=== PATIENT | male | born 1945 | race Caucasian/White ===

== ENCOUNTER 2017-02-14 11:34 | Observation (INO) | payer OTHER ==
[~2017-02-14] VITALS: Ht 182.9 cm; Wt 78.5 kg
[~2017-02-14 11:34] MED LIST: ALAV10TA10 PO; ALBU1.25 NEB; ASPI81CH PO; ATOR40TA16 PO; FERR1TAB36 PO; FURO40TA PO; IPRAAER INH; LACT10SO47 PO; LISI-519 PO; METO25TA3 PO; OMEP20TA PO; SERT1POW3 PO; SPIR25TA PO; SYMB160A INH; THIAPOW36 PO; TRAZ50TA12 PO
[2017-02-14 11:35] VITALS: BP 116/68; PULSE 74; RESP 20; TEMP 97.5; O2SAT 93
--- NOTE | 2017-02-14 12:10 | PD ---
HPI Chief Complaint: Respiratory Symptoms Time Seen by Provider: 12:00 Travel History International Travel<30 days: No Contact w/Intl Traveler<30days: No Traveled to known affect area: No History of Present Illness HPI The patient is a 71 year-old male who presents to the emergency department shortness of breath. Patient is a 2 day history of progressing shortness of breath with bilateral lower extremity edema as well as a dry and nonproductive cough. The patient has a history of COPD, quit smoking 4 days ago , and a history congestive heart.. The patient is followed through the [place] [facility] with his rn surgical pcu and primary physician. The patient has been using nebulizers at home without any alleviation of his symptoms. He denies any chest pain, shortness of breath is present at rest, but is worse with exertion. He also notes some intermittent audible wheezing. The patient denies any fever, chills, or sweats. He denies any abdominal pain. PFSH Past Medical History Hx Anticoagulant Therapy: Yes (XARELTO) Arthritis: No Asthma: No Autoimmune Disease: No Blood Disorders: No Anxiety: Yes Depression: Yes Heart Rhythm Problems: No Cancer: No Cardiovascular Problems: Yes (TRIPLE BYPASS) High Cholesterol: No Chemotherapy: No Chest Pain: No Congestive Heart Failure: Yes COPD: Yes Cerebrovascular Accident: No Diabetes: No Diminished Hearing: No Endocrine: No Gastrointestinal Disorders: Yes (EROSIVE ESOPHAGITIS; COLITIS) GERD: Yes Glaucoma: No Genitourinary: No Headaches: No Hepatitis: Yes (C) Hiatal Hernia: Yes Hypertension: Yes Immune Disorder: No Kidney Stones: No Musculoskeletal: No Neurologic: No Psychiatric: Yes Reproductive: No Respiratory: Yes (COPD) Migraines: No Myocardial Infarction: No Radiation Therapy: No Renal Failure: No Seizures: No Sickle Cell Disease: No Sleep Apnea: No Thyroid Disease: No Ulcer: No Past Surgical History Abdominal Surgery: Yes (ESOPHAGEAL VARICIES 2006) AICD: No Appendectomy: No Arteriovenous Shunt: No Cardiac Surgery: Yes Cholecystectomy: No Coronary Artery Bypass Graft: Yes (TRIPLE BYPASS) Ear Surgery: No Endocrine Surgery: No Eye Surgery: No Genitourinary Surgery: No Gynecologic Surgery: No Insulin Pump: No Joint Replacement: No Oral Surgery: No Pacemaker: No Thoracic Surgery: No Other Surgery: Yes (CABAG) Social History Alcohol Use: No Tobacco Use: Yes (E CIGARETTE) Substance Use: Yes (Marijuana) Allergies-Medications (Allergen,Severity, Reaction): Coded Allergies: No Known Allergies (Verified , 02/14/17) Reported Meds & Prescriptions Reported Meds & Active Scripts Active Furosemide 40 Mg Tab 40 Mg PO DAILY Lisinopril 5 Mg Tab 5 Mg PO DAILY 30 Days Reported Thiamine HCl 1 Pow Pow 100 Mg PO DAILY Trazodone (Trazodone HCl) 50 Mg Tab 25 Mg PO HS Symbicort Inh (Budesonide/Formoterol Fumarate) 160-4.5 Mcg/Act Aero 1 Puff INH BID Spironolactone 25 Mg Tab 25 Mg PO BID Sertraline HCl (Sertraline HCl (Bulk)) 1 Pow Pow 50 Mg PO DAILY Atorvastatin (Atorvastatin Calcium) 40 Mg Tab 40 Mg PO HS Alavert (Loratadine) 10 Mg Tab 10 Mg PO DAILY Omeprazole 20 Mg Tab 20 Mg PO DAILY Metoprolol Tartrate 25 Mg Tab 25 Mg PO BID Iron (Ferrous Sulfate) 325 Mg Tab 325 Mg PO DAILY Take after a meal. Enulose Liq (Lactulose (Encephalopathy) Liq) 10 Gm/15 Ml Soln Combivent Respimat Inh (Ipratropium-Albuterol Inh) 20-100 Jail/Act Aero 1 Puff INH QID Aspirin 81 Mg Chew 81 Mg PO DAILY Albuterol Neb (Albuterol Sulfate) 1.25 Mg/3 Ml Neb 1 Ampule NEB QID PRN Review of Systems Except as stated in HPI: all other systems reviewed are Neg General / Constitutional: No: Fever Cardiovascular: No: Chest Pain or Discomfort Respiratory: Positive: Cough, Shortness of Breath, Wheezing Gastrointestinal: No: Nausea, Vomiting, Abdominal Pain Musculoskeletal: Positive: Edema Physical Exam Narrative GENERAL: Awake, alert, pleasant 71-year-old male who appears his stated age and is in mild respiratory distress. SKIN: Warm and dry. HEAD: Atraumatic. Normocephalic. EYES: Pupils equal and round. Mild pallor noted. ENT: No nasal bleeding or discharge. Mucous membranes pink and moist. NECK: Trachea midline. No JVD. CARDIOVASCULAR: Regular, tachycardic with a heart rate of 102. No audible murmur.. RESPIRATORY: No accessory muscle use. Diminished breath sounds in the bases bilateral. GASTROINTESTINAL: Abdomen soft, non-tender, nondistended. Umbilical hernia which is reducible, superior ventral hernia which is reducible. MUSCULOSKELETAL: No obvious deformities. No clubbing. No cyanosis. Bilateral lower extremity pitting edema. NEUROLOGICAL: Awake and alert. No obvious cranial nerve deficits. Motor grossly within normal limits. Normal speech. PSYCHIATRIC: Appropriate mood and affect; insight and judgment normal. Data Data Last Documented VS Vital Signs Date Time Temp Pulse Resp B/P Pulse Ox O2 Delivery O2 Flow Rate FiO2 02/14/17 13:45 66 20 131/78 93 Room Air 02/14/17 11:35 97.5 Orders Complete Blood Count With Diff (02/14/17 12:05) Comprehensive Metabolic Panel (02/14/17 12:05) B-Type Natriuretic Peptide (02/14/17 12:05) Act Partial Throm Time (Ptt) (02/14/17 12:05) Prothrombin Time / Inr (Pt) (02/14/17 12:05) Magnesium (Mg) (02/14/17 12:05) Ckmb (Isoenzyme) Profile (02/14/17 12:05) Troponin I (02/14/17 12:05) Iv Access Insert/Monitor (02/14/17 12:05) Electrocardiogram (02/14/17 12:05) Ecg Monitoring (02/14/17 12:05) Oximetry (02/14/17 12:05) Oxygen Administration (02/14/17 12:05) Chest, Single Ap (02/14/17 12:05) Sodium Chloride 0.9% Flush (Ns Flush) (02/14/17 12:15) Furosemide Inj (Lasix Inj) (02/14/17 12:15) Methylprednisolone So Succ Inj (Solumedr (02/14/17 12:15) Albuterol-Ipratropium Neb (Duoneb Neb) (02/14/17 12:15) Aspirin Chew (Aspirin Chew) (02/14/17 13:45) Labs Laboratory Tests Test 02/14/17 12:05 White Blood Count 4.7 TH/MM3 Red Blood Count 3.55 MIL/MM3 Hemoglobin 10.1 GM/DL Hematocrit 30.7 % Mean Corpuscular Volume 86.5 FL Mean Corpuscular Hemoglobin 28.3 PG Mean Corpuscular Hemoglobin 32.7 % Concent Red Cell Distribution Width 19.9 % Platelet Count 149 TH/MM3 Mean Platelet Volume 8.8 FL Neutrophils (%) (Auto) 65.6 % Lymphocytes (%) (Auto) 13.2 % Monocytes (%) (Auto) 13.5 % Eosinophils (%) (Auto) 6.6 % Basophils (%) (Auto) 1.1 % Neutrophils # (Auto) 3.1 TH/MM3 Lymphocytes # (Auto) 0.6 TH/MM3 Monocytes # (Auto) 0.6 TH/MM3 Eosinophils # (Auto) 0.3 TH/MM3 Basophils # (Auto) 0.1 TH/MM3 CBC Comment DIFF FINAL Differential Comment Prothrombin Time 13.6 SEC Prothromb Time International 1.2 RATIO Ratio Activated Partial 26.1 SEC Thromboplast Time Sodium Level 143 MEQ/L Potassium Level 3.4 MEQ/L Chloride Level 109 MEQ/L Carbon Dioxide Level 28.9 MEQ/L Anion Gap 5 MEQ/L Blood Urea Nitrogen 15 MG/DL Creatinine 0.79 MG/DL Estimat Glomerular Filtration 97 ML/MIN Rate Random Glucose 90 MG/DL Calcium Level 8.1 MG/DL Magnesium Level 1.5 MG/DL Total Bilirubin 0.5 MG/DL Aspartate Amino Transf 17 U/L (AST/SGOT) Alanine Aminotransferase 13 U/L (ALT/SGPT) Alkaline Phosphatase 83 U/L Total Creatine Kinase 49 U/L Troponin I 0.02 NG/ML B-Type Natriuretic Peptide 3148 PG/ML Total Protein 6.6 GM/DL Albumin 2.9 GM/DL [facility] Medical Decision Making Medical Screen Exam Complete: Yes Emergency Medical Condition: Yes Medical Record Reviewed: Yes Interpretation(s) EKG reveals normal sinus rhythm with a rate of 66. Left bundle-branch block. Laboratory Tests Test 02/14/17 12:05 White Blood Count 4.7 TH/MM3 Red Blood Count 3.55 MIL/MM3 Hemoglobin 10.1 GM/DL Hematocrit 30.7 % Mean Corpuscular Volume 86.5 FL Mean Corpuscular Hemoglobin 28.3 PG Mean Corpuscular Hemoglobin 32.7 % Concent Red Cell Distribution Width 19.9 % Platelet Count 149 TH/MM3 Mean Platelet Volume 8.8 FL Neutrophils (%) (Auto) 65.6 % Lymphocytes (%) (Auto) 13.2 % Monocytes (%) (Auto) 13.5 % Eosinophils (%) (Auto) 6.6 % Basophils (%) (Auto) 1.1 % Neutrophils # (Auto) 3.1 TH/MM3 Lymphocytes # (Auto) 0.6 TH/MM3 Monocytes # (Auto) 0.6 TH/MM3 Eosinophils # (Auto) 0.3 TH/MM3 Basophils # (Auto) 0.1 TH/MM3 CBC Comment DIFF FINAL Differential Comment Prothrombin Time 13.6 SEC Prothromb Time International 1.2 RATIO Ratio Activated Partial 26.1 SEC Thromboplast Time Sodium Level 143 MEQ/L Potassium Level 3.4 MEQ/L Chloride Level 109 MEQ/L Carbon Dioxide Level 28.9 MEQ/L Anion Gap 5 MEQ/L Blood Urea Nitrogen 15 MG/DL Creatinine 0.79 MG/DL Estimat Glomerular Filtration 97 ML/MIN Rate Random Glucose 90 MG/DL Calcium Level 8.1 MG/DL Magnesium Level 1.5 MG/DL Total Bilirubin 0.5 MG/DL Aspartate Amino Transf 17 U/L (AST/SGOT) Alanine Aminotransferase 13 U/L (ALT/SGPT) Alkaline Phosphatase 83 U/L Total Creatine Kinase 49 U/L Troponin I 0.02 NG/ML B-Type Natriuretic Peptide 3148 PG/ML Total Protein 6.6 GM/DL Albumin 2.9 GM/DL Differential Diagnosis Differential diagnosis includes COPD exacerbation, congestive heart failure, pulmonary edema, pleural effusion, pneumonia, acute coronary syndrome. Narrative Course IV was established, labs are drawn and sent, and the patient was placed on cardiac telemetry monitoring and continuous pulse oximetry monitoring. EKG was ordered and interpreted. Chest x-ray was obtained. The patient was administered Solu-Medrol 120, grams intravenously, duo nebs, and Lasix. BNP was sent to lab. Chest x-ray reveals a left pleural effusion, appears to be similar to previous chest x-ray. BNP was greater than 3000, the patient did urinate over 800 cc after intravenous Lasix. He had mild improvement of his symptoms, however, his O2 sat remained 90-91% on room air and he still had mild shortness of breath. I had a discussion with the patient regarding outpatient treatment versus 23 hour observation, patient states he is still symptomatic and would prefer 23 hour observation. Therefore, the on-call medical team was paged for observation. Physician Communication Physician Communication The on-call medical service was paged for 23 hour observation. Diagnosis Primary Impression: CHF exacerbation Qualified Code: I50.9 - Acute on chronic congestive heart failure, unspecified congestive heart failure type Additional Impression: Hypoxia Admitting Information Admitting Physician Requests: Observation Condition: Stable Kevon Mccarthy MD Feb 14, 2017 12:10
[2017-02-14] MEDS ORDERED: FUROSEMIDE 40 MG/4 ML VIAL IVP ONE (12:15)
[2017-02-14] MEDS ORDERED: SODIUM CHLORIDE 0.9% FLUSH 10 ML FLUSH IVF PRN (12:15)
[2017-02-14] MEDS ORDERED: methylPREDNISolone SOD SUCC 125 MG/2 ML VIAL IVP ONE (12:15)
[2017-02-14 12:30] LABS: AUTOMATED NEUTROPHIL # 3.1 TH/MM3 (1.8-7.7); BASOPHIL # 0.1 TH/MM3 (0-0.2); BASOPHIL % 1.1 % (0.0-2.0); EOSINOPHIL # 0.3 TH/MM3 (0-0.4); EOSINOPHIL % 6.6 % (0.0-4.0); HEMATOCRIT 30.7 % (39.0-51.0); HEMO FLAGS DIFF FINAL; LYMPH % 13.2 % (9.0-44.0); LYMPHOCYTE # 0.6 TH/MM3 (1.0-4.8); MEAN CELL VOLUME 86.5 FL (80.0-100.0); MEAN CORPUSCULAR HEMOGLOBIN 28.3 PG (27.0-34.0); MEAN CORPUSCULAR HGB CONC 32.7 % (32.0-36.0); MONO % 13.5 % (0.0-8.0); NEUT % 65.6 % (16.0-70.0); PLATELET COUNT 149 TH/MM3 (150-450); RED BLOOD COUNT 3.55 MIL/MM3 (4.50-5.90); RED CELL DISTRIBUTION WIDTH 19.9 % (11.6-17.2); WHITE BLOOD COUNT 4.7 TH/MM3 (4.0-11.0)
[2017-02-14 12:41] LABS: APTT (PATIENT) 26.1 SEC (24.3-30.1); INTERNATIONAL NORMALIZED RATIO 1.2 RATIO; PROTHROMBIN TIME - PATIENT 13.6 SEC (9.8-11.6)
[2017-02-14 12:48] LABS: ALT (GPT) 13 U/L (12-78); ANION GAP 5 MEQ/L (5-15); AST (GOT) 17 U/L (15-37); BICARBONATE 28.9 MEQ/L (21.0-32.0); BLOOD UREA NITROGEN 15 MG/DL (7-18); CHLORIDE 109 MEQ/L (98-107); GLOMERULAR FILTRATION RATE 97 ML/MIN (>89); MAGNESIUM 1.5 MG/DL (1.5-2.5); POTASSIUM 3.4 MEQ/L (3.5-5.1); SODIUM (NA) 143 MEQ/L (136-145)
[2017-02-14 12:51] LABS: ALKALINE PHOSPHATASE 83 U/L (45-117); TOTAL BILIRUBIN ADULT 0.5 MG/DL (0.2-1.0)
[2017-02-14 12:53] LABS: CREATINE KINASE 49 U/L (39-308)
[2017-02-14] MEDS: RESP: ALBUTEROL 2.5 MG/IPRATROPIUM 0.5 MG NEB (SCH) INH (13:14)
[2017-02-14 13:41] VITALS: RESP 20; O2SAT 92
[2017-02-14 13:45] VITALS: BP 131/78; PULSE 66; RESP 20; O2SAT 93
[2017-02-14] MEDS ORDERED: ASPIRIN 81 MG CHEW TAB CHEW ONE (13:45)
--- NOTE | 2017-02-14 14:33 | RADRPT ---
EXAM DATE/TIME: 02/14/2017 12:18 [facility] COMPARISON: CHEST SINGLE AP, September 23, 2016, 14:39. INDICATIONS : Short of breath and swelling in both legs MEDICAL HISTORY : Chronic obstructive pulmonary disease. Congestive heart failure. SURGICAL HISTORY : CABG. ENCOUNTER: Initial ACUITY: 1 day PAIN SCORE: 0/10 LOCATION: Chest FINDINGS: Median sternotomy wires are noted status post cardiac surgery. The heart is enlarged. The lungs are stable compared to the previous examination. CONCLUSION: 1. Cardiomegaly. 2. No acute focal pulmonary infiltrate or pulmonary vascular congestion. Jeff Loza MD on February 14, 2017 at 14:13 Board Certified Radiologist. This report was verified electronically.
[2017-02-14 15:11] VITALS: BP 135/79; PULSE 68; RESP 20; O2SAT 92
--- NOTE | 2017-02-14 15:25 | HHI.HP ---
[facility] Service Family Medicine Primary Care Physician [facility] Admission Diagnosis congestive heart failure, hypoxia Diagnoses: Chief Complaint: "more of the same" International Travel<30 Days: No Contact w/Intl Traveler<30days: No Known Affected Area: No History of Present Illness 71 year old male with a history of CAD, CABG, CHF, COPD, cirrhosis who presents with a five-day history of increasing swelling of the ankles and legs and "labored breathing". These symptoms began abruptly three days ago. He is able to walk long distances but he gets tired, "run out of energy." No chest pain, dizziness, nausea, vomiting. Right now he is sleepy, only got a little bit last night. Denies confusion, falls, seizures. No problem lying flat, sleeps on one pillow. Weighs himself at home, gains a couple pounds in the last three days. No sick contacts or recent illnesses. No recent travel. Denies history of stroke. Baseline of CHF, last echo unknown, probably 9 months ago. Takes aspirin and water pills. On digoxin as well. He is not on home oxygen for his COPD but states he uses his albuterol inhaler 2-3 times per day. (Rosalind Baires MD R1) Review of Systems Constitutional: COMPLAINS OF: Fatigue, Weight gain (2-3lb in one week), Change in appetite (decreased), DENIES: Fever, Chills Eyes: DENIES: Blurred vision, Diplopia Ears, nose, mouth, throat: DENIES: Tinnitus, Hearing loss, Throat pain, Running Nose Respiratory: COMPLAINS OF: Cough (on and off), Wheezing, Shortness of breath, DENIES: Hemoptysis, Sputum production Cardiovascular: COMPLAINS OF: Dyspnea on Exertion, Lower Extremity Edema, Claudication, DENIES: Chest pain, Palpitations, Syncope, PND, Orthopnea Gastrointestinal: COMPLAINS OF: Abdominal pain (umbilical hernia chronic pain) , DENIES: Black stools, Bloody stools, Constipation, Diarrhea, Nausea, Vomiting Genitourinary: COMPLAINS OF: Urinary incontinence (sometimes), DENIES: Urinary frequency, Urgency, Dysuria Musculoskeletal: DENIES: Back pain, Neck pain Integumentary: DENIES: Rash Hematologic/lymphatic: DENIES: Bruising Immunologic/allergic: DENIES: Urticaria Neurologic: COMPLAINS OF: Tremor (when out of breath), Poor Balance, DENIES: Headache, Seizures (Rosalind Baires MD R1) Past Family Social History Past Medical History Cirrhosis - on lactulose Hepatitis C - treated 2015 (12 week therapy) History of alcohol abuse Varices - banded 7-8 years COPD - intubated 2 years ago for exacerbation for ~ 1 week at [place] CHF - has case filler, unknown echo timing, unknown EF HTN Past Surgical History Triple bypass approximately 2 years ago Reported Medications Reported Meds & Active Scripts Active Furosemide 40 Mg Tab 40 Mg PO DAILY Lisinopril 5 Mg Tab 5 Mg PO DAILY 30 Days Reported Thiamine HCl 1 Pow Pow 100 Mg PO DAILY Trazodone (Trazodone HCl) 50 Mg Tab 25 Mg PO HS Symbicort Inh (Budesonide/Formoterol Fumarate) 160-4.5 Mcg/Act Aero 1 Puff INH BID Spironolactone 25 Mg Tab 25 Mg PO BID Sertraline HCl (Sertraline HCl (Bulk)) 1 Pow Pow 50 Mg PO DAILY Atorvastatin (Atorvastatin Calcium) 40 Mg Tab 40 Mg PO HS Alavert (Loratadine) 10 Mg Tab 10 Mg PO DAILY Omeprazole 20 Mg Tab 20 Mg PO DAILY Metoprolol Tartrate 25 Mg Tab 25 Mg PO BID Iron (Ferrous Sulfate) 325 Mg Tab 325 Mg PO DAILY Take after a meal. Enulose Liq (Lactulose (Encephalopathy) Liq) 10 Gm/15 Ml Soln Combivent Respimat Inh (Ipratropium-Albuterol Inh) 20-100 Fdc/Act Aero 1 Puff INH QID Aspirin 81 Mg Chew 81 Mg PO DAILY Albuterol Neb (Albuterol Sulfate) 1.25 Mg/3 Ml Neb 1 Ampule NEB QID PRN ( Rosalind Baires MD R1) Allergies: Coded Allergies: No Known Allergies (Verified , 02/14/17) Family History Mother: , natural causes Father: 53, CHF Son: age 13, CHF Son: age 43, stroke, EtOH abuse Social History Cigarette: former, <1PPD 30 years Alcohol: wine, 1/2 bottle weekly Illicit: Lives alone Not on home O2 (Rosalind Baires MD R1) Physical Exam Vital Signs Vital Signs Date Time Temp Pulse Resp B/P Pulse Ox O2 Delivery O2 Flow Rate FiO2 02/14/17 13:45 66 20 131/78 93 Room Air 02/14/17 13:41 92 Room Air 02/14/17 13:41 20 92 Room Air 02/14/17 11:35 97.5 74 20 116/68 93 Room Air Physical Exam GENERAL: This is a thin elderly male lying in bed sleeping. SKIN: No rashes, ecchymoses or lesions. Cool and dry. HEAD: Atraumatic. Normocephalic. No temporal or scalp tenderness. EYES: Pupils equal round and reactive. Extraocular motions intact. No scleral icterus. No injection or drainage. ENT: Nose without bleeding, purulent drainage or septal hematoma. Throat without erythema, tonsillar hypertrophy or exudate. Uvula midline. Airway patent. NECK: Trachea midline. No JVD or lymphadenopathy. Supple, nontender, no meningeal signs. CARDIOVASCULAR: Regular rate and rhythm without murmurs, gallops, or rubs. RESPIRATORY: End-expiratory wheezing noted throughout. No obvious crackles, rales. Breath sounds equal bilaterally. GASTROINTESTINAL: Abdomen soft, thin, non-tender, nondistended. There is a large umbilical hernia which is reducible and nontender. Bowel sounds are normal in all 4 quadrants and in hernia sac No hepato-splenomegaly, or palpable masses. No guarding. MUSCULOSKELETAL: Extremities without clubbing, cyanosis, or edema. No joint tenderness, effusion, or edema noted. No calf tenderness. Negative Homans sign bilaterally. NEUROLOGICAL: Awake and alert. Cranial nerves II through XII intact. No asterixis. Grossly normal sensory and strength functions. Normal speech. Laboratory Laboratory Tests Test 02/14/17 12:05 White Blood Count 4.7 Red Blood Count 3.55 Hemoglobin 10.1 Hematocrit 30.7 Mean Corpuscular Volume 86.5 Mean Corpuscular Hemoglobin 28.3 Mean Corpuscular Hemoglobin 32.7 Concent Red Cell Distribution Width 19.9 Platelet Count 149 Mean Platelet Volume 8.8 Neutrophils (%) (Auto) 65.6 Lymphocytes (%) (Auto) 13.2 Monocytes (%) (Auto) 13.5 Eosinophils (%) (Auto) 6.6 Basophils (%) (Auto) 1.1 Neutrophils # (Auto) 3.1 Lymphocytes # (Auto) 0.6 Monocytes # (Auto) 0.6 Eosinophils # (Auto) 0.3 Basophils # (Auto) 0.1 CBC Comment DIFF FINAL Differential Comment Prothrombin Time 13.6 Prothromb Time International 1.2 Ratio Activated Partial 26.1 Thromboplast Time Sodium Level 143 Potassium Level 3.4 Chloride Level 109 Carbon Dioxide Level 28.9 Anion Gap 5 Blood Urea Nitrogen 15 Creatinine 0.79 Estimat Glomerular Filtration 97 Rate Random Glucose 90 Calcium Level 8.1 Magnesium Level 1.5 Total Bilirubin 0.5 Aspartate Amino Transf 17 (AST/SGOT) Alanine Aminotransferase 13 (ALT/SGPT) Alkaline Phosphatase 83 Total Creatine Kinase 49 Troponin I 0.02 B-Type Natriuretic Peptide 3148 Total Protein 6.6 Albumin 2.9 (Rosalind Baires MD R1) Result Diagram: 02/14/17 1205 02/14/17 1205 Imaging Last 72 hours Impressions Chest X-Ray 02/14/17 1205 Signed Impressions: Service Date/Time: Tuesday, February 14, 2017 12:18 - CONCLUSION: 1. Cardiomegaly. 2. No acute focal pulmonary infiltrate or pulmonary vascular congestion. Jeff Loza MD (Rosalind Baires MD R1) Assessment and Plan Assessment and Plan 71-year-old male with history of CHF, CAD with history of CABG, COPD, cirrhosis presented to the ED with shortness of breath and chest pain. Code Status Full code Discussed Condition With Dr. Sanchez, Dr. Joyner (Rosalind Baires MD R1) Attending Attestation THIS CASE WAS DISCUSSED WITH THE RESIDENT PHYSICIAN. I HAVE REVIEWED THE RECORD AND AGREE WITH THE ABOVE NOTE AND PLAN OF CARE WAS DISCUSSED. I HAVE AUTHORIZED THE ORDER FOR PLACEMENT IN OUT-PATIENT OBSERVATION STATUS. (Crow Joyner MD) Problem List: (1) CHF exacerbation Status: Acute Plan: Last echo 08/2016 showing EF 35/40%, mild MR, TR, peak pulmonary arterial pressure = 58mmHg. CXR this hospital stay showing cardiomegaly without evidence of infiltrate. Repeat echocardiogram Lasix 40 mg IV in ED yielded 40 mL diuresis Continue Lasix 40 mg IV twice a day, increase for diuresis as needed Continue home medications for medical management of CHF, including lisinopril, aspirin, spironolactone May benefit from beta damon and cardiac rehabilitation evaluation (2) Cirrhosis, alcoholic Status: Chronic Plan: Chronic, stable. No evidence of ascites. Patient states he had symptomatic esophageal varices banded 7-8 years ago. He also notes a history of encephalopathy. Currently on lactulose at home, unknown dose. Continue PPI Will hold lactulose at admission given unknown dose. Monitor bowel movements. Restart at 20 mg 3-4 times per day if no bowel movements, goal is 2-3 bowel movements daily CIWA protocol with rally pack. He is already on many multivitamins as outpatient (3) Fluids/Electrolytes/Nutrition/Prophylaxis Status: Acute Plan: Fluids: PO hydration Electrolytes: monitor and replete as needed Nutrition: heart-healthy diet DVT Prophylaxis: Lovenox 40mg subQ q24hr/bilateral SCDs. Platelets 149 at admission GI Prophylaxis: Protonix 20mg PO daily home dose (Rosalind Baires MD R1) Problem Qualifiers (1) CHF exacerbation: Qualified Code: I50.9 - Acute on chronic congestive heart failure, unspecified congestive heart failure type (2) Cirrhosis, alcoholic: Qualified Code: K70.30 - Alcoholic cirrhosis of liver without ascites Rosalind Baires MD R1 Feb 14, 2017 15:25 Crow Joyner MD Feb 15, 2017 12:33
[2017-02-14] MEDS ORDERED: NALOXONE HCL 0.4 MG/ML AMP IV PRN (15:45)
[2017-02-14] MEDS ORDERED: ACETAMINOPHEN 325 MG TAB PO PRN (15:45)
[2017-02-14] MEDS ORDERED: SODIUM CHLORIDE 0.9% FLUSH 10 ML FLUSH IV FLUSH PRN (15:45)
[2017-02-14] MEDS ORDERED: ONDANSETRON HCL 4 MG/2 ML VIAL IVP PRN (15:45)
[2017-02-14 15:55] VITALS: O2SAT 93
[2017-02-14] MEDS ORDERED: LORazepam 2 MG/ML VIAL IV PUSH PRN ×4 (16:00)
[2017-02-14] MEDS ORDERED: LORazepam 1 MG TAB PO PRN (16:00)
[2017-02-14] MEDS ORDERED: LORazepam 2 MG TAB PO PRN (16:00)
[2017-02-14] MEDS ORDERED: FLUMAZENIL 0.5 MG/5 ML VIAL IV PUSH PRN (16:00)
[2017-02-14] MEDS ORDERED: RESP: ALBUTEROL 1.25 MG/3 ML NEB (PRN) NEB (16:00)
[2017-02-14] MEDS ORDERED: PILL SPLITTER OTHER PRN (16:15)
[2017-02-14] MEDS ORDERED: NON-FORMULARY DRUG (Ipratropium-Albuterol Inh (Combivent Respimat Inh) 1 PUFF) INH SCH (18:00)
[2017-02-14] MEDS: FOLIC ACID 1 MG TAB PO SCH (19:51)
[2017-02-14] MEDS: MULTIVITAMINS/MINERALS THERAPEUTIC TAB PO SCH (19:51)
[2017-02-14] MEDS: ALBUTEROL SULFATE 90 MCG/ACT HFA 18 GM INHALER INH SCH ×2 (19:52→21:45)
[2017-02-14] MEDS: FUROSEMIDE 40 MG/4 ML VIAL IV PUSH SCH (19:52)
[2017-02-14 20:24] LABS: BLOOD, URINE NEG (NEG); COMMENT (UR) CULT NOT INDICATED; CULTURE IF INDICATED CULT NOT INDICATED; GLUCOSE,URINE NEG (NEG); HYALINE CAST, URINE 1 /lpf (RARE); KETONE, URINE NEG (NEG); MUCUS URINE FEW /lpf (OCC); NITRITE,URINE NEG (NEG); URINE COLOR COLORLESS (YELLW/STRAW)
[2017-02-14 20:51] LABS: CREATINE KINASE 33 U/L (39-308)
[2017-02-14] MEDS: SODIUM CHLORIDE 0.9% FLUSH 10 ML FLUSH IV FLUSH SCH (21:00)
[2017-02-14 21:25] VITALS: BP 119/66; PULSE 67; RESP 18; TEMP 98.2; O2SAT 95
[2017-02-14] MEDS: BUDESONIDE-FORMOTEROL 160/4.5 MCG INHALER INH SCH (21:45)
[2017-02-14] MEDS: METOPROLOL TARTRATE 25 MG TAB PO SCH (21:46)
[2017-02-14] MEDS: ATORVASTATIN 40 MG TAB PO SCH (21:46)
[2017-02-14] MEDS: traZODone HCL 50 MG TAB PO SCH (21:46)
[2017-02-14] MEDS: SPIRONOLACTONE 25 MG TAB PO SCH (21:46)
[2017-02-15] VITALS (9 sets, daily range): BP systolic 96–122; BP diastolic 51–72; PULSE 58–102; RESP 16–20; TEMP 97.4–99.7; O2SAT 65–96
[2017-02-15 00:57] LABS: CREATINE KINASE 54 U/L (39-308)
[2017-02-15 05:24] LABS: AUTOMATED NEUTROPHIL # 2.2 TH/MM3 (1.8-7.7); BASOPHIL % 0.1 % (0.0-2.0); EOSINOPHIL % 0.1 % (0.0-4.0); HEMATOCRIT 28.4 % (39.0-51.0); HEMO FLAGS DIFF FINAL; LYMPH % 13.9 % (9.0-44.0); LYMPHOCYTE # 0.4 TH/MM3 (1.0-4.8); MEAN CELL VOLUME 86.1 FL (80.0-100.0); MEAN CORPUSCULAR HEMOGLOBIN 27.8 PG (27.0-34.0); MEAN CORPUSCULAR HGB CONC 32.2 % (32.0-36.0); MONO % 13.9 % (0.0-8.0); PLATELET COUNT 126 TH/MM3 (150-450); RED CELL DISTRIBUTION WIDTH 19.7 % (11.6-17.2); WHITE BLOOD COUNT 3.1 TH/MM3 (4.0-11.0)
[2017-02-15 05:50] LABS: ALT (GPT) 10 U/L (12-78); ANION GAP 8 MEQ/L (5-15); AST (GOT) 13 U/L (15-37); BICARBONATE 28.6 MEQ/L (21.0-32.0); BLOOD UREA NITROGEN 22 MG/DL (7-18); CHLORIDE 107 MEQ/L (98-107); GLOMERULAR FILTRATION RATE 80 ML/MIN (>89); POTASSIUM 3.3 MEQ/L (3.5-5.1); SODIUM (NA) 144 MEQ/L (136-145)
[2017-02-15 05:51] LABS: ALKALINE PHOSPHATASE 63 U/L (45-117); TOTAL BILIRUBIN ADULT 0.4 MG/DL (0.2-1.0)
[2017-02-15] MEDS ORDERED: POTASSIUM CHLORIDE 10 MEQ CONTROLLED RELEASE TAB PO ONE (06:45)
[2017-02-15] MEDS ORDERED: THIAMINE HCL 100 MG PO SCH (09:00)
[2017-02-15] MEDS ORDERED: SERTRALINE HCL 50 MG PO SCH (09:00)
[2017-02-15] MEDS ORDERED: NON-FORMULARY DRUG (Omeprazole 20 MG) PO SCH (09:00)
[2017-02-15] MEDS: SODIUM CHLORIDE 0.9% FLUSH 10 ML FLUSH IV FLUSH SCH ×2 (09:00→21:00)
[2017-02-15] MEDS ORDERED: LISINOPRIL 5 MG TAB PO SCH (09:00)
--- NOTE | 2017-02-15 09:22 | EKG ---
Date Performed: 02/15/2017 Time Performed: 00:51:35 PTAGE: 71 years EKG: ATRIAL FIBRILLATION LEFT BUNDLE BRANCH BLOCK ABNORMAL ECG PREVIOUS TRACING : 02/14/2017 19.44 DOCTOR: Winston Diane Interpretating Date/Time 02/15/2017 09:22:44
--- NOTE | 2017-02-15 09:58 | EKG ---
Date Performed: 02/14/2017 Time Performed: 19:44:58 PTAGE: 71 years EKG: Sinus rhythm MARKED RIGHT AXIS DEVIATION LEFT BUNDLE BRANCH BLOCK ABNORMAL ECG PREVIOUS TRACING : 02/14/2017 12.11 DOCTOR: Winston Diane Interpretating Date/Time 02/15/2017 09:57:33
[2017-02-15] MEDS: TIOTROPIUM BROMIDE 18 MCG INH INH SCH (11:00)
[2017-02-15] MEDS: BUDESONIDE-FORMOTEROL 160/4.5 MCG INHALER INH SCH ×2 (11:00→21:55)
[2017-02-15] MEDS: FUROSEMIDE 40 MG/4 ML VIAL IV PUSH SCH ×2 (11:01→18:32)
[2017-02-15] MEDS: ALBUTEROL SULFATE 90 MCG/ACT HFA 18 GM INHALER INH SCH ×4 (11:01→21:55)
[2017-02-15] MEDS: MULTIVITAMINS/MINERALS THERAPEUTIC TAB PO SCH (11:02)
[2017-02-15] MEDS: LORATADINE 10 MG TAB PO SCH (11:02)
[2017-02-15] MEDS: PANTOPRAZOLE SOD 20 MG DELAYED RELEASE TAB PO SCH (11:02)
[2017-02-15] MEDS: ASPIRIN 81 MG CHEW TAB PO SCH (11:02)
[2017-02-15] MEDS: THIAMINE HCL 100 MG TAB PO SCH (11:03)
[2017-02-15] MEDS: SERTRALINE HCL 50 MG TAB PO SCH (11:03)
[2017-02-15] MEDS: SPIRONOLACTONE 25 MG TAB PO SCH ×2 (11:03→21:56)
[2017-02-15] MEDS: METOPROLOL TARTRATE 25 MG TAB PO SCH ×2 (11:03→21:56)
[2017-02-15] MEDS: FOLIC ACID 1 MG TAB PO SCH (11:03)
--- NOTE | 2017-02-15 11:19 | EKG ---
Date Performed: 02/14/2017 Time Performed: 12:11:45 PTAGE: 71 years EKG: Sinus rhythm LEFT BUNDLE BRANCH BLOCK ABNORMAL ECG PREVIOUS TRACING : 09/25/2016 00.02 DOCTOR: Winston Diane Interpretating Date/Time 02/15/2017 11:16:43
--- NOTE | 2017-02-15 11:40 | RADRPT ---
EXAM DATE/TIME: 02/15/2017 09:38 [facility] COMPARISON: US ABDOMEN - COMPLETE, April 30, 2016, 23:33. INDICATIONS : Ascites. MEDICAL HISTORY : Myocardial infarction. Hypercholesterolemia. Chronic obstructive pulmonary disease. Hiatel hernia. E sophogeal varicies. Liver disease. SURGICAL HISTORY : CABG. ENCOUNTER: Initial ACUITY: 1 day PAIN SCORE: 6/10 LOCATION: Bilateral upper quadrant AREA EVALUATED: Quadrants. FINDINGS: Imaging of the abdomen and pelvis was performed to evaluate for ascites for possible paracentesis. A scitic fluid is most prominent in the right upper quadrant and left lower quadrants. There may be suf ficient volume for diagnostic paracentesis in the left lower quadrant region. CONCLUSION: Ascites, most prominent in the left lower quadrant. Oswaldo Carr MD on February 15, 2017 at 11:34 Board Certified Radiologist. This report was verified electronically.
--- NOTE | 2017-02-15 11:59 | HHI.FPPN ---
Subjective Remarks No acute events overnight and patient states that he is feeling relatively well this morning. He does complain of some abdominal fullness but feels that this has gotten better with his diuresis and denies any overt abdominal pain or abdominal firmness. His lower extremity edema has also improved with his diuresis overnight. He denies any chest pain or palpitations although he states he did have one episode of chest pain when he "jerked awake" from a dream , this discomfort has resolved. He denies any significant shortness of breath at this time and is resting comfortably on room air this morning. In summary this is a 71-year-old male who presents to the emergency department with a 5 day history of progressive swelling of the lower extremities and dyspnea on exertion. They abruptly got worse approximately 3 days prior to presentation at which point he was unable to walk long distances before getting tired and short of breath. He has some anterior chest discomfort with deep breathing that is described as "soreness" and is reproducible with pressure. He denies any pleuritic chest pain or substernal chest pain. He does have a history of coronary artery disease and CHF and has been taking his home medications without issue. He denies nocturnal dyspnea. He denies any palpitations. He does weigh himself at home and states that he has gained "a couple of pounds " over the last 5 days. Past Medical History Cirrhosis - on lactulose Hepatitis C - treated 2015 (12 week therapy) History of alcohol abuse Varices - banded 7-8 years COPD - intubated 2 years ago for exacerbation for ~ 1 week at [place] CHF - has security escort, unknown echo timing, unknown EF HTN Past Surgical History Triple bypass approximately 2 years ago Family History Mother: , natural causes Father: 53, CHF Son: age 13, CHF Son: age 43, stroke, EtOH abuse Social History Cigarette: former, <1PPD 30 years Alcohol: wine, 1/2 bottle weekly Illicit: Lives alone Not on home O2 Objective Vitals Vital Signs Date Time Temp Pulse Resp B/P Pulse Ox O2 Delivery O2 Flow Rate FiO2 02/15/17 11:14 98.4 69 16 122/71 65 02/15/17 07:16 97.5 58 20 96/51 95 02/15/17 05:55 59 02/14/17 21:25 98.2 67 18 119/66 95 02/14/17 15:55 93 21 02/14/17 15:11 68 20 135/79 92 Room Air 02/14/17 13:45 66 20 131/78 93 Room Air 02/14/17 13:41 92 Room Air 02/14/17 13:41 20 92 Room Air I/O 02/14/17 02/14/17 02/14/17 02/15/17 02/15/17 02/15/17 07:00 15:00 23:00 07:00 15:00 23:00 Intake Total 30 ml Output Total 500 ml 475 ml Balance -500 ml 30 ml -475 ml Intake Oral 30 ml Output Urine Total 500 ml 475 ml # Voids 1 Result Diagram: 02/15/17 0433 02/15/17 0433 A/P Assessment and Plan 71-year-old male with history of CHF, CAD with history of CABG, COPD, cirrhosis presented to the ED with shortness of breath and chest pain. Problem List: (1) CHF exacerbation Status: Acute Plan: Last echo 08/2016 showing EF 35/40%, mild MR, TR, peak pulmonary arterial pressure = 58mmHg. CXR this hospital stay showing cardiomegaly without evidence of infiltrate. - Limited echo ordered for today Continue with diuresis with Lasix 40 mg IV twice a day Daily weight checks Fluid restriction to 1.5 L Salt restriction Continue home medications for medical management of CHF, including lisinopril, aspirin, spironolactone (2) COPD (chronic obstructive pulmonary disease) Status: Chronic Plan: Patient is wheezing with moderate air exchange on exam today - We will order DuoNeb breathing treatments every 6 hours scheduled - Continue with home Spiriva - Change home Symbicort to Advair (patient has had good results with this in the past) (3) Cirrhosis, alcoholic Status: Chronic Plan: Chronic, stable. No evidence of significant ascites. Patient states he had symptomatic esophageal varices banded 7-8 years ago. He also notes a history of encephalopathy. - We will obtain an ammonia level - Currently on lactulose at home but he is unsure of the dose we will restart this at 20 mg by mouth twice a day and titrate as needed. - Continue PPI (4) Fluids/Electrolytes/Nutrition/Prophylaxis Status: Acute Plan: Fluids: PO hydration Electrolytes: monitor and replete as needed Nutrition: heart-healthy diet DVT Prophylaxis: Lovenox 40mg subQ q24hr/bilateral SCDs. Platelets 149 at admission GI Prophylaxis: Protonix 20mg PO daily home dose Problem Qualifiers (1) CHF exacerbation: Qualified Code: I50.9 - Acute on chronic congestive heart failure, unspecified congestive heart failure type (2) COPD (chronic obstructive pulmonary disease): Qualified Code: J44.9 - Chronic obstructive pulmonary disease, unspecified COPD type (3) Cirrhosis, alcoholic: Qualified Code: K70.30 - Alcoholic cirrhosis of liver without ascites Crow Joyner MD Feb 15, 2017 11:59
[2017-02-15] MEDS ORDERED: RESP: ALBUTEROL 2.5 MG/IPRATROPIUM 0.5 MG NEB (PRN) NEB (12:30)
[2017-02-15] MEDS: RESP: ALBUTEROL 2.5 MG/IPRATROPIUM 0.5 MG NEB (SCH) NEB ×2 (15:07→20:35)
[2017-02-15] MEDS ORDERED: RESP: ALBUTEROL 2.5 MG/3 ML NEB (PRN) NEB (15:15)
[2017-02-15 19:22] LABS: AMPHETAMINE, URINE NEG (NEG); BARBITURATES, URINE NEG (NEG); COCAINE, URINE NEG (NEG)
--- NOTE | 2017-02-15 21:01 | ECHLIM ---
Study Study Date:02/15/2017 STUDY CONCLUSIONS SUMMARY - Left ventricle: The cavity size was mildly dilated. Wall thickness was normal. Systolic function was severely reduced. The estimated ejection fraction was 25%. Wall motion was normal; there were no regional wall motion abnormalities. - Mitral valve: Mildly calcified annulus. Mildly thickened leaflets, . Moderate regurgitation. - Left atrium: The atrium was dilated. - Right ventricle: The cavity size was dilated. Wall thickness was normal. If LV function is below 40, please consider prescribing an ACEI or ARB or document rationale for non-use. PROCEDURE DATA STUDY STATUS: Elective. Procedure: Transthoracic echocardiography. Image quality was good. Scanning was performed from the parasternal, apical, and subcostal acoustic windows. Study completion: The patient tolerated the procedure well. Transthoracic echocardiography. M-mode, complete 2D, complete spectral Doppler, and color Doppler. Height: Height: 72in. Weight: Weight: 166.7lb. Body mass index: BMI: 22.6kg/m^2. Body surface area: BSA: 1.97m^2. Patient status: Inpatient. CARDIAC ANATOMY LEFT VENTRICLE: The cavity size was mildly dilated. Wall thickness was normal. Systolic function was severely reduced. The estimated ejection fraction was 25%. Wall motion was normal; there were no regional wall motion abnormalities. AORTIC VALVE: Trileaflet; moderately thickened leaflets. Doppler: Transvalvular velocity was within the normal range. There was no stenosis. No regurgitation. AORTA: Aortic root: The aortic root was normal in size. MITRAL VALVE: Mildly calcified annulus. Mildly thickened leaflets, . Doppler: Transvalvular velocity was within the normal range. There was no evidence for stenosis. Moderate regurgitation. LEFT ATRIUM: The atrium was dilated. RIGHT VENTRICLE: The cavity size was dilated. Wall thickness was normal. PULMONIC VALVE: Doppler: Transvalvular velocity was within the normal range. There was no evidence for stenosis. No regurgitation. TRICUSPID VALVE: Structurally normal valve. Doppler: Transvalvular velocity was within the normal range. No regurgitation. PULMONARY ARTERY: The main pulmonary artery was normal-sized. Systolic pressure was within the normal range. RIGHT ATRIUM: The atrium was normal in size. PERICARDIUM: There was no pericardial effusion. SYSTEMIC VEINS: Inferior vena cava: The vessel was normal in size. Patient weight: 166.7lb _Ejection fraction:_ 65-75% _Fractional shortening:_ 32% up to 5Kg 5-11.5Kg 11.6-22.9Kg 23-45Kg 45-57Kg Aortic Root 7-13 <17 13-22 17-27 17-27 LA diam 6-13 <23 24-38 33-47 37-40 RVID 10-17 7-15 7-15 7-18 8-17 LVIDd 12-22 <32 24-38 33-47 37-40 LVPW 2-4 3-6 5-7 6-8 7-8 IVS 2-4 3-6 5-7 6-8 7-8 BASIC MEASUREMENTS ADULT Normal Left ventricle LV internal dimension, ED, chordal level, 52 mm 43-52 PLAX LV internal dimension, ES, chordal level, *46.7 mm 23-38 PLAX Fractional shortening, chordal level, PLAX *10 % >29 LV posterior wall thickness, ED 10.2 mm IVS/LVPW ratio, ED 1.02 <1.3 Volume, ED, MOD, 1-plane 145 ml Volume, ES, MOD, 1-plane 112 ml Ejection fraction, MOD, 1-plane 23 % Stroke volume, MOD, 1-plane 33 ml Volume index, ED, MOD, 1-plane 74 ml/m^2 Volume index, ES, MOD, 1-plane 57 ml/m^2 Stroke index, MOD, 1-plane 16.8 ml/m^2 Volume, ED, MOD, 2-plane 180 ml Volume, ES, MOD, 2-plane 137 ml Ejection fraction, MOD, 2-plane 24 % Stroke volume, MOD, 2-plane 43 ml Volume index, ED, MOD, 2-plane 91 ml/m^2 Volume index, ES, MOD, 2-plane 70 ml/m^2 Stroke index, MOD, 2-plane 21.8 ml/m^2 Ventricular septum Septal thickness, ED 10.4 mm BASIC MEASUREMENTS ADULT Normal Left ventricle LV internal dimension, ED *67.8 mm 37-56 LV internal dimension, ES 60.6 mm Fractional shortening *11 % 29-45 LV posterior wall, ED 9.2 mm 6-11 Septal/posterior wall ratio, ED 0.95 Relative wall thickness, ED 0.27 <0.45 Volume, ED, Teichholz 238 ml Volume, ES, Teichholz 184 ml Ejection fraction, Teichholz *22.7 % 64-83 Stroke volume, Teichholz 54 ml Volume index, ED, Teichholz 121 ml/m^2 Volume index, ES, Teichholz 93 ml/m^2 Stroke index, Teichholz 27.4 ml/m^2 Wall mass 265.3 g Wall mass index 134.7 g/m^2 Mass/height 1.45 g/cm Ventricular septum Septal thickness, ED 8.72 mm LEGEND: Mean values are shown as u=mean value. Asterisk (*) aquino values outside specified normal range. Prepared and signed by Cornelius Ordaz [id number]
[2017-02-15] MEDS: ATORVASTATIN 40 MG TAB PO SCH (21:56)
[2017-02-15] MEDS: traZODone HCL 50 MG TAB PO SCH (21:56)
[2017-02-16] MEDS: RESP: ALBUTEROL 2.5 MG/IPRATROPIUM 0.5 MG NEB (SCH) NEB ×2 (03:10→11:05)
[2017-02-16 03:55] VITALS: BP 97/55; PULSE 68; RESP 20; TEMP 98; O2SAT 93
[2017-02-16] MEDS ORDERED: POTA10TA2 PO ×2 (07:14→08:52)
[2017-02-16] MEDS ORDERED: FURO40TA PO ×2 (07:14→08:52)
--- NOTE | 2017-02-16 07:16 | HHI.FF ---
Face to Face Verification Diagnosis: (1) COPD (chronic obstructive pulmonary disease) (2) CHF exacerbation (3) Cirrhosis (4) Anemia Physical Therapy Order: Evaluate and Treat Home Health Nursing Order: Medical education Signs/symptoms of disease process CHF education Nursing assessment with vital signs I have seen patient Jhony Ayala Jr on 02/16/17. My clinical findings support the need for the requested home health care services because: Ltd mobility - disease progression Patient has SOB Deconditioned w/ increased weakness Med compliance is questionable High risk of falls I certify that my clinical findings support that this patient is homebound because: Hx COPD- exertion dyspnea/weakness Poor cardiac reserve Leonardo Sanchez MD R2 Feb 16, 2017 07:16
--- NOTE | 2017-02-16 07:18 | HHI.FPPN ---
Subjective Remarks Doing well today, walked down [address] without assistance. Reports minimal SOB on exertion but improved since admission. EF on ECHO 25%. (Leonardo Sanchez MD R2) Objective Vitals Vital Signs Date Time Temp Pulse Resp B/P Pulse Ox O2 Delivery O2 Flow Rate FiO2 02/16/17 03:55 98.0 68 20 97/55 93 02/15/17 20:00 66 02/15/17 19:42 99.7 102 20 106/62 95 02/15/17 19:36 98.0 66 20 113/59 95 02/15/17 15:38 95 21 02/15/17 15:30 97.4 66 16 119/72 96 02/15/17 11:14 98.4 69 16 122/71 95 02/15/17 08:00 60 I/O 02/15/17 02/15/17 02/15/17 02/16/17 02/16/17 02/16/17 07:00 15:00 23:00 07:00 15:00 23:00 Intake Total 30 ml 600 ml Output Total 2425 ml 575 ml Balance 30 ml -1825 ml -575 ml Intake Oral 30 ml 600 ml Output Urine Total 2425 ml 575 ml # Voids 4 # Bowel Movements 1 (Leonardo Sanchez MD R2) Result Diagram: 02/15/17 0433 02/15/17 0433 A/P Assessment and Plan 71-year-old male with history of CHF, CAD with history of CABG, COPD, cirrhosis presented to the ED with shortness of breath and chest pain. (Leonardo Sanchez MD R2 ) Attending Attestation Pt. examined and case discussed with resident physician I have read the above note and agree with the assessment/plan as discussed with me I was involved in all medical decision making for this patient Crow Joyner MD (Crow Joyner MD) Problem List: (1) CHF exacerbation Status: Acute Plan: Last echo 08/2016 showing EF 35/40%, mild MR, TR, peak pulmonary arterial pressure = 58mmHg. CXR this hospital stay showing cardiomegaly without evidence of infiltrate. - Limited echo ordered for today Continue with diuresis with Lasix 40 mg IV twice a day Daily weight checks Fluid restriction to 1.5 L Salt restriction Continue home medications for medical management of CHF, including lisinopril, aspirin, spironolactone (2) COPD (chronic obstructive pulmonary disease) Status: Chronic Plan: Patient is wheezing with moderate air exchange on exam today - We will order DuoNeb breathing treatments every 6 hours scheduled - Continue with home Spiriva - Change home Symbicort to Advair (patient has had good results with this in the past) (3) Cirrhosis, alcoholic Status: Chronic Plan: Chronic, stable. No evidence of significant ascites. Patient states he had symptomatic esophageal varices banded 7-8 years ago. He also notes a history of encephalopathy. - We will obtain an ammonia level - Currently on lactulose at home but he is unsure of the dose we will restart this at 20 mg by mouth twice a day and titrate as needed. - Continue PPI (4) CHF exacerbation Status: Acute Plan: Fluids: PO hydration Electrolytes: monitor and replete as needed Nutrition: heart-healthy diet DVT Prophylaxis: Lovenox 40mg subQ q24hr/bilateral SCDs. Platelets 149 at admission GI Prophylaxis: Protonix 20mg PO daily home dose (Leonardo Sanchez MD R2) Problem Qualifiers (1) CHF exacerbation: Qualified Code: I50.9 - Acute on chronic congestive heart failure, unspecified congestive heart failure type (2) COPD (chronic obstructive pulmonary disease): Qualified Code: J44.9 - Chronic obstructive pulmonary disease, unspecified COPD type (3) Cirrhosis, alcoholic: Qualified Code: K70.30 - Alcoholic cirrhosis of liver without ascites Leonardo Sanchez MD R2 Feb 16, 2017 07:18 Crow Joyner MD Feb 16, 2017 20:44
[2017-02-16 07:28] VITALS: BP 109/67; PULSE 66; RESP 20; TEMP 97.9; O2SAT 94
[2017-02-16] MEDS: THIAMINE HCL 100 MG TAB PO SCH (08:33)
[2017-02-16] MEDS: METOPROLOL TARTRATE 25 MG TAB PO SCH (08:33)
[2017-02-16] MEDS: SERTRALINE HCL 50 MG TAB PO SCH (08:33)
[2017-02-16] MEDS: MULTIVITAMINS/MINERALS THERAPEUTIC TAB PO SCH (08:33)
[2017-02-16] MEDS: LORATADINE 10 MG TAB PO SCH (08:33)
[2017-02-16] MEDS: PANTOPRAZOLE SOD 20 MG DELAYED RELEASE TAB PO SCH (08:33)
[2017-02-16] MEDS: SPIRONOLACTONE 25 MG TAB PO SCH (08:33)
[2017-02-16] MEDS: FOLIC ACID 1 MG TAB PO SCH (08:33)
[2017-02-16] MEDS: ASPIRIN 81 MG CHEW TAB PO SCH (08:33)
[2017-02-16] MEDS: BUDESONIDE-FORMOTEROL 160/4.5 MCG INHALER INH SCH (08:34)
[2017-02-16] MEDS: ALBUTEROL SULFATE 90 MCG/ACT HFA 18 GM INHALER INH SCH (08:34)
[2017-02-16] MEDS: TIOTROPIUM BROMIDE 18 MCG INH INH SCH (08:34)
[2017-02-16] MEDS: SODIUM CHLORIDE 0.9% FLUSH 10 ML FLUSH IV FLUSH SCH (08:35)
[2017-02-16] MEDS ORDERED: FUROSEMIDE 40 MG TAB PO SCH (09:00)
[2017-02-16] MEDS ORDERED: PRED20 PO ×2 (09:42→09:45)
[2017-02-16] MEDS ORDERED: predniSONE 50 MG TAB PO ONE (09:45)
[2017-02-16 11:10] LABS: AUTOMATED NEUTROPHIL # 3.3 TH/MM3 (1.8-7.7); BASOPHIL % 0.5 % (0.0-2.0); EOSINOPHIL # 0.2 TH/MM3 (0-0.4); HEMATOCRIT 29.8 % (39.0-51.0); HEMO FLAGS DIFF FINAL; LYMPH % 15.3 % (9.0-44.0); LYMPHOCYTE # 0.7 TH/MM3 (1.0-4.8); MEAN CELL VOLUME 87.8 FL (80.0-100.0); MEAN CORPUSCULAR HEMOGLOBIN 27.4 PG (27.0-34.0); MEAN CORPUSCULAR HGB CONC 31.2 % (32.0-36.0); MONO % 10.9 % (0.0-8.0); NEUT % 69.3 % (16.0-70.0); PLATELET COUNT 105 TH/MM3 (150-450); RED CELL DISTRIBUTION WIDTH 19.7 % (11.6-17.2); WHITE BLOOD COUNT 4.8 TH/MM3 (4.0-11.0)
[2017-02-16 11:12] VITALS: BP 93/51; PULSE 66; RESP 18; TEMP 97.4; O2SAT 92
[2017-02-16 11:42] LABS: BICARBONATE 22.3 MEQ/L (21.0-32.0)
[2017-02-16 11:44] LABS: POTASSIUM 4.4 MEQ/L (3.5-5.1)
--- NOTE | 2017-02-17 16:39 | HHI.DS ---
Discharge Summary Admission Date Feb 14, 2017 at 14:23 Discharge Date: Feb 16, 2017 Admitting Diagnosis congestive heart failure, hypoxia (1) CHF exacerbation Diagnosis: Principal Plan: Last echo 08/2016 showing EF 35/40%, mild MR, TR, peak pulmonary arterial pressure = 58mmHg. CXR this hospital stay showing cardiomegaly without evidence of infiltrate. - Limited echo ordered for today Continue with diuresis with Lasix 40 mg IV twice a day Daily weight checks Fluid restriction to 1.5 L Salt restriction Continue home medications for medical management of CHF, including lisinopril, aspirin, spironolactone (2) COPD (chronic obstructive pulmonary disease) Diagnosis: Principal Plan: Patient is wheezing with moderate air exchange on exam today - We will order DuoNeb breathing treatments every 6 hours scheduled - Continue with home Spiriva - Change home Symbicort to Advair (patient has had good results with this in the past) (3) Cirrhosis, alcoholic Diagnosis: Secondary Plan: Chronic, stable. No evidence of significant ascites. Patient states he had symptomatic esophageal varices banded 7-8 years ago. He also notes a history of encephalopathy. - We will obtain an ammonia level - Currently on lactulose at home but he is unsure of the dose we will restart this at 20 mg by mouth twice a day and titrate as needed. - Continue PPI Brief History 71 year old male with a history of CAD, CABG, CHF, COPD, cirrhosis who presents with a five-day history of increasing swelling of the ankles and legs and "labored breathing". These symptoms began abruptly three days ago. He is able to walk long distances but he gets tired, "run out of energy." No chest pain, dizziness, nausea, vomiting. Right now he is sleepy, only got a little bit last night. Denies confusion, falls, seizures. No problem lying flat, sleeps on one pillow. Weighs himself at home, gains a couple pounds in the last three days. No sick contacts or recent illnesses. No recent travel. Denies history of stroke. Baseline of CHF, last echo unknown, probably 9 months ago. Takes aspirin and water pills. On digoxin as well. He is not on home oxygen for his COPD but states he uses his albuterol inhaler 2-3 times per day. CBC/BMP: 02/16/17 1045 02/16/17 1041 Significant Findings Laboratory Tests Test 02/14/17 02/14/17 02/14/17 02/15/17 19:30 19:45 23:56 04:33 Urine Mucus FEW /lpf (OCC) Total Creatine Kinase 33 U/L (39-308) Troponin I LESS THAN 0.02 LESS THAN 0.02 NG/ML NG/ML (0.02-0.05) (0.02-0.05) White Blood Count 3.1 TH/MM3 (4.0-11.0) Red Blood Count 3.30 MIL/MM3 (4.50-5.90) Hemoglobin 9.2 GM/DL (13.0-17.0) Hematocrit 28.4 % (39.0-51.0) Red Cell Distribution Width 19.7 % (11.6-17.2) Platelet Count 126 TH/MM3 (150-450) Neutrophils (%) (Auto) 72.0 % (16.0-70.0) Monocytes (%) (Auto) 13.9 % (0.0-8.0) Lymphocytes # (Auto) 0.4 TH/MM3 (1.0-4.8) Potassium Level 3.3 MEQ/L (3.5-5.1) Blood Urea Nitrogen 22 MG/DL (7-18) Estimat Glomerular Filtration 80 ML/MIN (>89) Rate Random Glucose 161 MG/DL (74-106) Calcium Level 7.9 MG/DL (8.5-10.1) Aspartate Amino Transf 13 U/L (15-37) (AST/SGOT) Alanine Aminotransferase 10 U/L (12-78) (ALT/SGPT) Total Protein 6.0 GM/DL (6.4-8.2) Albumin 2.4 GM/DL (3.4-5.0) Test 02/15/17 02/16/17 02/16/17 18:50 10:41 10:45 Urine Benzodiazepines Screen POS (NEG) Blood Urea Nitrogen 23 MG/DL (7-18) Random Glucose 112 MG/DL (74-106) Calcium Level 7.8 MG/DL (8.5-10.1) Red Blood Count 3.40 MIL/MM3 (4.50-5.90) Hemoglobin 9.3 GM/DL (13.0-17.0) Hematocrit 29.8 % (39.0-51.0) Mean Corpuscular Hemoglobin 31.2 % Concent (32.0-36.0) Red Cell Distribution Width 19.7 % (11.6-17.2) Platelet Count 105 TH/MM3 (150-450) Monocytes (%) (Auto) 10.9 % (0.0-8.0) Lymphocytes # (Auto) 0.7 TH/MM3 (1.0-4.8) Imaging Last 72 hours Impressions Abdomen Ultrasound 02/15/17 0000 Signed Impressions: Service Date/Time: Wednesday, February 15, 2017 09:38 - CONCLUSION: Ascites, most prominent in the left lower quadrant. Oswaldo Carr MD PE at Discharge Most recently documented physical exam 02/14: GENERAL: This is a thin elderly male lying in bed sleeping. SKIN: No rashes, ecchymoses or lesions. Cool and dry. HEAD: Atraumatic. Normocephalic. No temporal or scalp tenderness. EYES: Pupils equal round and reactive. Extraocular motions intact. No scleral icterus. No injection or drainage. ENT: Nose without bleeding, purulent drainage or septal hematoma. Throat without erythema, tonsillar hypertrophy or exudate. Uvula midline. Airway patent. NECK: Trachea midline. No JVD or lymphadenopathy. Supple, nontender, no meningeal signs. CARDIOVASCULAR: Regular rate and rhythm without murmurs, gallops, or rubs. RESPIRATORY: End-expiratory wheezing noted throughout. No obvious crackles, rales. Breath sounds equal bilaterally. GASTROINTESTINAL: Abdomen soft, thin, non-tender, nondistended. There is a large umbilical hernia which is reducible and nontender. Bowel sounds are normal in all 4 quadrants and in hernia sac No hepato-splenomegaly, or palpable masses. No guarding. MUSCULOSKELETAL: Extremities without clubbing, cyanosis, or edema. No joint tenderness, effusion, or edema noted. No calf tenderness. Negative Homans sign bilaterally. NEUROLOGICAL: Awake and alert. Cranial nerves II through XII intact. No asterixis. Grossly normal sensory and strength functions. Normal speech. Hospital Course Patient was admitted on 02/14 worsening shortness of breath and lower extremity edema. He is admitted for further workup and medical management. Enzymes and EKGs were trended over the first 24 hours and were within normal limits. BNP was elevated in the 3000 range. CXR on admission showed cardiomegaly without infiltrate. He was managed with IV Lasix. He showed significant clinical improvement during hospital stay. Echocardiogram on 02/14 shows significantly reduced EF of 25%. PT evaluated patient and recommended home without PT. He continued medical management of CHF and COPD as inpatient and was discharged with increased doses of Lasix to be titrated as outpatient. He was continued on his antihypertensives including beta damon and was continued on spironolactone. He continues to take a statin and aspirin. COPD management includes inhaled corticosteroids as well as Combivent. Past medical history is complicated by alcoholic cirrhosis which is currently stable. Lactulose which she takes chronically was held during this admission but continued on discharge. He was discharged home in stable condition. Pt Condition on Discharge: Stable Discharge Disposition: Discharge Home Discharge Instructions DIET: Follow Instructions for: High Protein Diet Activities you can perform: Regular-No Restrictions New Orders: BASIC METABOLIC PROF - 3-5 Days New Medications: Furosemide (Furosemide) 40 Mg Tab 40 MG PO BID #60 Ref 0 TAB Potassium Chloride ER (Potassium Chloride ER) 10 Meq Tab 10 MEQ PO DAILY Electrolyte Replacement #30 Ref 0 TAB Prednisone (Prednisone) 20 Mg Tab 40 MG PO DAILY 40 MG twice a day x 3 days, then 20 MG daily x 3 days, then 10 MG daily x 3 days Inflammation #10 Ref 0 TAB Prednisone (Prednisone) 20 Mg Tab 40 MG PO DAILY Take 40 mg (2 tablets) daily for 5 days #10 Ref 0 TAB Continued Medications: Albuterol Neb (Albuterol Neb) 1.25 Mg/3 Ml Neb 1 AMPULE NEB QID PRN SHORTNESS OF BREATH #50 Ref 0 NEBULE Aspirin (Aspirin) 81 Mg Chew 81 MG PO DAILY Ref 0 TAB Atorvastatin (Atorvastatin) 40 Mg Tab 40 MG PO HS Cholesterol Management #30 Ref 0 TAB Budesonide-Formoterol Inh (Symbicort Inh) 160-4.5 Mcg/Act Aero 1 PUFF INH BID #1 Ref 0 INHALER Ferrous Sulfate (Iron) 325 Mg Tab 325 MG PO DAILY Take after a meal. Nutritional Supplement Ref 0 TAB Ipratropium-Albuterol Inh (Combivent Respimat Inh) 20-100 Alf/Act Aero 1 PUFF INH QID Asthma Management #1 Ref 0 INHALER Lactulose (Encephalopathy) Liq (Enulose Liq) 10 Gm/15 Ml Soln Lisinopril (Lisinopril) 5 Mg Tab 5 MG PO DAILY Blood Pressure Management Days 30 TAB Loratadine (Alavert) 10 Mg Tab 10 MG PO DAILY Allergy Management Ref 0 TAB Metoprolol Tartrate (Metoprolol Tartrate) 25 Mg Tab 25 MG PO BID #60 Ref 0 TAB Omeprazole (Omeprazole) 20 Mg Tab 20 MG PO DAILY #30 Ref 0 TAB Sertraline HCl (Bulk) (Sertraline HCl) 1 Pow Pow 50 MG PO DAILY Spironolactone (Spironolactone) 25 Mg Tab 25 MG PO BID #60 Ref 0 TAB Thiamine HCl (Thiamine HCl) 1 Pow Pow 100 MG PO DAILY Trazodone (Trazodone) 50 Mg Tab 25 MG PO HS Control Depression #30 Ref 0 TAB Discontinued Medications: Furosemide (Furosemide) 40 Mg Tab 40 MG PO DAILY fluid #30 Ref 0 TAB Rosalind Baires MD R1 Feb 17, 2017 16:39
== END 2017-02-16 14:49 | disposition home or self-care (01) ==
LOC: NEPA 11:34 → NEDA 14:23 → NEPHCDU 20:33
PROVIDERS: ADMIT Family Medicine; ATTEND Family Medicine
DX: I11.0 Hypertensive heart disease with heart failure (principal); J44.9 Chronic obstructive pulmonary disease, unspecified; I25.10 Atherosclerotic heart disease of native coronary artery without angina pectoris; K70.30 Alcoholic cirrhosis of liver without ascites; F41.9 Anxiety disorder, unspecified; F32.9 Major depressive disorder, single episode, unspecified; F17.210 Nicotine dependence, cigarettes, uncomplicated; K21.9 Gastro-esophageal reflux disease without esophagitis; Z95.1 Presence of aortocoronary bypass graft; Z79.51 Long term (current) use of inhaled steroids; Z79.82 Long term (current) use of aspirin
CPT/HCPCS: 71010; 76705; 80048; 80053; 80307; 81001; 82140; 82272; 82550; 83735; 83880; 84484; 85025; 85610; 85730; 93005; 93308; 94640; 94664; 96374; 96375; G0378; J1940; J2930; J7613

== ENCOUNTER 2017-04-20 12:48 | Emergency (ER) | payer OTHER ==
[~2017-04-20] VITALS: Ht 182.9 cm; Wt 72.0 kg
[~2017-04-20 12:48] MED LIST changes: +POTA10TA2 PO; +PRED20 PO
[2017-04-20 12:54] VITALS: BP 127/81; PULSE 90; RESP 19; TEMP 97.7; O2SAT 97
[2017-04-20] MEDS ORDERED: SODIUM CHLORIDE 0.9% FLUSH 10 ML FLUSH IVF PRN (13:00)
[2017-04-20] MEDS ORDERED: methylPREDNISolone SOD SUCC 125 MG/2 ML VIAL IVP ONE (13:00)
[2017-04-20 13:04] VITALS: RESP 19; O2SAT 97
--- NOTE | 2017-04-20 13:04 | PD ---
HPI Chief Complaint: Respiratory Symptoms Time Seen by Provider: 12:50 Travel History International Travel<30 days: No Contact w/Intl Traveler<30days: No Traveled to known affect area: No History of Present Illness HPI This is a 71-year-old male with history of COPD, CHF who presents via EMS for evaluation of cough. He reports over the past 1.5 weeks he has had a cough with clear productive sputum production. He has had associated wheezing, dyspnea. [facility] for further evaluation of this issue. [facility] the patient was sent here to rule out right leg DVT and possibly diurese the patient. The patient does endorse slight pain in the right leg over the past few weeks. Denies any injury. Denies any chest pain, fevers or chills, nausea or vomiting. He has an umbilical hernia which is stable and reducible. No other complaints. PFSH Past Medical History Hx Anticoagulant Therapy: Yes (XARELTO) Arthritis: No Asthma: No Autoimmune Disease: No Blood Disorders: No Anxiety: No Depression: No Heart Rhythm Problems: No Cancer: No Cardiovascular Problems: Yes High Cholesterol: Yes Chemotherapy: No Chest Pain: No Congestive Heart Failure: Yes COPD: Yes Cerebrovascular Accident: No Diabetes: No Diminished Hearing: No Endocrine: No Gastrointestinal Disorders: Yes (EROSIVE ESOPHAGITIS; COLITIS) GERD: Yes Glaucoma: No Genitourinary: No Headaches: No Hepatitis: Yes (C) Hiatal Hernia: Yes Hypertension: Yes Immune Disorder: No Kidney Stones: No Musculoskeletal: No Neurologic: No Psychiatric: No Reproductive: No Respiratory: Yes (copd) Migraines: No Myocardial Infarction: No Radiation Therapy: No Renal Failure: No Seizures: No Sickle Cell Disease: No Sleep Apnea: No Thyroid Disease: No Ulcer: No Past Surgical History Abdominal Surgery: Yes (ESOPHAGEAL VARICIES 2006) AICD: No Appendectomy: No Arteriovenous Shunt: No Cardiac Surgery: Yes Cholecystectomy: No Coronary Artery Bypass Graft: Yes (TRIPLE BYPASS) Ear Surgery: No Endocrine Surgery: No Eye Surgery: No Genitourinary Surgery: No Gynecologic Surgery: No Insulin Pump: No Joint Replacement: No Oral Surgery: No Pacemaker: No Thoracic Surgery: No Other Surgery: Yes (CABAG) Social History Alcohol Use: No Tobacco Use: Yes (E CIGARETTE) Substance Use: Yes (cocaine, marijuana ) Allergies-Medications (Allergen,Severity, Reaction): Coded Allergies: No Known Allergies (Verified , 04/20/17) Reported Meds & Prescriptions Reported Meds & Active Scripts Active Prednisone 20 Mg Tab 20 Mg PO BID 5 Days Azithromycin 250 Mg Tab 250 Mg PO DAILY Reported Vitamin B-1 (Thiamine HCl) 100 Mg Tab 100 Mg PO DAILY Sertraline (Sertraline HCl) 50 Mg Tab 50 Mg PO DAILY Amlodipine (Amlodipine Besylate) 5 Mg Tab 5 Mg PO DAILY Allerclear (Loratadine) 10 Mg Tablet 10 Mg PO DAILY Furosemide 20 Mg Tab 20 Mg PO DAILY Albuterol Neb (Albuterol Sulfate) 2.5 Mg/3 Ml Neb 2.5 Mg NEB Q6HR NEB PRN [Trazadone] 25 Mg PO HS Aldactone (Spironolactone) 50 Mg Tab 50 Mg PO DAILY Symbicort Inh (Budesonide/Formoterol Fumarate) 160-4.5 Mcg/Act Aero 1 Puff INH BID Atorvastatin (Atorvastatin Calcium) 40 Mg Tab 40 Mg PO HS Omeprazole 20 Mg Tab 20 Mg PO DAILY Enulose Liq (Lactulose (Encephalopathy) Liq) 10 Gm/15 Ml Soln 10 Gm PO DAILY Combivent Respimat Inh (Ipratropium-Albuterol Inh) 20-100 Residential/Act Aero 1 Puff INH QID Aspirin 81 Mg Chew 81 Mg PO DAILY Review of Systems Except as stated in HPI: all other systems reviewed are Neg Physical Exam Narrative GENERAL: Pleasant well-developed well-nourished male in no acute distress. His oxygen saturation is 97% on room air while conversing. SKIN: Warm and dry. HEAD: Atraumatic. Normocephalic. EYES: Pupils equal and round. No scleral icterus. No injection or drainage. ENT: No nasal bleeding or discharge. Mucous membranes pink and moist. NECK: Trachea midline. No JVD. CARDIOVASCULAR: Regular rate and rhythm. No murmur appreciated. RESPIRATORY: No accessory muscle use. Wheezing bilaterally. No crackles. GASTROINTESTINAL: Abdomen soft, non-tender, nondistended. Hepatic and splenic margins not palpable. MUSCULOSKELETAL: No obvious deformities. There is no lower extremity edema. The compartments of the lower extremities are soft. Mild tenderness to palpation to the right calf musculature. NEUROLOGICAL: Awake and alert. No obvious cranial nerve deficits. Motor grossly within normal limits. Normal speech. PSYCHIATRIC: Appropriate mood and affect; insight and judgment normal. Data Data Last Documented VS Vital Signs Date Time Temp Pulse Resp B/P Pulse Ox O2 Delivery O2 Flow Rate FiO2 04/20/17 13:04 19 97 Room Air 04/20/17 12:54 97.7 90 127/81 Orders Complete Blood Count With Diff (04/20/17 12:59) Basic Metabolic Panel (Bmp) (04/20/17 12:59) B-Type Natriuretic Peptide (04/20/17 12:59) Magnesium (Mg) (04/20/17 12:59) Iv Access Insert/Monitor (04/20/17 12:59) Electrocardiogram (04/20/17 12:59) Ecg Monitoring (04/20/17 12:59) Oximetry (04/20/17 12:59) Oxygen Administration (04/20/17 12:59) Chest, Single Ap (04/20/17 12:59) Us Leg Venous Doppler (04/20/17 12:59) Sodium Chloride 0.9% Flush (Ns Flush) (04/20/17 13:00) Methylprednisolone So Succ Inj (Solumedr (04/20/17 13:00) Albuterol-Ipratropium Neb (Duoneb Neb) (04/20/17 13:00) Azithromycin Inj (Zithromax Inj) (04/20/17 15:00) Labs Laboratory Tests Test 04/20/17 13:15 White Blood Count 4.6 TH/MM3 Red Blood Count 3.62 MIL/MM3 Hemoglobin 10.1 GM/DL Hematocrit 31.7 % Mean Corpuscular Volume 87.4 FL Mean Corpuscular Hemoglobin 27.9 PG Mean Corpuscular Hemoglobin 31.9 % Concent Red Cell Distribution Width 19.9 % Platelet Count 140 TH/MM3 Mean Platelet Volume 9.4 FL Neutrophils (%) (Auto) 66.4 % Lymphocytes (%) (Auto) 15.5 % Monocytes (%) (Auto) 11.6 % Eosinophils (%) (Auto) 5.6 % Basophils (%) (Auto) 0.9 % Neutrophils # (Auto) 3.0 TH/MM3 Lymphocytes # (Auto) 0.7 TH/MM3 Monocytes # (Auto) 0.5 TH/MM3 Eosinophils # (Auto) 0.3 TH/MM3 Basophils # (Auto) 0.0 TH/MM3 CBC Comment DIFF FINAL Differential Comment Sodium Level 141 MEQ/L Potassium Level 4.0 MEQ/L Chloride Level 107 MEQ/L Carbon Dioxide Level 27.6 MEQ/L Anion Gap 6 MEQ/L Blood Urea Nitrogen 28 MG/DL Creatinine 1.06 MG/DL Estimat Glomerular Filtration 69 ML/MIN Rate Random Glucose 83 MG/DL Calcium Level 8.3 MG/DL Magnesium Level 1.8 MG/DL B-Type Natriuretic Peptide 2550 PG/ML MDM Medical Decision Making Medical Screen Exam Complete: Yes Emergency Medical Condition: Yes Medical Record Reviewed: Yes Differential Diagnosis COPD exacerbation, bronchitis, pneumonia, CHF exacerbation, pleural effusion, pulmonary embolism, acute coronary syndrome Narrative Course 71-year-old male with history of COPD and CHF presents with cough and wheezing for 1.5 weeks. Physical examination is reassuring. Oxygen saturation 97% on room air while conversing. He has wheezing bilaterally, no crackles. There is no lower extremity edema. He does not appear volume overloaded. Primarily this appears to be a COPD exacerbation. I don't suspect a pulmonary embolism. Slight pain in the right calf for 1.5-2 weeks, right leg ultrasound has been ordered. Plans for basic lab work, chest x-ray. He'll be given Solu-Medrol, DuoNeb nebs. Lab work imaging studies have been reviewed. Normal white count. Ultrasound is negative. Chest x-ray reveals persistent hazy opacity in the right lung base , chronic low thickening on the left. This is all unchanged from previous x- rays. His BNP is elevated at 2550 suggesting some degree of CHF however this primarily appears to be a COPD exacerbation, he does not appear fluid overloaded. He feels significant improved after DuoNeb treatment. The patient be given a dose of azithromycin here and discharged with prednisone, azithromycin. Discussed signs and symptoms that would warrant returning to the emergency room. He is stable for discharge. Diagnosis Primary Impression: COPD exacerbation Additional Impression: CHF (congestive heart failure) Qualified Code: I50.9 - Congestive heart failure, unspecified congestive heart failure chronicity, unspecified congestive heart failure type Additional Instructions: Medication as prescribed, continue using albuterol inhaler as needed for wheezing. Follow up with primary care physician at the [facility] and return for any acutely new or worsening symptoms. Med/Other Pt SpecificInfo: Prescription(s) given Scripts Prednisone 20 Mg Tab20 Mg PO BID 5 Days Ref 0 Prov:Kocisko,Tera J. MD 04/20/17 Azithromycin 250 Mg [id number] Mg PO DAILY #4 TAB Ref 0 Prov:Tera Enriquez MD 04/20/17 Disposition: 01 DISCHARGE HOME Condition: Stable Pratik Corea April 20, 2017 13:04
--- NOTE | 2017-04-20 13:25 | RADRPT ---
EXAM DATE/TIME: 04/20/2017 13:01 [facility] COMPARISON: CHEST PA & LAT, April 30, 2016, 17:50. CT ABDOMEN & PELVIS W/O CONTRAST, April 30, 2016, 14:17. CHEST SINGLE AP, February 14, 2017, 12:18. INDICATIONS : Short of breath, cough, and lower extremity swelling for a few days. MEDICAL HISTORY : Myocardial infarction. Hypercholesterolemia. Chronic obstructive pulmonary disease. Hiatal hernia. Es ophageal varices. Liver disease. SURGICAL HISTORY : CABG. ENCOUNTER: Initial ACUITY: 3 days PAIN SCORE: 2/10 LOCATION: Bilateral chest FINDINGS: Portable AP view of the chest demonstrates stable mild enlargement of the cardiac silhouette in this patient post median sternotomy. There is stable left basilar opacity. Hazy opacity also remains prese nt at the right base. No pneumothorax is visualized. Bones and soft tissues demonstrate no acute find ing. CONCLUSION: 1. Persistent hazy opacity at the right lung base may represent atelectasis, mild consolidation, and likely small pleural effusion. 2. Chronic pleural thickening on the left may be postsurgical or could represent a small pleural effu pamella. 3. Stable enlargement of the cardiac silhouette. Nick Lennon MD on April 20, 2017 at 13:20 Board Certified Radiologist. This report was verified electronically.
[2017-04-20 13:37] LABS: BASOPHIL % 0.9 % (0.0-2.0); EOSINOPHIL # 0.3 TH/MM3 (0-0.4); EOSINOPHIL % 5.6 % (0.0-4.0); HEMATOCRIT 31.7 % (39.0-51.0); HEMO FLAGS DIFF FINAL; LYMPH % 15.5 % (9.0-44.0); LYMPHOCYTE # 0.7 TH/MM3 (1.0-4.8); MEAN CELL VOLUME 87.4 FL (80.0-100.0); MEAN CORPUSCULAR HEMOGLOBIN 27.9 PG (27.0-34.0); MEAN CORPUSCULAR HGB CONC 31.9 % (32.0-36.0); MONO % 11.6 % (0.0-8.0); NEUT % 66.4 % (16.0-70.0); PLATELET COUNT 140 TH/MM3 (150-450); RED BLOOD COUNT 3.62 MIL/MM3 (4.50-5.90); RED CELL DISTRIBUTION WIDTH 19.9 % (11.6-17.2); WHITE BLOOD COUNT 4.6 TH/MM3 (4.0-11.0)
[2017-04-20 13:55] LABS: BICARBONATE 27.6 MEQ/L (21.0-32.0); MAGNESIUM 1.8 MG/DL (1.5-2.5)
[2017-04-20] MEDS: RESP: ALBUTEROL 2.5 MG/IPRATROPIUM 0.5 MG NEB (SCH) INH ×2 (14:17→14:18)
[2017-04-20] MEDS ORDERED: TRAZADONE PO (14:30)
[2017-04-20] MEDS ORDERED: ALDA50TA2 PO (14:30)
[2017-04-20] MEDS ORDERED: ALBU0.08 NEB (14:32)
[2017-04-20] MEDS ORDERED: FURO20TA PO (14:33)
--- NOTE | 2017-04-20 14:36 | RADRPT ---
EXAM DATE/TIME: 04/20/2017 13:20 [facility] COMPARISON: US LEG BILATERAL VENOUS DOPPLER, October 12, 2015, 16:41. INDICATIONS : Right leg pain. MEDICAL HISTORY : Congestive heart failure. Hypercholesterolemia. Hypertension. COPD. Colitis. Hiatal hernia. GERD. Liver disease. Hepatitis. SURGICAL HISTORY : Cardiac triple bypass. Esophageal varicies ENCOUNTER: Initial ACUITY: 3 days PAIN SCORE: 4/10 LOCATION: Right leg. TECHNIQUE: Venous ultrasound of the leg was performed from the inguinal ligament to the proximal calf. Real-mir e, color Doppler and spectral tracing, compression and augmentation techniques were used. FINDINGS: There is normal compressibility of the deep venous system from the inguinal region to the proximal ca lf. No echogenic clot is seen in the lumen of the common femoral, femoral, popliteal, and posterior tibial veins. There is a normal response of the venous system to proximal and distal augmentation an d respiration. CONCLUSION: No evidence of right lower extremity DVT Nick Barbosa MD on April 20, 2017 at 14:31 Board Certified Radiologist. This report was verified electronically.
[2017-04-20] MEDS ORDERED: AMLO5TAB2 PO (14:38)
[2017-04-20] MEDS ORDERED: VITA100T54 PO (14:38)
[2017-04-20] MEDS ORDERED: SERT-132 PO (14:38)
[2017-04-20] MEDS ORDERED: KLS10TAB6 PO (14:38)
[2017-04-20] MEDS ORDERED: AZITHROMYCIN INJ 500 MG in SODIUM CHLOR 0.9% 250 ML INJ 250 ML IV ONE (15:00)
[2017-04-20] MEDS ORDERED: AZIT250T3 PO (15:15)
[2017-04-20] MEDS ORDERED: PRED20 PO (15:15)
[2017-04-20 17:40] VITALS: BP 120/78; PULSE 99; RESP 20; O2SAT 96
--- NOTE | 2017-04-21 14:21 | EKG ---
Date Performed: 04/20/2017 Time Performed: 13:53:27 PTAGE: 71 years EKG: Sinus rhythm MARKED RIGHT AXIS DEVIATION INTRAVENTRICULAR CONDUCTION DELAY ABNORMAL ECG Compared to prior tracing no significant change PREVIOUS TRACING : 02/15/2017 00.51 DOCTOR: Ian Baires Interpretating Date/Time 04/21/2017 14:19:38
== END 2017-04-20 19:09 | disposition home or self-care (01) ==
LOC: NEPC 12:48
DX: J44.1 Chronic obstructive pulmonary disease with (acute) exacerbation (principal); I50.9 Heart failure, unspecified; M79.604 Pain in right leg; K42.9 Umbilical hernia without obstruction or gangrene; R94.31 Abnormal electrocardiogram [ECG] [EKG]; I10 Essential (primary) hypertension; E78.00 Pure hypercholesterolemia, unspecified; Z72.0 Tobacco use; Z79.01 Long term (current) use of anticoagulants; Z86.79 Personal history of other diseases of the circulatory system; Z87.09 Personal history of other diseases of the respiratory system; Z87.19 Personal history of other diseases of the digestive system; Z86.19 Personal history of other infectious and parasitic diseases
CPT/HCPCS: 71010; 80048; 83735; 83880; 85025; 93005; 93971; 94640; 94664; 96365; 96366; 96375; 99285; J0456; J2930; J7050

== ENCOUNTER 2017-05-12 11:05 | Emergency (ER) | payer OTHER ==
[~2017-05-12] VITALS: Ht 182.9 cm; Wt 78.0 kg
[~2017-05-12 11:05] MED LIST changes: -ALAV10TA10 PO; +ALBU0.08 NEB; -ALBU1.25 NEB; +ALDA50TA2 PO; +AMLO5TAB2 PO; +AZIT250T3 PO; -FERR1TAB36 PO; +FURO20TA PO; -FURO40TA PO; +KLS10TAB6 PO; -LISI-519 PO; -METO25TA3 PO; -POTA10TA2 PO; +SERT-132 PO; -SERT1POW3 PO; -SPIR25TA PO; -THIAPOW36 PO; -TRAZ50TA12 PO; +TRAZADONE PO; +VITA100T54 PO
[2017-05-12 11:13] VITALS: BP 106/70; PULSE 94; RESP 16; TEMP 97.8; O2SAT 96
[2017-05-12 11:28] VITALS: RESP 18; O2SAT 97
[2017-05-12] MEDS ORDERED: SODIUM CHLORIDE 0.9% FLUSH 10 ML FLUSH IVF PRN (11:30)
--- NOTE | 2017-05-12 11:33 | PD ---
HPI Chief Complaint: Edema Time Seen by Provider: 11:27 Travel History International Travel<30 days: No Contact w/Intl Traveler<30days: No Traveled to known affect area: No History of Present Illness HPI Patient comes from the [place] for evaluation of this chronic bilateral lower extremity edema. Patient states he was seen for this on the of last month and has been unchanged. Patient states that he's been taking his water pills as prescribed however continues to have lower extremity edema. Patient states he occasionally wears compression stockings and seemed to help however is not wearing them today. Patient complaining of pain in his left knee describes as soreness that mainly hurts when he walks. Patient denies any trauma or recent falls. Denies any chest pain, shortness of breath, nausea, vomiting, fevers, or new abdominal pain. Patient reports is chronic pain around his umbilical hernia that is unchanged. Patient is a history of cirrhosis, CABG, CAD, hep C, COPD, CHF, umbilical hernia, hypertension, depression, alcohol dependence, asthma, esophageal varices, and tobacco use. PFSH Past Medical History Hx Anticoagulant Therapy: Yes (XARELTO) Arthritis: No Asthma: No Autoimmune Disease: No Blood Disorders: No Anxiety: No Depression: No Heart Rhythm Problems: No Cancer: No Cardiovascular Problems: Yes (CHF;BYPASS) High Cholesterol: Yes Chemotherapy: No Chest Pain: No Congestive Heart Failure: Yes COPD: Yes Cerebrovascular Accident: No Diabetes: No Diminished Hearing: No Endocrine: No Gastrointestinal Disorders: Yes (EROSIVE ESOPHAGITIS; COLITIS) GERD: Yes Glaucoma: No Genitourinary: No Headaches: No Hepatitis: Yes (C) Hiatal Hernia: Yes Hypertension: Yes Immune Disorder: No Kidney Stones: No Musculoskeletal: No Neurologic: No Psychiatric: No Reproductive: No Respiratory: Yes (COPD) Migraines: No Myocardial Infarction: No Radiation Therapy: No Renal Failure: No Seizures: No Sickle Cell Disease: No Sleep Apnea: No Thyroid Disease: No Ulcer: No Tetanus Vaccination: < 5 Years Influenza Vaccination: Yes Past Surgical History Abdominal Surgery: Yes (ESOPHAGEAL VARICIES 2006) AICD: No Appendectomy: No Arteriovenous Shunt: No Cardiac Surgery: Yes Cholecystectomy: No Coronary Artery Bypass Graft: Yes (TRIPLE BYPASS) Ear Surgery: No Endocrine Surgery: No Eye Surgery: No Genitourinary Surgery: No Gynecologic Surgery: No Insulin Pump: No Joint Replacement: No Oral Surgery: No Pacemaker: No Thoracic Surgery: No Other Surgery: Yes (CABG) Social History Alcohol Use: No (QUIT) Tobacco Use: No Substance Use: Yes (marijuana ) Allergies-Medications (Allergen,Severity, Reaction): Coded Allergies: No Known Allergies (Verified , 05/12/17) Reported Meds & Prescriptions Reported Meds & Active Scripts Active Reported Trazodone (Trazodone HCl) 50 Mg Tab 25 Mg PO HS Lisinopril 20 Mg Tab 10 Mg PO DAILY Ferrous Sulfate DR (Ferrous Sulfate) 324 Mg Tabdr 324 Mg PO DAILY Sertraline (Sertraline HCl) 50 Mg Tab 50 Mg PO DAILY Allerclear (Loratadine) 10 Mg Tablet 10 Mg PO DAILY Furosemide 20 Mg Tab 20 Mg PO DAILY Albuterol Neb (Albuterol Sulfate) 2.5 Mg/3 Ml Neb 2.5 Mg NEB Q6HR NEB PRN Aldactone (Spironolactone) 50 Mg Tab 50 Mg PO DAILY Symbicort Inh (Budesonide/Formoterol Fumarate) 160-4.5 Mcg/Act Aero 1 Puff INH BID Atorvastatin (Atorvastatin Calcium) 40 Mg Tab 40 Mg PO HS Omeprazole 20 Mg Tab 20 Mg PO DAILY Enulose Liq (Lactulose (Encephalopathy) Liq) 10 Gm/15 Ml Soln 10 Gm PO DAILY Aspirin 81 Mg Chew 81 Mg PO DAILY Review of Systems Except as stated in HPI: all other systems reviewed are Neg Physical Exam Narrative GENERAL: Well-developed, well nourished, in no acute distress, and non-ill appearing. SKIN: Focused skin assessment warm and dry. Large umbilical hernia noted. HEAD: Atraumatic. Normocephalic. EYES: Pupils equal and round. EOMI. No scleral icterus. No injection or drainage. ENT: No nasal bleeding or discharge. Mucous membranes pink and moist. NECK: Trachea midline. Supple. No nuclear rigidity. CARDIOVASCULAR: Regular rate and rhythm. No murmur appreciated. RESPIRATORY: No accessory muscle use. No respiratory distress. Clear to auscultation. Breath sounds equal bilaterally. MUSCULOSKELETAL: No obvious deformities. No clubbing. No cyanosis. 2+ pitting edema bilateral lower extremities edema that goes up to his knees. Full range of motion. Knee: Negative patellar apprehension, varus and valgus maneuvers, anterior draw test, and Benji test. Pulses equal BL distal to injury. Capillary refill less than 2 seconds distal to injury and equal BL. FROM distal to injury and equal BL. Strength distal to injury equal BL. NV intact distal to injury. Dorsal pulses equal BL. Sensation equal BL 1st web space. NEUROLOGICAL: Awake and alert. No obvious cranial nerve deficits. Motor grossly within normal limits. Normal speech. PSYCHIATRIC: Appropriate mood and affect; insight and judgment normal. Data Data Last Documented VS Vital Signs Date Time Temp Pulse Resp B/P Pulse Ox O2 Delivery O2 Flow Rate FiO2 05/12/17 12:00 88 16 103/61 98 Room Air 05/12/17 11:13 97.8 Orders Complete Blood Count With Diff (05/12/17 11:20) Basic Metabolic Panel (Bmp) (05/12/17 11:20) B-Type Natriuretic Peptide (05/12/17 11:20) Act Partial Throm Time (Ptt) (05/12/17 11:20) Prothrombin Time / Inr (Pt) (05/12/17 11:20) Iv Access Insert/Monitor (05/12/17 11:20) Electrocardiogram (05/12/17 11:20) Ecg Monitoring (05/12/17 11:20) Oximetry (05/12/17 11:20) Oxygen Administration (05/12/17 11:20) Chest, Single Ap (05/12/17 11:20) Sodium Chloride 0.9% Flush (Ns Flush) (05/12/17 11:30) Us Leg Venous Doppler Bilat (05/12/17 ) Knee, Complete (4vws) (05/12/17 ) Furosemide Inj (Lasix Inj) (05/12/17 13:30) Labs Laboratory Tests Test 05/12/17 11:25 White Blood Count 5.1 TH/MM3 Red Blood Count 3.41 MIL/MM3 Hemoglobin 9.5 GM/DL Hematocrit 30.6 % Mean Corpuscular Volume 90.0 FL Mean Corpuscular Hemoglobin 27.9 PG Mean Corpuscular Hemoglobin 31.0 % Concent Red Cell Distribution Width 23.3 % Platelet Count 115 TH/MM3 Mean Platelet Volume 9.6 FL Neutrophils (%) (Auto) 56.6 % Lymphocytes (%) (Auto) 15.8 % Monocytes (%) (Auto) 11.1 % Eosinophils (%) (Auto) 15.6 % Basophils (%) (Auto) 0.9 % Neutrophils # (Auto) 2.9 TH/MM3 Lymphocytes # (Auto) 0.8 TH/MM3 Monocytes # (Auto) 0.6 TH/MM3 Eosinophils # (Auto) 0.8 TH/MM3 Basophils # (Auto) 0.0 TH/MM3 CBC Comment DIFF FINAL Differential Comment Prothrombin Time 13.1 SEC Prothromb Time International 1.2 RATIO Ratio Activated Partial 23.3 SEC Thromboplast Time Sodium Level 141 MEQ/L Potassium Level 3.7 MEQ/L Chloride Level 105 MEQ/L Carbon Dioxide Level 29.5 MEQ/L Anion Gap 7 MEQ/L Blood Urea Nitrogen 21 MG/DL Creatinine 0.97 MG/DL Estimat Glomerular Filtration 77 ML/MIN Rate Random Glucose 105 MG/DL Calcium Level 8.2 MG/DL B-Type Natriuretic Peptide 1914 PG/ML MDM Medical Decision Making Medical Screen Exam Complete: Yes Emergency Medical Condition: Yes Interpretation(s) EKG reviewed by Dr. Hallman shows sinus rhythm with ventricular rate of 87. No STEMI. Chest x-ray reviewed by the radiologist shows: Parenchymal changes left base stable in the interval. Left knee x-ray read by the radiologist shows: 1. Diffuse subcutaneous edema predominantly along the medial aspect of the left knee. 2. Mild degenerative changes involving the patellofemoral and femoral tibial joints. 3. No acute fracture or dislocation. 4. Tiny spur at the insertion of the quadriceps tendon. Ultrasound verbal radiologist shows: No evidence of deep venous thrombosis within the lower extremities. Differential Diagnosis CHF exacerbation, DVT, dependent edema, ocular abnormality, other Narrative Course 1335 discussed all findings and plan care of patient, who is agreeable with plan of care and is wanting to go home. Patient was instructed to be more compliant with his compression stockings. [facility] And to return to the emergency department if symptoms get worse in any way. Patient in no obvious distress upon re-evaluation. All pertinent laboratory/ Radiology result(s) discussed with patient. Discussed patient with Dr. Hallman prior to discharge, who is in agreement with plan of care and disposition. Any questions/concerns in reference to patient diagnosis/ condition discussed and clarified prior to patient's discharge. Reinforced sheer importance of close follow up with patient's primary physician or primary care clinic. Instructed patient to return to ED immediately, if symptoms return/ worsen. Pt showed understanding of above instructions. Further instructions and recommendations were detailed in discharge paperwork. Pt ambulated without difficulty out of ED at discharge. Diagnosis Primary Impression: Bilateral lower extremity edema Patient Instructions: General Instructions, Leg Edema (ED) Additional Instructions: Follow-up with your primary care physician in 2-3 days for reevaluation. Wear compression stockings daily. Return to the emergency department if symptoms get worse. Disposition: 01 DISCHARGE HOME Condition: Stable Jv Mark May 12, 2017 11:33
[2017-05-12] MEDS ORDERED: FERR324T4 PO (11:35)
[2017-05-12] MEDS ORDERED: LISI-515 PO (11:35)
[2017-05-12] MEDS ORDERED: TRAZ50TA12 PO (11:35)
[2017-05-12 12:00] VITALS: BP 103/61; PULSE 88; RESP 16; O2SAT 98
[2017-05-12 12:01] LABS: AUTOMATED NEUTROPHIL # 2.9 TH/MM3 (1.8-7.7); BASOPHIL % 0.9 % (0.0-2.0); EOSINOPHIL # 0.8 TH/MM3 (0-0.4); EOSINOPHIL % 15.6 % (0.0-4.0); HEMATOCRIT 30.6 % (39.0-51.0); HEMO FLAGS DIFF FINAL; LYMPH % 15.8 % (9.0-44.0); LYMPHOCYTE # 0.8 TH/MM3 (1.0-4.8); MEAN CORPUSCULAR HEMOGLOBIN 27.9 PG (27.0-34.0); MONO % 11.1 % (0.0-8.0); NEUT % 56.6 % (16.0-70.0); PLATELET COUNT 115 TH/MM3 (150-450); RED BLOOD COUNT 3.41 MIL/MM3 (4.50-5.90); RED CELL DISTRIBUTION WIDTH 23.3 % (11.6-17.2); WHITE BLOOD COUNT 5.1 TH/MM3 (4.0-11.0)
[2017-05-12 12:11] LABS: APTT (PATIENT) 23.3 SEC (24.3-30.1); INTERNATIONAL NORMALIZED RATIO 1.2 RATIO; PROTHROMBIN TIME - PATIENT 13.1 SEC (9.8-11.6)
--- NOTE | 2017-05-12 12:13 | RADRPT ---
EXAM DATE/TIME: 05/12/2017 11:36 [facility] COMPARISON: CHEST SINGLE AP, April 20, 2017, 13:01. INDICATIONS : Shortness of breath. MEDICAL HISTORY : Hypertension. Congestive heart failure. Chronic obstructive pulmonary disease. Smoker. GERD. SURGICAL HISTORY : CABG. ENCOUNTER: Initial ACUITY: 1 day PAIN SCORE: 0/10 LOCATION: Bilateral chest FINDINGS: Sternal wires from previous median sternotomy are noted. The heart is enlarged. Right lung is clear . Minimal parenchymal changes are seen in the left base. Portion of bony skeleton visualized unrema rkable. CONCLUSION: Parenchymal changes left base stable in the interval. Sony Calle MD FACR on May 12, 2017 at 12:04 Board Certified Radiologist. This report was verified electronically.
[2017-05-12 12:16] LABS: BICARBONATE 29.5 MEQ/L (21.0-32.0); POTASSIUM 3.7 MEQ/L (3.5-5.1)
--- NOTE | 2017-05-12 12:16 | RADRPT ---
EXAM DATE/TIME: 05/12/2017 11:39 [facility] COMPARISON: No previous studies available for comparison. INDICATIONS : Left knee pain and swelling. MEDICAL HISTORY : Hypertension. Chronic obstructive pulmonary disease. Congestive heart failure. [facility]oker. [facility], [facility]. SURGICAL HISTORY : CABG. ENCOUNTER: Initial ACUITY: 3 weeks PAIN SCORE: 8/10 LOCATION: Left entire knee. FINDINGS: Mild degenerative changes are noted involving the patellofemoral and femoral tibial joints. There is no acute fracture or dislocation. Small spur is noted at the insertion of the quadriceps tendon. D iffuse subcutaneous edema is also noted along the medial aspect of the left knee. CONCLUSION: 1. Diffuse subcutaneous edema predominantly along the medial aspect of the left knee. 2. Mild degenerative changes involving the patellofemoral and femoral tibial joints. 3. No acute fracture or dislocation. 4. Tiny spur at the insertion of the quadriceps tendon. Jeff Loza MD on May 12, 2017 at 12:01 Board Certified Radiologist. This report was verified electronically.
--- NOTE | 2017-05-12 13:05 | RADRPT ---
EXAM DATE/TIME: 05/12/2017 12:32 [facility] COMPARISON: US LEG BILATERAL VENOUS DOPPLER, October 12, 2015, 16:41. INDICATIONS : Bilateral leg edema. MEDICAL HISTORY : Congestive heart failure. Chronic obstructive pulmonary disease. Hypercholesterolemia. Myocardial inf arction. Anticoagulant therapy. Hypertension. Erosive esophagitis. Colitis. GERD. Esophageal varices. Liver disease. PTSD. Hep C. SURGICAL HISTORY : CABG. ENCOUNTER: Subsequent ACUITY: 1 day PAIN SCORE: 0/10 LOCATION: Bilateral legs. TECHNIQUE: Venous ultrasound of the left and right leg was performed from the inguinal ligament to the proximal calf. Real-time, color Doppler and spectral tracing, compression and augmentation techniques were us ed. FINDINGS: RIGHT LEG: There is normal compressibility of the deep venous system from the inguinal region to the proximal ca lf. No echogenic clot is seen in the lumen of the common femoral, femoral, popliteal, and posterior tibial veins. There is a normal response of the venous system to proximal and distal augmentation an d respiration. LEFT LEG: There is normal compressibility of the deep venous system from the inguinal region to the proximal ca lf. No echogenic clot is seen in the lumen of the common femoral, femoral, popliteal, and posterior tibial veins. There is a normal response of the venous system to proximal and distal augmentation an d respiration. CONCLUSION: No evidence of deep venous thrombosis within the lower extremities. Jeff Loza MD on May 12, 2017 at 13:02 Board Certified Radiologist. This report was verified electronically.
[2017-05-12] MEDS ORDERED: FUROSEMIDE 40 MG/4 ML VIAL IV PUSH ONE (13:30)
--- NOTE | 2017-05-13 13:38 | EKG ---
Date Performed: 05/12/2017 Time Performed: 11:17:44 PTAGE: 71 years EKG: Sinus rhythm BORDERLINE RIGHT AXIS DEVIATION INTRAVENTRICULAR CONDUCTION DELAY ABNORMAL ECG INTERPRETATION BASED ON A DEFAULT AGE OF 40 YEARS PREVIOUS TRACING : 04/20/2017 13.53 Compared to prior tracing no significant change DOCTOR: Mohinder Ruiz Interpretating Date/Time 05/13/2017 13:35:53
== END 2017-05-12 15:10 | disposition home or self-care (01) ==
LOC: NEPE 11:05
DX: R60.0 Localized edema (principal); M25.562 Pain in left knee; R06.02 Shortness of breath; Z95.1 Presence of aortocoronary bypass graft; I50.9 Heart failure, unspecified; J44.9 Chronic obstructive pulmonary disease, unspecified; I10 Essential (primary) hypertension; E78.00 Pure hypercholesterolemia, unspecified; K21.9 Gastro-esophageal reflux disease without esophagitis; R94.31 Abnormal electrocardiogram [ECG] [EKG]; I25.2 Old myocardial infarction; B19.20 Unspecified viral hepatitis C without hepatic coma; Z79.01 Long term (current) use of anticoagulants
CPT/HCPCS: 71010; 73564; 80048; 83880; 85025; 85610; 85730; 93005; 93970; 96374; 99285; J1940

== ENCOUNTER 2017-07-20 09:59 | Inpatient (IN) | payer OTHER, MEDICARE ==
[~2017-07-20] VITALS: Ht 182.9 cm; Wt 73.3 kg
[2017-07-20] VITALS (8 sets, daily range): BP systolic 102–122; BP diastolic 57–71; PULSE 77–95; RESP 18–22; TEMP 97.7–98.6; O2SAT 95–99
[~2017-07-20 09:59] MED LIST changes: -AMLO5TAB2 PO; -AZIT250T3 PO; +FERR324T4 PO; -IPRAAER INH; +LISI-515 PO; -PRED20 PO; +TRAZ50TA12 PO; -TRAZADONE PO; -VITA100T54 PO
--- NOTE | 2017-07-20 10:48 | PD ---
HPI Chief Complaint: Respiratory Symptoms Time Seen by Provider: 10:48 Travel History International Travel<30 days: No Contact w/Intl Traveler<30days: No Traveled to known affect area: No History of Present Illness HPI 71-year-old male came to the emergency room brought by EMS with history of shortness of breath is progressively worsening for past couple days. COPD, coronary artery disease and ascites from hep C. Patient was afebrile. Normally does not require oxygen at home but he was on nasal cannula since he was desatting to the 80s. He was given IV Solu-Medrol bolus and 2 albuterol on route by EMS. Patient denied of any chest pain. Upon arrival he said he felt little better especially with the oxygen. He has noticed some leg swelling bilaterally. No history of fever or chills. No history of cough or sputum production. PFSH Past Medical History Narrative Medical list of her past medical, surgical, social and family history is reviewed from the nursing note. Hx Anticoagulant Therapy: Yes (XARELTO) Arthritis: No Asthma: No Autoimmune Disease: No Blood Disorders: No Anxiety: No Depression: No Heart Rhythm Problems: No Cancer: No Cardiovascular Problems: Yes High Cholesterol: Yes Chemotherapy: No Chest Pain: No Congestive Heart Failure: Yes COPD: Yes Cerebrovascular Accident: No Diabetes: No Diminished Hearing: No Endocrine: No Gastrointestinal Disorders: Yes (EROSIVE ESOPHAGITIS; COLITIS) GERD: Yes Glaucoma: No Genitourinary: No Headaches: No Hepatitis: Yes (C) Hiatal Hernia: Yes Hypertension: Yes Immune Disorder: No Kidney Stones: No Musculoskeletal: No Neurologic: No Psychiatric: No Reproductive: No Respiratory: Yes (COPD) Migraines: No Myocardial Infarction: No Radiation Therapy: No Renal Failure: No Seizures: No Sickle Cell Disease: No Sleep Apnea: No Thyroid Disease: No Ulcer: No Tetanus Vaccination: < 5 Years Influenza Vaccination: Yes Past Surgical History Abdominal Surgery: Yes (ESOPHAGEAL VARICIES 2006) AICD: No Appendectomy: No Arteriovenous Shunt: No Cardiac Surgery: Yes Cholecystectomy: No Coronary Artery Bypass Graft: Yes (TRIPLE BYPASS) Ear Surgery: No Endocrine Surgery: No Eye Surgery: No Genitourinary Surgery: No Gynecologic Surgery: No Insulin Pump: No Joint Replacement: No Oral Surgery: No Pacemaker: No Thoracic Surgery: No Other Surgery: Yes (CABG) Social History Alcohol Use: No (QUIT) Tobacco Use: No (QUIT) Substance Use: Yes (marijuana ) Allergies-Medications (Allergen,Severity, Reaction): Coded Allergies: No Known Allergies (Verified , 07/20/17) Comments No known drug allergies. Reported Meds & Prescriptions Reported Meds & Active Scripts Active Reported Trazodone (Trazodone HCl) 50 Mg Tab 25 Mg PO HS Lisinopril 20 Mg Tab 10 Mg PO DAILY Ferrous Sulfate DR (Ferrous Sulfate) 324 Mg Tabdr 324 Mg PO DAILY Sertraline (Sertraline HCl) 50 Mg Tab 50 Mg PO DAILY Allerclear (Loratadine) 10 Mg Tablet 10 Mg PO DAILY Furosemide 20 Mg Tab 20 Mg PO DAILY Albuterol Neb (Albuterol Sulfate) 2.5 Mg/3 Ml Neb 2.5 Mg NEB Q6HR NEB PRN Aldactone (Spironolactone) 50 Mg Tab 50 Mg PO DAILY Symbicort Inh (Budesonide/Formoterol Fumarate) 160-4.5 Mcg/Act Aero 1 Puff INH BID Atorvastatin (Atorvastatin Calcium) 40 Mg Tab 40 Mg PO HS Omeprazole 20 Mg Tab 20 Mg PO DAILY Enulose Liq (Lactulose (Encephalopathy) Liq) 10 Gm/15 Ml Soln 10 Gm PO DAILY Aspirin 81 Mg Chew 81 Mg PO DAILY Narrative Medication List of his home medications reviewed from the nursing note. Review of Systems Except as stated in HPI: all other systems reviewed are Neg Physical Exam Narrative GENERAL: Somnolent but wakes up upon calling his name, moderate distress SKIN: Focused skin assessment warm/dry. HEAD: Atraumatic. Normocephalic. EYES: Pupils equal and round. No scleral icterus. No injection or drainage. ENT: No nasal bleeding or discharge. Mucous membranes pink and moist. NECK: Trachea midline. No JVD. CARDIOVASCULAR: Regular rate and rhythm. No murmur appreciated. RESPIRATORY: Decreased air entry bilaterally with end expiratory wheeze GASTROINTESTINAL: Abdomen soft, non-tender, stented with ascites, large umbilical hernia that can be easily reduced. Hepatic and splenic margins not palpable. MUSCULOSKELETAL: No obvious deformities. No clubbing. No cyanosis. Plus bilateral pedal edema NEUROLOGICAL: Somnolent but wakes up upon calling his name. No obvious cranial nerve deficits. Motor grossly within normal limits. Normal speech. PSYCHIATRIC: Appropriate mood and affect; insight and judgment normal. Data Data Last Documented VS Vital Signs Date Time Temp Pulse Resp B/P (MAP) Pulse Ox O2 Delivery O2 Flow Rate FiO2 07/20/17 14:06 98.1 86 20 122/57 (78) 97 Nasal Cannula 2.00 Orders Orders Complete Blood Count With Diff (07/20/17 10:51) Comprehensive Metabolic Panel (07/20/17 10:51) B-Type Natriuretic Peptide (07/20/17 10:51) Prothrombin Time / Inr (Pt) (07/20/17 10:51) Magnesium (Mg) (07/20/17 10:51) Ckmb (Isoenzyme) Profile (07/20/17 10:51) Troponin I (07/20/17 10:51) Arterial Blood Gas (Abg) (07/20/17 10:51) Urinalysis - C+S If Indicated (07/20/17 10:51) Blood Culture (07/20/17 10:51) Iv Access Insert/Monitor (07/20/17 10:51) Electrocardiogram (07/20/17 10:51) Ecg Monitoring (07/20/17 10:51) Oximetry (07/20/17 10:51) Oxygen Administration (07/20/17 10:51) Chest, Single Ap (07/20/17 10:51) Sodium Chloride 0.9% Flush (Ns Flush) (07/20/17 11:00) Albuterol-Ipratropium Neb (Duoneb Neb) (07/20/17 11:00) CKMB (07/20/17 11:14) CKMB% (07/20/17 11:14) Furosemide Inj (Lasix Inj) (07/20/17 13:00) Lactic Acid Sepsis Protocol (07/20/17 14:32) Admit To Inpatient (07/20/17 ) Vital Signs (Adult) HOLLIE.Q4H (07/20/17 14:42) Activity Oob Ad Zainab (07/20/17 14:42) Metal Framer / Telemetry HOLLIE.Q8H (07/20/17 14:42) Intake + Output HOLLIE.QSHIFT (07/20/17 14:42) Sodium Chloride 0.9% Flush (Ns Flush) (07/20/17 21:00) Sodium Chloride 0.9% Flush (Ns Flush) (07/20/17 14:45) Furosemide Inj (Lasix Inj) (07/20/17 18:00) Potassium Chloride (Kcl) (07/20/17 21:00) Basic Metabolic Panel (Bmp) (07/21/17 06:00) Pharmacologic Contraindication (07/20/17 14:42) Inpatient Certification (07/20/17 ) Ceftriaxone Inj (Rocephin Inj) (07/20/17 16:00) Azithromycin Inj (Zithromax Inj) (07/20/17 15:00) Ceftriaxone Inj (Rocephin Inj) (07/21/17 16:00) Azithromycin Inj (Zithromax Inj) (07/21/17 15:00) Bedside Glucose HOLLIE.AC&HS (07/20/17 14:47) Blood Glucose Goal (Criteria) (07/20/17 14:47) Hypoglycemia 70 Mg/Dl Or < (07/20/17 14:47) Notify Dr: Other (07/20/17 14:47) Dextrose 50% In Billy (Vial) Inj (D50w (Vi (07/20/17 15:00) Glucagon Inj (Glucagon Inj) (07/20/17 15:00) Admit Order (Ed Use Only) (07/20/17 14:48) Labs Laboratory Tests Test 07/20/17 11:14 07/20/17 11:17 White Blood Count 3.9 TH/MM3 Red Blood Count 3.32 MIL/MM3 Hemoglobin 10.2 GM/DL Hematocrit 32.7 % Mean Corpuscular Volume 98.7 FL Mean Corpuscular Hemoglobin 30.7 PG Mean Corpuscular Hemoglobin Concent 31.1 % Red Cell Distribution Width 19.8 % Platelet Count 80 TH/MM3 Mean Platelet Volume 9.6 FL Neutrophils (%) (Auto) 58.2 % Lymphocytes (%) (Auto) 22.4 % Monocytes (%) (Auto) 18.0 % Eosinophils (%) (Auto) 0.5 % Basophils (%) (Auto) 0.9 % Neutrophils # (Auto) 2.3 TH/MM3 Lymphocytes # (Auto) 0.9 TH/MM3 Monocytes # (Auto) 0.7 TH/MM3 Eosinophils # (Auto) 0.0 TH/MM3 Basophils # (Auto) 0.0 TH/MM3 CBC Comment AUTO DIFF Differential Total Cells Counted 100 Neutrophils % (Manual) 68 % Band Neutrophils % 7 % Lymphocytes % 13 % Monocytes % 11 % Neutrophils # (Manual) 3.0 TH/MM3 Metamyelocytes 1 % Differential Comment FINAL DIFF MANUAL Platelet Estimate LOW Platelet Morphology Comment NORMAL Prothrombin Time 14.0 SEC Prothromb Time International Ratio 1.3 RATIO Blood Urea Nitrogen 23 MG/DL Creatinine 1.06 MG/DL Random Glucose 61 MG/DL Total Protein 7.2 GM/DL Albumin 3.1 GM/DL Calcium Level 7.9 MG/DL Magnesium Level 1.6 MG/DL Alkaline Phosphatase 57 U/L Aspartate Amino Transf (AST/SGOT) 27 U/L Alanine Aminotransferase (ALT/SGPT) 13 U/L Total Bilirubin 0.7 MG/DL Sodium Level 140 MEQ/L Potassium Level 3.7 MEQ/L Chloride Level 106 MEQ/L Carbon Dioxide Level 24.4 MEQ/L Anion Gap 10 MEQ/L Estimat Glomerular Filtration Rate 69 ML/MIN Total Creatine Kinase 105 U/L Creatine Kinase MB 1.0 NG/ML Troponin I 0.04 NG/ML B-Type Natriuretic Peptide 2777 PG/ML Blood Gas Puncture Site RT RADIAL Blood Gas Patient Temperature 98.6 Blood Gas HCO3 23 mmol/L Blood Gas Base Excess -2.2 mmol/L Blood Gas Oxygen Saturation 88 % Arterial Blood pH 7.32 Arterial Blood Partial Pressure CO2 47 mmHg Arterial Blood Partial Pressure O2 64 mmHG Arterial Blood Oxygen Content 12.7 Vol % Arterial Blood Carboxyhemoglobin 1.4 % Arterial Blood Methemoglobin 0.6 % Blood Gas Hemoglobin 10.2 G/DL Blood Gas Inspired Oxygen 21 % MDM Medical Decision Making Medical Screen Exam Complete: Yes Emergency Medical Condition: Yes Medical Record Reviewed: Yes Interpretation(s) Twelve-lead EKG was reviewed by me. Normal sinus rhythm, right axis deviation, interventricular conduction delay. Heart rate of 92 bpm. Differential Diagnosis acute COPD exacerbation, CHF, pneumonia, pleural effusion Narrative Course 2:52 PM the test results are back. Patient has leukopenia which is chronic. Chemistry is within acceptable limit. Troponin is negative. Chest x-ray shows fluid overload and patient has been given 40 mg of IV Lasix by me. I had also given him 3 duo nebs initially when he came in. I decided the patient to be admitted and discussed with the hospitalist. Initially upon patient's arrival there was a blood gas done on room air which showed hypoxia. There was a concern about low blood sugar on the initial blood test. The nurse just did a bedside blood glucose which shows 110. Procedures EKG Prior to Arrival: Yes Diagnosis Primary Impression: Respiratory distress Additional Impressions: CHF (congestive heart failure) Qualified Codes: I50.9 - Heart failure, unspecified COPD exacerbation Hypoxia Chronic leukopenia Ascites Qualified Codes: R18.8 - Other ascites Umbilical hernia Qualified Codes: K42.9 - Umbilical hernia without obstruction or gangrene Admitting Information Admitting Physician Requests: it Artie Rodriguez MD Jul 20, 2017 10:48
[2017-07-20] MEDS: RESP: ALBUTEROL 2.5 MG/IPRATROPIUM 0.5 MG NEB (SCH) INH ×2 (10:58→10:59)
[2017-07-20] MEDS: SODIUM CHLORIDE 0.9% FLUSH 10 ML FLUSH IVF PRN ×2 (11:26→13:04)
--- NOTE | 2017-07-20 11:29 | RADRPT ---
EXAM DATE/TIME: 07/20/2017 10:59 [facility] COMPARISON: CHEST SINGLE AP, April 20, 2017, 13:01. CHEST SINGLE AP, September 23, 2016, 14:39. CHEST SINGLE AP, 2016, 11:36. INDICATIONS : Short of breath and difficulty breathing for a few days. MEDICAL HISTORY : Congestive heart failure. Chronic obstructive pulmonary disease. Hypercholesterolemia. Myocardial inf arction. Anticoagulant therapy. Hypertension. Erosive esophagitis. Colitis. GERD. Esophageal varices. Liver disease. PTSD. Hep C. SURGICAL HISTORY : CABG. ENCOUNTER: Initial ACUITY: 2 days PAIN SCORE: 0/10 LOCATION: Bilateral chest FINDINGS: Median sternotomy wires with post surgical changes of prior cardiac surgery. Stable pleural-parenchym al opacities in the left lower lung zone. Lungs are otherwise clear. Cardiomediastinal contours are s table. Central pulmonary vasculature is slightly indistinct. Bony thorax is intact. CONCLUSION: 1. Cardiomegaly with slight positive fluid balance. 2. 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 Danny Younger MD on July 20, 2017 at 11:25 Board Certified Radiologist. This report was verified electronically.
[2017-07-20 11:42] LABS: AUTOMATED NEUTROPHIL # 2.3 TH/MM3 (1.8-7.7); BASOPHIL % 0.9 % (0.0-2.0); EOSINOPHIL % 0.5 % (0.0-4.0); HEMATOCRIT 32.7 % (39.0-51.0); LYMPH % 22.4 % (9.0-44.0); LYMPHOCYTE # 0.9 TH/MM3 (1.0-4.8); MEAN CELL VOLUME 98.7 FL (80.0-100.0); MEAN CORPUSCULAR HEMOGLOBIN 30.7 PG (27.0-34.0); MEAN CORPUSCULAR HGB CONC 31.1 % (32.0-36.0); NEUT % 58.2 % (16.0-70.0); PLATELET COUNT 80 TH/MM3 (150-450); RED BLOOD COUNT 3.32 MIL/MM3 (4.50-5.90); RED CELL DISTRIBUTION WIDTH 19.8 % (11.6-17.2); WHITE BLOOD COUNT 3.9 TH/MM3 (4.0-11.0)
[2017-07-20 11:47] LABS: HEMO FLAGS AUTO DIFF
[2017-07-20 11:49] LABS: INTERNATIONAL NORMALIZED RATIO 1.3 RATIO
[2017-07-20 12:04] LABS: ALT (GPT) 13 U/L (12-78); ANION GAP 10 MEQ/L (5-15); AST (GOT) 27 U/L (15-37); BICARBONATE 24.4 MEQ/L (21.0-32.0); BLOOD UREA NITROGEN 23 MG/DL (7-18); CHLORIDE 106 MEQ/L (98-107); GLOMERULAR FILTRATION RATE 69 ML/MIN (>89); MAGNESIUM 1.6 MG/DL (1.5-2.5); POTASSIUM 3.7 MEQ/L (3.5-5.1); SODIUM (NA) 140 MEQ/L (136-145)
[2017-07-20 12:08] LABS: ALKALINE PHOSPHATASE 57 U/L (45-117); CREATINE KINASE 105 U/L (39-308); TOTAL BILIRUBIN ADULT 0.7 MG/DL (0.2-1.0)
[2017-07-20] MEDS ORDERED: FUROSEMIDE 40 MG/4 ML VIAL IV PUSH ONE (13:00)
[2017-07-20 13:01] LABS: BLOOD GAS BASE EXCESS -2.2 mmol/L (-2-2); BLOOD GAS CARBOXYHEMOGLOBIN 1.4 % (0-4); BLOOD GAS HCO3 23 mmol/L (22-26); BLOOD GAS METHEMOGLOBIN 0.6 % (0-2); BLOOD GAS O2 HGB SATURATION 88 % (90-100); BLOOD GAS OXYGEN CONTENT 12.7 Vol % (12.0-20.0); BLOOD GAS PCO2 47 mmHg (38-42); BLOOD GAS PO2 64 mmHG (61-120); BLOOD GAS TOTAL HGB 10.2 G/DL (12.0-16.0); TEMP CORR TO 98.6
[2017-07-20 13:02] LABS: CRITICAL VALUE YES; DRAW SITE RT RADIAL; FIO2 21 %; NUMBER OF ARTERIAL PUNCTURES 1; ULNAR PULSE PRESENT
[2017-07-20 13:03] LABS: STAT YES
[2017-07-20 14:19] LABS: BANDS 7 % (0-6); METAMYELOCYTES 1 % (0-1); POLYS (SEG NEUTROPHILS) 68 % (16-70); WBC DIFF SAMPLE 100
[2017-07-20 14:20] LABS: PLATELET ESTIMATE SMEAR LOW (NORMAL); PLATELET MORPHOLOGY NORMAL (NORMAL); SCAN/DIFF FINAL DIFF MANUAL
[2017-07-20] MEDS ORDERED: SODIUM CHLORIDE 0.9% FLUSH 10 ML FLUSH IV FLUSH PRN (14:45)
[2017-07-20] MEDS ORDERED: DEXTROSE 50% IN WATER 50 ML VIAL(D50) IV PRN (15:00)
[2017-07-20] MEDS ORDERED: AZITHROMYCIN INJ 500 MG in SODIUM CHLOR 0.9% 250 ML INJ 250 ML IV ONE (15:00)
[2017-07-20] MEDS ORDERED: GLUCAGON 1 MG/ML VIAL OTHER PRN (15:00)
[2017-07-20] MEDS ORDERED: cefTRIAXone INJ 2,000 MG in SODIUM CHLORIDE 0.9% INJ 100 ML IV ONE (16:00)
[2017-07-20 16:23] LABS: BLOOD, URINE TRACE (NEG); COMMENT (UR) CULT NOT INDICATED; CULTURE IF INDICATED CULT NOT INDICATED; GLUCOSE,URINE NEG (NEG); KETONE, URINE NEG (NEG); MUCUS URINE FEW /lpf (OCC); NITRITE,URINE NEG (NEG); SQUAMOUS EPITHELIAL CELL URINE <1 /hpf (0-5); URINE COLOR YELLOW (YELLW/STRAW)
[2017-07-20] MEDS ORDERED: RESP: ALBUTEROL 2.5 MG/3 ML NEB (PRN) NEB (17:15)
--- NOTE | 2017-07-20 17:21 | HHI.HP ---
HPI Service [facility] Primary Care Physician [facility] Admission Diagnosis respiratory distress, CHF, COPD exacerbation Diagnoses: Travel History International Travel<30 Days: No Contact w/Intl Traveler <30 Da: No Traveled to Known Affected Are: No Sepsis Criteria SIRS Criteria (2 or more): Heart rate over 90, RR > 20 or PaCO2 < 32, WBC > 22619, < 4000 or > 10% bands Sepsis Criteria (SIRS+source): Infect source susp/known Severe Sepsis (+one): Lactate >2 History of Present Illness Patient is a 71-year-old male with primary medical history of CAD, Hx S/P CABG, COPD, umbilical hernia, esophageal varices, hepatitis C treated who came in to the hospital for complaints of increasing shortness of breath. Patient states that he has this "faint feeling" ,"lack of oxygen", "unable to breathe the right." Started about 2 days ago, increased today do twice he went to the emergency room for further evaluation. He reports he has chills, palpitations at home, headache. Also states he has orthopnea, and cough. Does not use any O2 at home, but has used his inhalers more frequently. Reports he quit smoking 8 days ago. Denies chest pain, dizziness, lightheadedness. Denies fevers, nausea, vomiting, diarrhea. Denies dysuria. Review of Systems Except as stated in HPI: all other systems reviewed are Neg Past Family Social History Past Medical History COPD Hep C treated with 12 weeks Harvoni last year Liver cirrhosis, ascites CAD HTN Esophageal varices Umbilical hernia Past Surgical History CABG 3 Esophageal variceal banding Reported Medications Reported Meds & Active Scripts Active Reported Trazodone (Trazodone HCl) 50 Mg Tab 25 Mg PO HS Lisinopril 20 Mg Tab 10 Mg PO DAILY Ferrous Sulfate DR (Ferrous Sulfate) 324 Mg Tabdr 324 Mg PO DAILY Sertraline (Sertraline HCl) 50 Mg Tab 50 Mg PO DAILY Allerclear (Loratadine) 10 Mg Tablet 10 Mg PO DAILY Furosemide 20 Mg Tab 20 Mg PO DAILY Albuterol Neb (Albuterol Sulfate) 2.5 Mg/3 Ml Neb 2.5 Mg NEB Q6HR NEB PRN Aldactone (Spironolactone) 50 Mg Tab 50 Mg PO DAILY Symbicort Inh (Budesonide/Formoterol Fumarate) 160-4.5 Mcg/Act Aero 1 Puff INH BID Atorvastatin (Atorvastatin Calcium) 40 Mg Tab 40 Mg PO HS Omeprazole 20 Mg Tab 20 Mg PO DAILY Enulose Liq (Lactulose (Encephalopathy) Liq) 10 Gm/15 Ml Soln 10 Gm PO DAILY Aspirin 81 Mg Chew 81 Mg PO DAILY Allergies: Coded Allergies: No Known Allergies (Verified , 07/20/17) Active Ordered Medications Current Medications Medications (Trade) Dose Ordered Sig/Primo Route Start Time Stop Time Status Last Admin (NS Flush) 2 ml UNSCH PRN IVF 07/20/17 11:00 07/20/17 13:04 (NS Flush) 2 ml BID IV FLUSH 07/20/17 21:00 (NS Flush) 2 ml UNSCH PRN IV FLUSH 07/20/17 14:45 (Lasix Inj) 40 mg BID@09,18 IVP 07/20/17 18:00 (KCl) 20 meq BID PO 07/20/17 21:00 Ceftriaxone Sodium 1000 mg/ Sodium Chloride 100 ml @ 200 mls/hr Q24H IV 07/21/17 16:00 Azithromycin 500 mg/Sodium Chloride 250 ml @ 250 mls/hr Q24H IV 07/21/17 15:00 (D50w (Vial) Inj) 50 ml UNSCH PRN IV 07/20/17 15:00 (Glucagon Inj) 1 mg UNSCH PRN OTHER 07/20/17 15:00 Family History Family history of congestive heart failure Social History Denies any recent alcohol use, last alcohol use of the 3 months ago usually drinks wine or beer 1-1/2-1 pack a day smoker, quit 8 days ago Occasional marijuana use Physical Exam Vital Signs Vital Signs Date Time Temp Pulse Resp B/P (MAP) Pulse Ox O2 Delivery O2 Flow Rate FiO2 07/20/17 15:45 98.4 84 20 118/66 (83) 97 Nasal Cannula 2.00 07/20/17 14:06 98.1 86 20 122/57 (78) 97 Nasal Cannula 2.00 07/20/17 13:05 98.2 94 20 109/65 (80) 95 Nasal Cannula 2.00 8/24/17 11:26 98.4 95 20 117/71 (86) 98 Nasal Cannula 2.00 07/20/17 10:53 98.6 22 98 Nasal Cannula 2.00 07/20/17 10:53 98 Nasal Cannula 2.00 07/20/17 10:08 95 22 98 Nasal Cannula 2.00 07/20/17 10:07 98.6 93 22 116/70 (85) 99 Physical Exam GENERAL: This is a thin-appearing, well-developed patient, lethargic. SKIN: Warm and dry. Midsternal wound scar noted. HEAD: Normocephalic. EYES: Pupils equal round and reactive. Extraocular motions intact. No scleral icterus. No injection or drainage. ENT: Nose without bleeding. Throat without erythema. Uvula midline. Airway patent. NECK: Trachea midline. Supple. CARDIOVASCULAR: Regular rate and rhythm systolic murmurs, gallops, or rubs. RESPIRATORY: Coarse breath sounds, diminished bases. No wheezes, rales, or rhonchi. GASTROINTESTINAL: Abdomen soft, non-tender, distended. Umbilical hernia present. Bowel sounds hypoactive. MUSCULOSKELETAL: Extremities without clubbing, cyanosis, bilateral lower extremity nonpitting edema. NEUROLOGICAL: Lethargic, easily arousable but fall back to sleep on and off. Motor and sensory grossly within normal limits. Normal speech. Laboratory Laboratory Tests Test 07/20/17 11:14 07/20/17 11:17 07/20/17 15:00 White Blood Count 3.9 Red Blood Count 3.32 Hemoglobin 10.2 Hematocrit 32.7 Mean Corpuscular Volume 98.7 Mean Corpuscular Hemoglobin 30.7 Mean Corpuscular Hemoglobin Concent 31.1 Red Cell Distribution Width 19.8 Platelet Count 80 Mean Platelet Volume 9.6 Neutrophils (%) (Auto) 58.2 Lymphocytes (%) (Auto) 22.4 Monocytes (%) (Auto) 18.0 Eosinophils (%) (Auto) 0.5 Basophils (%) (Auto) 0.9 Neutrophils # (Auto) 2.3 Lymphocytes # (Auto) 0.9 Monocytes # (Auto) 0.7 Eosinophils # (Auto) 0.0 Basophils # (Auto) 0.0 CBC Comment AUTO DIFF Differential Total Cells Counted 100 Neutrophils % (Manual) 68 Band Neutrophils % 7 Lymphocytes % 13 Monocytes % 11 Neutrophils # (Manual) 3.0 Metamyelocytes 1 Differential Comment FINAL DIFF MANUAL Platelet Estimate LOW Platelet Morphology Comment NORMAL Prothrombin Time 14.0 Prothromb Time International Ratio 1.3 Blood Urea Nitrogen 23 Creatinine 1.06 Random Glucose 61 Total Protein 7.2 Albumin 3.1 Calcium Level 7.9 Magnesium Level 1.6 Alkaline Phosphatase 57 Aspartate Amino Transf (AST/SGOT) 27 Alanine Aminotransferase (ALT/SGPT) 13 Total Bilirubin 0.7 Sodium Level 140 Potassium Level 3.7 Chloride Level 106 Carbon Dioxide Level 24.4 Anion Gap 10 Estimat Glomerular Filtration Rate 69 Total Creatine Kinase 105 Creatine Kinase MB 1.0 Troponin I 0.04 Blood Gas Puncture Site RT RADIAL Blood Gas Patient Temperature 98.6 Blood Gas HCO3 23 Blood Gas Base Excess -2.2 Blood Gas Oxygen Saturation 88 Arterial Blood pH 7.32 Arterial Blood Partial Pressure CO2 47 Arterial Blood Partial Pressure O2 64 Arterial Blood Oxygen Content 12.7 Arterial Blood Carboxyhemoglobin 1.4 Arterial Blood Methemoglobin 0.6 Blood Gas Hemoglobin 10.2 Blood Gas Inspired Oxygen 21 Urine Color YELLOW Urine Turbidity CLEAR Urine pH 5.0 Urine Specific [place] 1.010 Urine Protein NEG Urine Glucose (UA) NEG Urine Ketones NEG Urine Occult Blood TRACE Urine Nitrite NEG Urine Bilirubin NEG Urine Urobilinogen LESS THAN 2.0 Urine Leukocyte Esterase NEG Urine RBC 1 Urine WBC LESS THAN 1 Urine Squamous Epithelial Cells <1 Urine Mucus FEW Microscopic Urinalysis Comment CULT NOT INDICATED Lactic Acid Level 2.5 Date/Time Source Procedure Growth Status 07/20/17 11:15 Blood Peripheral Aerobic Blood Culture Pending Received 07/20/17 11:15 Blood Peripheral Anaerobic Blood Culture Pending Received Result Diagram: 07/20/17 1114 07/20/17 1114 Imaging Last Impressions Chest X-Ray 07/20/17 1051 Signed Impressions: Service Date/Time: June 10:59 - CONCLUSION: 1. Cardiomegaly with slight positive fluid balance. 2. 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 MD Mag Mixon VTE Risk Assessment Mag VTE Risk Assessment: Mod/High Risk (score >= 2) Caprini Risk Assessment Model Point Value = 1 Point Value = 2 Point Value = 3 Point Value = 5 Age 41-60 Minor surgery BMI > 25 kg/m2 Swollen legs Varicose veins or History of unexplained or recurrent spontaneous Oral contraceptives or hormone replacement Sepsis (< 1 month) Serious lung disease, including pneumonia (< 1 month) Abnormal pulmonary function Acute myocardial infarction Congestive heart failure (< 1 month) History of inflammatory bowel disease Medical patient at bed rest Age 61-74 Arthroscopic surgery Major open surgery (> 45 min) Laparoscopic surgery (> 45 min) Malignancy Confined to bed (> 72 hours) Immobilizing plaster cast Central venous access Age >= 75 History of VTE Family history of VTE Factor V Leiden Prothrombin [id number] Lupus anticoagulant Anticardiolipin antibodies Elevated serum homocysteine Heparin-induced thrombocytopenia Other congenital or acquired thrombophilia Stroke (< 1 month) Elective arthroplasty Hip, pelvis, or leg fracture Acute spinal cord injury (< 1 month) Prophylaxis Regimen Total Risk Factor Score Risk Level Prophylaxis Regimen 0-1 Low Early ambulation 2 Moderate Order ONE of the following: *Sequential Compression Device (SCD) *Heparin 5000 units SQ BID 3-4 Higher Order ONE of the following medications: *Heparin 5000 units SQ TID *Enoxaparin/Lovenox 40 mg SQ daily (WT < 150 kg, CrCl > 30 mL/min) *Enoxaparin/Lovenox 30 mg SQ daily (WT < 150 kg, CrCl > 10-29 mL/min) *Enoxaparin/Lovenox 30 mg SQ BID (WT < 150 kg, CrCl > 30 mL/min) AND/OR *Sequential Compression Device (SCD) 5 or more Highest Order ONE of the following medications: *Heparin 5000 units SQ TID (Preferred with Epidurals) *Enoxaparin/Lovenox 40 mg SQ daily (WT < 150 kg, CrCl > 30 mL/min) *Enoxaparin/Lovenox 30 mg SQ daily (WT < 150 kg, CrCl > 10-29 mL/min) *Enoxaparin/Lovenox 30 mg SQ BID (WT < 150 kg, CrCl > 30 mL/min) AND *Sequential Compression Device (SCD) Assessment and Plan Problem List: (1) COPD exacerbation ICD Code: J44.1 - Chronic obstructive pulmonary disease with (acute) exacerbation Status: Acute (2) Hypoxia ICD Code: R09.02 - Hypoxemia Status: Acute (3) CHF (congestive heart failure) ICD Code: I50.9 - Heart failure, unspecified Status: Acute (4) S/P CABG x 3 ICD Code: Z95.1 - Presence of aortocoronary bypass graft Status: Acute (5) COPD (chronic obstructive pulmonary disease) ICD Code: J44.9 - Chronic obstructive pulmonary disease, unspecified Status: Chronic (6) CAD (coronary artery disease) ICD Code: I25.10 - Atherosclerotic heart disease of [place] coronary artery without angina pectoris Status: Chronic (7) Cirrhosis, alcoholic ICD Code: K70.30 - Alcoholic cirrhosis of liver without ascites Status: Chronic (8) Ascites ICD Code: R18.8 - Other ascites Status: Acute (9) Bilateral lower extremity edema ICD Code: R60.0 - Localized edema Status: Acute Assessment and Plan Patient is a 71-year-old male with primary medical history of CAD, Hx S/P CABG, COPD, umbilical hernia, esophageal varices, hepatitis C treated who came in to the hospital for complaints of increasing shortness of breath. Sepsis ? Pneumonia COPD exacerbation vs CHF exacerbation - Current a smoker, quit 8 days ago increasing shortness of breath, orthopnea , chills, general malaise, Bilateral LE edema, - WBC 3.9, HR >90, RR >20, PCO2 47, O2 88, PO2 64, Lactic Acid 2.5 - Chest x-ray showed 1. Cardiomegaly with slight positive fluid balance. 2. Chronic pleural parenchymal disease and left lower lung zone. - Lasix 40 mg twice a day, duo nebs scheduled and when necessary - Ceftriaxone 1 g every 24 hours, azithromycin 500 mg every 24 hours, Symbicort twice a day - Check BNP - Check blood cultures - O2 nasal cannula, keep O2 sat greater than 90% - Monitor respiratory status Ascites Liver cirrhosis Bilateral LE edema - Continue IV Lasix 40 mg twice a day - Lactulose when necessary CAD History of CABG - was previously on Xarelto post CABG but has stopped taking it after 1 year post op. HTN CHF - Continue atorvastatin 40 mg daily, aspirin 81 mg, lisinopril 20 mg daily - Lasix 40 mg IV - hold by mouth home meds Lasix 20 mg, Aldactone 50 mg - Monitor BP trend History of esophageal variceal banding Umbilical hernia - Pantoprazole daily Anemia, chronic disease - Continue ferrous sulfate - Monitor trend DVT prop SCD Code Status Full code Discussed Condition With Patient, nursing, Dr. Umanzor Physician Certification 2 Midnight Certification Type: Admission for Inpatient Services Order for Inpatient Services The services are ordered in accordance with Medicare regulations or non- Medicare payer requirements, as applicable. In the case of services not specified as inpatient-only, they are appropriately provided as inpatient services in accordance with the 2-midnight benchmark. Estimated LOS (days): 2 days is the estimated time the patient will need to remain in the hospital, assuming treatment plan goals are met and no additional complications. Post-Hospital Plan: Home Medical Decision Making MDM Remarks Attending statement Patient states he's had dry cough along with some fevers and chills past 2 days. He has been feeling weak and sleepy. He also reports increased shortness of breath with no previous associated chest pain. Lactic acid was obtained due to patient's bandemia and decreased white blood cells and platelets which reveal a level greater than 2 Patient presents with tachycardia with WBC less than 4 and has severe sepsis on presentation with suspected infection of community acquired pneumonia pneumonia , may also associated have fluid overload. Antibiotic IV Rocephin and Zithromax been initiated. Continue oxygen support and bronchodilators DuoNeb treatment. The exam, history, and the medical decision making described in the above note were completed with the assistance of the dictating practitioner. I reviewed and agree with the findings presented. I attest that I had a face-to face encounter with the patient on the same day and personally performed and documented my assessment and findings in the medical record. Problem Qualifiers (1) CHF (congestive heart failure): Qualified Codes: I50.9 - Heart failure, unspecified (2) Ascites: Qualified Codes: R18.8 - Other ascites Zhang Wakefield Jul 20, 2017 17:21 Julianna Umanzor MD Jul 20, 2017 18:10
[2017-07-20] MEDS: FUROSEMIDE 40 MG/4 ML VIAL IVP SCH (17:50)
[2017-07-20 20:47] LABS: LACTIC ACID GHOST NOT REPORTABLE
[2017-07-20] MEDS: ATORVASTATIN 40 MG TAB PO SCH (22:41)
[2017-07-20] MEDS: POTASSIUM CHLORIDE 20 MEQ CONTROLLED RELEASE TAB PO SCH (22:41)
[2017-07-20] MEDS: SODIUM CHLORIDE 0.9% FLUSH 10 ML FLUSH IV FLUSH SCH (22:42)
[2017-07-20] MEDS: BUDESONIDE-FORMOTEROL 160/4.5 MCG INHALER INH SCH (22:45)
[2017-07-20] MEDS: RESP: ALBUTEROL 2.5 MG/IPRATROPIUM 0.5 MG NEB (SCH) NEB (22:52)
[2017-07-21] VITALS (10 sets, daily range): BP systolic 98–133; BP diastolic 56–73; PULSE 72–95; RESP 18–20; TEMP 97–99.2; O2SAT 93–98
[2017-07-21] MEDS ORDERED: ASPIRIN 81 MG CHEW TAB PO SCH (09:00)
[2017-07-21] MEDS ORDERED: LISINOPRIL 20 MG TAB PO SCH (09:00)
[2017-07-21] MEDS: BUDESONIDE-FORMOTEROL 160/4.5 MCG INHALER INH SCH ×2 (09:09→21:12)
[2017-07-21] MEDS: SODIUM CHLORIDE 0.9% FLUSH 10 ML FLUSH IV FLUSH SCH ×2 (09:09→21:00)
[2017-07-21] MEDS: FERROUS SULFATE 325 MG (65 MG ELEMENTAL IRON) TAB PO SCH (09:10)
[2017-07-21] MEDS: POTASSIUM CHLORIDE 20 MEQ CONTROLLED RELEASE TAB PO SCH ×2 (09:10→21:11)
[2017-07-21] MEDS: PANTOPRAZOLE SOD 20 MG DELAYED RELEASE TAB PO SCH (09:10)
[2017-07-21] MEDS: LACTULOSE SYRUP 20 GM/30 ML CUP PO SCH (09:10)
[2017-07-21] MEDS: FUROSEMIDE 40 MG/4 ML VIAL IVP SCH ×2 (09:13→17:18)
[2017-07-21 10:12] LABS: AUTOMATED NEUTROPHIL # 2.4 TH/MM3 (1.8-7.7); BASOPHIL % 0.2 % (0.0-2.0); HEMATOCRIT 33.7 % (39.0-51.0); LYMPH % 11.9 % (9.0-44.0); LYMPHOCYTE # 0.4 TH/MM3 (1.0-4.8); MEAN CELL VOLUME 98.8 FL (80.0-100.0); MEAN CORPUSCULAR HEMOGLOBIN 31.2 PG (27.0-34.0); MEAN CORPUSCULAR HGB CONC 31.6 % (32.0-36.0); MONO % 10.3 % (0.0-8.0); NEUT % 77.6 % (16.0-70.0); PLATELET COUNT 68 TH/MM3 (150-450); RED BLOOD COUNT 3.41 MIL/MM3 (4.50-5.90); RED CELL DISTRIBUTION WIDTH 19.5 % (11.6-17.2)
[2017-07-21] MEDS: RESP: ALBUTEROL 2.5 MG/IPRATROPIUM 0.5 MG NEB (SCH) NEB ×3 (10:17→22:11)
--- NOTE | 2017-07-21 10:28 | HHI.PR ---
Subjective Remarks Breathing much better I feel so much better. I was feeling more tired and confused due to past 4 days and therefore came to emergency room. I had a dry cough along with shortness of breath prior to coming to emergency room. Currently eating well. Breathing much improved. States that he does not have oxygen at home. He does have underlying COPD Objective Vitals Vital Signs Date Time Temp Pulse Resp B/P (MAP) Pulse Ox O2 Delivery O2 Flow Rate FiO2 07/21/17 08:21 97.0 79 20 108/71 (83) 98 07/21/17 04:00 97.7 77 20 103/67 (79) 97 07/21/17 03:37 Room Air 07/21/17 01:56 76 07/21/17 00:00 97.3 75 18 98/56 (70) 93 07/20/17 22:53 Nasal Cannula 1.00 07/20/17 20:30 Room Air 07/20/17 20:00 97.7 77 18 102/61 (75) 96 07/20/17 17:22 98.0 80 18 102/61 (75) 98 07/20/17 15:45 98.4 84 20 118/66 (83) 97 Nasal Cannula 2.00 07/20/17 14:06 98.1 86 20 122/57 (78) 97 Nasal Cannula 2.00 07/20/17 13:05 98.2 94 20 109/65 (80) 95 Nasal Cannula 2.00 07/20/17 11:26 98.4 95 20 117/71 (86) 98 Nasal Cannula 2.00 07/20/17 10:53 98.6 22 98 Nasal Cannula 2.00 07/20/17 10:53 98 Nasal Cannula 2.00 I/O 07/20/17 07/20/17 07/20/17 07/21/17 07/21/17 07/21/17 06:59 14:59 22:59 06:59 14:59 22:59 Intake Total 530 ml Output Total 1400 ml 300 ml Balance -870 ml -300 ml Intake Oral 280 ml IV Total 250 ml Output Urine Total 1400 ml 300 ml # Voids 1 # Bowel Movements 0 Result Diagram: 07/20/17 1114 07/20/17 1114 Other Results Microbiology Date/Time Source Procedure Growth Status 07/20/17 11:15 Blood Peripheral Aerobic Blood Culture Pending Received 07/20/17 11:15 Blood Peripheral Anaerobic Blood Culture Pending Received Objective Remarks GENERAL: This is a well-nourished, well-developed patient, in no apparent distress. CARDIOVASCULAR: Regular rate and rhythm RESPIRATORY: Few bibasilar crackles the left lobe along with few expiratory wheeze GASTROINTESTINAL: Abdomen soft, non-tender, nondistended. Umbilical hernia reducible, Normal active bowel sounds MUSCULOSKELETAL: Extremities without clubbing, cyanosis, with trace edema NEURO: Alert & Oriented x4 to person, place, time, situation. Moves all ext x4 A/P Problem List: (1) COPD exacerbation ICD Code: J44.1 - Chronic obstructive pulmonary disease with (acute) exacerbation Status: Acute (2) Hypoxia ICD Code: R09.02 - Hypoxemia Status: Acute (3) CHF (congestive heart failure) ICD Code: I50.9 - Heart failure, unspecified Status: Acute (4) S/P CABG x 3 ICD Code: Z95.1 - Presence of aortocoronary bypass graft Status: Chronic (5) COPD (chronic obstructive pulmonary disease) ICD Code: J44.9 - Chronic obstructive pulmonary disease, unspecified Status: Chronic (6) CAD (coronary artery disease) ICD Code: I25.10 - Atherosclerotic heart disease of [place] coronary artery without angina pectoris Status: Chronic (7) Cirrhosis, alcoholic ICD Code: K70.30 - Alcoholic cirrhosis of liver without ascites Status: Chronic (8) Ascites ICD Code: R18.8 - Other ascites Status: Chronic (9) Bilateral lower extremity edema ICD Code: R60.0 - Localized edema Status: Chronic Assessment and Plan Patient is a 71-year-old male with primary medical history of CAD, Hx S/P CABG, COPD, umbilical hernia, esophageal varices, hepatitis C treated who came in to the hospital for complaints of increasing shortness of breath. Severe sepsis present on admission due to underlying wean quite pneumonia- patient presented with tachycardia, with WBCs less than 4 - lactic acid greater than 2,- Patient has clinically improved significantly with now resolved off her mental status, he does state that he's been having chills and fever along with cough the past 4 days prior to coming to the hospital. Continue IV Rocephin, switched Zithromax to by mouth. Follow with blood cultures. Acute respiratory failure with hypoxia on presentation due to Acute on chronic systolic CHF exacerbation, associated with mild COPD exacerbation due to community-acquired pneumonia - Current a smoker, quit 8 days ago increasing shortness of breath, orthopnea , chills, general malaise, Bilateral LE edema, -Continue Lasix 40 mg twice a day, duo nebs scheduled and continued oxygen support. Patient is not on oxygen at home. Will complete a walk fit test in the morning. Ascites with a history Liver cirrhosis, this is stable, patient also has underlying umbilical hernia and a previous history of hepatitis C Bilateral LE edema - Continue IV Lasix 40 mg twice a day - Lactulose when necessary CAD with History of CABG - was previously on Xarelto post CABG but has stopped taking it after 1 year post op. - Hold aspirin today's due to cytopenia due to recent sepsis HTN - restart lisinopril Acute exacerbation of systolic CHF - Continue atorvastatin 40 mg daily; lisinopril to start lower dose due to borderline blood pressures - Lasix 40 mg IV - hold by mouth home meds Lasix 20 mg, Aldactone 50 mg Umbilical hernia - Pantoprazole daily Anemia, chronic disease, hemoglobin stable - Continue ferrous sulfate - Monitor trend DVT prop SCD, anticoagulation contraindicated due to liver disease an elevated INR Discharge Planning Discharged home in the next 1-2 days; walk fit test to determine patient needs home oxygen. Problem Qualifiers (1) CHF (congestive heart failure): Qualified Codes: I50.23 - Acute on chronic systolic (congestive) heart failure (2) Ascites: Qualified Codes: R18.8 - Other ascites Julianna Umanzor MD Jul 21, 2017 10:28
[2017-07-21 10:32] LABS: HEMO FLAGS AUTO DIFF
[2017-07-21 10:51] LABS: BICARBONATE 27.3 MEQ/L (21.0-32.0); POTASSIUM 3.6 MEQ/L (3.5-5.1)
[2017-07-21 11:16] LABS: CALCIUM-PROTEIN CORRECTED 7.5 MG/DL (8.5-10.1)
[2017-07-21 11:39] LABS: PLATELET ESTIMATE SMEAR LOW (NORMAL); PLATELET MORPHOLOGY NORMAL (NORMAL); SCAN/DIFF AUTO DIFF CONFIRMED
--- NOTE | 2017-07-21 11:44 | EKG ---
Date Performed: 07/20/2017 Time Performed: 10:54:08 PTAGE: 71 years EKG: Sinus rhythm INTRAVENTRICULAR CONDUCTION DELAY ABNORMAL ECG Compared to prior tracing no significant change PREVIOUS TRACING DOCTOR: Johnny Harp Interpretating Date/Time 07/21/2017 11:41:33
[2017-07-21] MEDS ORDERED: MAGNESIUM OXIDE 400 MG TAB PO ONE (14:00)
[2017-07-21] MEDS ORDERED: POTASSIUM CHLORIDE 20 MEQ CONTROLLED RELEASE TAB PO ONE (14:00)
[2017-07-21] MEDS ORDERED: CALCIUM GLUCONATE 500 MG TAB PO ONE (15:00)
[2017-07-21] MEDS ORDERED: AZITHROMYCIN INJ 500 MG in SODIUM CHLOR 0.9% 250 ML INJ 250 ML IV SCH (15:00)
[2017-07-21] MEDS ORDERED: cefTRIAXone INJ 1,000 MG in SODIUM CHLORIDE 0.9% INJ 100 ML IV SCH (16:00)
[2017-07-21] MEDS: ATORVASTATIN 40 MG TAB PO SCH (21:11)
[2017-07-21] MEDS: cefTRIAXone INJ 1,000 MG in SODIUM CHLORIDE 0.9% INJ 100 ML IV SCH (21:13)
[2017-07-22] VITALS (10 sets, daily range): BP systolic 99–119; BP diastolic 57–76; PULSE 86–102; RESP 18–21; TEMP 97.2–97.8; O2SAT 90–96
--- NOTE | 2017-07-22 03:29 | HHI.PR ---
Addendum to Inpatient Note Addendum Reason: Additional Documentation Additional Information Nursing called to notify the patient had a 12 beat run of asymptomatic nonsustained V. tach. Vital signs were stable following event. Patient has a history of reduced systolic function with an EF of 35-40% measured 09/24/2016 on echocardiogram. He is not on IV fluids. - Will check labs for abnormalities and will follow results. Isis Raya Jul 22, 2017 03:29
[2017-07-22 04:21] LABS: BICARBONATE 27.8 MEQ/L (21.0-32.0); MAGNESIUM 1.5 MG/DL (1.5-2.5); POTASSIUM 3.7 MEQ/L (3.5-5.1)
[2017-07-22 04:31] LABS: AUTOMATED NEUTROPHIL # 2.4 TH/MM3 (1.8-7.7); BASOPHIL % 0.3 % (0.0-2.0); EOSINOPHIL % 0.9 % (0.0-4.0); HEMATOCRIT 28.5 % (39.0-51.0); LYMPH % 14.5 % (9.0-44.0); LYMPHOCYTE # 0.5 TH/MM3 (1.0-4.8); MEAN CELL VOLUME 97.6 FL (80.0-100.0); MEAN CORPUSCULAR HEMOGLOBIN 31.9 PG (27.0-34.0); MEAN CORPUSCULAR HGB CONC 32.7 % (32.0-36.0); MONO % 8.1 % (0.0-8.0); NEUT % 76.2 % (16.0-70.0); PLATELET COUNT 60 TH/MM3 (150-450); RED BLOOD COUNT 2.91 MIL/MM3 (4.50-5.90); RED CELL DISTRIBUTION WIDTH 19.8 % (11.6-17.2); WHITE BLOOD COUNT 3.2 TH/MM3 (4.0-11.0)
[2017-07-22 04:57] LABS: HEMO FLAGS AUTO DIFF
[2017-07-22] MEDS ORDERED: POTASSIUM CHLORIDE 25 MEQ EFFERVESCENT TAB PO ONE (05:15)
[2017-07-22] MEDS ORDERED: MAGNESIUM SULFATE 1 GM PREMIX 100 ML IV ONE (05:15)
[2017-07-22 06:18] LABS: BANDS 9 % (0-6); NEUTROPHIL # MANUAL DIFF 2.5 TH/MM3 (1.8-7.7); OVALOCYTES 1+ (NORMAL); PLATELET ESTIMATE SMEAR LOW (NORMAL); PLATELET MORPHOLOGY NORMAL (NORMAL); POLYS (SEG NEUTROPHILS) 68 % (16-70); SCAN/DIFF FINAL DIFF MANUAL; WBC DIFF SAMPLE 100
[2017-07-22] MEDS: FERROUS SULFATE 325 MG (65 MG ELEMENTAL IRON) TAB PO SCH (08:11)
[2017-07-22] MEDS: PANTOPRAZOLE SOD 20 MG DELAYED RELEASE TAB PO SCH (08:11)
[2017-07-22] MEDS: LACTULOSE SYRUP 20 GM/30 ML CUP PO SCH (08:11)
[2017-07-22] MEDS: SODIUM CHLORIDE 0.9% FLUSH 10 ML FLUSH IV FLUSH SCH ×2 (08:11→20:57)
[2017-07-22] MEDS: POTASSIUM CHLORIDE 20 MEQ CONTROLLED RELEASE TAB PO SCH ×2 (08:11→20:57)
[2017-07-22] MEDS: FUROSEMIDE 40 MG TAB PO SCH ×2 (08:11→17:30)
[2017-07-22] MEDS: BUDESONIDE-FORMOTEROL 160/4.5 MCG INHALER INH SCH ×2 (08:12→20:57)
[2017-07-22] MEDS: RESP: ALBUTEROL 2.5 MG/IPRATROPIUM 0.5 MG NEB (SCH) NEB ×3 (09:56→23:10)
--- NOTE | 2017-07-22 10:18 | HHI.PR ---
Subjective Remarks f/u; copd exacerbation overall feeling better although still with some sob and wheezing. remains afebrile. night-time provider note was reviewed. Objective Vitals Vital Signs Date Time Temp Pulse Resp B/P (MAP) Pulse Ox O2 Delivery O2 Flow Rate FiO2 07/22/17 09:58 95 21 07/22/17 08:00 97.4 86 21 108/72 (84) 94 07/22/17 04:00 97.4 97 18 99/57 (71) 90 07/22/17 02:45 92 19 109/69 (82) 94 07/22/17 00:00 97.8 91 18 115/67 (83) 95 07/21/17 22:11 94 Nasal Cannula 2.00 07/21/17 20:00 99.2 95 18 120/64 (82) 96 07/21/17 19:00 Nasal Cannula 2.00 07/21/17 16:41 98.0 86 20 117/73 (88) 98 07/21/17 12:00 95 1.00 07/21/17 11:51 98.0 88 20 133/66 (88) 95 07/21/17 10:18 98 Nasal Cannula 2.00 I/O 07/21/17 07/21/17 07/21/17 07/22/17 07/22/17 07/22/17 07:00 15:00 23:00 07:00 15:00 23:00 Intake Total 720 ml Output Total 300 ml 725 ml Balance -300 ml -5 ml Intake Oral 720 ml Output Urine Total 300 ml 725 ml Result Diagram: 07/22/17 0352 07/22/17 0352 Imaging Last Impressions Chest X-Ray 07/20/17 1051 Signed Impressions: Service Date/Time: June 10:59 - CONCLUSION: 1. Cardiomegaly with slight positive fluid balance. 2. 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 Danny Younger MD Objective Remarks GENERAL: This is a well-nourished, well-developed patient, in no apparent distress. CARDIOVASCULAR: Regular rate and regular rhythm without murmurs, gallops, or rubs. RESPIRATORY: bilateral wheezing with prolonged expiration. GASTROINTESTINAL: Abdomen soft, non-tender, distended. Normal, active bowel sounds MUSCULOSKELETAL: Extremities without clubbing, cyanosis, or edema. NEURO: Alert & Oriented x4 to person, place, time, situation. Moves all ext x4 Medications and IVs Current Medications Sodium Chloride (NS Flush) 2 ml UNSCH PRN IVF FLUSH AFTER USING IV ACCESS Last administered on 07/20/17 13:04; Start 07/20/17 at 11:00 Albuterol/ Ipratropium (Duoneb Neb) 1 ampule Q15M INH Last administered on 07/20 10:59; Start 07/20/17 at 11:00; Stop 07/20/17 at 11:31; Status DC Furosemide (Lasix Inj) 40 mg ONCE ONCE IV PUSH Last administered on 07/20/17 13:04; Start 07/20/17 at 13:00; Stop 07/20/17 at 13:01; Status DC Sodium Chloride (NS Flush) 2 ml BID IV FLUSH Last administered on 07/22/17 08: 11; Start 07/20/17 at 21:00 Sodium Chloride (NS Flush) 2 ml UNSCH PRN IV FLUSH FLUSH AFTER USING IV ACCESS ; Start 07/20/17 at 14:45 Furosemide (Lasix Inj) 40 mg BID@09,18 IVP Last administered on 07/21/17 17:18 ; Start 07/20/17 at 18:00; Stop 07/21/17 at 20:00; Status DC Potassium Chloride (KCl) 20 meq BID PO Last administered on 07/22/17 08:11; Start 07/20/17 at 21:00 Ceftriaxone Sodium 2000 mg/ Sodium Chloride 100 ml @ 200 mls/hr ONCE ONCE IV ; Start 07/20/17 at 16:00; Stop 07/20/17 at 16:29; Status DC Azithromycin 500 mg/Sodium Chloride 250 ml @ 250 mls/hr ONCE ONCE IV Last administered on 07/20/17 15:02; Start 07/20/17 at 15:00; Stop 07/20/17 at 15:59 ; Status DC Ceftriaxone Sodium 1000 mg/ Sodium Chloride 100 ml @ 200 mls/hr Q24H IV ; Start 07/21/17 at 16:00; Stop 07/21/17 at 16:00; Status DC Azithromycin 500 mg/Sodium Chloride 250 ml @ 250 mls/hr Q24H IV ; Start at 15:00; Stop 07/21/17 at 15:00; Status DC Dextrose (D50w (Vial) Inj) 50 ml UNSCH PRN IV HYPOGLYCEMIA-SEE COMMENTS; Start 07/20/17 at 15:00 Glucagon (Glucagon Inj) 1 mg UNSCH PRN OTHER HYPOGLYCEMIA-SEE COMMENTS; Start 07/20/17 at 15:00 Albuterol Sulfate (Albuterol Neb) 2.5 mg Q6HR NEB PRN NEB SHORTNESS OF BREATH Last administered on 07/21/17 03:36; Start 07/20/17 at 17:15 Aspirin (Aspirin Chew) 81 mg DAILY PO ; Start 07/21/17 at 09:00; Stop 07/21/17 at 10:35; Status DC Atorvastatin Calcium (Lipitor) 40 mg HS PO Last administered on 07/21/17 21:11 ; Start 07/20/17 at 21:00 Budesonide/ Formoterol Fumarate (Symbicort 160-4.5 Inh) 1 puff BID INH Last administered on 07/22/17 08:12; Start 07/20/17 at 21:00 Lisinopril (Prinivil) 10 mg DAILY PO ; Start 07/21/17 at 09:00; Stop 07/21/17 at 09:00; Status DC Ferrous Sulfate (Ferrous Sulfate) 325 mg DAILY PO Last administered on 08:11; Start 07/21/17 at 09:00 Lactulose (Lactulose Liq) 15 ml DAILY PO Last administered on 07/22/17 08:11; Start 07/21/17 at 09:00 Pantoprazole Sodium (Protonix) 20 mg DAILY PO Last administered on 07/22/17 08 :11; Start 07/21/17 at 09:00 Albuterol/ Ipratropium (Duoneb Neb) 1 ampule Q6HR WHILE AWAKE NEB NEB Last administered on 07/22/17 09:56; Start 07/20/17 at 20:00 Ceftriaxone Sodium 1000 mg/ Sodium Chloride 100 ml @ 200 mls/hr Q24H IV Last administered on 07/21/17 21:13; Start 07/21/17 at 20:00 Azithromycin (Zithromax) 500 mg Q24H PO ; Start 07/22/17 at 15:00 Furosemide (Lasix) 40 mg BID@09,18 PO Last administered on 07/22/17 08:11; Start 07/22/17 at 09:00 Potassium Chloride (KCl) 20 meq ONCE ONCE PO Last administered on 07/21/17 14 :57; Start 07/21/17 at 14:00; Stop 07/21/17 at 14:01; Status DC Magnesium Oxide (Mag-Ox) 400 mg ONCE ONCE PO Last administered on 07/21/17 14 :56; Start 07/21/17 at 14:00; Stop 07/21/17 at 14:01; Status DC Calcium Gluconate (Calcium Gluconate) 500 mg ONCE ONCE PO ; Start 07/21/17 at 15:00; Stop 07/21/17 at 15:01; Status DC Potassium Bicarb/ Potassium Chloride (K-Lyte Cl Eff) 25 meq ONCE ONCE PO Last administered on 07/22/17 05:58; Start 07/22/17 at 05:15; Stop 07/22/17 at 05:16; Status DC Magnesium Sulfate/ Dextrose 100 ml @ 100 mls/hr ONCE ONCE IV Last administered on 07/22/17 05:58; Start 07/22/17 at 05:15; Stop 07/22/17 at 06:14 ; Status DC A/P Assessment and Plan A/P Severe sepsis present on admission due to underlying pneumonia- patient presented with tachycardia, with WBCs less than 4 - lactic acid greater than 2,- Continue IV Rocephin, switched Zithromax to by mouth. blood cultures negative so far. Acute respiratory failure with hypoxia on presentation due to Acute on chronic systolic CHF exacerbation, associated with COPD exacerbation due to community-acquired pneumonia - Current a smoker, quit 8 days ago increasing shortness of breath, orthopnea , chills, general malaise, Bilateral LE edema, -Continue Lasix 40 mg twice a day, duo nebs and continued oxygen support. will add IV steroid- Patient is not on oxygen at home. - walk test performed and the patient doesn't need home oxygen. Ascites with a history Liver cirrhosis, this is stable, patient also has underlying umbilical hernia and a previous history of hepatitis C Bilateral LE edema - Continue Lasix 40 mg twice a day - Lactulose when necessary CAD with History of CABG - was previously on Xarelto post CABG but has stopped taking it after 1 year post op. - Hold aspirin due to cytopenia due to recent sepsis HTN - restarted lisinopril Acute exacerbation of systolic CHF - Continue atorvastatin 40 mg daily; lisinopril to start lower dose due to borderline blood pressures - Lasix 40 mg IV - Aldactone 50 mg Anemia, chronic disease, hemoglobin fairly stable - Continue ferrous sulfate - Monitor trend DVT prop SCD, anticoagulation contraindicated due to liver disease an elevated INR Farrukh Zhu MD Jul 22, 2017 10:18
[2017-07-22] MEDS: methylPREDNISolone SOD SUCC 40 MG/1 ML VIAL IV PUSH SCH ×2 (11:24→17:29)
[2017-07-22 11:42] LABS: HEMATOCRIT 30.4 % (39.0-51.0)
[2017-07-22 11:46] LABS: REVIEW FLAG FINAL
[2017-07-22] MEDS: AZITHROMYCIN 250 MG TAB PO SCH (14:29)
[2017-07-22] MEDS: cefTRIAXone INJ 1,000 MG in SODIUM CHLORIDE 0.9% INJ 100 ML IV SCH (20:57)
[2017-07-22] MEDS: ATORVASTATIN 40 MG TAB PO SCH (20:57)
[2017-07-23] VITALS (10 sets, daily range): BP systolic 102–116; BP diastolic 59–78; PULSE 82–99; RESP 18–20; TEMP 97.3–99.5; O2SAT 91–98
[2017-07-23] MEDS: methylPREDNISolone SOD SUCC 40 MG/1 ML VIAL IV PUSH SCH ×3 (05:05→17:28)
[2017-07-23] MEDS: RESP: ALBUTEROL 2.5 MG/IPRATROPIUM 0.5 MG NEB (SCH) NEB ×2 (08:00→20:51)
[2017-07-23] MEDS: BUDESONIDE-FORMOTEROL 160/4.5 MCG INHALER INH SCH (09:00)
[2017-07-23] MEDS: LACTULOSE SYRUP 20 GM/30 ML CUP PO SCH (09:00)
[2017-07-23] MEDS: FUROSEMIDE 40 MG TAB PO SCH ×2 (09:53→17:28)
[2017-07-23] MEDS: FERROUS SULFATE 325 MG (65 MG ELEMENTAL IRON) TAB PO SCH (09:54)
[2017-07-23] MEDS: PANTOPRAZOLE SOD 20 MG DELAYED RELEASE TAB PO SCH (09:54)
[2017-07-23] MEDS: POTASSIUM CHLORIDE 20 MEQ CONTROLLED RELEASE TAB PO SCH ×2 (09:54→22:12)
[2017-07-23] MEDS: SODIUM CHLORIDE 0.9% FLUSH 10 ML FLUSH IV FLUSH SCH ×2 (09:55→22:12)
[2017-07-23 11:52] LABS: AUTOMATED NEUTROPHIL # 2.5 TH/MM3 (1.8-7.7); BASOPHIL % 0.2 % (0.0-2.0); EOSINOPHIL % 0.3 % (0.0-4.0); HEMATOCRIT 32.4 % (39.0-51.0); LYMPH % 8.9 % (9.0-44.0); LYMPHOCYTE # 0.3 TH/MM3 (1.0-4.8); MEAN CELL VOLUME 97.4 FL (80.0-100.0); MEAN CORPUSCULAR HEMOGLOBIN 30.7 PG (27.0-34.0); MEAN CORPUSCULAR HGB CONC 31.5 % (32.0-36.0); MONO % 4.4 % (0.0-8.0); NEUT % 86.2 % (16.0-70.0); PLATELET COUNT 73 TH/MM3 (150-450); RED BLOOD COUNT 3.32 MIL/MM3 (4.50-5.90); RED CELL DISTRIBUTION WIDTH 19.8 % (11.6-17.2); WHITE BLOOD COUNT 2.9 TH/MM3 (4.0-11.0)
[2017-07-23 12:01] LABS: HEMO FLAGS AUTO DIFF
[2017-07-23 12:56] LABS: OVALOCYTES 1+ (NORMAL); PLATELET ESTIMATE SMEAR LOW (NORMAL); PLATELET MORPHOLOGY NORMAL (NORMAL); SCAN/DIFF AUTO DIFF CONFIRMED
--- NOTE | 2017-07-23 13:45 | HHI.PR ---
Subjective Remarks Follow-up for COPD/CHF exacerbation Patient reports he is feeling better. Breathing has improved. Still coughing. Still get very short of breath with minimal activity. He is hoping he will feel better enough so he could go home tomorrow. Objective Vitals Vital Signs Date Time Temp Pulse Resp B/P (MAP) Pulse Ox O2 Delivery O2 Flow Rate FiO2 07/23/17 12:00 97.3 93 20 116/75 (89) 95 07/23/17 09:59 Room Air 07/23/17 08:00 97.6 87 20 115/73 (87) 98 07/23/17 07:58 82 07/23/17 04:00 97.7 83 18 116/68 (84) 94 07/23/17 00:00 97.6 99 18 102/59 (73) 91 07/22/17 23:11 95 07/22/17 20:00 97.6 95 18 109/70 (83) 95 07/22/17 19:00 102 07/22/17 16:00 97.2 89 21 119/76 (90) 96 I/O 07/22/17 07/22/17 07/22/17 07/23/17 07/23/17 07/23/17 07:00 15:00 23:00 07:00 15:00 23:00 Intake Total 240 ml Output Total 600 ml Balance -360 ml Intake Oral 240 ml Output Urine Total 600 ml # Voids 3 # Bowel Movements 3 Result Diagram: 07/23/17 1045 07/22/17 0352 Imaging Last Impressions Chest X-Ray 07/20/17 1051 Signed Impressions: Service Date/Time: June 10:59 - CONCLUSION: 1. Cardiomegaly with slight positive fluid balance. 2. 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 Danny Younger MD Objective Remarks GENERAL: This is a well-nourished, well-developed patient, in no apparent distress. CARDIOVASCULAR: Normal rate and regular rhythm without murmurs, gallops, or rubs. RESPIRATORY: Air movement is fair. There is diffuse rhonchi. Crackles on the left base. GASTROINTESTINAL: Abdomen soft, non-tender, non-distended. Normal active bowel sounds MUSCULOSKELETAL: Extremities with trace edema. NEURO: Alert & Oriented x4 to person, place, time, situation. Moves all ext x4 PSYCH: Appropriate mood and affect. A/P Problem List: (1) COPD exacerbation ICD Code: J44.1 - Chronic obstructive pulmonary disease with (acute) exacerbation Status: Acute (2) Hypoxia ICD Code: R09.02 - Hypoxemia Status: Acute (3) CHF (congestive heart failure) ICD Code: I50.9 - Heart failure, unspecified Status: Acute Permanent Comment: EF 25% echo January 2017 Last Edited By: Julianna Umanzor on Jul 21, 2017 10:27 am (4) S/P CABG x 3 ICD Code: Z95.1 - Presence of aortocoronary bypass graft Status: Chronic (5) COPD (chronic obstructive pulmonary disease) ICD Code: J44.9 - Chronic obstructive pulmonary disease, unspecified Status: Chronic (6) CAD (coronary artery disease) ICD Code: I25.10 - Atherosclerotic heart disease of [place] coronary artery without angina pectoris Status: Chronic (7) Cirrhosis, alcoholic ICD Code: K70.30 - Alcoholic cirrhosis of liver without ascites Status: Chronic (8) Ascites ICD Code: R18.8 - Other ascites Status: Chronic (9) Bilateral lower extremity edema ICD Code: R60.0 - Localized edema Status: Chronic Assessment and Plan 71-year-old male with: Severe sepsis present on admission due to underlying pneumonia- patient presented with tachycardia, with WBCs less than 4 - lactic acid greater than 2,- Continue IV Rocephin, Zithromax by mouth. blood cultures negative so far. Plan to discharge on cefuroxime and Zithromax to complete treatment course. Acute respiratory failure with hypoxia on presentation due to Acute on chronic systolic CHF exacerbation, associated with COPD exacerbation due to community-acquired pneumonia - Current smoker, reportedly quit 8 days ago increasing shortness of breath, orthopnea, chills, general malaise, Bilateral LE edema, -Continue Lasix 40 mg twice a day, duo nebs and continued oxygen support. will add IV steroid- Patient is not on oxygen at home. - walk test performed and the patient doesn't need home oxygen. Ascites with a history Liver cirrhosis, this is stable, patient also has underlying umbilical hernia and a previous history of hepatitis C Bilateral LE edema - Continue Lasix 40 mg twice a day - Lactulose when necessary CAD with History of CABG - was previously on Xarelto post CABG but has stopped taking it after 1 year post op. - Hold aspirin due to cytopenia due to recent sepsis HTN - restarted lisinopril Acute exacerbation of systolic CHF - Continue atorvastatin 40 mg daily; lisinopril to start lower dose due to borderline blood pressures - Lasix 40 mg IV - Aldactone 50 mg Anemia, chronic disease, hemoglobin fairly stable - Continue ferrous sulfate - Monitor trend DVT prop SCD, anticoagulation contraindicated due to liver disease an elevated INR Discharge Planning Continue IV diuresis for 1 more day. Plan to discharge home tomorrow. Problem Qualifiers (1) CHF (congestive heart failure): Qualified Codes: I50.23 - Acute on chronic systolic (congestive) heart failure (2) Ascites: Qualified Codes: R18.8 - Other ascites Geri Stokes MD Jul 23, 2017 1:45 pm
[2017-07-23] MEDS: AZITHROMYCIN 250 MG TAB PO SCH (14:26)
[2017-07-23] MEDS: ATORVASTATIN 40 MG TAB PO SCH (22:12)
[2017-07-23] MEDS: cefTRIAXone INJ 1,000 MG in SODIUM CHLORIDE 0.9% INJ 100 ML IV SCH (22:18)
[2017-07-24] VITALS: BP 127/75; PULSE 108; RESP 18; TEMP 97.4; O2SAT 98
[2017-07-24] MEDS: methylPREDNISolone SOD SUCC 40 MG/1 ML VIAL IV PUSH SCH ×2 (03:12→11:44)
[2017-07-24] MEDS: SODIUM CHLORIDE 0.9% FLUSH 10 ML FLUSH IVF PRN (03:13)
[2017-07-24 04:00] VITALS: BP 111/73; PULSE 94; RESP 18; TEMP 98.2; O2SAT 97
[2017-07-24] MEDS: RESP: ALBUTEROL 2.5 MG/IPRATROPIUM 0.5 MG NEB (SCH) NEB (08:00)
[2017-07-24 08:11] VITALS: PULSE 101
[2017-07-24 08:35] VITALS: BP 119/85; PULSE 101; RESP 16; TEMP 97.3; O2SAT 98
[2017-07-24] MEDS ORDERED: SPIRONOLACTONE 25 MG TAB PO SCH (09:00)
[2017-07-24] MEDS: BUDESONIDE-FORMOTEROL 160/4.5 MCG INHALER INH SCH (09:00)
[2017-07-24] MEDS: POTASSIUM CHLORIDE 20 MEQ CONTROLLED RELEASE TAB PO SCH (09:55)
[2017-07-24] MEDS: PANTOPRAZOLE SOD 20 MG DELAYED RELEASE TAB PO SCH (09:55)
[2017-07-24] MEDS: FUROSEMIDE 40 MG TAB PO SCH (09:55)
[2017-07-24] MEDS: FERROUS SULFATE 325 MG (65 MG ELEMENTAL IRON) TAB PO SCH (09:55)
[2017-07-24] MEDS: SODIUM CHLORIDE 0.9% FLUSH 10 ML FLUSH IV FLUSH SCH (09:57)
[2017-07-24] MEDS: LACTULOSE SYRUP 20 GM/30 ML CUP PO SCH (09:57)
[2017-07-24] MEDS ORDERED: PRED20 PO (12:03)
[2017-07-24] MEDS ORDERED: AZIT250T3 PO (12:03)
[2017-07-24] MEDS ORDERED: ALDA50TA2 PO (12:03)
[2017-07-24] MEDS ORDERED: FURO40TA PO (12:03)
[2017-07-24] MEDS ORDERED: CEFU1TAB20 PO ×4 (12:09→12:31)
--- NOTE | 2017-07-24 12:10 | HHI.DS ---
Discharge Summary Admission Date Jul 20, 2017 at 14:50 Discharge Date: Jul 24, 2017 Admitting Diagnosis respiratory distress, CHF, COPD exacerbation (1) COPD exacerbation ICD Code: J44.1 - Chronic obstructive pulmonary disease with (acute) exacerbation Status: Acute (2) Hypoxia ICD Code: R09.02 - Hypoxemia Status: Acute (3) CHF (congestive heart failure) ICD Code: I50.9 - Heart failure, unspecified Status: Acute (4) S/P CABG x 3 ICD Code: Z95.1 - Presence of aortocoronary bypass graft Status: Chronic (5) COPD (chronic obstructive pulmonary disease) ICD Code: J44.9 - Chronic obstructive pulmonary disease, unspecified Status: Chronic (6) CAD (coronary artery disease) ICD Code: I25.10 - Atherosclerotic heart disease of [place] coronary artery without angina pectoris Status: Chronic (7) Cirrhosis, alcoholic ICD Code: K70.30 - Alcoholic cirrhosis of liver without ascites Status: Chronic (8) Ascites ICD Code: R18.8 - Other ascites Status: Chronic (9) Bilateral lower extremity edema ICD Code: R60.0 - Localized edema Status: Chronic Procedures None Brief History - From Admission History of present illness from the admitting physician Patient is a 71-year-old male with primary medical history of CAD, Hx S/P CABG, COPD, umbilical hernia, esophageal varices, hepatitis C treated who came in to the hospital for complaints of increasing shortness of breath. Patient states that he has this "faint feeling" ,"lack of oxygen", "unable to breathe the right." Started about 2 days ago, increased today do twice he went to the emergency room for further evaluation. He reports he has chills, palpitations at home, headache. Also states he has orthopnea, and cough. Does not use any O2 at home, but has used his inhalers more frequently. Reports he quit smoking 8 days ago. Denies chest pain, dizziness, lightheadedness. Denies fevers, nausea, vomiting, diarrhea. Denies dysuria. CBC/BMP: 07/23/17 1045 07/22/17 0352 Significant Findings Laboratory Tests Test 07/22/17 03:52 07/22/17 11:20 07/23/17 10:45 White Blood Count 3.2 TH/MM3 (4.0-11.0) 2.9 TH/MM3 (4.0-11.0) Red Blood Count 2.91 MIL/MM3 (4.50-5.90) 3.32 MIL/MM3 (4.50-5.90) Hemoglobin 9.3 GM/DL (13.0-17.0) 10.0 GM/DL (13.0-17.0) 10.2 GM/DL (13.0-17.0) Hematocrit 28.5 % (39.0-51.0) 30.4 % (39.0-51.0) 32.4 % (39.0-51.0) Red Cell Distribution Width 19.8 % (11.6-17.2) 19.8 % (11.6-17.2) Platelet Count 60 TH/MM3 (150-450) 73 TH/MM3 (150-450) Neutrophils (%) (Auto) 76.2 % (16.0-70.0) 86.2 % (16.0-70.0) Monocytes (%) (Auto) 8.1 % (0.0-8.0) Lymphocytes # (Auto) 0.5 TH/MM3 (1.0-4.8) 0.3 TH/MM3 (1.0-4.8) Band Neutrophils % 9 % (0-6) Platelet Estimate LOW (NORMAL) LOW (NORMAL) Ovalocytes 1+ (NORMAL) 1+ (NORMAL) Blood Urea Nitrogen 32 MG/DL (7-18) Random Glucose 133 MG/DL (74-106) Calcium Level 7.8 MG/DL (8.5-10.1) Estimat Glomerular Filtration Rate 72 ML/MIN (>89) B-Type Natriuretic Peptide 1553 PG/ML (0-100) Mean Corpuscular Hemoglobin Concent 31.5 % (32.0-36.0) Lymphocytes (%) (Auto) 8.9 % (9.0-44.0) Imaging Last Impressions Chest X-Ray 07/20/17 1051 Signed Impressions: Service Date/Time: June 10:59 - CONCLUSION: 1. Cardiomegaly with slight positive fluid balance. 2. 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 Danny Younger MD PE at Discharge GENERAL: This is a well-nourished, well-developed patient, in no apparent distress. CARDIOVASCULAR: Normal rate and regular rhythm without murmurs, gallops, or rubs. RESPIRATORY: Air movement is fair. Fair rhonchi. Faint crackles at the left base. GASTROINTESTINAL: Abdomen soft, non-tender, non-distended. Normal active bowel sounds MUSCULOSKELETAL: Extremities with trace edema. NEURO: Alert & Oriented x4 to person, place, time, situation. Moves all ext x4 PSYCH: Appropriate mood and affect. Pt update on day of discharge Patient reports feeling much better. Shortness of breath is better than baseline. No chest pain. Hospital Course 71-year-old male admitted with sepsis and respiratory failure. Evaluation and treatment course detailed below: Severe sepsis present on admission due to underlying pneumonia- patient presented with tachycardia, with WBCs less than 4 - lactic acid greater than 2. Patient was treated with IV Rocephin and Zithromax. Sepsis resolved. He is discharged on cefuroxime and Zithromax to complete the treatment course. Acute respiratory failure with hypoxia on presentation due to Acute on chronic systolic CHF exacerbation, associated with COPD exacerbation due to community-acquired pneumonia - Current smoker, reportedly quit 8 days prior to admission. He endorsed increasing shortness of breath, orthopnea, chills, general malaise, Bilateral LE edema, -Patient was treated with IV Lasix 40 mg twice a day, duo nebs and continued oxygen support. He was given IV steroids. He is discharged home on a prednisone taper. His respiratory status returned to baseline. Ascites with a history Liver cirrhosis, this is stable, patient also has underlying umbilical hernia and a previous history of hepatitis C Bilateral LE edema - Continue Lasix, spironolactone. - Lactulose when necessary CAD with History of CABG - was previously on Xarelto post CABG but has stopped taking it after 1 year post op. -Resume aspirin HTN - restarted lisinopril Acute exacerbation of systolic CHF - Continue atorvastatin 40 mg daily; resume lisinopril. - Lasix and Aldactone. Anemia, chronic disease, hemoglobin fairly stable - Continue ferrous sulfate Pt Condition on Discharge: Good Discharge Disposition: Discharge Home Discharge Time: > 30 minutes Discharge Instructions DIET: Follow Instructions for: Heart Healthy Diet Activities you can perform: Regular-No Restrictions Follow up Referrals: PCP Follow-up New Medications: Cefuroxime (Cefuroxime) 500 Mg Tab 500 MG PO BID for Infection, #10 TAB 0 Refills Prednisone (Prednisone) 20 Mg Tab 20 MG PO DIRECTED for Inflammation, #10 TAB 0 Refills 40 MG daily x 3 days, then 20 MG daily x 3 days, then 10 MG daily x 2 days Azithromycin (Azithromycin) 250 Mg Tab 500 MG PO Q24H, #2 TAB Changed Medications: Furosemide (Furosemide) 40 Mg Tab 40 MG PO DAILY, #30 TAB 0 Refills (Changed from: Furosemide 20 Mg Tab 20 Mg PO DAILY #30 TAB Ref 0) Continued Medications: Albuterol Neb (Albuterol Neb) 2.5 Mg/3 Ml Neb 2.5 MG NEB Q6HR NEB PRN for SHORTNESS OF BREATH, #60 NEBULE 0 Refills Aspirin (Aspirin) 81 Mg Chew 81 MG PO DAILY, TAB 0 Refills Atorvastatin (Atorvastatin) 40 Mg Tab 40 MG PO HS for Cholesterol Management, #30 TAB 0 Refills Budesonide-Formoterol Inh (Symbicort Inh) 160-4.5 Mcg/Act Aero 1 PUFF INH BID, #1 INHALER [address] (Ferrous Sulfate DR) 324 Mg Tabdr 324 MG PO DAILY for Nutritional Supplement, #30 TAB 0 Refills Lactulose (Encephalopathy) Liq (Enulose Liq) 10 Gm/15 Ml Soln 10 GM PO DAILY for Constipation Lisinopril (Lisinopril) 20 Mg Tab 10 MG PO DAILY, #30 TAB 0 Refills Loratadine (Allerclear) 10 Mg Tablet 10 MG PO DAILY for Allergies Omeprazole (Omeprazole) 20 Mg Tab 20 MG PO DAILY, #30 TAB 0 Refills Sertraline (Sertraline) 50 Mg Tab 50 MG PO DAILY for MOOD, #30 TAB 0 Refills Spironolactone (Aldactone) 50 Mg Tab 50 MG PO DAILY, #30 TAB 0 Refills (This prescription has been renewed) Trazodone (Trazodone) 50 Mg Tab 25 MG PO HS for Control Depression, #30 TAB 0 Refills Geri Stokes MD Jul 24, 2017 12:10
[2017-07-24 12:48] VITALS: O2SAT 97
[2017-07-24 13:32] VITALS: BP 115/78; PULSE 103; RESP 20; TEMP 98.8; O2SAT 97
== END 2017-07-24 14:18 | disposition home or self-care (01) | DRG 871 ==
LOC: NEPC 09:59 → NEDA 14:50 → NEDH 14:55 → NEDA 14:57 → N05A 16:18
PROVIDERS: ADMIT Family Medicine; ATTEND Family Medicine
DX: A41.9 Sepsis, unspecified organism (principal); J18.9 Pneumonia, unspecified organism; J96.01 Acute respiratory failure with hypoxia; I50.23 Acute on chronic systolic (congestive) heart failure; I47.2 Ventricular tachycardia; K70.31 Alcoholic cirrhosis of liver with ascites; D63.8 Anemia in other chronic diseases classified elsewhere; I11.0 Hypertensive heart disease with heart failure; J44.0 Chronic obstructive pulmonary disease with (acute) lower respiratory infection; J44.1 Chronic obstructive pulmonary disease with (acute) exacerbation; I25.10 Atherosclerotic heart disease of native coronary artery without angina pectoris; R65.20 Severe sepsis without septic shock; E87.6 Hypokalemia; E83.42 Hypomagnesemia; K42.9 Umbilical hernia without obstruction or gangrene; K21.9 Gastro-esophageal reflux disease without esophagitis; F17.210 Nicotine dependence, cigarettes, uncomplicated; Z95.1 Presence of aortocoronary bypass graft; Z86.19 Personal history of other infectious and parasitic diseases; Z79.82 Long term (current) use of aspirin
CPT/HCPCS: 36600; 71010; 80048; 80053; 81001; 82550; 82552; 82805; 82948; 83605; 83735; 83880; 84155; 84484; 85007; 85014; 85018; 85025; 85027; 85610; 87040; 93005; 94620; 94640; 94664; 96374; J0456; J0696; J1940; J2920; J3475; J7050; J7613

== ENCOUNTER 2017-10-11 13:26 | Emergency (ER) | payer MEDICARE, OTHER ==
[~2017-10-11] VITALS: Ht 182.9 cm; Wt 86.0 kg
[~2017-10-11 13:26] MED LIST changes: +ASPI-516 PO; -ASPI81CH PO; +AZIT250T3 PO; +CEFU1TAB20 PO; -FURO20TA PO; +FURO40TA PO; -OMEP20TA PO; +OMEP20TA93 PO; +PRED20 PO
[2017-10-11 13:38] VITALS: BP 116/68; PULSE 83; RESP 20; TEMP 97.8; O2SAT 100
[2017-10-11 13:53] VITALS: RESP 20; O2SAT 99
--- NOTE | 2017-10-11 13:54 | PD ---
HPI Chief Complaint: Edema Time Seen by Provider: 13:40 Travel History International Travel<30 days: No Contact w/Intl Traveler<30days: No Traveled to known affect area: No History of Present Illness HPI 72-year-old male presents to the emergency department via EMS for evaluation of abdominal distention, shortness of breath. Patient does report chronic shortness of breath, but states is relieved with oxygen. Patient reports past medical history of CAD status post CABG, COPD, local hernia, CHF, esophageal varices, hepatitis C, ascites. Patient states that his abdominal distention has been worsening. He states he has never had a paracentesis done before. He states that it is the largest has ever been. He has reports swelling to the bilateral lower extremities and increasing shortness of breath. Patient denies any fevers or chills. He denies any chest pain. He states his umbilical hernia hurts, but no other abdominal pain. No nausea, vomiting, diarrhea, constipation. Severity is moderate. Oxygen will help alleviate shortness of breath. No exacerbating factors. Patient states that he does drink alcohol occasionally, last had 2 glasses of wine last night. PFSH Past Medical History Hx Anticoagulant Therapy: Yes (XARELTO) Arthritis: No Asthma: No Autoimmune Disease: No Blood Disorders: No Anxiety: No Depression: No Heart Rhythm Problems: No Cancer: No Cardiovascular Problems: Yes High Cholesterol: Yes Chemotherapy: No Chest Pain: No Congestive Heart Failure: Yes COPD: Yes Cerebrovascular Accident: No Diabetes: No Diminished Hearing: No Endocrine: No Gastrointestinal Disorders: Yes (EROSIVE ESOPHAGITIS; COLITIS) GERD: Yes Glaucoma: No Genitourinary: No Headaches: No Hepatitis: Yes (C) Hiatal Hernia: Yes Hypertension: Yes Immune Disorder: No Kidney Stones: No Musculoskeletal: No Neurologic: No Psychiatric: No Reproductive: No Respiratory: Yes (COPD) Migraines: No Myocardial Infarction: No Radiation Therapy: No Renal Failure: No Seizures: No Sickle Cell Disease: No Sleep Apnea: No Thyroid Disease: No Ulcer: No Past Surgical History Abdominal Surgery: Yes (ESOPHAGEAL VARICIES 2006) AICD: No Appendectomy: No Arteriovenous Shunt: No Cardiac Surgery: Yes Cholecystectomy: No Coronary Artery Bypass Graft: Yes (TRIPLE BYPASS) Ear Surgery: No Endocrine Surgery: No Eye Surgery: No Genitourinary Surgery: No Gynecologic Surgery: No Insulin Pump: No Joint Replacement: No Oral Surgery: No Pacemaker: No Thoracic Surgery: No Other Surgery: Yes (CABG) Social History Alcohol Use: Yes (occasional wine) Tobacco Use: Yes (occasionally) Substance Use: Yes (marijuana ) Allergies-Medications (Allergen,Severity, Reaction): Coded Allergies: No Known Allergies (Verified Adverse Reaction, Unknown, 10/11/17) Reported Meds & Prescriptions Reported Meds & Active Scripts Active Furosemide 40 Mg Tab 40 Mg PO DAILY Aldactone (Spironolactone) 50 Mg Tab 50 Mg PO DAILY Reported Trazodone (Trazodone HCl) 50 Mg Tab 25 Mg PO HS Lisinopril 20 Mg Tab 10 Mg PO DAILY Ferrous Sulfate DR (Ferrous Sulfate) 324 Mg Tabdr 324 Mg PO DAILY Sertraline (Sertraline HCl) 50 Mg Tab 50 Mg PO DAILY Allerclear (Loratadine) 10 Mg Tablet 10 Mg PO DAILY PRN Albuterol Neb (Albuterol Sulfate) 2.5 Mg/3 Ml Neb 2.5 Mg NEB Q6HR NEB PRN Symbicort Inh (Budesonide/Formoterol Fumarate) 160-4.5 Mcg/Act Aero 1 Puff INH BID Atorvastatin (Atorvastatin Calcium) 40 Mg Tab 40 Mg PO HS Omeprazole 20 Mg Tab 20 Mg PO DAILY Enulose Liq (Lactulose (Encephalopathy) Liq) 10 Gm/15 Ml Soln 10 Gm PO DAILY PRN Aspirin 81 Mg Chew 81 Mg PO DAILY Review of Systems Except as stated in HPI: all other systems reviewed are Neg Physical Exam Narrative GENERAL: Well-nourished, well-developed male patient, afebrile. SKIN: Focused skin assessment warm/dry. HEAD: Normocephalic. Atraumatic. EYES: No scleral icterus. No injection or drainage. NECK: Supple, trachea midline. No JVD or lymphadenopathy. CARDIOVASCULAR: Regular rate and rhythm without murmurs, gallops, or rubs. RESPIRATORY: Breath sounds equal bilaterally. No accessory muscle use. Lungs sounds diminished. GASTROINTESTINAL: Abdomen distended. No tenderness to palpation. Patient has large and periumbilical hernia which is soft and reducible, but pops back out. MUSCULOSKELETAL: No cyanosis, or edema. BACK: Nontender without obvious deformity. No CVA tenderness. Data Data Last Documented VS Vital Signs Date Time Temp Pulse Resp B/P (MAP) Pulse Ox O2 Delivery O2 Flow Rate FiO2 10/11/17 15:30 97.9 84 18 108/69 (82) 99 Nasal Cannula 2.00 Orders Orders Complete Blood Count With Diff (10/11/17 13:49) Comprehensive Metabolic Panel (10/11/17 13:49) B-Type Natriuretic Peptide (10/11/17 13:49) Act Partial Throm Time (Ptt) (10/11/17 13:49) Prothrombin Time / Inr (Pt) (10/11/17 13:49) Magnesium (Mg) (10/11/17 13:49) Ckmb (Isoenzyme) Profile (10/11/17 13:49) Troponin I (10/11/17 13:49) Iv Access Insert/Monitor (10/11/17 13:49) Electrocardiogram (10/11/17 13:49) Ecg Monitoring (10/11/17 13:49) Oximetry (10/11/17 13:49) Oxygen Administration (10/11/17 13:49) Chest, Single Ap (10/11/17 13:49) Sodium Chloride 0.9% Flush (Ns Flush) (10/11/17 14:00) Ed Discharge Order (10/11/17 16:03) Labs Laboratory Tests Test 10/11/17 13:50 White Blood Count 5.2 TH/MM3 Red Blood Count 3.25 MIL/MM3 Hemoglobin 10.5 GM/DL Hematocrit 32.5 % Mean Corpuscular Volume 99.9 FL Mean Corpuscular Hemoglobin 32.2 PG Mean Corpuscular Hemoglobin Concent 32.2 % Red Cell Distribution Width 17.9 % Platelet Count 127 TH/MM3 Mean Platelet Volume 9.1 FL Neutrophils (%) (Auto) 72.8 % Lymphocytes (%) (Auto) 10.6 % Monocytes (%) (Auto) 11.2 % Eosinophils (%) (Auto) 4.7 % Basophils (%) (Auto) 0.7 % Neutrophils # (Auto) 3.8 TH/MM3 Lymphocytes # (Auto) 0.5 TH/MM3 Monocytes # (Auto) 0.6 TH/MM3 Eosinophils # (Auto) 0.2 TH/MM3 Basophils # (Auto) 0.0 TH/MM3 CBC Comment DIFF FINAL Differential Comment Prothrombin Time 13.0 SEC Prothromb Time International Ratio 1.2 RATIO Activated Partial Thromboplast Time 26.6 SEC Blood Urea Nitrogen 22 MG/DL Creatinine 0.88 MG/DL Random Glucose 105 MG/DL Total Protein 7.2 GM/DL Albumin 2.9 GM/DL Calcium Level 7.8 MG/DL Magnesium Level 1.5 MG/DL Alkaline Phosphatase 93 U/L Aspartate Amino Transf (AST/SGOT) 22 U/L Alanine Aminotransferase (ALT/SGPT) 17 U/L Total Bilirubin 0.5 MG/DL Sodium Level 138 MEQ/L Potassium Level 4.6 MEQ/L Chloride Level 103 MEQ/L Carbon Dioxide Level 28.2 MEQ/L Anion Gap 7 MEQ/L Estimat Glomerular Filtration Rate 85 ML/MIN Total Creatine Kinase 54 U/L Troponin I 0.02 NG/ML B-Type Natriuretic Peptide 2227 PG/ML MDM Medical Decision Making Medical Screen Exam Complete: Yes Emergency Medical Condition: Yes Medical Record Reviewed: Yes Interpretation(s) chest x-ray = CONCLUSION: Cardiomegaly with stable consolidation is left base History of bypass. Differential Diagnosis Liver cirrhosis versus ascites versus CHF exacerbation versus ACS Narrative Course 72-year-old male presents to the emergency department for chronic abdominal distention, shortness of breath. Patient states it is an ongoing issue. EKG, CBC, CMP, CK, troponin, magnesium, PTT, PT/INR are ordered and pending. EKG shows sinus rhythm, heart rate 84, no STEMI. CBC shows no acute abnormality. CMP shows no acute abnormality. CK is 54. Troponin is 0.02. Magnesium is 1.5. BNP is 2227. Coags show no acute abnormality. Chest x-ray shows cardiomegaly with stable consolidation is left base; history of bypass. I discussed the case with my attending physician, Dr. Gutierres who also examined patient. Patient is taken off his oxygen. His oxygen saturation did not decrease. Patient comes in with these chronic issues. Patient will be given outpatient prescription for paracentesis. He is to return here for any acute worsening of symptoms. The patient was discharged in stable condition with instructions, including return instructions and follow up instructions. Diagnosis Primary Impression: Cirrhosis, alcoholic Qualified Codes: K70.31 - Alcoholic cirrhosis of liver with ascites Referrals: Primary Care Physician call for appointment Patient Instructions: Ascites (ED), General Instructions Additional Instructions: Call [phone] to schedule ultrasound guided paracentesis. Follow up with your primary care physician. Return to the emergency department for any acute worsening of symptoms. Med/Other Pt SpecificInfo: No Change to Meds Disposition: 01 DISCHARGE HOME Condition: Stable Fabiola Boyle Oct 11, 2017 13:54
[2017-10-11] MEDS ORDERED: SODIUM CHLORIDE 0.9% FLUSH 10 ML FLUSH IVF PRN (14:00)
[2017-10-11 14:07] LABS: AUTOMATED NEUTROPHIL # 3.8 TH/MM3 (1.8-7.7); BASOPHIL % 0.7 % (0.0-2.0); EOSINOPHIL # 0.2 TH/MM3 (0-0.4); EOSINOPHIL % 4.7 % (0.0-4.0); HEMATOCRIT 32.5 % (39.0-51.0); HEMO FLAGS DIFF FINAL; LYMPH % 10.6 % (9.0-44.0); LYMPHOCYTE # 0.5 TH/MM3 (1.0-4.8); MEAN CELL VOLUME 99.9 FL (80.0-100.0); MEAN CORPUSCULAR HEMOGLOBIN 32.2 PG (27.0-34.0); MEAN CORPUSCULAR HGB CONC 32.2 % (32.0-36.0); MONO % 11.2 % (0.0-8.0); NEUT % 72.8 % (16.0-70.0); PLATELET COUNT 127 TH/MM3 (150-450); RED BLOOD COUNT 3.25 MIL/MM3 (4.50-5.90); RED CELL DISTRIBUTION WIDTH 17.9 % (11.6-17.2); WHITE BLOOD COUNT 5.2 TH/MM3 (4.0-11.0)
[2017-10-11 14:18] LABS: APTT (PATIENT) 26.6 SEC (24.3-30.1); INTERNATIONAL NORMALIZED RATIO 1.2 RATIO
--- NOTE | 2017-10-11 14:28 | RADRPT ---
EXAM DATE/TIME: 10/11/2017 13:57 [facility] COMPARISON: CHEST SINGLE AP, July 20, 2017, 10:59. INDICATIONS : Shortness of breath. MEDICAL HISTORY : Hypertension. Myocardial infarction. Chronic obstructive pulmonary disease. Congestive heart fail ure. Liver disease. Hep C. SURGICAL HISTORY : CABG. ENCOUNTER: Initial ACUITY: 3 days PAIN SCORE: 0/10 LOCATION: Bilateral chest FINDINGS: Previous bypass with minimal consolidated left base. Right lung is clear. There is no failure. The portion of the bony skeleton visualized is unremarkable. CONCLUSION: Cardiomegaly with stable consolidation is left base History of bypass. Sony Calle MD FACR on October 11, 2017 at 14:26 Board Certified Radiologist. This report was verified electronically.
[2017-10-11 14:29] LABS: ANION GAP 7 MEQ/L (5-15); AST (GOT) 22 U/L (15-37); BICARBONATE 28.2 MEQ/L (21.0-32.0); BLOOD UREA NITROGEN 22 MG/DL (7-18); CHLORIDE 103 MEQ/L (98-107); GLOMERULAR FILTRATION RATE 85 ML/MIN (>89); MAGNESIUM 1.5 MG/DL (1.5-2.5); POTASSIUM 4.6 MEQ/L (3.5-5.1); SODIUM (NA) 138 MEQ/L (136-145)
[2017-10-11 14:33] LABS: ALKALINE PHOSPHATASE 93 U/L (45-117); ALT (GPT) 17 U/L (12-78); TOTAL BILIRUBIN ADULT 0.5 MG/DL (0.2-1.0)
[2017-10-11 14:44] LABS: CREATINE KINASE 54 U/L (39-308)
--- NOTE | 2017-10-11 15:23 | PD ---
Data Data Last Documented VS Vital Signs Date Time Temp Pulse Resp B/P (MAP) Pulse Ox O2 Delivery O2 Flow Rate FiO2 10/11/17 17:20 97.8 76 16 130/78 (95) 96 10/11/17 15:30 Nasal Cannula 2.00 Orders Orders Complete Blood Count With Diff (10/11/17 13:49) Comprehensive Metabolic Panel (10/11/17 13:49) B-Type Natriuretic Peptide (10/11/17 13:49) Act Partial Throm Time (Ptt) (10/11/17 13:49) Prothrombin Time / Inr (Pt) (10/11/17 13:49) Magnesium (Mg) (10/11/17 13:49) Ckmb (Isoenzyme) Profile (10/11/17 13:49) Troponin I (10/11/17 13:49) Iv Access Insert/Monitor (10/11/17 13:49) Electrocardiogram (10/11/17 13:49) Ecg Monitoring (10/11/17 13:49) Oximetry (10/11/17 13:49) Oxygen Administration (10/11/17 13:49) Chest, Single Ap (10/11/17 13:49) Sodium Chloride 0.9% Flush (Ns Flush) (10/11/17 14:00) Ed Discharge Order (10/11/17 16:03) Labs Laboratory Tests Test 10/11/17 13:50 White Blood Count 5.2 TH/MM3 Red Blood Count 3.25 MIL/MM3 Hemoglobin 10.5 GM/DL Hematocrit 32.5 % Mean Corpuscular Volume 99.9 FL Mean Corpuscular Hemoglobin 32.2 PG Mean Corpuscular Hemoglobin Concent 32.2 % Red Cell Distribution Width 17.9 % Platelet Count 127 TH/MM3 Mean Platelet Volume 9.1 FL Neutrophils (%) (Auto) 72.8 % Lymphocytes (%) (Auto) 10.6 % Monocytes (%) (Auto) 11.2 % Eosinophils (%) (Auto) 4.7 % Basophils (%) (Auto) 0.7 % Neutrophils # (Auto) 3.8 TH/MM3 Lymphocytes # (Auto) 0.5 TH/MM3 Monocytes # (Auto) 0.6 TH/MM3 Eosinophils # (Auto) 0.2 TH/MM3 Basophils # (Auto) 0.0 TH/MM3 CBC Comment DIFF FINAL Differential Comment Prothrombin Time 13.0 SEC Prothromb Time International Ratio 1.2 RATIO Activated Partial Thromboplast Time 26.6 SEC Blood Urea Nitrogen 22 MG/DL Creatinine 0.88 MG/DL Random Glucose 105 MG/DL Total Protein 7.2 GM/DL Albumin 2.9 GM/DL Calcium Level 7.8 MG/DL Magnesium Level 1.5 MG/DL Alkaline Phosphatase 93 U/L Aspartate Amino Transf (AST/SGOT) 22 U/L Alanine Aminotransferase (ALT/SGPT) 17 U/L Total Bilirubin 0.5 MG/DL Sodium Level 138 MEQ/L Potassium Level 4.6 MEQ/L Chloride Level 103 MEQ/L Carbon Dioxide Level 28.2 MEQ/L Anion Gap 7 MEQ/L Estimat Glomerular Filtration Rate 85 ML/MIN Total Creatine Kinase 54 U/L Troponin I 0.02 NG/ML B-Type Natriuretic Peptide 2227 PG/ML MDM Supervised Visit with YOLETTE: Yes Narrative Course I, Dr. Gutierres, have reviewed the advance practice practitioner's documentation and am in agreement, met with the patient face to face, made the diagnosis, and the medical decision making was done by me. *My assessment and Findings: Patient seen and examined by me in addition to Fabiola RODRIGUES. Patient 72-year-old male with a history of hepatitis C and cirrhosis presents emergency Department with abdominal ascites for the past month gradually worsening. He is resting comfortably on my examination sleeping soundly with a good oxygen saturation. His oxygen was turned off and is maintaining his saturation. He has no indication for further workup at this time no emergent paracentesis. He was given outpatient referral to interventional radiology for paracentesis. Recommended continuing his diuretics and follow-up with his primary care physician he verbalized understanding and agreement. Stable for discharge. Disposition: 01 DISCHARGE HOME Condition: Stable Jeff Gutierres MD Oct 11, 2017 15:23
[2017-10-11 15:30] VITALS: BP 108/69; PULSE 84; RESP 18; TEMP 97.9; O2SAT 99
[2017-10-11 17:20] VITALS: BP 130/78; TEMP 97.8
--- NOTE | 2017-10-12 16:25 | EKG ---
Date Performed: 10/11/2017 Time Performed: 14:01:01 PTAGE: 72 years EKG: Sinus rhythm INTRAVENTRICULAR CONDUCTION DELAY ABNORMAL ECG PREVIOUS TRACING : 07/20/2017 10.54 Compared to prior tracing no significant change DOCTOR: Valeri Mcnally Interpretating Date/Time 10/12/2017 16:24:11
== END 2017-10-11 17:20 | disposition home or self-care (01) ==
LOC: NEPE 13:26
DX: K70.31 Alcoholic cirrhosis of liver with ascites (principal); R06.02 Shortness of breath; R22.43 Localized swelling, mass and lump, lower limb, bilateral; R94.31 Abnormal electrocardiogram [ECG] [EKG]; I10 Essential (primary) hypertension; E78.00 Pure hypercholesterolemia, unspecified; Z72.0 Tobacco use; Z79.01 Long term (current) use of anticoagulants; Z79.899 Other long term (current) drug therapy; Z86.79 Personal history of other diseases of the circulatory system; Z87.09 Personal history of other diseases of the respiratory system; Z87.19 Personal history of other diseases of the digestive system; Z86.19 Personal history of other infectious and parasitic diseases
CPT/HCPCS: 71010; 80053; 82550; 83735; 83880; 84484; 85025; 85610; 85730; 93005; 99285

== ENCOUNTER 2017-10-29 23:20 | Emergency (ER) | payer MEDICARE, OTHER ==
[~2017-10-29] VITALS: Ht 182.9 cm; Wt 85.0 kg
[~2017-10-29 23:20] MED LIST changes: -AZIT250T3 PO; -CEFU1TAB20 PO; -PRED20 PO
[2017-10-29 23:24] VITALS: BP 98/69; PULSE 101; RESP 18; TEMP 98.4; O2SAT 96
[2017-10-30] MEDS ORDERED: SODIUM CHLORIDE 0.9% FLUSH 10 ML FLUSH IV FLUSH PRN
--- NOTE | 2017-10-30 00:03 | PD ---
HPI Chief Complaint: General Weakness Time Seen by Provider: 23:54 Travel History International Travel<30 days: No Contact w/Intl Traveler<30days: No Traveled to known affect area: No History of Present Illness HPI 72-year-old male with history of alcoholic cirrhosis, ascites, brought in by ambulance from home after falling to the ground. The patient reports generalized weakness for the last week. States that when he stood up today he just became too weak and fell to the ground and struck his forehead against a carpeted floor. He denies LOC. States that his abdomen is increasing and distention and he is waiting to hear from the [facility] for approval for paracentesis. He denies head neck or back pain. No chest pain or dyspnea. No abdominal pain. No fevers or chills. PFSH Past Medical History Hx Anticoagulant Therapy: Yes (XARELTO) Arthritis: No Asthma: No Autoimmune Disease: No Blood Disorders: No Anxiety: No Depression: No Heart Rhythm Problems: No Cancer: No Cardiovascular Problems: Yes High Cholesterol: Yes Chemotherapy: No Chest Pain: No Congestive Heart Failure: Yes COPD: Yes Cerebrovascular Accident: No Diabetes: No Diminished Hearing: No Endocrine: No Gastrointestinal Disorders: Yes (EROSIVE ESOPHAGITIS; COLITIS) GERD: Yes Glaucoma: No Genitourinary: No Headaches: No Hepatitis: Yes (C) Hiatal Hernia: Yes Hypertension: Yes Immune Disorder: No Kidney Stones: No Musculoskeletal: No Neurologic: No Psychiatric: No Reproductive: No Respiratory: Yes (COPD) Migraines: No Myocardial Infarction: No Radiation Therapy: No Renal Failure: No Seizures: No Sickle Cell Disease: No Sleep Apnea: No Thyroid Disease: No Ulcer: No Tetanus Vaccination: < 5 Years Influenza Vaccination: No Past Surgical History Abdominal Surgery: Yes (ESOPHAGEAL VARICIES 2006) AICD: No Appendectomy: No Arteriovenous Shunt: No Cardiac Surgery: Yes Cholecystectomy: No Coronary Artery Bypass Graft: Yes (TRIPLE BYPASS) Ear Surgery: No Endocrine Surgery: No Eye Surgery: No Genitourinary Surgery: No Gynecologic Surgery: No Insulin Pump: No Joint Replacement: No Oral Surgery: No Pacemaker: No Thoracic Surgery: No Other Surgery: Yes (CABG) Social History Alcohol Use: Yes (occasional wine) Tobacco Use: Yes (occasionally) Substance Use: Yes (marijuana ) Allergies-Medications (Allergen,Severity, Reaction): Coded Allergies: No Known Allergies (Verified Adverse Reaction, Unknown, 10/29/17) Reported Meds & Prescriptions Reported Meds & Active Scripts Active Furosemide 40 Mg Tab 40 Mg PO DAILY Aldactone (Spironolactone) 50 Mg Tab 50 Mg PO DAILY Reported Trazodone (Trazodone HCl) 50 Mg Tab 25 Mg PO HS Lisinopril 20 Mg Tab 10 Mg PO DAILY Ferrous Sulfate DR (Ferrous Sulfate) 324 Mg Tabdr 324 Mg PO DAILY Sertraline (Sertraline HCl) 50 Mg Tab 50 Mg PO DAILY Allerclear (Loratadine) 10 Mg Tablet 10 Mg PO DAILY PRN Albuterol Neb (Albuterol Sulfate) 2.5 Mg/3 Ml Neb 2.5 Mg NEB Q6HR NEB PRN Symbicort Inh (Budesonide/Formoterol Fumarate) 160-4.5 Mcg/Act Aero 1 Puff INH BID Atorvastatin (Atorvastatin Calcium) 40 Mg Tab 40 Mg PO HS Omeprazole 20 Mg Tab 20 Mg PO DAILY Enulose Liq (Lactulose (Encephalopathy) Liq) 10 Gm/15 Ml Soln 10 Gm PO DAILY PRN Aspirin 81 Mg Chew 81 Mg PO DAILY Review of Systems Except as stated in HPI: all other systems reviewed are Neg Physical Exam Narrative GENERAL: Well-developed, well-nourished, awake, alert, comfortable, no apparent distress. SKIN: Focused skin assessment warm/dry. HEAD: Atraumatic. Normocephalic. EYES: Pupils equal and round. No scleral icterus. No injection or drainage. ENT: Mucous membranes pink and moist. NECK: Trachea midline. No JVD. CARDIOVASCULAR: Regular rate and rhythm. No murmur appreciated. RESPIRATORY: No accessory muscle use. Clear to auscultation. Breath sounds equal bilaterally. GASTROINTESTINAL: Abdomen distended with fluid wave with large ventral hernia that is easily reducible, no tenderness. MUSCULOSKELETAL: No obvious deformities. No clubbing. No cyanosis. Moderate bilateral lower extremity edema. NEUROLOGICAL: Awake and alert. No obvious cranial nerve deficits. Motor grossly within normal limits. Normal speech. PSYCHIATRIC: Appropriate mood and affect; insight and judgment normal. Data Data Last Documented VS Vital Signs Date Time Temp Pulse Resp B/P (MAP) Pulse Ox O2 Delivery O2 Flow Rate FiO2 10/29/17 23:29 18 95 Room Air 10/29/17 23:24 98.4 101 98/69 (79) Orders Orders Complete Blood Count With Diff (10/29/17 23:57) Comprehensive Metabolic Panel (10/29/17 23:57) Prothrombin Time / Inr (Pt) (10/29/17 23:57) Act Partial Throm Time (Ptt) (10/29/17 23:57) Iv Access Insert/Monitor (10/29/17 23:57) Ecg Monitoring (10/29/17 23:57) Oximetry (10/29/17 23:57) Sodium Chloride 0.9% Flush (Ns Flush) (10/30/17 00:00) Chest, Single Ap (10/29/17 ) Ct Brain W/O Iv Contrast(Rout) (10/29/17 ) Ct Cerv Spine W/O Contrast (10/29/17 ) Azithromycin (Zithromax) (10/30/17 02:00) Labs Laboratory Tests Test 10/30/17 00:14 White Blood Count 6.4 TH/MM3 Red Blood Count 3.12 MIL/MM3 Hemoglobin 10.0 GM/DL Hematocrit 30.8 % Mean Corpuscular Volume 98.7 FL Mean Corpuscular Hemoglobin 32.0 PG Mean Corpuscular Hemoglobin Concent 32.4 % Red Cell Distribution Width 17.6 % Platelet Count 138 TH/MM3 Mean Platelet Volume 9.8 FL Neutrophils (%) (Auto) 66.5 % Lymphocytes (%) (Auto) 14.4 % Monocytes (%) (Auto) 12.5 % Eosinophils (%) (Auto) 5.7 % Basophils (%) (Auto) 0.9 % Neutrophils # (Auto) 4.2 TH/MM3 Lymphocytes # (Auto) 0.9 TH/MM3 Monocytes # (Auto) 0.8 TH/MM3 Eosinophils # (Auto) 0.4 TH/MM3 Basophils # (Auto) 0.1 TH/MM3 CBC Comment DIFF FINAL Differential Comment Prothrombin Time 12.7 SEC Prothromb Time International Ratio 1.3 RATIO Activated Partial Thromboplast Time 22.6 SEC Blood Urea Nitrogen 26 MG/DL Creatinine 1.00 MG/DL Random Glucose 88 MG/DL Total Protein 6.8 GM/DL Albumin 2.7 GM/DL Calcium Level 7.7 MG/DL Alkaline Phosphatase 75 U/L Aspartate Amino Transf (AST/SGOT) 23 U/L Alanine Aminotransferase (ALT/SGPT) 15 U/L Total Bilirubin 0.4 MG/DL Sodium Level 139 MEQ/L Potassium Level 4.4 MEQ/L Chloride Level 105 MEQ/L Carbon Dioxide Level 29.7 MEQ/L Anion Gap 4 MEQ/L Estimat Glomerular Filtration Rate 74 ML/MIN [facility] Medical Decision Making Medical Screen Exam Complete: Yes Emergency Medical Condition: Yes Differential Diagnosis Metabolic abnormality, hepatorenal syndrome, intracranial trauma, cervical spine injury, chronic ascites from alcoholic cirrhosis, SBP unlikely Narrative Course Vital signs reviewed. CBC is remarkable for hemoglobin 10, hematocrit 30.8 which is around his baseline. CMP is essentially unremarkable. Chest x-ray: CONCLUSION: 1. Abnormal opacity remains at the left lung base. 2. New hazy opacity at the right lung base. CT head: CONCLUSION: Negative trauma study.. CT cervical spine: CONCLUSION: Negative trauma CT. Patient was made aware of all findings. On reassessment he is sleeping comfortably. He is in no respiratory distress. Chest x-ray findings could be from atelectasis from his ascites pushing into his thoracic cavity. His O2 saturation is 96% on room air. He states that he has been coughing productive of yellowish sputum. He is afebrile. I will start him on a Z-Rancho. I believe he is stable for discharge home with further workup as an outpatient in the [facility]. He states he has an appointment with them in 2 days. He was informed on when to return to the emergency department. He verbalizes understanding and agreement with plan. Diagnosis Primary Impression: Generalized weakness Additional Impressions: Fall Qualified Codes: W19.XXXA - Unspecified fall, initial encounter Closed head injury Qualified Codes: S09.90XA - Unspecified injury of head, initial encounter Opacity of lung on imaging study Referrals: Primary Care Physician 3 days Additional Instructions: Follow-up with your primary care physician this week. Return to the emergency department for worsening symptoms or any other concerns. Scripts Azithromycin (Zithromax Z-Rancho) 250 Mg Dspk 250 MG PO DIRECTED for Infection, #1 DSPK 0 Refills 500 MG (2 tabs) day 1, then 1 tab days 2-5. Prov: Giorgio Benson MD 10/30/17 Disposition: DISCHARGE HOME Condition: Stable Giorgio Benson MD Oct 30, 2017 00:03
[2017-10-30 00:32] LABS: AUTOMATED NEUTROPHIL # 4.2 TH/MM3 (1.8-7.7); BASOPHIL # 0.1 TH/MM3 (0-0.2); BASOPHIL % 0.9 % (0.0-2.0); EOSINOPHIL # 0.4 TH/MM3 (0-0.4); EOSINOPHIL % 5.7 % (0.0-4.0); HEMATOCRIT 30.8 % (39.0-51.0); HEMO FLAGS DIFF FINAL; LYMPH % 14.4 % (9.0-44.0); LYMPHOCYTE # 0.9 TH/MM3 (1.0-4.8); MEAN CELL VOLUME 98.7 FL (80.0-100.0); MEAN CORPUSCULAR HGB CONC 32.4 % (32.0-36.0); MONO % 12.5 % (0.0-8.0); NEUT % 66.5 % (16.0-70.0); PLATELET COUNT 138 TH/MM3 (150-450); RED BLOOD COUNT 3.12 MIL/MM3 (4.50-5.90); RED CELL DISTRIBUTION WIDTH 17.6 % (11.6-17.2); WHITE BLOOD COUNT 6.4 TH/MM3 (4.0-11.0)
--- NOTE | 2017-10-30 00:43 | RADRPT ---
EXAM DATE/TIME: 10/30/2017 00:22 [facility] COMPARISON: CHEST SINGLE AP, October 11, 2017, 13:57. INDICATIONS : Shortness of breath. MEDICAL HISTORY : Hypertension. Myocardial infarction. Chronic obstructive pulmonary disease. Congestive heart failure. Liver disease. Hep C.. SURGICAL HISTORY : CABG. ENCOUNTER: Initial ACUITY: 1 day PAIN SCORE: 0/10 LOCATION: Bilateral chest FINDINGS: A single AP semierect view of the chest was obtained and again demonstrates the patient is status pos t median sternotomy for bypass grafting procedure. Abnormal opacity remains at the left lung base wit h partial obscuration left hemidiaphragm and blunting of the costophrenic angle. There is new hazy op acity at the right lung base. The heart size is at the upper limits of normal. The bony thorax is int act with overlying electrocardiogram leads. Atherosclerotic calcifications are present in the aorta. CONCLUSION: 1. Abnormal opacity remains at the left lung base. 2. New hazy opacity at the right lung base. Jose Lea MD on October 30, 2017 at 0:33 Board Certified Radiologist. This report was verified electronically.
[2017-10-30 00:50] LABS: ALKALINE PHOSPHATASE 75 U/L (45-117); TOTAL BILIRUBIN ADULT 0.4 MG/DL (0.2-1.0)
[2017-10-30 00:51] LABS: ALT (GPT) 15 U/L (12-78); ANION GAP 4 MEQ/L (5-15); AST (GOT) 23 U/L (15-37); BICARBONATE 29.7 MEQ/L (21.0-32.0); BLOOD UREA NITROGEN 26 MG/DL (7-18); CHLORIDE 105 MEQ/L (98-107); GLOMERULAR FILTRATION RATE 74 ML/MIN (>89); POTASSIUM 4.4 MEQ/L (3.5-5.1); SODIUM (NA) 139 MEQ/L (136-145)
[2017-10-30 00:58] LABS: APTT (PATIENT) 22.6 SEC (24.3-30.1); INTERNATIONAL NORMALIZED RATIO 1.3 RATIO; PROTHROMBIN TIME - PATIENT 12.7 SEC (9.8-11.6)
--- NOTE | 2017-10-30 01:21 | RADRPT ---
EXAM DATE/TIME: 10/30/2017 01:04 [facility] COMPARISON: No previous studies available for comparison. INDICATIONS : Trauma. RADIATION DOSE: 33.02 CTDIvol (mGy) MEDICAL HISTORY : Hepatitis C. Myocardial infarction. Congestive heart failure.COPD, hiatal hernia SURGICAL HISTORY : CABG ENCOUNTER: Initial ACUITY: 1 day PAIN SCALE: 6/10 LOCATION: cranial TECHNIQUE: Multiple contiguous axial images were obtained of the head. Using automated exposure control and adj ustment of the mA and/or kV according to patient size, radiation dose was kept as low as reasonably a chievable to obtain optimal diagnostic quality images. DICOM format image data is available electro nically for review and comparison. FINDINGS: CEREBRUM: The ventricles are normal for age. No evidence of midline shift, mass lesion, hemorrhage or acute in farction. No extra-axial fluid collections are seen. POSTERIOR FOSSA: The cerebellum and brainstem are intact. The 4th ventricle is midline. The cerebellopontine angle i s unremarkable. EXTRACRANIAL: The visualized portion of the orbits is intact. There is mild mucosal thickening in the ethmoidal air cells and left maxillary sinus. SKULL: The calvaria is intact. No evidence of skull fracture. CONCLUSION: Negative trauma study.. Jose Lea MD on October 30, 2017 at 1:19 Board Certified Radiologist. This report was verified electronically.
--- NOTE | 2017-10-30 01:51 | RADRPT ---
EXAM DATE/TIME: 10/30/2017 01:04 [place] COMPARISON: No previous studies available for comparison. INDICATIONS : Trauma. RADIATION DOSE: 20.78 CTDIvol (mGy) MEDICAL HISTORY : Cardiovascular disease. Hypertension. Hepatitis C.COPD SURGICAL HISTORY : CABG ENCOUNTER: Initial ACUITY: 1 day PAIN SCALE: 0/10 LOCATION: Bilateral neck TECHNIQUE: Volumetric scanning of the cervical spine was performed. Multiplanar reconstructions i n the sagittal, coronal and oblique axial planes were performed. Using automated exposure control a nd adjustment of the mA and/or kV according to patient size, radiation dose was kept as low as reason ably achievable to obtain optimal diagnostic quality images. DICOM format image data is available e lectronically for review and comparison. FINDINGS: The sagittal reconstructions demonstrate normal prevertebral soft tissues. The dens is intact and the re is a normal atlantoaxial relationship. The vertebral bodies are intact. There is mild retrolisthes is of C4 on C5. There is mild scoliosis. Degenerative disc changes are present with disc space narrow ing and hypertrophic change. The axial images demonstrate that the vertebral bodies and posterior elements are intact. The soft ti ssues are within normal limits. There is no evidence of acute fracture or malalignment. CONCLUSION: Negative trauma CT. Jose Lea MD on October 30, 2017 at 1:48 Board Certified Radiologist. This report was verified electronically.
[2017-10-30] MEDS ORDERED: ZITHTAB PO (01:56)
[2017-10-30] MEDS ORDERED: AZITHROMYCIN 250 MG TAB PO ONE (02:00)
[2017-10-30 02:45] VITALS: BP 101/69; PULSE 95; RESP 18; TEMP 98.1; O2SAT 95
[2017-10-30 02:46] VITALS: BP 101/69; PULSE 70; RESP 18; O2SAT 100
[2017-10-30 06:40] VITALS: BP 119/67; PULSE 89; RESP 18; TEMP 98.4; O2SAT 96
[2017-10-30 07:00] VITALS: BP 109/83; PULSE 78; RESP 16; TEMP 97.8; O2SAT 97
--- NOTE | 2017-10-30 19:19 | EKG ---
Date Performed: 10/29/2017 Time Performed: 23:31:44 PTAGE: 72 years EKG: Sinus rhythm INTRAVENTRICULAR CONDUCTION DELAY Since previous tracing, no significant change noted ABNORMAL ECG PREVIOUS TRACING : 10/11/2017 14.01 DOCTOR: Jose Qiu Interpretating Date/Time 10/30/2017 19:18:37
== END 2017-10-30 09:10 | disposition home or self-care (01) ==
LOC: NEPC 23:20
DX: R53.1 Weakness (principal); S09.90XA Unspecified injury of head, initial encounter; R18.8 Other ascites; R94.31 Abnormal electrocardiogram [ECG] [EKG]; K70.31 Alcoholic cirrhosis of liver with ascites; I11.0 Hypertensive heart disease with heart failure; J44.9 Chronic obstructive pulmonary disease, unspecified; W19.XXXA Unspecified fall, initial encounter
CPT/HCPCS: 70450; 71010; 72125; 80053; 85025; 85610; 85730; 93005; 99285

== ENCOUNTER 2017-11-03 02:48 | Inpatient (IN) | payer MEDICARE, OTHER ==
[~2017-11-03] VITALS: Ht 182.9 cm; Wt 99.1 kg
[2017-11-03] VITALS (22 sets, daily range): BP systolic 88–108; BP diastolic 52–76; PULSE 75–92; RESP 14–25; TEMP 96.7–98.6; O2SAT 90–100
[~2017-11-03 02:48] MED LIST changes: +ZITHTAB PO
[2017-11-03 03:41] LABS: AUTOMATED NEUTROPHIL # 3.1 TH/MM3 (1.8-7.7); BASOPHIL % 0.6 % (0.0-2.0); EOSINOPHIL # 0.2 TH/MM3 (0-0.4); EOSINOPHIL % 4.8 % (0.0-4.0); LYMPH % 16.5 % (9.0-44.0); LYMPHOCYTE # 0.8 TH/MM3 (1.0-4.8); MEAN CELL VOLUME 98.7 FL (80.0-100.0); MEAN CORPUSCULAR HEMOGLOBIN 32.6 PG (27.0-34.0); MONO % 12.5 % (0.0-8.0); NEUT % 65.6 % (16.0-70.0); PLATELET COUNT 103 TH/MM3 (150-450); RED BLOOD COUNT 1.48 MIL/MM3 (4.50-5.90); RED CELL DISTRIBUTION WIDTH 17.4 % (11.6-17.2); WHITE BLOOD COUNT 4.7 TH/MM3 (4.0-11.0)
[2017-11-03 03:42] LABS: HEMO FLAGS DIFF FINAL
[2017-11-03 03:44] LABS: HEMATOCRIT 14.6 % (39.0-51.0)
[2017-11-03 04:04] LABS: BICARBONATE 28.1 MEQ/L (21.0-32.0); CALCIUM-PROTEIN CORRECTED 8.5 MG/DL (8.5-10.1); POTASSIUM 4.5 MEQ/L (3.5-5.1); TOTAL BILIRUBIN ADULT 0.3 MG/DL (0.2-1.0)
--- NOTE | 2017-11-03 04:22 | PD ---
HPI Chief Complaint: GI Complaint Time Seen by Provider: 02:55 Travel History International Travel<30 days: No Contact w/Intl Traveler<30days: No Traveled to known affect area: No History of Present Illness HPI pt has end stage liver disease and history remote of vomit blood from varices, tonight , he awoke at 3AM and nauseous vomited nblood clots and called 911 and EMS reports large amount of blood seen in basket next to bed. pt has cirrhosis , distended abdomen mostlikely from Ascites. < never had a paracentesis . He feels like he needs it done due to stretched skin on abdomen and swelling and slight SOB when laying flat PFSH Past Medical History Hx Anticoagulant Therapy: Yes (XARELTO) Autoimmune Disease: No Depression: No Cardiovascular Problems: Yes High Cholesterol: Yes Congestive Heart Failure: Yes COPD: Yes Diabetes: No Diminished Hearing: No Endocrine: No Gastrointestinal Disorders: Yes (EROSIVE ESOPHAGITIS; COLITIS) GERD: Yes Glaucoma: No Genitourinary: No Headaches: No Hepatitis: Yes (C) Hiatal Hernia: Yes Hypertension: Yes Immune Disorder: No Kidney Stones: No Musculoskeletal: No Neurologic: No Psychiatric: No Reproductive: No Respiratory: Yes Migraines: No Myocardial Infarction: No Radiation Therapy: No Renal Failure: No Seizures: No Sickle Cell Disease: No Sleep Apnea: No Thyroid Disease: No Ulcer: No Past Surgical History Abdominal Surgery: Yes (ESOPHAGEAL VARICIES 2006) AICD: No Appendectomy: No Cardiac Surgery: Yes Cholecystectomy: No Coronary Artery Bypass Graft: Yes (TRIPLE BYPASS) Ear Surgery: No Endocrine Surgery: No Eye Surgery: No Genitourinary Surgery: No Gynecologic Surgery: No Insulin Pump: No Joint Replacement: No Oral Surgery: No Pacemaker: No Thoracic Surgery: No Other Surgery: Yes (CABG) Social History Alcohol Use: No Tobacco Use: Yes (occasionally) Substance Use: No Allergies-Medications (Allergen,Severity, Reaction): Coded Allergies: No Known Allergies (Verified Adverse Reaction, Unknown, 11/03/17) Reported Meds & Prescriptions Reported Meds & Active Scripts Active Furosemide 40 Mg Tab 40 Mg PO DAILY Aldactone (Spironolactone) 50 Mg Tab 50 Mg PO DAILY Reported Trazodone (Trazodone HCl) 50 Mg Tab 25 Mg PO HS Lisinopril 20 Mg Tab 10 Mg PO DAILY Ferrous Sulfate DR (Ferrous Sulfate) 324 Mg Tabdr 324 Mg PO DAILY Sertraline (Sertraline HCl) 50 Mg Tab 50 Mg PO DAILY Allerclear (Loratadine) 10 Mg Tablet 10 Mg PO DAILY PRN Albuterol Neb (Albuterol Sulfate) 2.5 Mg/3 Ml Neb 2.5 Mg NEB Q6HR NEB PRN Symbicort Inh (Budesonide/Formoterol Fumarate) 160-4.5 Mcg/Act Aero 1 Puff INH BID Atorvastatin (Atorvastatin Calcium) 40 Mg Tab 40 Mg PO HS Omeprazole 20 Mg Tab 20 Mg PO DAILY Enulose Liq (Lactulose (Encephalopathy) Liq) 10 Gm/15 Ml Soln 10 Gm PO DAILY PRN Aspirin 81 Mg Chew 81 Mg PO DAILY Physical Exam Narrative GENERAL: jaundice skin and sclera eyes bilateral, no signs of distress, SKIN: Warm and dry. HEAD: Atraumatic. Normocephalic. EYES: Pupils equal and round. No scleral icterus. No injection or drainage. ENT: No nasal bleeding or discharge. Mucous membranes pink and moist. NECK: Trachea midline. No JVD. CARDIOVASCULAR: Regular rate and rhythm. RESPIRATORY: No accessory muscle use. Clear to auscultation. Breath sounds equal bilaterally. GASTROINTESTINAL: Abdomen tensely distended. diffusely tender , no focal tenderness over epigastric area MUSCULOSKELETAL: Extremities without clubbing, cyanosis, or edema. No obvious deformities. NEUROLOGICAL: Awake and alert. No obvious cranial nerve deficits. Motor grossly within normal limits. Five out of 5 muscle strength in the arms and legs. Normal speech. PSYCHIATRIC: Appropriate mood and affect; insight and judgment normal. Data Data Last Documented VS Vital Signs Date Time Temp Pulse Resp B/P (MAP) Pulse Ox O2 Delivery O2 Flow Rate FiO2 11/03/17 02:53 97.7 85 16 96/52 (67) 100 Orders Orders Complete Blood Count With Diff (11/03/17 03:12) Ammonia (11/03/17 03:12) Lactic Acid (11/03/17 03:12) Comprehensive Metabolic Panel (11/03/17 03:12) Troponin I (11/03/17 03:12) Lipase (11/03/17 03:12) Type And Screen (11/03/17 03:46) Complete Blood Count With Diff (11/03/17 03:54) Prothrombin Time / Inr (Pt) (11/03/17 04:16) Red Blood Cells (Rbc) (11/03/17 04:38) Octreotide Inj (Sandostatin Inj) (11/03/17 05:00) Octreotide Inj (Sandostatin Inj) (11/03/17 05:00) Pantoprazole Inj (Protonix Inj) (11/03/17 05:00) Pantoprazole Inj (Protonix Inj) (11/03/17 05:00) Octreotide Inj (Sandostatin Inj) (11/03/17 05:00) Admit Order (Ed Use Only) (11/03/17 04:54) Labs Laboratory Tests Test 11/03/17 03:20 11/03/17 03:58 11/03/17 04:20 White Blood Count 4.7 TH/MM3 3.9 TH/MM3 Red Blood Count 1.48 MIL/MM3 1.36 MIL/MM3 Hemoglobin 4.8 GM/DL 4.4 GM/DL Hematocrit 14.6 % 13.5 % Mean Corpuscular Volume 98.7 FL 99.1 FL Mean Corpuscular Hemoglobin 32.6 PG 32.4 PG Mean Corpuscular Hemoglobin Concent 33.0 % 32.7 % Red Cell Distribution Width 17.4 % 17.3 % Platelet Count 103 TH/MM3 91 TH/MM3 Mean Platelet Volume 9.7 FL 9.9 FL Neutrophils (%) (Auto) 65.6 % 70.8 % Lymphocytes (%) (Auto) 16.5 % 13.4 % Monocytes (%) (Auto) 12.5 % 12.0 % Eosinophils (%) (Auto) 4.8 % 3.2 % Basophils (%) (Auto) 0.6 % 0.6 % Neutrophils # (Auto) 3.1 TH/MM3 2.8 TH/MM3 Lymphocytes # (Auto) 0.8 TH/MM3 0.5 TH/MM3 Monocytes # (Auto) 0.6 TH/MM3 0.5 TH/MM3 Eosinophils # (Auto) 0.2 TH/MM3 0.1 TH/MM3 Basophils # (Auto) 0.0 TH/MM3 0.0 TH/MM3 CBC Comment DIFF FINAL AUTO DIFF Differential Comment AUTO DIFF CONFIRMED Blood Urea Nitrogen 41 MG/DL Creatinine 0.78 MG/DL Random Glucose 103 MG/DL Total Protein 4.7 GM/DL Albumin 1.9 GM/DL Calcium Level 7.2 MG/DL Alkaline Phosphatase 47 U/L Aspartate Amino Transf (AST/SGOT) 16 U/L Alanine Aminotransferase (ALT/SGPT) 14 U/L Total Bilirubin 0.3 MG/DL Sodium Level 142 MEQ/L Potassium Level 4.5 MEQ/L Chloride Level 108 MEQ/L Carbon Dioxide Level 28.1 MEQ/L Anion Gap 6 MEQ/L Estimat Glomerular Filtration Rate 98 ML/MIN Lactic Acid Level 2.4 mmol/L Protein Corrected Calcium 8.5 MG/DL Ammonia 31 MCMOL/L Troponin I 0.02 NG/ML Lipase 106 U/L Platelet Estimate LOW Platelet Morphology Comment ENLARGED Acanthocytes OCC Keratocytes OCC Prothrombin Time 16.1 SEC Prothromb Time International Ratio 1.6 RATIO MDM Medical Decision Making Medical Screen Exam Complete: Yes Emergency Medical Condition: Yes Differential Diagnosis jaundice secondary to liver failure and vs hemolysis or GI bleed increased heme due to hemolysis , GI bleed from varices. Narrative Course Patient is severely anemic hemoglobin is 4. 4 repeat is the same patient feels mildly short of breath she reports vomiting excessive blood into the trashcan by his bedside tonight I her to arrival. Patient is bite told are stable and when his hematocrit returns very low it is surprising that he is so hemodynamically stable. I ordered 2 units of packed red blood cells I called Dr. Trino MARTINEZ MD he once octreotide 100 mics pushed 100 mics an hour as well as Protonix 80 mg pushed 8 mg an hour and I am transfusing the patient already the 2 units of packed red blood cells. He is admitted to the ICU I gave report to Dr. Maier speak to both the chemical reclamation equipment operator and the GI doctor to stabilize him. The GI doctor will come take him for banding of his varices today. ICU and transfusion to stabilize him for the procedure. Critical Care Narrative Critical care on this patient is 45 minutes between assessing him then discovering his severe anemia. Transfusing him and admitting to the ICU. Giving of fluid and transfusion for resuscitation Physician Communication Physician Communication ICU attending Diagnosis Primary Impression: Severe anemia Additional Impressions: GI hemorrhage Qualified Codes: K92.2 - Gastrointestinal hemorrhage, unspecified Esophageal varices Qualified Codes: I85.11 - Secondary esophageal varices with bleeding Admitting Information Admitting Physician Requests: Admit Thom Smith MD Nov 03, 2017 04:22
[2017-11-03 04:33] LABS: AUTOMATED NEUTROPHIL # 2.8 TH/MM3 (1.8-7.7); BASOPHIL % 0.6 % (0.0-2.0); EOSINOPHIL # 0.1 TH/MM3 (0-0.4); EOSINOPHIL % 3.2 % (0.0-4.0); LYMPH % 13.4 % (9.0-44.0); LYMPHOCYTE # 0.5 TH/MM3 (1.0-4.8); MEAN CELL VOLUME 99.1 FL (80.0-100.0); MEAN CORPUSCULAR HEMOGLOBIN 32.4 PG (27.0-34.0); MEAN CORPUSCULAR HGB CONC 32.7 % (32.0-36.0); NEUT % 70.8 % (16.0-70.0); PLATELET COUNT 91 TH/MM3 (150-450); RED BLOOD COUNT 1.36 MIL/MM3 (4.50-5.90); RED CELL DISTRIBUTION WIDTH 17.3 % (11.6-17.2); WHITE BLOOD COUNT 3.9 TH/MM3 (4.0-11.0)
[2017-11-03 04:34] LABS: HEMO FLAGS AUTO DIFF
[2017-11-03 04:37] LABS: HEMATOCRIT 13.5 % (39.0-51.0)
[2017-11-03] MEDS ORDERED: SENNOSIDES 8.6 MG TAB PO PRN (05:00)
[2017-11-03] MEDS ORDERED: MAGNESIUM HYDROXIDE SUSP 30 ML CUP PO PRN (05:00)
[2017-11-03] MEDS ORDERED: OCTREOTIDE INJ 100 MCG/ML VIAL IV PUSH ONE (05:00)
[2017-11-03] MEDS ORDERED: LORATADINE 10 MG TAB PO PRN (05:00)
[2017-11-03] MEDS ORDERED: BISACODYL 10 MG SUPP RECTAL PRN (05:00)
[2017-11-03] MEDS ORDERED: PANTOPRAZOLE INJ 80 MG in SODIUM CHLORIDE 0.9% INJ 100 ML IV SCH (05:00)
[2017-11-03] MEDS ORDERED: PANTOPRAZOLE SODIUM 40 MG VIAL IV PUSH ONE (05:00)
[2017-11-03] MEDS ORDERED: ACETAMINOPHEN 325 MG TAB PO PRN (05:00)
[2017-11-03] MEDS ORDERED: ONDANSETRON HCL 4 MG/2 ML VIAL IV PUSH PRN (05:00)
[2017-11-03] MEDS ORDERED: SODIUM CHLORIDE 0.9% FLUSH 10 ML FLUSH IV FLUSH PRN (05:00)
[2017-11-03] MEDS ORDERED: MISCELLANEOUS NURSING INFORMATION XX SCH (05:00)
[2017-11-03] MEDS ORDERED: RESP: ALBUTEROL 2.5 MG/IPRATROPIUM 0.5 MG NEB (PRN) INH (05:00)
[2017-11-03] MEDS ORDERED: OCTREOTIDE INJ 500 MCG in SODIUM CHLORID 0.9% 500 ML INJ 500 ML IV ONE ×4 (05:00)
[2017-11-03] MEDS ORDERED: LACTULOSE SYRUP 20 GM/30 ML CUP PO PRN ×2 (05:00)
[2017-11-03] MEDS ORDERED: CHLORHEXIDINE GLUCONATE 2 % 1 PACK (2 CLOTHS) TOP PRN (05:00)
[2017-11-03] MEDS ORDERED: LORazepam 2 MG/ML VIAL IV PUSH PRN (05:00)
[2017-11-03 05:16] LABS: INTERNATIONAL NORMALIZED RATIO 1.6 RATIO; PROTHROMBIN TIME - PATIENT 16.1 SEC (9.8-11.6)
--- NOTE | 2017-11-03 05:25 | HHI.HP ---
[facility] Service Critical Care Medicine Primary Care Physician [facility] Admission Diagnosis severe anemia due to GI hemorrhage Diagnosis: Travel History International Travel<30 Days: No Contact w/Intl Traveler <30 Da: No Traveled to Known Affected Are: No History of Present Illness 72-year-old gentleman with a history of end stage liver disease and history awfully variceal bleed presents because tonight he awoke at 3AM nauseous and vomited copious amount of blood clots. He called 911 and EMS reports large amount of blood seen in basket next to bed. The patient has cirrhosis , distended abdomen most likely from Ascites. He complains some shortness of breath when laying flat. Review of Systems Constitutional: DENIES: Diaphoretic episodes, Fatigue, Fever, Weight gain, Weight loss, Chills, Dizziness, Change in appetite, Night Sweats Endocrine: DENIES: Heat/cold intolerance, Polydipsia, Polyuria, Polyphagia Eyes: DENIES: Blurred vision, Diplopia, Eye inflammation, Eye pain, Vision loss , Photosensitivity, Double Vision Ears, nose, mouth, throat: DENIES: Tinnitus, Hearing loss, Vertigo, Nasal discharge, Oral lesions, Throat pain, Hoarseness, Ear Pain, Running Nose, Epistaxis, Sinus Pain, Toothache, Odynophagia Respiratory: COMPLAINS OF: Shortness of breath, DENIES: Apneas, Cough, Snoring , Wheezing, Hemoptysis, Sputum production Cardiovascular: DENIES: Chest pain, Palpitations, Syncope, Dyspnea on Exertion , PND, Lower Extremity Edema, Orthopnea, Claudication Gastrointestinal: COMPLAINS OF: Abdominal pain, Nausea, Vomiting, DENIES: Black stools, Bloody stools, Constipation, Diarrhea, Difficulty Swallowing, Anorexia Genitourinary: DENIES: Sexual dysfunction, Urinary frequency, Urinary incontinence, Urgency, Hematuria, Dysuria, Nocturia, Penile Discharge, Testicular Pain, Testicular Swelling Musculoskeletal: DENIES: Joint pain, Muscle aches, Stiffness, Joint Swelling, Back pain, Neck pain Integumentary: DENIES: Abnormal pigmentation, Nail changes, Pruritus, Rash Hematologic/lymphatic: DENIES: Bruising, Lymphadenopathy Immunologic/allergic: DENIES: Eczema, Urticaria Neurologic: DENIES: Abnormal gait, Headache, Localized weakness, Paresthesias, Seizures, Speech Problems, Tremor, Poor Balance Psychiatric: DENIES: Anxiety, Confusion, Mood changes, Depression, Hallucinations, Agitation, Suicidal Ideation, Homicidal Ideation, Delusions Past Family Social History Allergies: Coded Allergies: No Known Allergies (Verified Adverse Reaction, Unknown, 11/03/17) Past Medical History COPD Hep C treated with 12 weeks Harvoni last year Liver cirrhosis, ascites CAD HTN Esophageal varices Umbilical hernia Past Surgical History CABG 3 Esophageal variceal banding Reported Medications Reported Meds & Active Scripts Active Furosemide 40 Mg Tab 40 Mg PO DAILY Aldactone (Spironolactone) 50 Mg Tab 50 Mg PO DAILY Reported Trazodone (Trazodone HCl) 50 Mg Tab 25 Mg PO HS Lisinopril 20 Mg Tab 10 Mg PO DAILY Ferrous Sulfate DR (Ferrous Sulfate) 324 Mg Tabdr 324 Mg PO DAILY Sertraline (Sertraline HCl) 50 Mg Tab 50 Mg PO DAILY Allerclear (Loratadine) 10 Mg Tablet 10 Mg PO DAILY PRN Albuterol Neb (Albuterol Sulfate) 2.5 Mg/3 Ml Neb 2.5 Mg NEB Q6HR NEB PRN Symbicort Inh (Budesonide/Formoterol Fumarate) 160-4.5 Mcg/Act Aero 1 Puff INH BID Atorvastatin (Atorvastatin Calcium) 40 Mg Tab 40 Mg PO HS Omeprazole 20 Mg Tab 20 Mg PO DAILY Enulose Liq (Lactulose (Encephalopathy) Liq) 10 Gm/15 Ml Soln 10 Gm PO DAILY PRN Aspirin 81 Mg Chew 81 Mg PO DAILY Active Ordered Medications Current Medications Medications (Trade) Dose Ordered Sig/Primo Route PRN Reason Start Time Stop Time Status Last Admin Dose Admin Pantoprazole Sodium 80 mg/ Sodium Chloride 100 ml @ 10 mls/hr CONTINUOUS IV 11/03/17 05:00 11/03/17 05:03 Atorvastatin Calcium (Lipitor) 40 mg HS PO 11/03/17 21:00 Budesonide/ Formoterol Fumarate (Symbicort 160-4.5 Mcg Inh) 1 puff BID INH 11/03/17 09:00 Loratadine (Claritin) 10 mg DAILY PRN PO ALLERGIES 11/03/17 05:00 Sertraline HCl (Zoloft) 50 mg DAILY PO 11/03/17 09:00 Trazodone HCl (Desyrel) 25 mg HS PO 11/03/17 21:00 Ferrous Sulfate (Ferrous Sulfate) 325 mg DAILY PO 11/03/17 09:00 Lactulose (Lactulose Liq) 15 ml DAILY PRN PO CONSTIPATION 11/03/17 05:00 Sodium Chloride 1,000 ml @ 124 mls/hr Q8H4M IV 11/03/17 04:59 UNV Sodium Chloride (NS Flush) 2 ml UNSCH PRN IV FLUSH FLUSH AFTER USING IV ACCESS 11/03/17 05:00 UNV Sodium Chloride (NS Flush) 2 ml BID IV FLUSH 11/03/17 09:00 UNV Acetaminophen (Tylenol) 650 mg Q6H PRN PO PAIN 1-10 AND/OR FEVER >101F 11/03/17 05:00 UNV Pantoprazole Sodium (Protonix Inj) 40 mg Q12H IV PUSH 11/03/17 05:00 UNV Lorazepam (Ativan Inj) 1 mg Q3H PRN IV PUSH Agitation/Sedation 11/03/17 05:00 UNV Ondansetron HCl (Zofran Inj) 4 mg Q6H PRN IV PUSH NAUSEA OR VOMITING 11/03/17 05:00 UNV Albuterol/ Ipratropium (Duoneb Neb) 1 ampule Q6HR NEB INH 11/03/17 10:00 UNV Albuterol/ Ipratropium (Duoneb Neb) 1 ampule Q2HR NEB PRN INH WHEEZING 11/03/17 05:00 UNV Miscellaneous Information 1 Q361D XX 11/03/17 05:00 UNV Chlorhexidine Gluconate (Chlorhexidine 2% Cloth) 3 pack Taper DAILY@04 TOP 11/04/17 04:00 10/31/18 03:59 UNV Chlorhexidine Gluconate (Chlorhexidine 2% Cloth) 3 pack UNSCH PRN TOP HYGIENIC CARE 11/03/17 05:00 UNV Senna/Docusate Sodium (Shannan-Colace) 1 tab BID PO 11/03/17 09:00 UNV Magnesium Hydroxide (Milk Of Magnesia Liq) 30 ml Q12H PRN PO Mild constipation 11/03/17 05:00 UNV Sennosides (Senokot) 17.2 mg Q12H PRN PO Moderate constipation 11/03/17 05:00 UNV Bisacodyl (Dulcolax Supp) 10 mg DAILY PRN RECTAL SEVERE CONSITIPATION 11/03/17 05:00 UNV Lactulose (Lactulose Liq) 30 ml DAILY PRN PO SEVERE CONSITIPATION 11/03/17 05:00 UNV Ceftriaxone Sodium 2000 mg/ Sodium Chloride 100 ml @ 200 mls/hr Q12H IV 11/03/17 05:00 UNV Family History No family history of cirrhosis Family history of congestive heart failure Social History Denies any recent alcohol use, last alcohol use of the 7 months ago usually drinks wine or beer 1-1/2-1 pack a day smoker Occasional marijuana use Physical Exam Vital Signs Vital Signs Date Time Temp Pulse Resp B/P (MAP) Pulse Ox O2 Delivery O2 Flow Rate FiO2 11/03/17 02:53 97.7 85 16 96/52 (67) 100 Physical Exam GENERAL: Thin-appearing, well-developed patient, lethargic. SKIN: Warm and dry. Midsternal wound scar noted. HEAD: Normocephalic. EYES: Pupils equal round and reactive. Extraocular motions intact. No scleral icterus. No injection or drainage. ENT: Nose without bleeding. Throat without erythema. Uvula midline. Airway patent. NECK: Trachea midline. Supple. CARDIOVASCULAR: Regular rate and rhythm systolic murmurs, gallops, or rubs. RESPIRATORY: Coarse breath sounds, diminished bases. No wheezes, rales, or rhonchi. GASTROINTESTINAL: Abdomen soft, non-tender, distended. Umbilical hernia present. Bowel sounds hypoactive. MUSCULOSKELETAL: Extremities without clubbing, cyanosis, bilateral lower extremity nonpitting edema. NEUROLOGICAL: Lethargic, easily arousable but fall back to sleep quickly. Motor and sensory grossly within normal limits. Normal speech. Laboratory Laboratory Tests Test 11/03/17 03:20 11/03/17 03:58 11/03/17 04:20 White Blood Count 4.7 3.9 Red Blood Count 1.48 1.36 Hemoglobin 4.8 4.4 Hematocrit 14.6 13.5 Mean Corpuscular Volume 98.7 99.1 Mean Corpuscular Hemoglobin 32.6 32.4 Mean Corpuscular Hemoglobin Concent 33.0 32.7 Red Cell Distribution Width 17.4 17.3 Platelet Count 103 91 Mean Platelet Volume 9.7 9.9 Neutrophils (%) (Auto) 65.6 70.8 Lymphocytes (%) (Auto) 16.5 13.4 Monocytes (%) (Auto) 12.5 12.0 Eosinophils (%) (Auto) 4.8 3.2 Basophils (%) (Auto) 0.6 0.6 Neutrophils # (Auto) 3.1 2.8 Lymphocytes # (Auto) 0.8 0.5 Monocytes # (Auto) 0.6 0.5 Eosinophils # (Auto) 0.2 0.1 Basophils # (Auto) 0.0 0.0 CBC Comment DIFF FINAL AUTO DIFF Differential Comment Blood Urea Nitrogen 41 Creatinine 0.78 Random Glucose 103 Total Protein 4.7 Albumin 1.9 Calcium Level 7.2 Alkaline Phosphatase 47 Aspartate Amino Transf (AST/SGOT) 16 Alanine Aminotransferase (ALT/SGPT) 14 Total Bilirubin 0.3 Sodium Level 142 Potassium Level 4.5 Chloride Level 108 Carbon Dioxide Level 28.1 Anion Gap 6 Estimat Glomerular Filtration Rate 98 Lactic Acid Level 2.4 Protein Corrected Calcium 8.5 Ammonia 31 Troponin I 0.02 Lipase 106 Result Diagram: 11/03/17 0358 11/03/17 0320 Caprini VTE Risk Assessment Caprini VTE Risk Assessment: Mod/High Risk (score >= 2) VTE Pharm Contraindication: Hemorrhage Caprini Risk Assessment Model Point Value = 1 Point Value = 2 Point Value = 3 Point Value = 5 Age 41-60 Minor surgery BMI > 25 kg/m2 Swollen legs Varicose veins or History of unexplained or recurrent spontaneous Oral contraceptives or hormone replacement Sepsis (< 1 month) Serious lung disease, including pneumonia (< 1 month) Abnormal pulmonary function Acute myocardial infarction Congestive heart failure (< 1 month) History of inflammatory bowel disease Medical patient at bed rest Age 61-74 Arthroscopic surgery Major open surgery (> 45 min) Laparoscopic surgery (> 45 min) Malignancy Confined to bed (> 72 hours) Immobilizing plaster cast Central venous access Age >= 75 History of VTE Family history of VTE Factor V Leiden Prothrombin [id number] Lupus anticoagulant Anticardiolipin antibodies Elevated serum homocysteine Heparin-induced thrombocytopenia Other congenital or acquired thrombophilia Stroke (< 1 month) Elective arthroplasty Hip, pelvis, or leg fracture Acute spinal cord injury (< 1 month) Prophylaxis Regimen Total Risk Factor Score Risk Level Prophylaxis Regimen 0-1 Low Early ambulation 2 Moderate Order ONE of the following: *Sequential Compression Device (SCD) *Heparin 5000 units SQ BID 3-4 Higher Order ONE of the following medications: *Heparin 5000 units SQ TID *Enoxaparin/Lovenox 40 mg SQ daily (WT < 150 kg, CrCl > 30 mL/min) *Enoxaparin/Lovenox 30 mg SQ daily (WT < 150 kg, CrCl > 10-29 mL/min) *Enoxaparin/Lovenox 30 mg SQ BID (WT < 150 kg, CrCl > 30 mL/min) AND/OR *Sequential Compression Device (SCD) 5 or more Highest Order ONE of the following medications: *Heparin 5000 units SQ TID (Preferred with Epidurals) *Enoxaparin/Lovenox 40 mg SQ daily (WT < 150 kg, CrCl > 30 mL/min) *Enoxaparin/Lovenox 30 mg SQ daily (WT < 150 kg, CrCl > 10-29 mL/min) *Enoxaparin/Lovenox 30 mg SQ BID (WT < 150 kg, CrCl > 30 mL/min) AND *Sequential Compression Device (SCD) Assessment and Plan Assessment and Plan Gastrointestinal bleed - Underlying liver cirrhosis - Likely variceal bleed - Protonix IV twice a day - Octreotide drip - Nothing by mouth - Gastroenterology consultation Anemia - Blood loss anemia - Due to above - Transfuse PRBCs when necessary to keep hemoglobin above 7 - Coags profile pending Liver cirrhosis - Continue lactulose when okay by mouth - Hold diuretics in a picture of acute bleeding Coronary artery disease - Hold aspirin - Continue statins - Resume aspirin when okay with GI Hepatitis C - It is posttreatment in 2016 - Further per GI DVT GI prophylaxis - Teds SCD - No pharmacological DVT prophylaxis due to acute GI bleed - Protonix IV twice a day Critical Care: The total critical care time was 35 minutes. Time to perform other separately billable procedures was not included in the critical care time. Paul Maier MD Nov 03, 2017 5:25 am
[2017-11-03 05:53] LABS: PLATELET ESTIMATE SMEAR LOW (NORMAL); SCAN/DIFF AUTO DIFF CONFIRMED
[2017-11-03 05:55] LABS: ACANTHOCYTES OCC (NORMAL); KERATOCYTES OCC (NORMAL); PLATELET MORPHOLOGY ENLARGED (NORMAL)
[2017-11-03] MEDS ORDERED: PANTOPRAZOLE SODIUM 40 MG VIAL IV PUSH SCH (06:00)
[2017-11-03] MEDS: SODIUM CHLOR 0.9% 1000 ML INJ 1,000 ML IV SCH ×3 (06:19→21:07)
[2017-11-03] MEDS: cefTRIAXone INJ 2,000 MG in SODIUM CHLORIDE 0.9% INJ 100 ML IV SCH ×2 (06:28→17:40)
[2017-11-03] MEDS: OCTREOTIDE INJ 500 MCG in SODIUM CHLORID 0.9% 500 ML INJ 499.5 ML IV SCH (06:51)
--- NOTE | 2017-11-03 07:55 | EKG ---
Date Performed: 11/03/2017 Time Performed: 02:57:05 PTAGE: 72 years EKG: Sinus rhythm INTRAVENTRICULAR CONDUCTION DELAY ABNORMAL ECG Probably no significant change from prior electrocard iogram. PREVIOUS TRACING : 10/29/2017 23.31 DOCTOR: Elvin Lowe Interpretating Date/Time 11/03/2017 07:53:29
[2017-11-03] MEDS: SODIUM CHLORIDE 0.9% FLUSH 10 ML FLUSH IV FLUSH SCH ×2 (08:00→21:00)
--- NOTE | 2017-11-03 08:51 | PD.CONS ---
HPI History of Present Illness This is a 72 year old male with cirrhosis, hep c s/p Harvoni, hx variceal bleeding who presents with hematemesis. He awoke last night with nausea and vomited copious amounts red chunky blood. He vomited the day before as well but did not know if it was blood b/c he had just had a v8. NO black tarry stool at this time. Some abd discomfort as his abd has been swollen for the past 4 weeks and he had swollen scrotum and feet in the last few weeks. He has had increasing activity intolerance. He completed Mytonomy for hep c. He has a hx heavy drinking intermittently but michael any recent heavy drinking, perhaps an occasional glass of wine. Distant hx multi substance abuse including marijuana and cocaine and "what didn't I do" but none in last 4-5 years. He has had hematemesis in the past and had varices banded. Last EGD and colonoscopy was 2 years ago at [facility], he cannot recall findings other than that "they saw the bands. " He denies taking blood thinners. (Galina Huber) PFSH Past Medical History cirrhosis hep C s/p harvoni HTN CHF bleeding esophageal varices Past Surgical History CABG (Galina Huber) Coded Allergies: No Known Allergies (Verified Adverse Reaction, Unknown, 11/03/17) Family History none Social History hx intermittently heavy drinking, denies recent ETOH smokes 1/2 ppd no illicit drug use in last 4-5 years, prior use of marijuana, coke and multiple other substances "what didn't I do" (Galina Huber) Review of Systems Constitutional: COMPLAINS OF: Fatigue Eyes: DENIES: Blurred vision Ears, nose, mouth, throat: DENIES: Hearing loss Respiratory: COMPLAINS OF: Shortness of breath, DENIES: Cough Cardiovascular: DENIES: Chest pain Gastrointestinal: COMPLAINS OF: Nausea, Vomiting, Swelling of Abdomen, Hematemesis, DENIES: Abdominal pain, Black stools, Bloody stools, Constipation, Diarrhea Genitourinary: DENIES: Hematuria Musculoskeletal: DENIES: Joint Swelling Integumentary: DENIES: Jaundice Hematologic/lymphatic: DENIES: Lymphadenopathy Neurologic: DENIES: Headache Psychiatric: DENIES: Confusion (Galina Huber) GI Exam Vitals I&O Vital Signs Date Time Temp Pulse Resp B/P (MAP) Pulse Ox O2 Delivery O2 Flow Rate FiO2 11/03/17 07:34 98.1 83 24 102/59 100 11/03/17 06:15 84 11/03/17 06:15 98.3 84 22 104/56 (72) 90 11/03/17 05:50 83 20 100/58 99 11/03/17 05:35 98.1 81 16 91/58 98 11/03/17 05:20 98.1 81 20 88/54 99 11/03/17 02:53 97.7 85 16 96/52 (67) 100 I/O 11/02/17 11/02/17 11/02/17 11/03/17 11/03/17 11/03/17 07:00 15:00 23:00 07:00 15:00 23:00 Intake Total 25 ml 440 ml Balance 25 ml 440 ml Intake IV Total 20 ml Packed Cells 400 ml Blood Product IV Normal Saline Flush 5 ml 40 ml Laboratory Test 11/03/17 03:20 11/03/17 03:58 11/03/17 04:20 White Blood Count 4.7 TH/MM3 3.9 TH/MM3 Red Blood Count 1.48 MIL/MM3 1.36 MIL/MM3 Hemoglobin 4.8 GM/DL 4.4 GM/DL Hematocrit 14.6 % 13.5 % Mean Corpuscular Volume 98.7 FL 99.1 FL Mean Corpuscular Hemoglobin 32.6 PG 32.4 PG Mean Corpuscular Hemoglobin Concent 33.0 % 32.7 % Red Cell Distribution Width 17.4 % 17.3 % Platelet Count 103 TH/MM3 91 TH/MM3 Mean Platelet Volume 9.7 FL 9.9 FL Neutrophils (%) (Auto) 65.6 % 70.8 % Lymphocytes (%) (Auto) 16.5 % 13.4 % Monocytes (%) (Auto) 12.5 % 12.0 % Eosinophils (%) (Auto) 4.8 % 3.2 % Basophils (%) (Auto) 0.6 % 0.6 % Neutrophils # (Auto) 3.1 TH/MM3 2.8 TH/MM3 Lymphocytes # (Auto) 0.8 TH/MM3 0.5 TH/MM3 Monocytes # (Auto) 0.6 TH/MM3 0.5 TH/MM3 Eosinophils # (Auto) 0.2 TH/MM3 0.1 TH/MM3 Basophils # (Auto) 0.0 TH/MM3 0.0 TH/MM3 CBC Comment DIFF FINAL AUTO DIFF Differential Comment AUTO DIFF CONFIRMED Blood Urea Nitrogen 41 MG/DL Creatinine 0.78 MG/DL Random Glucose 103 MG/DL Total Protein 4.7 GM/DL Albumin 1.9 GM/DL Calcium Level 7.2 MG/DL Alkaline Phosphatase 47 U/L Aspartate Amino Transf (AST/SGOT) 16 U/L Alanine Aminotransferase (ALT/SGPT) 14 U/L Total Bilirubin 0.3 MG/DL Sodium Level 142 MEQ/L Potassium Level 4.5 MEQ/L Chloride Level 108 MEQ/L Carbon Dioxide Level 28.1 MEQ/L Anion Gap 6 MEQ/L Estimat Glomerular Filtration Rate 98 ML/MIN Lactic Acid Level 2.4 mmol/L Protein Corrected Calcium 8.5 MG/DL Ammonia 31 MCMOL/L Troponin I 0.02 NG/ML Lipase 106 U/L Platelet Estimate LOW Platelet Morphology Comment ENLARGED Acanthocytes OCC Keratocytes OCC Prothrombin Time 16.1 SEC Prothromb Time International Ratio 1.6 RATIO Physical Examination HEENT: PERRL; normocephalic; atraumatic; no jaundice. CHEST: CTA CARDIAC: RRR, + murmur ABDOMEN: semifirm, distended with ascites, nontender; bowel sounds faint; umbilical hernia EXTREMITIES: No clubbing, cyanosis, + BLE edema SKIN: Normal; no rash; no jaundice. PROJECT MANAGER: No focal deficits; alert and oriented times three. (Galina Huber [facility]) Assessment and Plan Plan ASSESSMENT - hematemesis - onset last 1-2 days. copious red blood. he has hx esophageal varices requiring banding, likely variceal bleed - anemia - hgb 4.8 on admission, receiving blood transfusion. 2/2 above - ascites, cirrhosis - distended and semifirm, anasarca, SOB. hx heavy drinking , hep c s/p tx. will prob need paracentesis DF 19, NH 31 on admission - thrombocytopenia - PLT 103 on admission - coagulopathy - INR 1.6 PLAN - 3 x FFP stat - EGD today - obtain consent - NPO - await blood transfusion - await rck HH - continue octreotide - continue protonix gtt - consider paracentesis - further recs to follow - supportive care - ETOH cessation this pt seen by myself and Dr Ring and this note is written on his behalf (Galina Huber) Physician Comments Seen and examined with RAVI, Luketesofi. Transfuse FFP and PRBC. IV protonox and octreotide. EGD today. (Dario Ring MD) Galina Huber Nov 03, 2017 08:51 Dario Ring MD Nov 03, 2017 10:18
[2017-11-03] MEDS: FERROUS SULFATE 325 MG (65 MG ELEMENTAL IRON) TAB PO SCH (09:00)
[2017-11-03] MEDS: DOCUSATE SODIUM 50 MG/SENNA 8.6 MG TAB PO SCH ×2 (09:00→21:00)
[2017-11-03] MEDS: BUDESONIDE-FORMOTEROL 160/4.5 MCG INHALER INH SCH ×2 (09:00→21:00)
[2017-11-03] MEDS: SERTRALINE HCL 50 MG TAB PO SCH (09:00)
--- NOTE | 2017-11-03 09:46 | GIPROC ---
[facility] [address] [facility]. [facility], [address] EGD PROCEDURE REPORT EXAM DATE: 11/03/2017 PATIENT NAME: Jhony Ayala MR #: [id number] BIRTHDATE: 1945 ATTENDING: Dario Ring MD ORDER #: [id number] PROCESS CONTROL OPERATOR: Angella Liao and Ga Edwards STATUS: inpatient INDICATIONS: The patient is a 72 yr old male here for an EGD due to acute post hemorrhagic anemia and hematemesis PROCEDURE PERFORMED: EGD, diagnostic MEDICATIONS: None and Per Anesthesia. TOPICAL ANESTHETIC: CONSENT: The patient understands the risks and benefits of the procedure and understands that these risks include, but are not limited to: sedation, allergic reaction, infection, perforation and/or bleeding. Alternative means of evaluation and treatment include, among others: physical exam, x-rays, and/or surgical intervention. The patient elects to proceed with this endoscopic procedure. medical equipment was checked for proper function. Hand hygiene and appropriate measures for infection prevention was taken. After the risks, benefits and alternatives of the procedure were thoroughly explained, Informed consent was verified, confirmed and timeout was successfully executed by the treatment team. The patient was anesthetized with topical anesthesia and the Pentax [id number] endoscope was introduced through the mouth and advanced to the second portion of the duodenum. Retroflexed views revealed no abnormalities The gastroscope was then slowly withdrawn and removed. ESOPHAGUS: There was LA Class B esophagitis noted. There was a single small varix in the distal esophagus. The varices were not bleeding. There was evidence of prior scarring. STOMACH: There was erythematous moderate gastritis in the gastric antrum. Moderate portal hypertensive gastropathy was found in the gastric fundus. DUODENUM: The duodenal mucosa appeared normal in the bulb and second portion of the duodenum. ADVERSE EVENTS: There were no complications. IMPRESSIONS: 1. There was LA Class B esophagitis noted 2. There was erythematous gastritis in the gastric antrum 3. Portal hypertensive gastropathy was found in the gastric fundus 4. Normal duodenal mucosa in the bulb and second portion of the duodenum 5. Retroflexed views revealed no abnormalities RECOMMENDATIONS: 1. Anti-reflux regimen 2. Continue PPI 3. Avoid NSAIDS PATIENT CONDITION: stable DISPOSITION: Inpatient REPEAT EXAM: Return 6 months EGD Dario Ring MD eSigned: Dario Ring MD 11/03/2017 9:45 AM cc: PATIENT NAME: Jhony Ayala MR#: [id number]
[2017-11-03] MEDS ORDERED: DO NOT ADM ANY ANTICOAGULANT DRUGS PRN (10:06)
[2017-11-03] MEDS ORDERED: PILL SPLITTER OTHER PRN (11:00)
[2017-11-03] MEDS ORDERED: LIDOCAINE HCL 1% PF 5 ML SYRINGE OTHER ONE (12:00)
[2017-11-03] MEDS ORDERED: PHENYLEPH/NS 1000 MCG/10 ML SYR IV ONE (12:00)
[2017-11-03] MEDS ORDERED: SUCCINYLCHOLINE CHLORIDE 100 MG/5 ML SYRINGE IV PUSH ONE (12:00)
[2017-11-03] MEDS ORDERED: PROPOFOL 200 MG/20 ML AMP IV ONE (12:00)
[2017-11-03] MEDS ORDERED: ePHEDrine/NS 25 MG/5 ML SYR IV ONE (12:00)
[2017-11-03 12:41] LABS: REVIEW FLAG FINAL
[2017-11-03 12:45] LABS: HEMATOCRIT 20.4 % (39.0-51.0)
[2017-11-03] MEDS ORDERED: FUROSEMIDE 20 MG/2 ML VIAL IV PUSH ONE (15:15)
[2017-11-03] MEDS: RESP: ALBUTEROL 2.5 MG/IPRATROPIUM 0.5 MG NEB (SCH) INH ×2 (17:18→21:20)
[2017-11-03] MEDS: ATORVASTATIN 40 MG TAB PO SCH (21:00)
[2017-11-03] MEDS: traZODone HCL 50 MG TAB PO SCH (21:00)
[2017-11-03] MEDS: PANTOPRAZOLE INJ 80 MG in SODIUM CHLORIDE 0.9% INJ 100 ML IV SCH (22:15)
[2017-11-03 23:24] LABS: AUTOMATED NEUTROPHIL # 2.9 TH/MM3 (1.8-7.7); BASOPHIL % 0.6 % (0.0-2.0); EOSINOPHIL # 0.2 TH/MM3 (0-0.4); EOSINOPHIL % 5.1 % (0.0-4.0); HEMATOCRIT 25.3 % (39.0-51.0); LYMPH % 14.1 % (9.0-44.0); LYMPHOCYTE # 0.6 TH/MM3 (1.0-4.8); MEAN CELL VOLUME 96.4 FL (80.0-100.0); MEAN CORPUSCULAR HEMOGLOBIN 32.1 PG (27.0-34.0); MEAN CORPUSCULAR HGB CONC 33.3 % (32.0-36.0); MONO % 13.6 % (0.0-8.0); NEUT % 66.6 % (16.0-70.0); PLATELET COUNT 83 TH/MM3 (150-450); RED BLOOD COUNT 2.62 MIL/MM3 (4.50-5.90); RED CELL DISTRIBUTION WIDTH 16.1 % (11.6-17.2); WHITE BLOOD COUNT 4.4 TH/MM3 (4.0-11.0)
[2017-11-03 23:28] LABS: HEMO FLAGS AUTO DIFF
[2017-11-03 23:55] LABS: PLATELET ESTIMATE SMEAR LOW (NORMAL); PLATELET MORPHOLOGY NORMAL (NORMAL); SCAN/DIFF AUTO DIFF CONFIRMED
[2017-11-04] VITALS (11 sets, daily range): BP systolic 92–116; BP diastolic 55–68; PULSE 74–92; RESP 21–26; TEMP 97.7–98.3; O2SAT 94–100
[2017-11-04] MEDS: CHLORHEXIDINE GLUCONATE 2 % 1 PACK (2 CLOTHS) TOP SCH (00:01)
[2017-11-04] MEDS: OCTREOTIDE INJ 500 MCG in SODIUM CHLORID 0.9% 500 ML INJ 499.5 ML IV SCH ×2 (02:51→23:22)
[2017-11-04] MEDS: RESP: ALBUTEROL 2.5 MG/IPRATROPIUM 0.5 MG NEB (SCH) INH ×4 (03:38→20:52)
[2017-11-04 03:48] LABS: AUTOMATED NEUTROPHIL # 2.5 TH/MM3 (1.8-7.7); BASOPHIL % 0.8 % (0.0-2.0); EOSINOPHIL # 0.2 TH/MM3 (0-0.4); EOSINOPHIL % 6.3 % (0.0-4.0); HEMATOCRIT 24.1 % (39.0-51.0); LYMPH % 15.1 % (9.0-44.0); LYMPHOCYTE # 0.6 TH/MM3 (1.0-4.8); MEAN CELL VOLUME 95.3 FL (80.0-100.0); MEAN CORPUSCULAR HEMOGLOBIN 32.9 PG (27.0-34.0); MEAN CORPUSCULAR HGB CONC 34.5 % (32.0-36.0); MONO % 11.7 % (0.0-8.0); NEUT % 66.1 % (16.0-70.0); PLATELET COUNT 74 TH/MM3 (150-450); RED BLOOD COUNT 2.53 MIL/MM3 (4.50-5.90); WHITE BLOOD COUNT 3.8 TH/MM3 (4.0-11.0)
[2017-11-04 03:52] LABS: HEMO FLAGS AUTO DIFF
[2017-11-04 04:00] LABS: INTERNATIONAL NORMALIZED RATIO 1.3 RATIO; PROTHROMBIN TIME - PATIENT 13.1 SEC (9.8-11.6)
[2017-11-04] MEDS: PANTOPRAZOLE INJ 80 MG in SODIUM CHLORIDE 0.9% INJ 100 ML IV SCH ×2 (04:04→16:42)
[2017-11-04 04:18] LABS: BICARBONATE 28.6 MEQ/L (21.0-32.0); CALCIUM-PROTEIN CORRECTED 7.7 MG/DL (8.5-10.1); MAGNESIUM 1.4 MG/DL (1.5-2.5); POTASSIUM 4.3 MEQ/L (3.5-5.1); TOTAL BILIRUBIN ADULT 0.7 MG/DL (0.2-1.0)
[2017-11-04 04:37] LABS: PLATELET ESTIMATE SMEAR LOW (NORMAL); PLATELET MORPHOLOGY NORMAL (NORMAL); SCAN/DIFF AUTO DIFF CONFIRMED
[2017-11-04 04:38] LABS: KERATOCYTES OCC (NORMAL)
[2017-11-04] MEDS ORDERED: CALCIUM GLUCONATE INJ 2 GM in DEXTROSE 5% IN WATER 100ML INJ 100 ML IV ONE ×2 (05:00)
[2017-11-04] MEDS: SODIUM CHLOR 0.9% 1000 ML INJ 1,000 ML IV SCH ×3 (05:44→21:19)
[2017-11-04] MEDS: cefTRIAXone INJ 2,000 MG in SODIUM CHLORIDE 0.9% INJ 100 ML IV SCH ×2 (05:45→17:06)
[2017-11-04] MEDS: SODIUM CHLORIDE 0.9% FLUSH 10 ML FLUSH IV FLUSH SCH ×2 (09:00→20:10)
[2017-11-04] MEDS: FERROUS SULFATE 325 MG (65 MG ELEMENTAL IRON) TAB PO SCH (09:13)
[2017-11-04] MEDS: BUDESONIDE-FORMOTEROL 160/4.5 MCG INHALER INH SCH ×2 (09:13→20:10)
[2017-11-04] MEDS: SERTRALINE HCL 50 MG TAB PO SCH (09:13)
[2017-11-04] MEDS: DOCUSATE SODIUM 50 MG/SENNA 8.6 MG TAB PO SCH ×2 (09:13→20:10)
--- NOTE | 2017-11-04 09:59 | HHI.CCPN ---
Subjective Remarks/Hospital Course Hospital Course: 72-year-old gentleman with a history of end stage liver disease and history awfully variceal bleed presents because tonight he awoke at 3AM nauseous and vomited copious amount of blood clots. He called 911 and EMS reports large amount of blood seen in basket next to bed. The patient has cirrhosis , distended abdomen most likely from Ascites. He complains some shortness of breath when laying flat. Subjective: 11/04: scoped yesterday with esophagitis, gastritis, single non-bleeding varix. plan to treat conservatively. lab counts still low, but chronic. hgb stable yesterday serially. denies complaints. Objective Vital Signs Date Time Temp Pulse Resp B/P (MAP) Pulse Ox O2 Delivery O2 Flow Rate FiO2 11/04/17 08:38 100 Room Air 11/04/17 08:28 21 11/04/17 08:00 83 11/04/17 04:00 97.7 21 96/55 (69) 11/03/17 21:22 3.00 Intake and Output 11/04/17 11/04/17 11/05/17 08:00 16:00 00:00 Intake Total 1428 ml Output Total 600 ml Balance 828 ml Result Diagram: 11/04/17 03311/04/17 033 Objective Remarks GENERAL: Thin-appearing, male, sitting in bed. SKIN: Warm and dry. Midsternal wound scar noted. HEAD: Normocephalic. EYES: Pupils equal round and reactive. Extraocular motions intact. No scleral icterus. No injection or drainage. ENT: Nose without bleeding. Throat without erythema. Uvula midline. Airway patent. NECK: Trachea midline. CARDIOVASCULAR: Regular rate and rhythm RESPIRATORY: unlabored. equal chest rise. GASTROINTESTINAL: Abdomen soft, non-tender, distended. Umbilical hernia present. MUSCULOSKELETAL: Extremities without clubbing, cyanosis, bilateral lower extremity nonpitting edema. NEUROLOGICAL: awake, alert. no focal deficits. A/P Assessment and Plan Assessment; 72yM with cirrhosis and upper GI bleeding presented with hematemesis , found to have portal gastropathy. conservative management recommended. hgb remains stable serially. safe for transfer to floor. consult hospitalist group for ongoing management. diet per GI. Gastrointestinal bleed - Underlying liver cirrhosis - portal gastropathy - EGD 12/8 - GI consulted and following. - Protonix IV twice a day - Octreotide drip - diet per GI. Anemia secondary to acute blood loss - Blood loss anemia - Transfuse PRBCs when necessary to keep hemoglobin above 7 Coagulopathy secondary to end-stage liver disease - transfuse for INR > 2 or active bleeding - no current transfusion requirements. Thrombocytopenia secondary to end-stage liver disease - transfuse for plt < 50k with active bleeding - no current transfusion requirements. Liver cirrhosis - Continue lactulose when okay by mouth - Hold diuretics in a picture of acute bleeding Coronary artery disease - Hold aspirin - Continue statins - Resume aspirin when okay with GI Hepatitis C - It is posttreatment in 2016 - Further per GI DVT GI prophylaxis - Teds SCD - No pharmacological DVT prophylaxis due to acute GI bleed - Protonix IV twice a day Dispo: transfer to floor. Shivam Varghese MD Nov 04, 2017 09:59
[2017-11-04] MEDS: MAGNESIUM SULFATE 1 GM PREMIX 100 ML IV SCH ×2 (10:29→12:40)
[2017-11-04] MEDS: TAMSULOSIN HCL 0.4 MG CAP PO SCH (10:29)
--- NOTE | 2017-11-04 11:51 | HHI.GIFU ---
Subjective Remarks Pt doing PT. SOB. No n/v today. (Galina Huber) Objective Vitals I&O Vital Signs Date Time Temp Pulse Resp B/P (MAP) Pulse Ox O2 Delivery O2 Flow Rate FiO2 11/04/17 10:00 77 11/04/17 08:38 100 Room Air 11/04/17 08:28 95 21 11/04/17 08:00 98.3 74 24 96/56 (69) 94 11/04/17 08:00 80 11/04/17 04:00 97.7 82 21 96/55 (69) 95 11/04/17 00:00 97.9 79 22 92/60 (71) 97 11/03/17 22:00 86 11/03/17 21:22 100 Nasal Cannula 3.00 11/03/17 20:00 87 11/03/17 20:00 98.6 87 24 101/71 (81) 100 11/03/17 19:00 97 Nasal Cannula 2.00 11/03/17 18:00 88 11/03/17 16:50 98.2 87 16 98/66 100 11/03/17 16:34 98.2 90 14 105/70 100 11/03/17 16:00 92 11/03/17 16:00 98.2 92 23 102/76 (85) 100 11/03/17 15:00 98.2 86 20 105/69 100 11/03/17 14:55 100 Nasal Cannula 2.00 11/03/17 14:00 88 11/03/17 13:30 97.0 88 25 108/64 100 11/03/17 12:00 96.7 83 24 107/64 (78) 100 11/03/17 12:00 83 I/O 11/03/17 11/03/17 11/03/17 11/04/17 11/04/17 11/04/17 07:00 15:00 23:00 07:00 15:00 23:00 Intake Total 25 ml 3308 ml 1150 ml 1428 ml Output Total 400 ml 600 ml Balance 25 ml 3308 ml 750 ml 828 ml Intake Oral 0 ml 240 ml 480 ml IV Total 20 ml 1055 ml 100 ml 948 ml Packed Cells 800 ml 800 ml FFP 973 ml Blood Product IV Normal Saline Flush 5 ml 80 ml 10 ml Other 400 ml Output Urine Total 250 ml 600 ml Stool Total 150 ml 0 ml Laboratory Laboratory Tests Test 11/03/17 11:57 11/03/17 22:15 11/04/17 02:45 11/04/17 03:31 Hemoglobin 6.7 8.4 8.3 Hematocrit 20.4 25.3 24.1 White Blood Count 4.4 3.8 Red Blood Count 2.62 2.53 Mean Corpuscular Volume 96.4 95.3 Mean Corpuscular Hemoglobin 32.1 32.9 Mean Corpuscular Hemoglobin Concent 33.3 34.5 Red Cell Distribution Width 16.1 16.0 Platelet Count 83 74 Mean Platelet Volume 9.2 9.0 Neutrophils (%) (Auto) 66.6 66.1 Lymphocytes (%) (Auto) 14.1 15.1 Monocytes (%) (Auto) 13.6 11.7 Eosinophils (%) (Auto) 5.1 6.3 Basophils (%) (Auto) 0.6 0.8 Neutrophils # (Auto) 2.9 2.5 Lymphocytes # (Auto) 0.6 0.6 Monocytes # (Auto) 0.6 0.4 Eosinophils # (Auto) 0.2 0.2 Basophils # (Auto) 0.0 0.0 CBC Comment AUTO DIFF AUTO DIFF Differential Comment AUTO DIFF CONFIRMED AUTO DIFF CONFIRMED Platelet Estimate LOW LOW Platelet Morphology Comment NORMAL NORMAL Nasal Screen MRSA (PCR) MRSA NOT DETECTED Keratocytes OCC Prothrombin Time 13.1 Prothromb Time International Ratio 1.3 Activated Partial Thromboplast Time 24.0 Blood Urea Nitrogen 43 Creatinine 0.96 Random Glucose 106 Total Protein 6.1 Albumin 2.6 Calcium Level 7.2 Phosphorus Level 3.0 Magnesium Level 1.4 Alkaline Phosphatase 56 Aspartate Amino Transf (AST/SGOT) 17 Alanine Aminotransferase (ALT/SGPT) 14 Total Bilirubin 0.7 Sodium Level 142 Potassium Level 4.3 Chloride Level 106 Carbon Dioxide Level 28.6 Anion Gap 7 Estimat Glomerular Filtration Rate 77 Lactic Acid Level 1.9 Protein Corrected Calcium 7.7 Physical Exam HEENT: PERRL; normocephalic; atraumatic; no jaundice. CHEST: diminished CARDIAC: RRR ABDOMEN: firm, distended, nontender; bowel sounds are present in all four quadrants. EXTREMITIES: No clubbing, cyanosis; +anasarca SKIN: Normal; no rash; no jaundice. POWERHOUSE MECHANIC: No focal deficits; alert and oriented times three. (Galina Huber) Assessment and Plan Plan ASSESSMENT - hematemesis - onset last 1-2 days. copious red blood. he has hx esophageal varices requiring banding s/p EGD found class B esophagitis, erythematous gastritis, portal hypertensive gastropathy - anemia - HH improved after 4 x PRBC. 2/2 above - ascites, cirrhosis - distended and firmer today, anasarca, SOB. hx heavy drinking, hep c s/p tx. will get paracentesis DF 19, NH 31 on admission - thrombocytopenia - PLT 103 on admission - coagulopathy - INR improved to 1.3 after 3 x FFP PLAN - IR consult for paracentesis - peritoneal fluid for culture, cytology, albumin, protein - liquid diet - suggest low sodium diet - continue octreotide - continue protonix gtt - supportive care - ETOH cessation this pt seen by myself and Dr Cross and this note is written on his behalf (Galina Huber) Plan Patient was seen and examined, agree with above-noted, plan paracentesis when radiology comfort do it (Bianca Cross MD) Galina Huber Nov 04, 2017 11:51 Bianca Cross MD Nov 04, 2017 18:38
[2017-11-04 12:13] LABS: HEMATOCRIT 24.2 % (39.0-51.0)
[2017-11-04 12:17] LABS: REVIEW FLAG FINAL
[2017-11-04] MEDS: traZODone HCL 50 MG TAB PO SCH (20:10)
[2017-11-04] MEDS: ATORVASTATIN 40 MG TAB PO SCH (20:10)
[2017-11-05] VITALS (8 sets, daily range): BP systolic 95–119; BP diastolic 59–75; PULSE 74–91; RESP 17–28; TEMP 95.9–98.7; O2SAT 97–100
[2017-11-05] MEDS: PANTOPRAZOLE INJ 80 MG in SODIUM CHLORIDE 0.9% INJ 100 ML IV SCH (02:46)
[2017-11-05] MEDS: RESP: ALBUTEROL 2.5 MG/IPRATROPIUM 0.5 MG NEB (SCH) INH ×4 (03:30→20:29)
[2017-11-05] MEDS: CHLORHEXIDINE GLUCONATE 2 % 1 PACK (2 CLOTHS) TOP SCH ×2 (04:00→19:56)
[2017-11-05 05:20] LABS: HEMATOCRIT 23.3 % (39.0-51.0); MEAN CELL VOLUME 96.3 FL (80.0-100.0); MEAN CORPUSCULAR HEMOGLOBIN 32.9 PG (27.0-34.0); MEAN CORPUSCULAR HGB CONC 34.1 % (32.0-36.0); PLATELET COUNT 72 TH/MM3 (150-450); RED BLOOD COUNT 2.42 MIL/MM3 (4.50-5.90); RED CELL DISTRIBUTION WIDTH 16.2 % (11.6-17.2); WHITE BLOOD COUNT 3.4 TH/MM3 (4.0-11.0)
[2017-11-05] MEDS: SODIUM CHLOR 0.9% 1000 ML INJ 1,000 ML IV SCH (05:21)
[2017-11-05 05:25] LABS: REVIEW FLAG FINAL
[2017-11-05] MEDS: cefTRIAXone INJ 2,000 MG in SODIUM CHLORIDE 0.9% INJ 100 ML IV SCH ×2 (05:26→17:06)
[2017-11-05 05:37] LABS: APTT (PATIENT) 23.8 SEC (24.3-30.1); INTERNATIONAL NORMALIZED RATIO 1.3 RATIO; PROTHROMBIN TIME - PATIENT 13.6 SEC (9.8-11.6)
[2017-11-05 05:57] LABS: BICARBONATE 27.7 MEQ/L (21.0-32.0); INDIRECT BILIRUBIN 0.2 MG/DL (0.0-0.8); POTASSIUM 4.3 MEQ/L (3.5-5.1); TOTAL BILIRUBIN ADULT 0.4 MG/DL (0.2-1.0)
[2017-11-05] MEDS: TAMSULOSIN HCL 0.4 MG CAP PO SCH (08:37)
[2017-11-05] MEDS: FERROUS SULFATE 325 MG (65 MG ELEMENTAL IRON) TAB PO SCH (08:37)
[2017-11-05] MEDS: SODIUM CHLORIDE 0.9% FLUSH 10 ML FLUSH IV FLUSH SCH ×2 (08:37→19:55)
[2017-11-05] MEDS: SERTRALINE HCL 50 MG TAB PO SCH (08:37)
[2017-11-05] MEDS: DOCUSATE SODIUM 50 MG/SENNA 8.6 MG TAB PO SCH ×2 (08:37→19:55)
--- NOTE | 2017-11-05 08:59 | HHI.CCPN ---
Subjective Remarks/Hospital Course Hospital Course: 72-year-old gentleman with a history of end stage liver disease and history awfully variceal bleed presents because tonight he awoke at 3AM nauseous and vomited copious amount of blood clots. He called 911 and EMS reports large amount of blood seen in basket next to bed. The patient has cirrhosis , distended abdomen most likely from Ascites. He complains some shortness of breath when laying flat. Subjective: 11/04: scoped yesterday with esophagitis, gastritis, single non-bleeding varix. plan to treat conservatively. lab counts still low, but chronic. hgb stable yesterday serially. denies complaints. 11/05: tolerating diet. GI recommends paracentesis, will perform today. will transition off protonix drip to iv bid ppi. will allow GI to guide octreotide drip. hgb remains stable. ROS negative. Objective Vital Signs Date Time Temp Pulse Resp B/P (MAP) Pulse Ox O2 Delivery O2 Flow Rate FiO2 11/05/17 04:00 98.6 81 25 117/75 (89) 97 11/04/17 20:54 Nasal Cannula 1.00 11/04/17 08:28 21 Intake and Output 11/05/17 11/05/17 11/06/17 08:00 16:00 00:00 Intake Total 671 ml Output Total 500 ml Balance 171 ml Result Diagram: 11/05/17 0426 11/05/17 0426 Objective Remarks GENERAL: Thin-appearing, male, sitting in bed. SKIN: Warm and dry. Midsternal wound scar noted. HEAD: Normocephalic. EYES: Pupils equal round and reactive. Extraocular motions intact. No scleral icterus. No injection or drainage. ENT: Nose without bleeding. Throat without erythema. Uvula midline. Airway patent. NECK: Trachea midline. CARDIOVASCULAR: Regular rate and rhythm RESPIRATORY: unlabored. equal chest rise. GASTROINTESTINAL: Abdomen soft, non-tender, more distended than yesterday. + fluid wave. Umbilical hernia present. MUSCULOSKELETAL: Extremities without clubbing, cyanosis, bilateral lower extremity nonpitting edema. NEUROLOGICAL: awake, alert. no focal deficits. A/P Assessment and Plan Assessment; 72yM with cirrhosis and upper GI bleeding presented with hematemesis , found to have portal gastropathy. conservative management recommended. hgb remains stable serially. safe for transfer to floor. consult hospitalist group for ongoing management. diet per GI. will perform paracentesis today. Gastrointestinal bleed - Underlying liver cirrhosis - portal gastropathy - EGD 11/03 - GI consulted and following. - Protonix IV twice a day - Octreotide drip, management per GI. - diet per GI. - rocephin Anemia secondary to acute blood loss - Blood loss anemia - Transfuse PRBCs when necessary to keep hemoglobin above 7 Coagulopathy secondary to end-stage liver disease - transfuse for INR > 2 or active bleeding - no current transfusion requirements. Thrombocytopenia secondary to end-stage liver disease - transfuse for plt < 50k with active bleeding - no current transfusion requirements. Liver cirrhosis - Continue lactulose when okay by mouth - Hold diuretics in a picture of acute bleeding Coronary artery disease - Hold aspirin - Continue statins - Resume aspirin when okay with GI Hepatitis C - It is posttreatment in 2016 - Further per GI DVT GI prophylaxis - Teds SCD - No pharmacological DVT prophylaxis due to acute GI bleed - Protonix IV twice a day Dispo: transfer to floor. Shivam Varghese MD Nov 05, 2017 08:59
[2017-11-05] MEDS: BUDESONIDE-FORMOTEROL 160/4.5 MCG INHALER INH SCH ×2 (09:00→19:56)
[2017-11-05] MEDS ORDERED: ALBUMIN 25% INJ 300 ML IV ONE (09:00)
[2017-11-05] MEDS ORDERED: ALBUMIN 25% INJ 100 ML IV ONE (09:00)
[2017-11-05] MEDS ORDERED: PANTOPRAZOLE SODIUM 40 MG VIAL IV PUSH SCH (09:00)
[2017-11-05] MEDS ORDERED: INFLUENZA VIRUS VACCINE (QUADRIVALENT) 0.5 ML SYR IM ONE (10:00)
[2017-11-05] MEDS ORDERED: CALCIUM GLUCONATE 10% 1 GM/10 ML VIAL ONE (11:18)
[2017-11-05 12:58] LABS: PERITONEAL EOS 3 %; PERITONEAL HISTIOCYTES 10 %; PERITONEAL LYMPHS 77 %; PERITONEAL MESOTHELIAL 5 %; PERITONEAL MONOS 5 %; PERITONEAL POLYS(SEGS) 0 %; PERITONEAL WBC 10 /MM3 (0-10)
[2017-11-05] MEDS ORDERED: SODIUM CHLOR 0.9% IV ONE (13:00)
[2017-11-05] MEDS ORDERED: CALCIUM GLUCONATE IV ONE (13:00)
--- NOTE | 2017-11-05 15:14 | HHI.GIFU ---
Subjective Remarks Patient in no apparent distress. Tolerating diet. (Malka Penn) Objective Vitals I&O Vital Signs Date Time Temp Pulse Resp B/P (MAP) Pulse Ox O2 Delivery O2 Flow Rate FiO2 11/05/17 09:51 100 Nasal Cannula 1.00 11/05/17 04:00 98.6 81 25 117/75 (89) 97 11/05/17 04:00 81 11/05/17 00:00 98.7 84 28 106/66 (79) 100 11/05/17 00:00 84 11/04/17 20:54 99 Nasal Cannula 1.00 11/04/17 20:00 97.8 86 24 116/68 (84) 100 11/04/17 20:00 86 11/04/17 19:00 100 Nasal Cannula 2.00 11/04/17 18:00 92 11/04/17 16:00 98.0 84 24 102/67 (79) 100 11/04/17 16:00 82 I/O 11/04/17 11/04/17 11/04/17 11/05/17 11/05/17 11/05/17 07:00 15:00 23:00 07:00 15:00 23:00 Intake Total 1428 ml 420 ml 1301 ml 807 ml 300 ml Output Total 600 ml 525 ml 500 ml Balance 828 ml 420 ml 776 ml 307 ml 300 ml Intake Oral 480 ml 600 ml 300 ml IV Total 948 ml 420 ml 701 ml 507 ml 300 ml Output Urine Total 600 ml 525 ml 500 ml Stool Total 0 ml # Bowel Movements 0 0 Laboratory Laboratory Tests Test 11/05/17 04:26 11/05/17 11:30 White Blood Count 3.4 Red Blood Count 2.42 Hemoglobin 8.0 Hematocrit 23.3 Mean Corpuscular Volume 96.3 Mean Corpuscular Hemoglobin 32.9 Mean Corpuscular Hemoglobin Concent 34.1 Red Cell Distribution Width 16.2 Platelet Count 72 Mean Platelet Volume 9.3 Prothrombin Time 13.6 Prothromb Time International Ratio 1.3 Activated Partial Thromboplast Time 23.8 Blood Urea Nitrogen 37 Creatinine 0.94 Random Glucose 118 Total Protein 6.0 Albumin 2.5 Calcium Level 7.4 Alkaline Phosphatase 61 Aspartate Amino Transf (AST/SGOT) 15 Alanine Aminotransferase (ALT/SGPT) 11 Total Bilirubin 0.4 Direct Bilirubin 0.2 Sodium Level 141 Potassium Level 4.3 Chloride Level 107 Carbon Dioxide Level 27.7 Anion Gap 6 Estimat Glomerular Filtration Rate 79 Protein Corrected Calcium 8.0 Indirect Bilirubin 0.2 Peritoneal Fluid WBC 10 Peritoneal Fluid RBC 10 Peritoneal Fluid Neutrophils 0 Peritoneal Fluid Lymphocytes 77 Peritoneal Fluid Monocytes 5 Peritoneal Fluid Eosinophils 3 Peritoneal Fluid Histiocytes 10 Peritoneal Fluid Mesothelial Cells 5 Peritoneal Fluid Total Protein 1.5 Peritoneal Fluid Albumin 0.7 Date/Time Source Procedure Growth Status 11/05/17 11:30 Fluid Ascites Fluid Gram Stain Pending Received 11/05/17 11:30 Fluid Ascites Fluid Body Fluid Culture Pending Received Physical Exam HEENT: Normocephalic; atraumatic; no jaundice. CHEST: Diminished CARDIAC: RRR ABDOMEN: Soft, distended, nontender; + umbilical hernia. Bowel sounds are present. EXTREMITIES: No clubbing, cyanosis; +anasarca SKIN: Normal; no rash; no jaundice. PRODUCE BUYER: Awake and alert (Malka Penn) Assessment and Plan Plan ASSESSMENT: - Hematemesis, with history of esophageal varices requiring banding. Patient with history of liver cirrhosis. S/P EGD 11/03/17--Class B esophagitis, erythematous gastritis in the gastric antrum, portal hypertensive gastropathy in the gastric fundus, normal duodenal mucosa in the bulb and second portion of the duodenum, retroflexed views revealed no abnormalities. - Anemia - HH improved after 4 x PRBC. FFP x 3. HH 8/23.3. - Ascites, cirrhosis, History of heavy drinking, hep c s/p treatment. DF 19, NH 31 on admission. Paracentesis planned today. - Thrombocytopenia, secondary to end-stage liver disease. Platelet 103 on admission. - Coagulopathy - INR improved to 1.3. PLAN - Avoid NSAIDs - Repeat EGD in 6 months - IR consulted for paracentesis - Peritoneal fluid for culture, cytology, albumin, protein - Liquid diet - Suggest low sodium diet - Continue octreotide - PPI 40 mg BID - Supportive care - ETOH cessation - Further recommendations to follow based on results of above Patient seen and examined by Dr. Cross and myself and this note is written on his behalf. (Malka Penn) Plan Patient was seen and examined, agree with above-noted paracentesis was done this morning by senior game advisor, no sign of SBP, continue diuretics and can medication, overall guarded prognosis. (Bianca Cross MD) Malka Penn Nov 05, 2017 15:14 Bianca Cross MD Nov 05, 2017 15:24
--- NOTE | 2017-11-05 18:19 | PD.PROCEDR ---
Procedure Note Procedure Diagnostic and therapeutic Paracentesis Procedure Note Diagnosis: End-stage liver disease Indications: End-stage liver disease with severe ascites Consent: Obtained by the patient Anesthesia: 1% lidocaine locally Description of the Procedure: The patient was placed in the supine position. The area of largest fluid collection was marked pre-procedure using ultrasound guidance. The area was prepped and draped sterilely. 1% Lidocaine was infiltrated subcutaneously. A small incision was made using a #11 blade. A 12g needle and angiocath were advanced under negative pressure aspiration until fluid was obtained. The catheter was advanced over the needle easily and without resistance. At the conclusion of the procedure, the catheter was removed and a dressing was applied. There were no immediate complications noted. There was minimal EBL. The patient tolerated the procedure well. Findings: Slightly icteric tinged ascites. Clear. 12 L removed. I personally performed the procedure. Shivam Varghese MD Nov 05, 2017 18:19
[2017-11-05] MEDS: ATORVASTATIN 40 MG TAB PO SCH (19:55)
[2017-11-05] MEDS: traZODone HCL 50 MG TAB PO SCH (19:55)
[2017-11-05] MEDS: PANTOPRAZOLE SOD 40 MG DELAYED RELEASE TAB PO SCH (19:56)
[2017-11-05] MEDS: PROPRANOLOL HCL 10 MG TAB PO SCH (22:00)
[2017-11-06] VITALS (8 sets, daily range): BP systolic 87–102; BP diastolic 50–68; PULSE 64–89; RESP 16–20; TEMP 95.5–97.6; O2SAT 93–99
[2017-11-06] MEDS: RESP: ALBUTEROL 2.5 MG/IPRATROPIUM 0.5 MG NEB (SCH) INH ×2 (02:32→07:52)
[2017-11-06] MEDS: PROPRANOLOL HCL 10 MG TAB PO SCH ×3 (06:00→22:00)
[2017-11-06] MEDS: cefTRIAXone INJ 2,000 MG in SODIUM CHLORIDE 0.9% INJ 100 ML IV SCH ×2 (06:36→18:08)
[2017-11-06 06:50] LABS: AUTOMATED NEUTROPHIL # 2.9 TH/MM3 (1.8-7.7); BASOPHIL % 0.7 % (0.0-2.0); EOSINOPHIL # 0.4 TH/MM3 (0-0.4); EOSINOPHIL % 9.6 % (0.0-4.0); HEMATOCRIT 23.6 % (39.0-51.0); LYMPH % 10.5 % (9.0-44.0); LYMPHOCYTE # 0.4 TH/MM3 (1.0-4.8); MEAN CELL VOLUME 97.1 FL (80.0-100.0); MEAN CORPUSCULAR HEMOGLOBIN 33.2 PG (27.0-34.0); MEAN CORPUSCULAR HGB CONC 34.2 % (32.0-36.0); MONO % 10.4 % (0.0-8.0); NEUT % 68.8 % (16.0-70.0); PLATELET COUNT 78 TH/MM3 (150-450); RED BLOOD COUNT 2.43 MIL/MM3 (4.50-5.90); RED CELL DISTRIBUTION WIDTH 16.3 % (11.6-17.2); WHITE BLOOD COUNT 4.3 TH/MM3 (4.0-11.0)
[2017-11-06 06:55] LABS: HEMO FLAGS AUTO DIFF
[2017-11-06 06:56] LABS: APTT (PATIENT) 28.7 SEC (24.3-30.1); INTERNATIONAL NORMALIZED RATIO 1.4 RATIO; PROTHROMBIN TIME - PATIENT 13.9 SEC (9.8-11.6)
[2017-11-06 07:21] LABS: BICARBONATE 28.4 MEQ/L (21.0-32.0); INDIRECT BILIRUBIN 0.3 MG/DL (0.0-0.8); MAGNESIUM 1.8 MG/DL (1.5-2.5); POTASSIUM 4.5 MEQ/L (3.5-5.1); TOTAL BILIRUBIN ADULT 0.5 MG/DL (0.2-1.0)
[2017-11-06 08:20] LABS: PLATELET ESTIMATE SMEAR LOW (NORMAL); PLATELET MORPHOLOGY NORMAL (NORMAL); SCAN/DIFF AUTO DIFF CONFIRMED
--- NOTE | 2017-11-06 08:54 | HHI.PR ---
Subjective Remarks production specialist notes: 72-year-old gentleman with a history of end stage liver disease and history awfully variceal bleed presents because tonight he awoke at 3AM nauseous and vomited copious amount of blood clots. He called 911 and EMS reports large amount of blood seen in basket next to bed. The patient has cirrhosis distended abdomen most likely from Ascites. He complains some shortness of breath when laying flat. 11/04: scoped yesterday with esophagitis, gastritis, single non-bleeding varix. plan to treat conservatively. lab counts still low, but chronic. hgb stable yesterday serially. denies complaints. 11/05: tolerating diet. GI recommends paracentesis, will perform today. will transition off Protonix drip to iv bid PPIs will allow GI to guide octreotide drip. hgb remains stable. ROS negative. Hospitalist Notes: 11/06: Transferred to hospitalist team to continue following. the patient did not have active bleeding for the last two days, Status post EGD 11/03/17 Class B esophagitis, erythematous, gastritis in the gastric antrum, portal hypertensive gastropathy in the gastric fundus, normal duodenal mucosa in the bulb and second portion of the duodenum, Diet advanced to Soft foods, low sodium diet, avoid NSAIDs. Repeat EGD in Six months, Increase activity, continue PPIs, ETOH cessation, Discussed with Correspondence Review Clerk team awaiting for PT evaluation for probable discharge tomorrow. Objective Vital Signs Date Time Temp Pulse Resp B/P (MAP) Pulse Ox O2 Delivery O2 Flow Rate FiO2 11/06/17 08:00 97.4 89 16 102/68 (79) 97 11/06/17 07:54 96 21 11/06/17 00:00 96.7 85 17 94/60 (71) 99 11/05/17 20:01 Nasal Cannula 2.00 11/05/17 20:00 95.9 91 17 95/60 (72) 100 11/05/17 19:29 99 Nasal Cannula 2.00 11/05/17 18:30 Nasal Cannula 2.00 11/05/17 16:00 97.7 74 22 99/61 (74) 99 11/05/17 16:00 75 11/05/17 12:00 86 11/05/17 12:00 97.6 86 20 116/59 (78) 99 11/05/17 09:51 100 Nasal Cannula 1.00 I/O 11/05/17 11/05/17 11/05/17 11/06/17 11/06/17 11/06/17 07:00 15:00 23:00 07:00 15:00 23:00 Intake Total 807 ml 300 ml 1000 ml 240 ml 100 ml Output Total 500 ml 89665 ml 600 ml Balance 307 ml 300 ml -63830 ml -360 ml 100 ml Intake Oral 300 ml 1000 ml 240 ml IV Total 507 ml 300 ml 100 ml Output Urine Total 500 ml 800 ml 600 ml Drainage Total 77400 ml # Bowel Movements 0 0 Result Diagram: 11/06/1762511/06/17625 Imaging No New Imaging studies. Procedures EGD 11/03/17 Class B esophagitis, erythematous, gastritis in the gastric antrum , portal hypertensive gastropathy in the gastric fundus, normal duodenal mucosa in the bulb and second portion of the duodenum. Other Results Laboratory Tests Test 11/03/17 03:20 11/03/17 03:58 11/04/17 02:45 11/04/17 03:31 Ammonia 31 MCMOL/L Troponin I 0.02 NG/ML Lipase 106 U/L Acanthocytes OCC Nasal Screen MRSA (PCR) MRSA NOT DETECTED Keratocytes OCC Lactic Acid Level 1.9 mmol/L Test 11/05/17 04:26 11/05/17 11:30 11/06/17 06:26 Protein Corrected Calcium 8.0 MG/DL Peritoneal Fluid WBC 10 /MM3 Peritoneal Fluid RBC 10 /MM3 Peritoneal Fluid Neutrophils 0 % Peritoneal Fluid Lymphocytes 77 % Peritoneal Fluid Monocytes 5 % Peritoneal Fluid Eosinophils 3 % Peritoneal Fluid Histiocytes 10 % Peritoneal Fluid Mesothelial Cells 5 % Peritoneal Fluid Total Protein 1.5 GM/DL Peritoneal Fluid Albumin 0.7 G/DL White Blood Count 4.3 TH/MM3 Red Blood Count 2.43 MIL/MM3 Hemoglobin 8.1 GM/DL Hematocrit 23.6 % Mean Corpuscular Volume 97.1 FL Mean Corpuscular Hemoglobin 33.2 PG Mean Corpuscular Hemoglobin Concent 34.2 % Red Cell Distribution Width 16.3 % Platelet Count 78 TH/MM3 Mean Platelet Volume 9.8 FL Neutrophils (%) (Auto) 68.8 % Lymphocytes (%) (Auto) 10.5 % Monocytes (%) (Auto) 10.4 % Eosinophils (%) (Auto) 9.6 % Basophils (%) (Auto) 0.7 % Neutrophils # (Auto) 2.9 TH/MM3 Lymphocytes # (Auto) 0.4 TH/MM3 Monocytes # (Auto) 0.4 TH/MM3 Eosinophils # (Auto) 0.4 TH/MM3 Basophils # (Auto) 0.0 TH/MM3 CBC Comment AUTO DIFF Differential Comment AUTO DIFF CONFIRMED Platelet Estimate LOW Platelet Morphology Comment NORMAL Prothrombin Time 13.9 SEC Prothromb Time International Ratio 1.4 RATIO Activated Partial Thromboplast Time 28.7 SEC Blood Urea Nitrogen 31 MG/DL Creatinine 0.82 MG/DL Random Glucose 93 MG/DL Total Protein 5.9 GM/DL Albumin 2.9 GM/DL Calcium Level 7.8 MG/DL Phosphorus Level 2.8 MG/DL Magnesium Level 1.8 MG/DL Alkaline Phosphatase 49 U/L Aspartate Amino Transf (AST/SGOT) 11 U/L Alanine Aminotransferase (ALT/SGPT) 11 U/L Total Bilirubin 0.5 MG/DL Direct Bilirubin 0.2 MG/DL Sodium Level 139 MEQ/L Potassium Level 4.5 MEQ/L Chloride Level 106 MEQ/L Carbon Dioxide Level 28.4 MEQ/L Anion Gap 5 MEQ/L Estimat Glomerular Filtration Rate 93 ML/MIN Indirect Bilirubin 0.3 MG/DL Objective Remarks GENERAL: Thin-appearing, male, sitting in bed. SKIN: Warm and dry. Midsternal wound scar noted. HEAD: Normocephalic. EYES: Pupils equal round and reactive. Extraocular motions intact. No scleral icterus. No injection or drainage. ENT: Nose without bleeding. Throat without erythema. Uvula midline. Airway patent. NECK: Trachea midline. CARDIOVASCULAR: Regular rate and rhythm RESPIRATORY: unlabored. equal chest rise. GASTROINTESTINAL: Abdomen soft, non-tender, more distended than yesterday. + fluid wave. Umbilical hernia present. MUSCULOSKELETAL: Extremities without clubbing, cyanosis, bilateral lower extremity nonpitting edema. NEUROLOGICAL: awake, alert. no focal deficits. Medications and IVs Current Medications Medications (Trade) Dose Ordered Sig/Primo Route Start Time Stop Time Status Last Admin (Lipitor) 40 mg HS PO 11/03/17 21:00 11/05/17 19:55 (Symbicort 160-4.5 Mcg Inh) 1 puff BID INH 11/03/17 09:00 11/04/17 20:10 (Claritin) 10 mg DAILY PRN PO 11/03/17 05:00 (Zoloft) 50 mg DAILY PO 11/03/17 09:00 11/05/17 08:37 (Desyrel) 25 mg HS PO 11/03/17 21:00 11/05/17 19:55 (Ferrous Sulfate) 325 mg DAILY PO 11/03/17 09:00 11/05/17 08:37 (NS Flush) 2 ml UNSCH PRN IV FLUSH 11/03/17 05:00 (NS Flush) 2 ml BID IV FLUSH 11/03/17 09:00 11/05/17 19:55 (Tylenol) 650 mg Q6H PRN PO 11/03/17 05:00 11/04/17 22:37 (Zofran Inj) 4 mg Q6H PRN IV PUSH 11/03/17 05:00 (Duoneb Neb) 1 ampule Q6HR NEB INH 11/03/17 10:00 11/06/17 07:52 (Duoneb Neb) 1 ampule Q2HR NEB PRN INH 11/03/17 05:00 Miscellaneous Information 1 Q361D XX 11/03/17 05:00 11/03/17 05:00 (Chlorhexidine 2% Cloth) 3 pack Taper DAILY@04 TOP 11/04/17 04:00 10/31/18 03:59 (Chlorhexidine 2% Cloth) 3 pack UNSCH PRN TOP 11/03/17 05:00 (Shannan-Colace) 1 tab BID PO 11/03/17 09:00 11/05/17 08:37 (Milk Of Magnesia Liq) 30 ml Q12H PRN PO 11/03/17 05:00 (Senokot) 17.2 mg Q12H PRN PO 11/03/17 05:00 (Dulcolax Supp) 10 mg DAILY PRN RECTAL 11/03/17 05:00 (Lactulose Liq) 30 ml DAILY PRN PO 11/03/17 05:00 Ceftriaxone Sodium 2000 mg/ Sodium Chloride 100 ml @ 200 mls/hr Q12H IV 11/03/17 06:00 11/06/17 06:36 (Pill Splitter) 1 ea UNSCH PRN OTHER 11/03/17 11:00 (Flomax) 0.4 mg DAILY PO 11/04/17 10:00 11/05/17 08:37 (Protonix) 40 mg Q12HR PO 11/05/17 21:00 11/05/17 19:56 (Inderal) 10 mg Q8HR PO 11/05/17 22:00 (Aldactone) 25 mg DAILY PO 11/06/17 09:00 A/P Assessment and Plan Assessment; 72yM with cirrhosis and upper GI bleeding presented with hematemesis , found to have portal gastropathy. conservative management recommended. Hemoglobin stable, status post Paracentesis obtained 12L of fluid. Gastrointestinal bleed - Underlying liver cirrhosis/Portal Gastropathy, Status post EGD 11/03/17 Class B esophagitis, erythematous, gastritis in the gastric antrum, portal hypertensive gastropathy in the gastric fundus, normal duodenal mucosa in the bulb and second portion of the duodenum, Diet advanced to Soft foods, low sodium diet, avoid NSAIDs. Repeat EGD in Six months, Increase activity, continue PPIs, ETOH cessation, Discussed with Correspondence Review Clerk team awaiting for PT evaluation for probable discharge tomorrow. continue, PPIs. Antibiotics. Anemia secondary to acute blood loss - Blood loss anemia - Transfuse PRBCs when necessary to keep hemoglobin above 7 Coagulopathy secondary to end-stage liver disease - transfuse for INR > 2 or active bleeding - no current transfusion requirements. Thrombocytopenia secondary to end-stage liver disease - transfuse for plt < 50k with active bleeding - no current transfusion requirements. Cirrhosis - Continue lactulose when okay by mouth - Hold diuretics in a picture of acute bleeding Coronary artery disease - Hold aspirin - Continue statins - Resume aspirin when okay with GI Hepatitis C - It is posttreatment in 2016 - Further per GI DVT GI prophylaxis - Teds SCD - No pharmacological DVT prophylaxis due to acute GI bleed - Protonix IV twice a day -PT evaluation for probable discharge tomorrow. Discharge Planning Awaiting final by GI specialist for discharge. Julio Olivia MD Nov 06, 2017 08:54
[2017-11-06] MEDS: SPIRONOLACTONE 25 MG TAB PO SCH (09:07)
[2017-11-06] MEDS: SERTRALINE HCL 50 MG TAB PO SCH (09:08)
[2017-11-06] MEDS: TAMSULOSIN HCL 0.4 MG CAP PO SCH (09:08)
[2017-11-06] MEDS: DOCUSATE SODIUM 50 MG/SENNA 8.6 MG TAB PO SCH ×2 (09:08→20:54)
[2017-11-06] MEDS: PANTOPRAZOLE SOD 40 MG DELAYED RELEASE TAB PO SCH ×2 (09:08→20:54)
[2017-11-06] MEDS: FERROUS SULFATE 325 MG (65 MG ELEMENTAL IRON) TAB PO SCH (09:08)
[2017-11-06] MEDS: SODIUM CHLORIDE 0.9% FLUSH 10 ML FLUSH IV FLUSH SCH ×2 (09:09→20:54)
[2017-11-06] MEDS: BUDESONIDE-FORMOTEROL 160/4.5 MCG INHALER INH SCH ×2 (09:44→20:54)
--- NOTE | 2017-11-06 14:32 | HHI.GIFU ---
Subjective Remarks Awake answers questions appropriately States he's feeling much better less abdominal distention Sitting up in chair increased activity, Afebrile (Mis Pierre) Objective Vitals I&O Vital Signs Date Time Temp Pulse Resp B/P (MAP) Pulse Ox O2 Delivery O2 Flow Rate FiO2 11/06/17 12:00 97.6 86 16 100/55 (70) 95 11/06/17 08:00 97.4 89 16 102/68 (79) 97 11/06/17 07:54 96 21 11/06/17 00:00 96.7 85 17 94/60 (71) 99 11/05/17 20:01 Nasal Cannula 2.00 11/05/17 20:00 95.9 91 17 95/60 (72) 100 11/05/17 19:29 99 Nasal Cannula 2.00 11/05/17 18:30 Nasal Cannula 2.00 11/05/17 16:00 97.7 74 22 99/61 (74) 99 11/05/17 16:00 75 I/O 11/05/17 11/05/17 11/05/17 11/06/17 11/06/17 11/06/17 07:00 15:00 23:00 07:00 15:00 23:00 Intake Total 807 ml 300 ml 1000 ml 240 ml 100 ml Output Total 500 ml 85987 ml 600 ml Balance 307 ml 300 ml -94700 ml -360 ml 100 ml Intake Oral 300 ml 1000 ml 240 ml IV Total 507 ml 300 ml 100 ml Output Urine Total 500 ml 800 ml 600 ml Drainage Total 29344 ml # Bowel Movements 0 0 Laboratory Laboratory Tests Test 11/06/17 06:26 White Blood Count 4.3 Red Blood Count 2.43 Hemoglobin 8.1 Hematocrit 23.6 Mean Corpuscular Volume 97.1 Mean Corpuscular Hemoglobin 33.2 Mean Corpuscular Hemoglobin Concent 34.2 Red Cell Distribution Width 16.3 Platelet Count 78 Mean Platelet Volume 9.8 Neutrophils (%) (Auto) 68.8 Lymphocytes (%) (Auto) 10.5 Monocytes (%) (Auto) 10.4 Eosinophils (%) (Auto) 9.6 Basophils (%) (Auto) 0.7 Neutrophils # (Auto) 2.9 Lymphocytes # (Auto) 0.4 Monocytes # (Auto) 0.4 Eosinophils # (Auto) 0.4 Basophils # (Auto) 0.0 CBC Comment AUTO DIFF Differential Comment AUTO DIFF CONFIRMED Platelet Estimate LOW Platelet Morphology Comment NORMAL Prothrombin Time 13.9 Prothromb Time International Ratio 1.4 Activated Partial Thromboplast Time 28.7 Blood Urea Nitrogen 31 Creatinine 0.82 Random Glucose 93 Total Protein 5.9 Albumin 2.9 Calcium Level 7.8 Phosphorus Level 2.8 Magnesium Level 1.8 Alkaline Phosphatase 49 Aspartate Amino Transf (AST/SGOT) 11 Alanine Aminotransferase (ALT/SGPT) 11 Total Bilirubin 0.5 Direct Bilirubin 0.2 Sodium Level 139 Potassium Level 4.5 Chloride Level 106 Carbon Dioxide Level 28.4 Anion Gap 5 Estimat Glomerular Filtration Rate 93 Indirect Bilirubin 0.3 Date/Time Source Procedure Growth Status 11/05/17 11:30 Fluid Ascites Fluid Gram Stain - Final Resulted 11/05/17 11:30 Fluid Ascites Fluid Body Fluid Culture - Preliminary NO GROWTH IN 24 HOURS. Resulted Physical Exam HEENT: Normocephalic; atraumatic; I'll jaundice. CHEST: Clear anteriorly, low volumes at the bases CARDIAC: RRR ABDOMEN: Soft, distended improved, nontender; + umbilical hernia. Bowel sounds are present. EXTREMITIES: No clubbing, cyanosis; +anasarca, 1+ lower extremity edema SKIN: Normal; no rash; mild jaundice. QUILL SKINNER: Awake and alert (Mis Pierre) Assessment and Plan Plan - Hematemesis, patient states no active bleeding for 2 days . Transitioned out of the intensive care yesterday . history of esophageal varices requiring banding. Patient with history of liver cirrhosis. Hemoglobin stable at 8.1. Procedure ; S/P EGD 11/03/17--Class B esophagitis, erythematous gastritis in the gastric antrum, portal hypertensive gastropathy in the gastric fundus, normal duodenal mucosa in the bulb and second portion of the duodenum, retroflexed views revealed no abnormalities. - Anemia - this admission patient has received 4 x PRBC. FFP x 3. Hgb stable at 8.1 - Ascites, cirrhosis, EtOH abuse, hep c s/p treatment. DF 19, NH 31 on admission. Paracentesis yesterday 11/05, there were no complications patient tolerated procedure well, labs are pending- Thrombocytopenia, secondary to end-stage liver disease. Platelet 103 on admission. - Coagulopathy - INR 1.4 PLAN - Diet advanced to soft foods, low sodium diet - Avoid NSAIDs - Repeat EGD in 6 months - Increase activity patient may be up in chair - Peritoneal fluid for culture, cytology, albumin, protein pending from paracentesis - Monitor hemoglobin and call for any acute onset of GI bleed - PPI 40 mg PO BID - Supportive care - ETOH cessation - Further recommendations to follow based on results of above Patient seen and examined by Dr. Emerson and myself and this note is written on his behalf. (Mis Pierre) Physician Comments Patient seen and examined Agree with above Continue with current supportive care Monitor labs Patient encouraged for alcohol cessation Patient advised low-salt diet Patient follow-up with GI post discharge Continue with current medications We will sign off (Javier Eemrson MD) Mis Pierre Nov 06, 2017 14:32 Javier Emerson MD Nov 06, 2017 20:23
[2017-11-06] MEDS: ATORVASTATIN 40 MG TAB PO SCH (20:53)
[2017-11-06] MEDS: traZODone HCL 50 MG TAB PO SCH (20:54)
[2017-11-07 04:00] VITALS: BP 102/67; PULSE 74; RESP 20; TEMP 97; O2SAT 94
[2017-11-07] MEDS: CHLORHEXIDINE GLUCONATE 2 % 1 PACK (2 CLOTHS) TOP SCH (04:00)
[2017-11-07] MEDS: PROPRANOLOL HCL 10 MG TAB PO SCH (06:00)
[2017-11-07] MEDS: cefTRIAXone INJ 2,000 MG in SODIUM CHLORIDE 0.9% INJ 100 ML IV SCH (07:47)
[2017-11-07 08:00] VITALS: BP 101/64; PULSE 77; RESP 16; TEMP 96.4; O2SAT 95
[2017-11-07] MEDS: FERROUS SULFATE 325 MG (65 MG ELEMENTAL IRON) TAB PO SCH (08:10)
[2017-11-07] MEDS: DOCUSATE SODIUM 50 MG/SENNA 8.6 MG TAB PO SCH (08:10)
[2017-11-07] MEDS: TAMSULOSIN HCL 0.4 MG CAP PO SCH (08:10)
[2017-11-07] MEDS: PANTOPRAZOLE SOD 40 MG DELAYED RELEASE TAB PO SCH (08:10)
[2017-11-07] MEDS: SPIRONOLACTONE 25 MG TAB PO SCH (08:10)
[2017-11-07] MEDS: SERTRALINE HCL 50 MG TAB PO SCH (08:10)
[2017-11-07] MEDS: SODIUM CHLORIDE 0.9% FLUSH 10 ML FLUSH IV FLUSH SCH (08:11)
[2017-11-07] MEDS: BUDESONIDE-FORMOTEROL 160/4.5 MCG INHALER INH SCH (08:11)
--- NOTE | 2017-11-07 09:02 | HHI.PR ---
Subjective Remarks customer program specialist notes: 72-year-old gentleman with a history of end stage liver disease and history awfully variceal bleed presents because tonight he awoke at 3AM nauseous and vomited copious amount of blood clots. He called 911 and EMS reports large amount of blood seen in basket next to bed. The patient has cirrhosis distended abdomen most likely from Ascites. He complains some shortness of breath when laying flat. 11/04: scoped yesterday with esophagitis, gastritis, single non-bleeding varix. plan to treat conservatively. lab counts still low, but chronic. hgb stable yesterday serially. denies complaints. 11/05: tolerating diet. GI recommends paracentesis, will perform today. will transition off Protonix drip to iv bid PPIs will allow GI to guide octreotide drip. hgb remains stable. ROS negative. Hospitalist Notes: 11/06: Transferred to hospitalist team to continue following. the patient did not have active bleeding for the last two days, Status post EGD 11/03/17 Class B esophagitis, erythematous, gastritis in the gastric antrum, portal hypertensive gastropathy in the gastric fundus, normal duodenal mucosa in the bulb and second portion of the duodenum, Diet advanced to Soft foods, low sodium diet, avoid NSAIDs. Repeat EGD in Six months, Increase activity, continue PPIs, ETOH cessation, Discussed with Chemical Preparer team awaiting for PT evaluation for probable discharge tomorrow. 11/07: Seen in the room in the presence of nurse Miss Mora, initially complaint of right toe edema and erythema, was evaluated and did not see any pathology, no nausea, vomit or diarrhea. Objective Vital Signs Date Time Temp Pulse Resp B/P (MAP) Pulse Ox O2 Delivery O2 Flow Rate FiO2 11/07/17 08:00 96.4 77 16 101/64 (76) 95 11/07/17 04:00 97.0 74 20 102/67 (79) 94 11/06/17 23:51 95.5 64 20 95/51 (66) 93 11/06/17 20:30 Room Air 21 11/06/17 18:23 89/60 (70) 11/06/17 16:00 97.4 75 16 87/50 (62) 95 11/06/17 14:30 85 102/64 (77) 11/06/17 12:00 97.6 86 16 100/55 (70) 95 I/O 11/06/17 11/06/17 11/06/17 11/07/17 11/07/17 11/07/17 06:59 14:59 22:59 06:59 14:59 22:59 Intake Total 240 ml 100 ml 400 ml Output Total 600 ml Balance -360 ml 100 ml 400 ml Intake Oral 240 ml 400 ml IV Total 100 ml Output Urine Total 600 ml # Voids 3 # Bowel Movements 2 Result Diagram: 11/06/17 0626 11/06/17 06 Imaging No new imaging studies. Procedures EGD 11/03/17 Class B esophagitis, erythematous, gastritis in the gastric antrum , portal hypertensive gastropathy in the gastric fundus, normal duodenal mucosa in the bulb and second portion of the duodenum. Other Results Laboratory Tests Test 11/03/17 03:20 11/03/17 03:58 11/04/17 02:45 11/04/17 03:31 Ammonia 31 MCMOL/L Troponin I 0.02 NG/ML Lipase 106 U/L Acanthocytes OCC Nasal Screen MRSA (PCR) MRSA NOT DETECTED Keratocytes OCC Lactic Acid Level 1.9 mmol/L Test 11/05/17 04:26 11/05/17 11:30 11/06/17 06:26 Protein Corrected Calcium 8.0 MG/DL Peritoneal Fluid WBC 10 /MM3 Peritoneal Fluid RBC 10 /MM3 Peritoneal Fluid Neutrophils 0 % Peritoneal Fluid Lymphocytes 77 % Peritoneal Fluid Monocytes 5 % Peritoneal Fluid Eosinophils 3 % Peritoneal Fluid Histiocytes 10 % Peritoneal Fluid Mesothelial Cells 5 % Peritoneal Fluid Total Protein 1.5 GM/DL Peritoneal Fluid Albumin 0.7 G/DL White Blood Count 4.3 TH/MM3 Red Blood Count 2.43 MIL/MM3 Hemoglobin 8.1 GM/DL Hematocrit 23.6 % Mean Corpuscular Volume 97.1 FL Mean Corpuscular Hemoglobin 33.2 PG Mean Corpuscular Hemoglobin Concent 34.2 % Red Cell Distribution Width 16.3 % Platelet Count 78 TH/MM3 Mean Platelet Volume 9.8 FL Neutrophils (%) (Auto) 68.8 % Lymphocytes (%) (Auto) 10.5 % Monocytes (%) (Auto) 10.4 % Eosinophils (%) (Auto) 9.6 % Basophils (%) (Auto) 0.7 % Neutrophils # (Auto) 2.9 TH/MM3 Lymphocytes # (Auto) 0.4 TH/MM3 Monocytes # (Auto) 0.4 TH/MM3 Eosinophils # (Auto) 0.4 TH/MM3 Basophils # (Auto) 0.0 TH/MM3 CBC Comment AUTO DIFF Differential Comment AUTO DIFF CONFIRMED Platelet Estimate LOW Platelet Morphology Comment NORMAL Prothrombin Time 13.9 SEC Prothromb Time International Ratio 1.4 RATIO Activated Partial Thromboplast Time 28.7 SEC Blood Urea Nitrogen 31 MG/DL Creatinine 0.82 MG/DL Random Glucose 93 MG/DL Total Protein 5.9 GM/DL Albumin 2.9 GM/DL Calcium Level 7.8 MG/DL Phosphorus Level 2.8 MG/DL Magnesium Level 1.8 MG/DL Alkaline Phosphatase 49 U/L Aspartate Amino Transf (AST/SGOT) 11 U/L Alanine Aminotransferase (ALT/SGPT) 11 U/L Total Bilirubin 0.5 MG/DL Direct Bilirubin 0.2 MG/DL Sodium Level 139 MEQ/L Potassium Level 4.5 MEQ/L Chloride Level 106 MEQ/L Carbon Dioxide Level 28.4 MEQ/L Anion Gap 5 MEQ/L Estimat Glomerular Filtration Rate 93 ML/MIN Indirect Bilirubin 0.3 MG/DL Objective Remarks GENERAL: Thin-appearing, male, sitting in bed. SKIN: Warm and dry. Midsternal wound scar noted. HEAD: Normocephalic. EYES: Pupils equal round and reactive. Extraocular motions intact. No scleral icterus. No injection or drainage. ENT: Nose without bleeding. Throat without erythema. Uvula midline. Airway patent. NECK: Trachea midline. CARDIOVASCULAR: Regular rate and rhythm RESPIRATORY: unlabored. equal chest rise. GASTROINTESTINAL: Abdomen soft, distended as yesterday. Umbilical hernia present. MUSCULOSKELETAL: Extremities without clubbing, cyanosis, bilateral lower extremity nonpitting edema. NEUROLOGICAL: awake, alert. no focal deficits. Medications and IVs Current Medications Medications (Trade) Dose Ordered Sig/Prmio Route Start Time Stop Time Status Last Admin (Lipitor) 40 mg HS PO 11/03/17 21:00 11/06/17 20:53 (Symbicort 160-4.5 Mcg Inh) 1 puff BID INH 11/03/17 09:00 11/07/17 08:11 (Claritin) 10 mg DAILY PRN PO 11/03/17 05:00 (Zoloft) 50 mg DAILY PO 11/03/17 09:00 11/07/17 08:10 (Desyrel) 25 mg HS PO 11/03/17 21:00 11/06/17 20:54 (Ferrous Sulfate) 325 mg DAILY PO 11/03/17 09:00 11/07/17 08:10 (NS Flush) 2 ml UNSCH PRN IV FLUSH 11/03/17 05:00 (NS Flush) 2 ml BID IV FLUSH 11/03/17 09:00 11/07/17 08:11 (Tylenol) 650 mg Q6H PRN PO 11/03/17 05:00 11/04/17 22:37 (Zofran Inj) 4 mg Q6H PRN IV PUSH 11/03/17 05:00 (Duoneb Neb) 1 ampule Q2HR NEB PRN INH 11/03/17 05:00 Miscellaneous Information 1 Q361D XX 11/03/17 05:00 11/03/17 05:00 (Chlorhexidine 2% Cloth) 3 pack Taper DAILY@04 TOP 11/04/17 04:00 10/31/18 03:59 (Chlorhexidine 2% Cloth) 3 pack UNSCH PRN TOP 11/03/17 05:00 (Shannan-Colace) 1 tab BID PO 11/03/17 09:00 11/07/17 08:10 (Milk Of Magnesia Liq) 30 ml Q12H PRN PO 11/03/17 05:00 (Senokot) 17.2 mg Q12H PRN PO 11/03/17 05:00 (Dulcolax Supp) 10 mg DAILY PRN RECTAL 11/03/17 05:00 (Lactulose Liq) 30 ml DAILY PRN PO 11/03/17 05:00 Ceftriaxone Sodium 2000 mg/ Sodium Chloride 100 ml @ 200 mls/hr Q12H IV 11/03/17 06:00 11/07/17 07:47 (Pill Splitter) 1 ea UNSCH PRN OTHER 11/03/17 11:00 (Flomax) 0.4 mg DAILY PO 11/04/17 10:00 11/07/17 08:10 (Protonix) 40 mg Q12HR PO 11/05/17 21:00 11/07/17 08:10 (Inderal) 10 mg Q8HR PO 11/05/17 22:00 11/06/17 14:46 (Aldactone) 25 mg DAILY PO 11/06/17 09:00 11/07/17 08:10 A/P Assessment and Plan Assessment; 72yM with cirrhosis and upper GI bleeding presented with hematemesis , found to have portal gastropathy. conservative management recommended. Hemoglobin stable, status post Paracentesis obtained 12L of fluid. Gastrointestinal bleed - Underlying liver cirrhosis/Portal Gastropathy, Status post EGD 11/03/17 Class B esophagitis, erythematous, gastritis in the gastric antrum, portal hypertensive gastropathy in the gastric fundus, normal duodenal mucosa in the bulb and second portion of the duodenum, Diet advanced to Soft foods, low sodium diet, avoid NSAIDs. 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 Thrombocytopenia secondary to end-stage liver disease - transfuse for plt < 50k with active bleeding - no current transfusion requirements. Cirrhosis - Continue lactulose when okay by mouth - Hold diuretics in a picture of acute bleeding Coronary artery disease - Hold aspirin - Continue statins - Resume aspirin when okay with GI Hepatitis C - It is posttreatment in 2016 - Further per GI DVT GI prophylaxis - Teds SCD - No pharmacological DVT prophylaxis due to acute GI bleed - Protonix IV twice a day -PT evaluation performed recommended Home with [facility] Laboratory evaluated okay to discharge Home now. Discharge Planning Discharge Home today on [facility] Julio Olivia MD Nov 07, 2017 09:02
[2017-11-07 10:59] LABS: MEAN CELL VOLUME 98.6 FL (80.0-100.0); MEAN CORPUSCULAR HEMOGLOBIN 33.1 PG (27.0-34.0); MEAN CORPUSCULAR HGB CONC 33.6 % (32.0-36.0); PLATELET COUNT 108 TH/MM3 (150-450); RED BLOOD COUNT 2.64 MIL/MM3 (4.50-5.90); REVIEW FLAG FINAL; WHITE BLOOD COUNT 5.3 TH/MM3 (4.0-11.0)
--- NOTE | 2017-11-07 11:02 | HHI.FF ---
Face to Face Verification Diagnosis: (1) Cirrhosis (2) Severe anemia Physical Therapy Order: Evaluate and Treat, Improve ambulation, Strength and gait training Home Health Nursing Order: Medical education Signs/symptoms of disease process Medication education-adverse effect Nursing assessment with vital signs I have seen patient Jhony AyalaJr on 11/07/17. My clinical findings support the need for the requested home health care services because: Ltd mobility - disease progression I certify that my clinical findings support that this patient is homebound because: Unsafe to leave home unassisted Julio Olivia MD Nov 07, 2017 11:02
[2017-11-07 11:04] LABS: INTERNATIONAL NORMALIZED RATIO 1.4 RATIO; PROTHROMBIN TIME - PATIENT 13.7 SEC (9.8-11.6)
[2017-11-07 11:27] LABS: BICARBONATE 25.8 MEQ/L (21.0-32.0); POTASSIUM 4.8 MEQ/L (3.5-5.1)
[2017-11-07 11:30] LABS: INDIRECT BILIRUBIN 0.2 MG/DL (0.0-0.8); TOTAL BILIRUBIN ADULT 0.4 MG/DL (0.2-1.0)
[2017-11-07 12:00] VITALS: BP 95/59; PULSE 85; RESP 16; TEMP 97.8; O2SAT 94
[2017-11-07] MEDS ORDERED: SPIR25 PO (12:40)
[2017-11-07] MEDS ORDERED: TAMS5CAP PO (12:40)
--- NOTE | 2017-11-07 12:44 | HHI.DS ---
Discharge Summary Admission Date Nov 03, 2017 at 04:56 Discharge Date: Nov 07, 2017 Admitting Diagnosis severe anemia due to GI hemorrhage (1) Lower GI bleed ICD Code: K92.2 - Gastrointestinal hemorrhage, unspecified Diagnosis: Principal Status: Acute (2) Cirrhosis, alcoholic ICD Code: K70.30 - Alcoholic cirrhosis of liver without ascites Diagnosis: Principal Status: Chronic (3) Esophageal varices ICD Code: I85.00 - Esophageal varices without bleeding Diagnosis: Principal Status: Acute (4) Severe anemia ICD Code: D64.9 - Anemia, unspecified Diagnosis: Principal Status: Acute Procedures EGD 11/03/17 Class B esophagitis, erythematous, gastritis in the gastric antrum , portal hypertensive gastropathy in the gastric fundus, normal duodenal mucosa in the bulb and second portion of the duodenum. Brief History - From Admission 72-year-old gentleman with a history of end stage liver disease and history awfully variceal bleed presents because tonight he awoke at 3AM nauseous and vomited copious amount of blood clots. He called 911 and EMS reports large amount of blood seen in basket next to bed. The patient has cirrhosis , distended abdomen most likely from Ascites. He complains some shortness of breath when laying flat. CBC/BMP: 11/07/17 1010 11/07/17 1010 Significant Findings Laboratory Tests Test 11/05/17 04:26 11/05/17 11:30 11/06/17 06:26 11/07/17 10:10 White Blood Count 3.4 TH/MM3 (4.0-11.0) Red Blood Count 2.42 MIL/MM3 (4.50-5.90) 2.43 MIL/MM3 (4.50-5.90) 2.64 MIL/MM3 (4.50-5.90) Hemoglobin 8.0 GM/DL (13.0-17.0) 8.1 GM/DL (13.0-17.0) 8.7 GM/DL (13.0-17.0) Hematocrit 23.3 % (39.0-51.0) 23.6 % (39.0-51.0) 26.0 % (39.0-51.0) Platelet Count 72 TH/MM3 (150-450) 78 TH/MM3 (150-450) 108 TH/MM3 (150-450) Prothrombin Time 13.6 SEC (9.8-11.6) 13.9 SEC (9.8-11.6) 13.7 SEC (9.8-11.6) Activated Partial Thromboplast Time 23.8 SEC (24.3-30.1) Blood Urea Nitrogen 37 MG/DL (7-18) 31 MG/DL (7-18) 29 MG/DL (7-18) Random Glucose 118 MG/DL (74-106) 140 MG/DL (74-106) Total Protein 6.0 GM/DL (6.4-8.2) 5.9 GM/DL (6.4-8.2) 6.0 GM/DL (6.4-8.2) Albumin 2.5 GM/DL (3.4-5.0) 2.9 GM/DL (3.4-5.0) 2.8 GM/DL (3.4-5.0) Calcium Level 7.4 MG/DL (8.5-10.1) 7.8 MG/DL (8.5-10.1) 7.8 MG/DL (8.5-10.1) Alanine Aminotransferase (ALT/SGPT) 11 U/L (12-78) 11 U/L (12-78) Estimat Glomerular Filtration Rate 79 ML/MIN (>89) 78 ML/MIN (>89) Protein Corrected Calcium 8.0 MG/DL (8.5-10.1) Peritoneal Fluid RBC 10 /MM3 (0-0) Monocytes (%) (Auto) 10.4 % (0.0-8.0) Eosinophils (%) (Auto) 9.6 % (0.0-4.0) Lymphocytes # (Auto) 0.4 TH/MM3 (1.0-4.8) Platelet Estimate LOW (NORMAL) Aspartate Amino Transf (AST/SGOT) 11 U/L (15-37) 14 U/L (15-37) Imaging No new Imaging studies. PE at Discharge GENERAL: Thin-appearing, male, sitting in bed. SKIN: Warm and dry. Midsternal wound scar noted. HEAD: Normocephalic. EYES: Pupils equal round and reactive. Extraocular motions intact. No scleral icterus. No injection or drainage. ENT: Nose without bleeding. Throat without erythema. Uvula midline. Airway patent. NECK: Trachea midline. CARDIOVASCULAR: Regular rate and rhythm RESPIRATORY: unlabored. equal chest rise. GASTROINTESTINAL: Abdomen soft, distended as yesterday. Umbilical hernia present. MUSCULOSKELETAL: Extremities without clubbing, cyanosis, bilateral lower extremity nonpitting edema. NEUROLOGICAL: awake, alert. no focal deficits. Hospital Course social work specialist notes: 72-year-old gentleman with a history of end stage liver disease and history awfully variceal bleed presents because tonight he awoke at 3AM nauseous and vomited copious amount of blood clots. He called 911 and EMS reports large amount of blood seen in basket next to bed. The patient has cirrhosis distended abdomen most likely from Ascites. He complains some shortness of breath when laying flat. 11/04: scoped yesterday with esophagitis, gastritis, single non-bleeding varix. plan to treat conservatively. lab counts still low, but chronic. hgb stable yesterday serially. denies complaints. 11/05: tolerating diet. GI recommends paracentesis, will perform today. will transition off Protonix drip to iv bid PPIs will allow GI to guide octreotide drip. hgb remains stable. ROS negative. Hospitalist Notes: 11/06: Transferred to hospitalist team to continue following. the patient did not have active bleeding for the last two days, Status post EGD 11/03/17 Class B esophagitis, erythematous, gastritis in the gastric antrum, portal hypertensive gastropathy in the gastric fundus, normal duodenal mucosa in the bulb and second portion of the duodenum, Diet advanced to Soft foods, low sodium diet, avoid NSAIDs. Repeat EGD in Six months, Increase activity, continue PPIs, ETOH cessation, Discussed with Dress Designer team awaiting for PT evaluation for probable discharge tomorrow. 11/07: Seen in the room in the presence of nurse Miss Saucedoth, initially complaint of right toe edema and erythema, was evaluated and did not see any pathology, no nausea, vomit or diarrhea. Assessment and Plan Assessment; 72yM with cirrhosis and upper GI bleeding presented with hematemesis , found to have portal gastropathy. conservative management recommended. Hemoglobin stable, status post Paracentesis obtained 12L of fluid. Gastrointestinal bleed - Underlying liver cirrhosis/Portal Gastropathy, Status post EGD 11/03/17 Class B esophagitis, erythematous, gastritis in the gastric antrum, portal hypertensive gastropathy in the gastric fundus, normal duodenal mucosa in the bulb and second portion of the duodenum, Diet advanced to Soft foods, low sodium diet, avoid NSAIDs. 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 Thrombocytopenia secondary to end-stage liver disease - transfuse for plt < 50k with active bleeding - no current transfusion requirements. Cirrhosis - Continue lactulose when okay by mouth - Hold diuretics in a picture of acute bleeding Coronary artery disease - Hold aspirin - Continue statins - Resume aspirin when okay with GI Hepatitis C - It is posttreatment in 2016 - Further per GI DVT GI prophylaxis - Teds SCD - No pharmacological DVT prophylaxis due to acute GI bleed - Protonix IV twice a day -PT evaluation performed recommended Home with [facility] Laboratory evaluated okay to discharge Home now. Discharge Planning Discharge Home today on [facility] Pt Condition on Discharge: Stable Discharge Disposition: Disch w/ Home Health Serv Discharge Time: > 30 minutes Discharge Instructions DIET: Follow Instructions for: Heart Healthy Diet Activities you can perform: Regular-No Restrictions Julio Olivia MD Nov 07, 2017 12:43
== END 2017-11-07 14:11 | disposition home health service (06) | DRG 378 ==
LOC: NEPE 02:48 → NEDA 04:56 → N03B 05:59 → N07A 11-05 18:03
PROVIDERS: ADMIT Internal Medicine; ATTEND Internal Medicine
PROC: 30233N1 Transfusion of Nonautologous Red Blood Cells into Peripheral Vein, Percutaneous Approach (ICD-10-PCS; 2017-11-03)
PROC: 0DJ08ZZ Inspection of Upper Intestinal Tract, Via Natural or Artificial Opening Endoscopic (ICD-10-PCS; 2017-11-03)
PROC: 30233K1 Transfusion of Nonautologous Frozen Plasma into Peripheral Vein, Percutaneous Approach (ICD-10-PCS; principal; 2017-11-03 09:16)
PROC: 0W9G3ZZ Drainage of Peritoneal Cavity, Percutaneous Approach (ICD-10-PCS; 2017-11-05)
DX: K92.0 Hematemesis (principal); K76.6 Portal hypertension; D68.4 Acquired coagulation factor deficiency; I11.0 Hypertensive heart disease with heart failure; I50.9 Heart failure, unspecified; D69.59 Other secondary thrombocytopenia; D62 Acute posthemorrhagic anemia; K70.31 Alcoholic cirrhosis of liver with ascites; J44.9 Chronic obstructive pulmonary disease, unspecified; K29.70 Gastritis, unspecified, without bleeding; E78.00 Pure hypercholesterolemia, unspecified; K21.0 Gastro-esophageal reflux disease with esophagitis; B19.20 Unspecified viral hepatitis C without hepatic coma; K44.9 Diaphragmatic hernia without obstruction or gangrene; I25.10 Atherosclerotic heart disease of native coronary artery without angina pectoris; Z95.1 Presence of aortocoronary bypass graft; Z72.0 Tobacco use; N50.89 Other specified disorders of the male genital organs; K42.9 Umbilical hernia without obstruction or gangrene; K72.90 Hepatic failure, unspecified without coma; F12.90 Cannabis use, unspecified, uncomplicated; I85.10 Secondary esophageal varices without bleeding; K31.89 Other diseases of stomach and duodenum; Z23 Encounter for immunization
CPT/HCPCS: 36430; 80048; 80053; 80076; 82042; 82140; 82948; 83605; 83690; 83735; 84100; 84155; 84157; 84484; 85014; 85018; 85025; 85027; 85610; 85730; 86850; 86900; 86901; 86920; 86927; 87070; 87205; 87641; 89051; 90686; 93005; 94640; 94664; 99291; C9113; J0330; J0610; J0696; J1940; J2354; J2370; J3475; J7030; J7040; J7050; P9016; P9017; P9047; Q2038

== ENCOUNTER 2017-11-10 17:05 | Inpatient (IN) | payer MEDICARE, OTHER ==
[2017-11-10] VITALS (9 sets, daily range): BP systolic 90–126; BP diastolic 47–83; PULSE 76–90; RESP 17–26; TEMP 97.2–97.9; O2SAT 99–100
[~2017-11-10 17:05] MED LIST changes: -ALDA50TA2 PO; -ASPI-516 PO; -FURO40TA PO; -LISI-515 PO; +SPIR25 PO; +TAMS5CAP PO; -ZITHTAB PO
[2017-11-10] MEDS ORDERED: SODIUM CHLORIDE 0.9% FLUSH 10 ML FLUSH IV FLUSH PRN (17:30)
[2017-11-10 17:54] LABS: AUTOMATED NEUTROPHIL # 4.6 TH/MM3 (1.8-7.7); BASOPHIL % 0.5 % (0.0-2.0); EOSINOPHIL % 0.5 % (0.0-4.0); LYMPH % 12.6 % (9.0-44.0); LYMPHOCYTE # 0.8 TH/MM3 (1.0-4.8); MEAN CELL VOLUME 100.8 FL (80.0-100.0); MEAN CORPUSCULAR HEMOGLOBIN 33.5 PG (27.0-34.0); MEAN CORPUSCULAR HGB CONC 33.2 % (32.0-36.0); MONO % 12.5 % (0.0-8.0); NEUT % 73.9 % (16.0-70.0); PLATELET COUNT 137 TH/MM3 (150-450); RED BLOOD COUNT 1.16 MIL/MM3 (4.50-5.90); RED CELL DISTRIBUTION WIDTH 18.8 % (11.6-17.2); WHITE BLOOD COUNT 6.2 TH/MM3 (4.0-11.0)
--- NOTE | 2017-11-10 18:02 | RADRPT ---
EXAM DATE/TIME: 11/10/2017 17:27 [facility] COMPARISON: CHEST SINGLE AP, October 30, 2017, 0:22. INDICATIONS : Syncopal episode today MEDICAL HISTORY : Hypertension. Myocardial infarction. Chronic obstructive pulmonary disease. Congestive heart failure. Liver disease. Hep C. SURGICAL HISTORY : CABG. ENCOUNTER: Initial ACUITY: 1 day PAIN SCORE: Non-responsive. LOCATION: Bilateral chest FINDINGS: The right lung is clear and well-aerated. There continues to be an infiltrate in the left lung base w ithout significant change compared to the prior exam. The heart size is stable. There is no pneumotho rax. No significant pleural effusions. CONCLUSION: No significant change with the left lower lung infiltrate. The right lung is clear and well-aerated. Crow Umaña MD on November 10, 2017 at 17:59 Board Certified Radiologist. This report was verified electronically.
[2017-11-10] MEDS ORDERED: SODIUM CHLOR 0.9% 1000 ML INJ 1,000 ML IV SCH (18:07)
[2017-11-10] MEDS ORDERED: PANTOPRAZOLE INJ 80 MG in SODIUM CHLORIDE 0.9% INJ 35 ML IV ONE (18:07)
--- NOTE | 2017-11-10 18:07 | PD ---
HPI Chief Complaint: Altered Mental Status Time Seen by Provider: 17:16 Travel History International Travel<30 days: No Contact w/Intl Traveler<30days: No History of Present Illness HPI 72-year-old male patient with history of VT, CHF, multiple medical issues, presents to the ER today brought in by EMS because home health care found him disoriented. Patient is fairly lethargic. Is not able to give me much more history. He has history of recent admission for GI bleed. He apparently had been seen by neighbors normal dysmorphic. Modifying Factors: None Associated Signs & Symptoms: Altered mental status Risk Factors: Elderly, multiple medical issues PFSH Past Medical History Hx Anticoagulant Therapy: Yes (XARELTO) Arthritis: No Asthma: No Autoimmune Disease: No Anxiety: No Depression: No Heart Rhythm Problems: No Cancer: No Cardiovascular Problems: Yes High Cholesterol: Yes Chemotherapy: No Chest Pain: No Congestive Heart Failure: Yes COPD: Yes Cerebrovascular Accident: No Diabetes: No Diminished Hearing: No Endocrine: No Gastrointestinal Disorders: Yes (EROSIVE ESOPHAGITIS; COLITIS) GERD: Yes Glaucoma: No Genitourinary: No Headaches: No Hepatitis: Yes (C) Hiatal Hernia: Yes Hypertension: Yes Immune Disorder: No Kidney Stones: No Musculoskeletal: No Neurologic: No Psychiatric: No Reproductive: No Respiratory: Yes Migraines: No Myocardial Infarction: No Radiation Therapy: No Renal Failure: No Seizures: No Sickle Cell Disease: No Sleep Apnea: No Thyroid Disease: No Ulcer: No Past Surgical History Abdominal Surgery: Yes (ESOPHAGEAL VARICIES 2006) AICD: No Appendectomy: No Arteriovenous Shunt: No Cardiac Surgery: Yes Cholecystectomy: No Coronary Artery Bypass Graft: Yes (TRIPLE BYPASS) Ear Surgery: No Endocrine Surgery: No Eye Surgery: No Genitourinary Surgery: No Gynecologic Surgery: No Insulin Pump: No Joint Replacement: No Oral Surgery: No Pacemaker: No Thoracic Surgery: No Other Surgery: Yes (CABG) Social History Alcohol Use: No Tobacco Use: Yes (occasionally) Substance Use: No Allergies-Medications (Allergen,Severity, Reaction): Coded Allergies: No Known Allergies (Verified Adverse Reaction, Unknown, 11/10/17) Reported Meds & Prescriptions Reported Meds & Active Scripts Active Aldactone (Spironolactone) 25 Mg Tab 25 Mg PO DAILY Flomax (Tamsulosin HCl) 0.4 Mg Cap 0.4 Mg PO DAILY Reported Trazodone (Trazodone HCl) 50 Mg Tab 25 Mg PO HS Ferrous Sulfate DR (Ferrous Sulfate) 324 Mg Tabdr 324 Mg PO DAILY Sertraline (Sertraline HCl) 50 Mg Tab 50 Mg PO DAILY Allerclear (Loratadine) 10 Mg Tablet 10 Mg PO DAILY PRN Albuterol Neb (Albuterol Sulfate) 2.5 Mg/3 Ml Neb 2.5 Mg NEB Q6HR NEB PRN Symbicort Inh (Budesonide/Formoterol Fumarate) 160-4.5 Mcg/Act Aero 1 Puff INH BID Atorvastatin (Atorvastatin Calcium) 40 Mg Tab 40 Mg PO HS Omeprazole 20 Mg Tab 20 Mg PO DAILY Enulose Liq (Lactulose (Encephalopathy) Liq) 10 Gm/15 Ml Soln 10 Gm PO DAILY PRN Review of Systems Except as stated in HPI: all other systems reviewed are Neg Physical Exam Narrative GENERAL: Well-developed elderly white male patient who is in moderate distress, lethargic, disoriented. SKIN: Focused skin assessment warm/dry. HEAD: Atraumatic. Normocephalic. EYES: Pupils equal and round. No scleral icterus. No injection or drainage. ENT: No nasal bleeding or discharge. Mucous membranes pink and moist. NECK: Trachea midline. No JVD. CARDIOVASCULAR: Regular rate and rhythm. No murmur appreciated. RESPIRATORY: No accessory muscle use. Clear to auscultation. Breath sounds equal bilaterally. GASTROINTESTINAL: Abdomen soft, non-tender, moderately distended, reducible umbilical hernia. Hepatic and splenic margins not palpable. MUSCULOSKELETAL: No obvious deformities. No clubbing. No cyanosis. No edema. NEUROLOGICAL: Lethargic. No obvious cranial nerve deficits. Motor grossly within normal limits. Slurred speech. PSYCHIATRIC: Lethargic and disoriented. Data Data Last Documented VS Vital Signs Date Time Temp Pulse Resp B/P (MAP) Pulse Ox O2 Delivery O2 Flow Rate FiO2 11/10/17 18:47 90 26 94/52 (66) 100 Nasal Cannula 2.00 11/10/17 17:20 97.9 Orders Orders Electrocardiogram (11/10/17 17:16) Ammonia (11/10/17 17:16) Complete Blood Count With Diff (11/10/17 17:16) Comprehensive Metabolic Panel (11/10/17 17:16) Creatine Kinase (Cpk) (12/15/17 17:16) Prothrombin Time / Inr (Pt) (11/10/17 17:16) Act Partial Throm Time (Ptt) (11/10/17 17:16) Troponin I (11/10/17 17:16) Thyroid Stimulating Hormone (11/10/17 17:16) Urinalysis - C+S If Indicated (11/10/17 17:16) Lactic Acid Sepsis Protocol (11/10/17 17:16) Blood Culture (11/10/17 17:16) Chest, Single Ap (11/10/17 17:16) Ct Brain W/O Iv Contrast(Rout) (11/10/17 17:16) Blood Glucose (11/10/17 17:16) Ecg Monitoring (11/10/17 17:16) Iv Access Insert/Monitor (11/10/17 17:16) Oximetry (11/10/17 17:16) Sodium Chloride 0.9% Flush (Ns Flush) (11/10/17 17:30) Drug Screen, Random Urine (11/10/17 17:16) Alcohol (Ethanol) (11/10/17 17:16) Type And Screen (11/10/17 17:40) Red Blood Cells (Rbc) (11/10/17 18:07) Blood Product Administration (11/10/17 18:07) Sodium Chlor 0.9% 250 Ml Inj (Ns 250 Ml (11/10/17 18:15) Cath For Specimen (11/10/17 18:07) Sodium Chlor 0.9% 1000 Ml Inj (Ns 1000 M (11/10/17 18:07) Sodium Chloride 0.9% Flush (Ns Flush) (11/10/17 18:15) Sodium Chloride 0.9... W/Pantoprazole In (11/10/17 18:07) Sodium Chloride 0.9... W/Pantoprazole In (11/10/17 18:07) Sodium Chlorid 0.9%... W/Octreotide Inj (11/10/17 18:40) Admit Order (Ed Use Only) (11/10/17 18:41) Consult Gastroenterology (11/10/17 ) (Hub Use Only)Inp Phy Cons/Ref (11/10/17 ) Labs Laboratory Tests Test 11/10/17 17:25 11/10/17 17:28 Prothrombin Time 22.1 SEC Prothromb Time International Ratio 2.2 RATIO Activated Partial Thromboplast Time 23.8 SEC Blood Urea Nitrogen 45 MG/DL Creatinine 1.07 MG/DL Random Glucose 90 MG/DL Total Protein 4.6 GM/DL Albumin 2.1 GM/DL Calcium Level 7.2 MG/DL Alkaline Phosphatase 44 U/L Aspartate Amino Transf (AST/SGOT) 99 U/L Alanine Aminotransferase (ALT/SGPT) 51 U/L Total Bilirubin 0.7 MG/DL Sodium Level 142 MEQ/L Potassium Level 5.2 MEQ/L Chloride Level 109 MEQ/L Carbon Dioxide Level 22.5 MEQ/L Anion Gap 11 MEQ/L Estimat Glomerular Filtration Rate 68 ML/MIN Protein Corrected Calcium 8.6 MG/DL Total Creatine Kinase 215 U/L Troponin I 0.19 NG/ML Thyroid Stimulating Hormone 3rd Gen 6.380 uIU/ML Ethyl Alcohol Level LESS THAN 3 MG/DL Lactic Acid Level 4.6 mmol/L Ammonia 68 MCMOL/L MDM Medical Decision Making Medical Screen Exam Complete: Yes Emergency Medical Condition: Yes Medical Record Reviewed: Yes Interpretation(s) EKG shows NSR, no acute ST elevation or depression, and no arrhythmias. No significant T-wave inversions.\ Laboratory Tests Test 11/10/17 17:25 11/10/17 17:28 Prothrombin Time 22.1 SEC (9.8-11.6) Activated Partial Thromboplast Time 23.8 SEC (24.3-30.1) Blood Urea Nitrogen 45 MG/DL (7-18) Total Protein 4.6 GM/DL (6.4-8.2) Albumin 2.1 GM/DL (3.4-5.0) Calcium Level 7.2 MG/DL (8.5-10.1) Alkaline Phosphatase 44 U/L (45-117) Aspartate Amino Transf (AST/SGOT) 99 U/L (15-37) Potassium Level 5.2 MEQ/L (3.5-5.1) Chloride Level 109 MEQ/L (98-107) Estimat Glomerular Filtration Rate 68 ML/MIN (>89) Troponin I 0.19 NG/ML (0.02-0.05) Thyroid Stimulating Hormone 3rd Gen 6.380 uIU/ML (0.358-3.740) Lactic Acid Level 4.6 mmol/L (0.4-2.0) Ammonia 68 MCMOL/L (11-32) Last [address] 11/10/176 Signed Impressions: Service Date/Time: Friday, November 10, 2017 17:58 - CONCLUSION: Normal examination for a patient of this age. No significant change has occurred. Jus Schmitz MD Chest X-Ray 11/10/171715 Signed Impressions: Service Date/Time: Friday, November 10, 2017 17:27 - CONCLUSION: No significant change with the left lower lung infiltrate. The right lung is clear and well-aerated. Crow Umaña MD Differential Diagnosis aaltered mental status: Metabolic issues versus dehydration versus CVA versus ICH versus hepatic encephalopathy Narrative Course Hemoccult was positive in the ER and with patient's recent history of GI bleed, there is concerned of a GI bleed. Initial CBC shows a hemoglobin of 3.6 according to lab. A redraw was not able to be done currently due to patient condition but is ordered. Lab work also shows significant lactate levels. Troponin is elevated. EKG did not show changes. Patient is ordered for 4 units of emergency release blood, Protonix, octreotide, IV fluids have been ordered for the patient. He is kept nothing by mouth in the ER. Case was discussed with Dr. Trujillo of ICU for admission for further treatment. Case was also discussed with GI doctor Nancy who states that he would like the patient to keep nothing by mouth. He is consult on the case. Aggregate critical care time was 30 minutes. Time to perform other separately billable procedures was not included in the critical care time. My time did not include minutes spent treating any other patients simultaneously or on activities that did not directly contribute to the patient's treatment. The services I provided to this patient were to treat and/or prevent clinically significant deterioration that could result in: Cardiac arrest, , GI bleed I provided critical care services requiring my management, as noted below: Chart data review, documentation time, medication orders and management, vital sign assessments/reviewing monitor data, ordering and reviewing lab tests, ordering and interpreting/reviewing x-rays and diagnostic studies, care of the patient and discussion of the patient with the admitting physicians. [facility] Point of Care Internal Pos. & Neg. Controls: Passed Fecal Specimen Occult Blood: Positive Sepsis Criteria Septic Shock Criteria: Lactic acid >=4 Diagnosis Primary Impression: Lower GI bleed Additional Impression: Severe anemia Admitting Information Admitting Physician Requests: it Olivia Hallman MD Nov 10, 2017 18:07
[2017-11-10] MEDS ORDERED: SODIUM CHLORIDE 0.9% FLUSH 10 ML FLUSH IVF PRN (18:15)
[2017-11-10] MEDS ORDERED: SODIUM CHLOR 0.9% 250 ML INJ 250 ML IV ONE (18:15)
[2017-11-10 18:17] LABS: ALT (GPT) 51 U/L (12-78); ANION GAP 11 MEQ/L (5-15); AST (GOT) 99 U/L (15-37); BICARBONATE 22.5 MEQ/L (21.0-32.0); BLOOD UREA NITROGEN 45 MG/DL (7-18); CHLORIDE 109 MEQ/L (98-107); GLOMERULAR FILTRATION RATE 68 ML/MIN (>89); SODIUM (NA) 142 MEQ/L (136-145)
[2017-11-10 18:23] LABS: ALCOHOL LESS THAN 3 MG/DL (0-5); APTT (PATIENT) 23.8 SEC (24.3-30.1); INTERNATIONAL NORMALIZED RATIO 2.2 RATIO; POTASSIUM 5.2 MEQ/L (3.5-5.1); PROTHROMBIN TIME - PATIENT 22.1 SEC (9.8-11.6)
[2017-11-10 18:24] LABS: ALKALINE PHOSPHATASE 44 U/L (45-117); CALCIUM-PROTEIN CORRECTED 8.6 MG/DL (8.5-10.1); CREATINE KINASE 215 U/L (39-308); TOTAL BILIRUBIN ADULT 0.7 MG/DL (0.2-1.0)
--- NOTE | 2017-11-10 18:31 | RADRPT ---
EXAM DATE/TIME: 11/10/2017 17:58 [facility] COMPARISON: CT BRAIN W/O CONTRAST, October 30, 2017, 1:04. INDICATIONS : Altered mental status for one day. RADIATION DOSE: 56.35 CTDIvol (mGy) MEDICAL HISTORY : Cardiovascular disease. Congestive heart failure. Hepatitis C.HTN, Esophageal varices. SURGICAL HISTORY : CABG ENCOUNTER: Initial ACUITY: 1 day PAIN SCALE: Non-responsive LOCATION: Bilateral cranial TECHNIQUE: Multiple contiguous axial images were obtained of the head. Using automated exposure control and adj ustment of the mA and/or kV according to patient size, radiation dose was kept as low as reasonably a chievable to obtain optimal diagnostic quality images. DICOM format image data is available electro nically for review and comparison. FINDINGS: CEREBRUM: The ventricles are normal for age. No evidence of midline shift, mass lesion, hemorrhage or acute in farction. No extra-axial fluid collections are seen. POSTERIOR FOSSA: The cerebellum and brainstem are intact. The 4th ventricle is midline. The cerebellopontine angle i s unremarkable. EXTRACRANIAL: The visualized portion of the orbits is intact. SKULL: The calvaria is intact. No evidence of skull fracture. CONCLUSION: Normal examination for a patient of this age. No significant change has occurred. Jus Schmitz MD on November 10, 2017 at 18:28 Board Certified Radiologist. This report was verified electronically.
[2017-11-10 18:54] LABS: HEMO FLAGS AUTO DIFF
[2017-11-10 18:55] LABS: HEMATOCRIT 11.7 % (39.0-51.0)
[2017-11-10] MEDS ORDERED: CHLORHEXIDINE GLUCONATE 2 % 1 PACK (2 CLOTHS) TOP PRN (19:15)
[2017-11-10] MEDS ORDERED: ONDANSETRON HCL 4 MG/2 ML VIAL IV PUSH PRN (19:15)
[2017-11-10] MEDS ORDERED: RESP: ALBUTEROL 2.5 MG/IPRATROPIUM 0.5 MG NEB (PRN) INH (19:15)
[2017-11-10] MEDS ORDERED: MISCELLANEOUS NURSING INFORMATION XX SCH (19:15)
[2017-11-10 19:20] LABS: BACTERIA, URINE RARE /hpf; BLOOD, URINE NEG (NEG); GLUCOSE,URINE NEG (NEG); KETONE, URINE NEG (NEG); NITRITE,URINE NEG (NEG); PH, URINE 5.5 (5.0-8.5); URINE COLOR YELLOW (YELLW/STRAW)
[2017-11-10 19:21] LABS: OVALOCYTES 1+ (NORMAL)
[2017-11-10 19:22] LABS: PLATELET ESTIMATE SMEAR LOW (NORMAL); PLATELET MORPHOLOGY ENLARGED (NORMAL); SCAN/DIFF AUTO DIFF CONFIRMED
[2017-11-10 19:24] LABS: COMMENT (UR) CATH-CULTURE IND; CULTURE IF INDICATED CATH CULTURE IND
[2017-11-10 19:36] LABS: LACTIC ACID GHOST NOT REPORTABLE
[2017-11-10] MEDS: PANTOPRAZOLE INJ 80 MG in SODIUM CHLORIDE 0.9% INJ 100 ML IV SCH (19:37)
[2017-11-10] MEDS: OCTREOTIDE INJ 500 MCG in SODIUM CHLORID 0.9% 500 ML INJ 500 ML IV SCH (19:38)
[2017-11-10] MEDS ORDERED: MORPHINE SULFATE 2 MG/ML INJ IV PRN (20:00)
[2017-11-10] MEDS ORDERED: FUROSEMIDE 40 MG/4 ML VIAL IV PUSH ONE (20:00)
[2017-11-10] MEDS: SODIUM CHLOR 0.9% 1000 ML INJ 1,000 ML IV SCH (20:09)
--- NOTE | 2017-11-10 21:28 | EKG ---
Date Performed: 11/10/2017 Time Performed: 17:43:27 PTAGE: 72 years EKG: Sinus rhythm NONSPECIFIC INTRAVENTRICULAR CONDUCTION DELAY RIGHT AXIS DEVIATION POOR R WAVE PROGRESSION ABNORMAL ECG NO PREVIOUS TRACING DOCTOR: Yeison Jacob Interpretating Date/Time 11/10/2017 21:26:50
--- NOTE | 2017-11-10 22:01 | HHI.HP ---
[facility] Service Critical Care Medicine Primary Care Physician [facility] Admission Diagnosis GI bleed/severe anemia/altered mental status Diagnosis: (1) GI bleed requiring more than 4 units of blood in 24 hours, ICU, or surgery Diagnosis: Principal (2) Severe anemia Diagnosis: Principal (3) Cirrhosis, alcoholic Diagnosis: Principal Chief Complaint: Confused. Travel History International Travel<30 Days: No Contact w/Intl Traveler <30 Da: No Traveled to Known Affected Are: No History of Present Illness 72 y/o man with long-standing alcoholic cirrhosis and recent GI bleed. Brought to ED today for confusion. Hgb 3.9 and stool heme positive. Hypotensive on arrival. Ammonia 68. INR 2.2 and confusing history of possible xarelto use. Review of Systems ROS Confused. Unobtainable. No family. Past Family Social History Allergies: Coded Allergies: No Known Allergies (Verified Adverse Reaction, Unknown, 11/10/17) Past Medical History Past Medical History Hx Anticoagulant Therapy: Yes (XARELTO) Arthritis: No Asthma: No Autoimmune Disease: No Anxiety: No Depression: No Heart Rhythm Problems: No Cancer: No Cardiovascular Problems: Yes High Cholesterol: Yes Chemotherapy: No Chest Pain: No Congestive Heart Failure: Yes COPD: Yes Cerebrovascular Accident: No Diabetes: No Diminished Hearing: No Endocrine: No Gastrointestinal Disorders: Yes (EROSIVE ESOPHAGITIS; COLITIS) GERD: Yes Glaucoma: No Genitourinary: No Headaches: No Hepatitis: Yes (C) Hiatal Hernia: Yes Hypertension: Yes Immune Disorder: No Kidney Stones: No Musculoskeletal: No Neurologic: No Psychiatric: No Reproductive: No Respiratory: Yes Migraines: No Myocardial Infarction: No Radiation Therapy: No Renal Failure: No Seizures: No Sickle Cell Disease: No Sleep Apnea: No Thyroid Disease: No Ulcer: No Past Surgical History Abdominal Surgery: Yes (ESOPHAGEAL VARICIES 2006) AICD: No Appendectomy: No Arteriovenous Shunt: No Cardiac Surgery: Yes Cholecystectomy: No Coronary Artery Bypass Graft: Yes (TRIPLE BYPASS) Ear Surgery: No Endocrine Surgery: No Eye Surgery: No Genitourinary Surgery: No Gynecologic Surgery: No Insulin Pump: No Joint Replacement: No Oral Surgery: No Pacemaker: No Thoracic Surgery: No Other Surgery: Yes (CABG) Social History Alcohol Use: No Tobacco Use: Yes (occasionally) Substance Use: No Allergies-Medications Allergies-Medications (Allergen,Severity, Reaction): Coded Allergies: No Known Allergies (Verified Adverse Reaction, Unknown, 11/10/17) Reported Meds & Prescriptions Reported Meds & Active Scripts Active Aldactone (Spironolactone) 25 Mg Tab 25 Mg PO DAILY Flomax (Tamsulosin HCl) 0.4 Mg Cap 0.4 Mg PO DAILY Reported Trazodone (Trazodone HCl) 50 Mg Tab 25 Mg PO HS Ferrous Sulfate DR (Ferrous Sulfate) 324 Mg Tabdr 324 Mg PO DAILY Sertraline (Sertraline HCl) 50 Mg Tab 50 Mg PO DAILY Allerclear (Loratadine) 10 Mg Tablet 10 Mg PO DAILY PRN Albuterol Neb (Albuterol Sulfate) 2.5 Mg/3 Ml Neb 2.5 Mg NEB Q6HR NEB PRN Symbicort Inh (Budesonide/Formoterol Fumarate) 160-4.5 Mcg/Act Aero 1 Puff INH BID Atorvastatin (Atorvastatin Calcium) 40 Mg Tab 40 Mg PO HS Omeprazole 20 Mg Tab 20 Mg PO DAILY Enulose Liq (Lactulose (Encephalopathy) Liq) 10 Gm/15 Ml Soln 10 Gm PO DAILY PRN Physical Exam Vital Signs Vital Signs Date Time Temp Pulse Resp B/P (MAP) Pulse Ox O2 Delivery O2 Flow Rate FiO2 11/10/17 21:00 88 22 114/62 (79) 100 Nasal Cannula 2.00 11/10/17 20:00 90 24 126/83 (97) 100 Nasal Cannula 2.00 11/10/17 19:34 100 Nasal Cannula 2.00 11/10/17 19:23 100 Nasal Cannula 2.00 11/10/17 19:00 88 24 106/58 (74) 100 Nasal Cannula 2.00 11/10/17 18:59 90 20 104/66 (79) 100 Nasal Cannula 2.00 11/10/17 18:51 90 26 113/56 (75) 100 Nasal Cannula 2.00 11/10/17 18:47 90 26 94/52 (66) 100 Nasal Cannula 2.00 11/10/17 17:20 97.9 76 24 90/47 (61) 99 Physical Exam Gen: Dishevelled, confused man. Head: Atraumatic. Neck: Supple, airway open. Lungs: Light wheezes. Heart: RRR, NL S1S2, no JVD. Abdomen: Distended, soft, reducible umbilical hernia 6 cm. Nontender, + ascites. Extremities: Tepid, erythematous lower legs bilaterally. Neuro: Moves 4 limbs. Slurred speech, disoriented to everything. Tracks with eyes. Laboratory Laboratory Tests Test 11/10/17 17:25 11/10/17 17:28 11/10/17 18:45 11/10/17 19:55 White Blood Count 6.2 Red Blood Count 1.16 Hemoglobin 3.9 Hematocrit 11.7 Mean Corpuscular Volume 100.8 Mean Corpuscular Hemoglobin 33.5 Mean Corpuscular Hemoglobin Concent 33.2 Red Cell Distribution Width 18.8 Platelet Count 137 Mean Platelet Volume 10.0 Neutrophils (%) (Auto) 73.9 Lymphocytes (%) (Auto) 12.6 Monocytes (%) (Auto) 12.5 Eosinophils (%) (Auto) 0.5 Basophils (%) (Auto) 0.5 Neutrophils # (Auto) 4.6 Lymphocytes # (Auto) 0.8 Monocytes # (Auto) 0.8 Eosinophils # (Auto) 0.0 Basophils # (Auto) 0.0 CBC Comment AUTO DIFF Differential Comment AUTO DIFF CONFIRMED Platelet Estimate LOW Platelet Morphology Comment ENLARGED Ovalocytes 1+ Prothrombin Time 22.1 Prothromb Time International Ratio 2.2 Activated Partial Thromboplast Time 23.8 Blood Urea Nitrogen 45 Creatinine 1.07 Random Glucose 90 Total Protein 4.6 Albumin 2.1 Calcium Level 7.2 Alkaline Phosphatase 44 Aspartate Amino Transf (AST/SGOT) 99 Alanine Aminotransferase (ALT/SGPT) 51 Total Bilirubin 0.7 Sodium Level 142 Potassium Level 5.2 Chloride Level 109 Carbon Dioxide Level 22.5 Anion Gap 11 Estimat Glomerular Filtration Rate 68 Protein Corrected Calcium 8.6 Total Creatine Kinase 215 Troponin I 0.19 Thyroid Stimulating Hormone 3rd Gen 6.380 Ethyl Alcohol Level LESS THAN 3 Lactic Acid Level 4.6 3.9 Ammonia 68 Urine Color YELLOW Urine Turbidity CLEAR Urine pH 5.5 Urine Specific [place] 1.017 Urine Protein NEG Urine Glucose (UA) NEG Urine Ketones NEG Urine Occult Blood NEG Urine Nitrite NEG Urine Bilirubin NEG Urine Urobilinogen LESS THAN 2.0 Urine Leukocyte Esterase NEG Urine RBC 1 Urine WBC LESS THAN 1 Urine Bacteria RARE Microscopic Urinalysis Comment CATH-CULTURE IND Urine Opiates Screen NEG Urine Barbiturates Screen NEG Urine Amphetamines Screen NEG Urine Benzodiazepines Screen NEG Urine Cocaine Screen NEG Urine Cannabinoids Screen NEG Date/Time Source Procedure Growth Status 11/10/17 17:28 Blood Peripheral Aerobic Blood Culture Pending Received 11/10/17 17:28 Blood Peripheral Anaerobic Blood Culture Pending Received 11/10/17 18:45 Urine Clean Catch Urine Culture Pending Received Result Diagram: 11/10/17 1725 11/10/17 1725 Caprini VTE Risk Assessment Caprini VTE Risk Assessment: No/Low Risk (score <= 1) Caprini Risk Assessment Model Point Value = 1 Point Value = 2 Point Value = 3 Point Value = 5 Age 41-60 Minor surgery BMI > 25 kg/m2 Swollen legs Varicose veins or History of unexplained or recurrent spontaneous Oral contraceptives or hormone replacement Sepsis (< 1 month) Serious lung disease, including pneumonia (< 1 month) Abnormal pulmonary function Acute myocardial infarction Congestive heart failure (< 1 month) History of inflammatory bowel disease Medical patient at bed rest Age 61-74 Arthroscopic surgery Major open surgery (> 45 min) Laparoscopic surgery (> 45 min) Malignancy Confined to bed (> 72 hours) Immobilizing plaster cast Central venous access Age >= 75 History of VTE Family history of VTE Factor V Leiden Prothrombin [id number] Lupus anticoagulant Anticardiolipin antibodies Elevated serum homocysteine Heparin-induced thrombocytopenia Other congenital or acquired thrombophilia Stroke (< 1 month) Elective arthroplasty Hip, pelvis, or leg fracture Acute spinal cord injury (< 1 month) Prophylaxis Regimen Total Risk Factor Score Risk Level Prophylaxis Regimen 0-1 Low Early ambulation 2 Moderate Order ONE of the following: *Sequential Compression Device (SCD) *Heparin 5000 units SQ BID 3-4 Higher Order ONE of the following medications: *Heparin 5000 units SQ TID *Enoxaparin/Lovenox 40 mg SQ daily (WT < 150 kg, CrCl > 30 mL/min) *Enoxaparin/Lovenox 30 mg SQ daily (WT < 150 kg, CrCl > 10-29 mL/min) *Enoxaparin/Lovenox 30 mg SQ BID (WT < 150 kg, CrCl > 30 mL/min) AND/OR *Sequential Compression Device (SCD) 5 or more Highest Order ONE of the following medications: *Heparin 5000 units SQ TID (Preferred with Epidurals) *Enoxaparin/Lovenox 40 mg SQ daily (WT < 150 kg, CrCl > 30 mL/min) *Enoxaparin/Lovenox 30 mg SQ daily (WT < 150 kg, CrCl > 10-29 mL/min) *Enoxaparin/Lovenox 30 mg SQ BID (WT < 150 kg, CrCl > 30 mL/min) AND *Sequential Compression Device (SCD) Assessment and Plan Assessment and Plan Assessment: 1. GI bleed, > 4 units. 2. Severe anemia. 3. Cirrhosis. 4. Hepatic Encephalopathy. 5. Coagulopathy. Plan: 1. Transfuse 4 RBC and 4 FFP. 2. Protonix gtt. 3. Octreotide gtt. 4. GI has been consulted from ED. 5. Serial Hgb. 6. Bronchodilators. Overall impression: Critically ill with life-threatening GI bleed, coagulopathy , and cirrhosis. Will start lactulose after endoscopy. Hold rifaximin for now. Critical Care 38 mins Azael Valenzuela MD Nov 10, 2017 22:01
[2017-11-10] MEDS ORDERED: RESP: ALBUTEROL 2.5 MG/3 ML NEB (PRN) NEB (22:15)
[2017-11-10] MEDS ORDERED: LACTULOSE SYRUP 20 GM/30 ML CUP PO PRN (22:15)
[2017-11-11] VITALS (16 sets, daily range): BP systolic 91–122; BP diastolic 53–74; PULSE 82–100; RESP 16–35; TEMP 97.1–98.3; O2SAT 96–100
[2017-11-11 03:45] LABS: ANION GAP 8 MEQ/L (5-15); AST (GOT) 120 U/L (15-37); BICARBONATE 25.8 MEQ/L (21.0-32.0); BLOOD UREA NITROGEN 45 MG/DL (7-18); CHLORIDE 109 MEQ/L (98-107); GLOMERULAR FILTRATION RATE 75 ML/MIN (>89); POTASSIUM 4.7 MEQ/L (3.5-5.1); SODIUM (NA) 143 MEQ/L (136-145)
[2017-11-11 03:48] LABS: ALKALINE PHOSPHATASE 58 U/L (45-117); ALT (GPT) 69 U/L (12-78); TOTAL BILIRUBIN ADULT 1.7 MG/DL (0.2-1.0)
[2017-11-11] MEDS: CHLORHEXIDINE GLUCONATE 2 % 1 PACK (2 CLOTHS) TOP SCH (04:00)
[2017-11-11] MEDS: PANTOPRAZOLE INJ 80 MG in SODIUM CHLORIDE 0.9% INJ 100 ML IV SCH ×3 (04:07→19:45)
[2017-11-11] MEDS: OCTREOTIDE INJ 500 MCG in SODIUM CHLORID 0.9% 500 ML INJ 500 ML IV SCH ×2 (04:41→17:34)
[2017-11-11] MEDS: SODIUM CHLOR 0.9% 1000 ML INJ 1,000 ML IV SCH (06:00)
[2017-11-11] MEDS: SPIRONOLACTONE 25 MG TAB PO SCH (09:10)
[2017-11-11] MEDS: TAMSULOSIN HCL 0.4 MG CAP PO SCH (09:10)
[2017-11-11] MEDS: BUDESONIDE-FORMOTEROL 160/4.5 MCG INHALER INH SCH ×2 (09:11→21:00)
[2017-11-11 09:43] LABS: INTERNATIONAL NORMALIZED RATIO 1.5 RATIO; PROTHROMBIN TIME - PATIENT 15.5 SEC (9.8-11.6)
[2017-11-11 09:47] LABS: HEMATOCRIT 21.2 % (39.0-51.0)
[2017-11-11 09:52] LABS: REVIEW FLAG FINAL
[2017-11-11 10:06] LABS: AUTOMATED NEUTROPHIL # 5.5 TH/MM3 (1.8-7.7); BASOPHIL # 0.1 TH/MM3 (0-0.2); EOSINOPHIL # 0.2 TH/MM3 (0-0.4); EOSINOPHIL % 2.4 % (0.0-4.0); HEMATOCRIT 23.3 % (39.0-51.0); LYMPH % 8.3 % (9.0-44.0); LYMPHOCYTE # 0.6 TH/MM3 (1.0-4.8); MEAN CELL VOLUME 91.7 FL (80.0-100.0); MEAN CORPUSCULAR HEMOGLOBIN 31.9 PG (27.0-34.0); MEAN CORPUSCULAR HGB CONC 34.9 % (32.0-36.0); MONO % 15.2 % (0.0-8.0); NEUT % 73.1 % (16.0-70.0); PLATELET COUNT 61 TH/MM3 (150-450); RED BLOOD COUNT 2.55 MIL/MM3 (4.50-5.90); RED CELL DISTRIBUTION WIDTH 15.3 % (11.6-17.2); WHITE BLOOD COUNT 7.5 TH/MM3 (4.0-11.0)
[2017-11-11 10:07] LABS: HEMO FLAGS AUTO DIFF
[2017-11-11] MEDS ORDERED: GLUCAGON 1 MG/ML VIAL IV PUSH ONE (10:11)
[2017-11-11] MEDS ORDERED: SIMETHICONE SUSP DROPS 40 MG/0.6 ML 30 ML BTL PO ONE (10:13)
--- NOTE | 2017-11-11 10:33 | PD.CONS ---
HPI History of Present Illness This is a 72 year old male admitted for severe anemia and GI bleed. He is in ICU. He has cirrhosis and ascites. Recent admission for the same thing. 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 Pt received 4 untis of blood last night. He is encephalopathic. [facility] Coded Allergies: No Known Allergies (Verified Adverse Reaction, Unknown, 11/10/17) Medications Current Medications Medications (Trade) Dose Ordered Sig/Primo Route Start Time Stop Time Status Last Admin (NS Flush) 2 ml UNSCH PRN IV FLUSH 11/10/17 17:30 Sodium Chloride 250 ml @ 15 mls/hr ONCE ONCE IV 11/10/17 18:15 11/11/17 10:54 11/10/17 19:37 (NS Flush) 2 ml UNSCH PRN IVF 11/10/17 18:15 Pantoprazole Sodium 80 mg/ Sodium Chloride 100 ml @ 10 mls/hr Q10H IV 11/10/17 18:07 11/11/17 09:10 Octreotide Acetate 500 mcg/ Sodium Chloride 500.5 ml @ 50 mls/hr Q10H1M IV 11/10/17 18:40 11/11/17 04:41 Sodium Chloride 1,000 ml @ 100 mls/hr Q10H IV 11/10/17 20:00 11/10/17 20:09 (Morphine Inj) 2 mg Q2H PRN IV 11/10/17 20:00 (Zofran Inj) 4 mg Q6H PRN IV PUSH 11/10/17 19:15 (Duoneb Neb) 1 ampule Q4HR NEB PRN INH 11/10/17 19:15 Miscellaneous Information 1 [id number] XX 11/10/17 19:15 (Chlorhexidine 2% Cloth) 3 pack Taper DAILY@04 TOP 11/11/17 04:00 11/07/18 03:59 (Chlorhexidine 2% Cloth) 3 pack UNSCH PRN TOP 11/10/17 19:15 (Albuterol Neb) 2.5 mg Q6HR NEB PRN NEB 11/10/17 22:15 (Lipitor) 40 mg HS PO 11/11/17 21:00 (Symbicort 160-4.5 Mcg Inh) 1 puff BID INH 11/11/17 09:00 11/11/17 09:11 (Aldactone) 25 mg DAILY PO 11/11/17 09:00 11/11/17 09:10 (Flomax) 0.4 mg DAILY PO 11/11/17 09:00 11/11/17 09:10 (Lactulose Liq) 10 ml DAILY PRN PO 11/10/17 22:15 GI Exam Vitals I&O Vital Signs Date Time Temp Pulse Resp B/P (MAP) Pulse Ox O2 Delivery O2 Flow Rate FiO2 11/11/17 10:05 96 Nasal Cannula 2.00 11/11/17 06:00 90 11/11/17 04:00 97.1 90 35 100/58 (72) 100 11/11/17 04:00 90 11/11/17 02:00 90 11/11/17 00:00 97.5 82 16 101/58 (72) 100 11/11/17 00:00 82 11/10/17 23:00 83 11/10/17 21:00 88 22 114/62 (79) 100 Nasal Cannula 2.00 11/10/17 20:00 97.2 90 17 109/61 (77) 100 11/10/17 20:00 90 24 126/83 (97) 100 Nasal Cannula 2.00 11/10/17 19:34 100 Nasal Cannula 2.00 11/10/17 19:23 100 Nasal Cannula 2.00 11/10/17 19:00 88 24 106/58 (74) 100 Nasal Cannula 2.00 11/10/17 18:59 90 20 104/66 (79) 100 Nasal Cannula 2.00 11/10/17 18:51 90 26 113/56 (75) 100 Nasal Cannula 2.00 11/10/17 18:47 90 26 94/52 (66) 100 Nasal Cannula 2.00 11/10/17 17:20 97.9 76 24 90/47 (61) 99 I/O 11/10/17 11/10/17 11/10/17 11/11/17 11/11/17 11/11/17 07:00 15:00 23:00 07:00 15:00 23:00 Intake Total 85 ml 1796 ml Output Total 1900 ml Balance 85 ml -104 ml Intake IV Total 85 ml 600 ml FFP 1106 ml Blood Product IV Normal Saline Flush 90 ml Output Urine Total 1900 ml # Bowel Movements 0 Laboratory Test 11/10/17 17:25 11/10/17 17:28 11/10/17 18:45 11/10/17 19:55 White Blood Count 6.2 TH/MM3 Red Blood Count 1.16 MIL/MM3 Hemoglobin 3.9 GM/DL Hematocrit 11.7 % Mean Corpuscular Volume 100.8 FL Mean Corpuscular Hemoglobin 33.5 PG Mean Corpuscular Hemoglobin Concent 33.2 % Red Cell Distribution Width 18.8 % Platelet Count 137 TH/MM3 Mean Platelet Volume 10.0 FL Neutrophils (%) (Auto) 73.9 % Lymphocytes (%) (Auto) 12.6 % Monocytes (%) (Auto) 12.5 % Eosinophils (%) (Auto) 0.5 % Basophils (%) (Auto) 0.5 % Neutrophils # (Auto) 4.6 TH/MM3 Lymphocytes # (Auto) 0.8 TH/MM3 Monocytes # (Auto) 0.8 TH/MM3 Eosinophils # (Auto) 0.0 TH/MM3 Basophils # (Auto) 0.0 TH/MM3 CBC Comment AUTO DIFF Differential Comment AUTO DIFF CONFIRMED Platelet Estimate LOW Platelet Morphology Comment ENLARGED Ovalocytes 1+ Prothrombin Time 22.1 SEC Prothromb Time International Ratio 2.2 RATIO Activated Partial Thromboplast Time 23.8 SEC Blood Urea Nitrogen 45 MG/DL Creatinine 1.07 MG/DL Random Glucose 90 MG/DL Total Protein 4.6 GM/DL Albumin 2.1 GM/DL Calcium Level 7.2 MG/DL Alkaline Phosphatase 44 U/L Aspartate Amino Transf (AST/SGOT) 99 U/L Alanine Aminotransferase (ALT/SGPT) 51 U/L Total Bilirubin 0.7 MG/DL Sodium Level 142 MEQ/L Potassium Level 5.2 MEQ/L Chloride Level 109 MEQ/L Carbon Dioxide Level 22.5 MEQ/L Anion Gap 11 MEQ/L Estimat Glomerular Filtration Rate 68 ML/MIN Protein Corrected Calcium 8.6 MG/DL Total Creatine Kinase 215 U/L Troponin I 0.19 NG/ML Thyroid Stimulating Hormone 3rd Gen 6.380 uIU/ML Ethyl Alcohol Level LESS THAN 3 MG/DL Lactic Acid Level 4.6 mmol/L 3.9 mmol/L Ammonia 68 MCMOL/L Urine Color YELLOW Urine Turbidity CLEAR Urine pH 5.5 Urine Specific [place] 1.017 Urine Protein NEG mg/dL Urine Glucose (UA) NEG mg/dL Urine Ketones NEG mg/dL Urine Occult Blood NEG Urine Nitrite NEG Urine Bilirubin NEG Urine Urobilinogen LESS THAN 2.0 MG/DL Urine Leukocyte Esterase NEG Urine RBC 1 /hpf Urine WBC LESS THAN 1 /hpf Urine Bacteria RARE /hpf Microscopic Urinalysis Comment CATH-CULTURE IND Urine Opiates Screen NEG Urine Barbiturates Screen NEG Urine Amphetamines Screen NEG Urine Benzodiazepines Screen NEG Urine Cocaine Screen NEG Urine Cannabinoids Screen NEG Test 11/10/17 21:30 11/11/17 02:56 11/11/17 09:10 11/11/17 09:15 Nasal Screen MRSA (PCR) MRSA NOT DETECTED Blood Urea Nitrogen 45 MG/DL Creatinine 0.99 MG/DL Random Glucose 110 MG/DL Total Protein 5.4 GM/DL Albumin 2.6 GM/DL Calcium Level 7.7 MG/DL Alkaline Phosphatase 58 U/L Aspartate Amino Transf (AST/SGOT) 120 U/L Alanine Aminotransferase (ALT/SGPT) 69 U/L Total Bilirubin 1.7 MG/DL Sodium Level 143 MEQ/L Potassium Level 4.7 MEQ/L Chloride Level 109 MEQ/L Carbon Dioxide Level 25.8 MEQ/L Anion Gap 8 MEQ/L Estimat Glomerular Filtration Rate 75 ML/MIN White Blood Count 7.5 TH/MM3 Red Blood Count 2.55 MIL/MM3 Hemoglobin 8.1 GM/DL 7.1 GM/DL Hematocrit 23.3 % 21.2 % Mean Corpuscular Volume 91.7 FL Mean Corpuscular Hemoglobin 31.9 PG Mean Corpuscular Hemoglobin Concent 34.9 % Red Cell Distribution Width 15.3 % Platelet Count 61 TH/MM3 Mean Platelet Volume 9.3 FL Neutrophils (%) (Auto) 73.1 % Lymphocytes (%) (Auto) 8.3 % Monocytes (%) (Auto) 15.2 % Eosinophils (%) (Auto) 2.4 % Basophils (%) (Auto) 1.0 % Neutrophils # (Auto) 5.5 TH/MM3 Lymphocytes # (Auto) 0.6 TH/MM3 Monocytes # (Auto) 1.1 TH/MM3 Eosinophils # (Auto) 0.2 TH/MM3 Basophils # (Auto) 0.1 TH/MM3 CBC Comment AUTO DIFF Hematology Comments Lactic Acid Level 1.8 mmol/L Prothrombin Time 15.5 SEC Prothromb Time International Ratio 1.5 RATIO Date/Time Source Procedure Growth Status 11/10/17 17:28 Blood Peripheral Aerobic Blood Culture Pending Received 11/10/17 17:28 Blood Peripheral Anaerobic Blood Culture Pending Received 11/10/17 18:45 Urine Clean Catch Urine Culture Pending Received Physical Examination HEENT: Pupils round and reactive to light; normocephalic; atraumatic; jaundiced. Throat is clear. NECK: Neck is supple, no JVD, no lymphadenopathy. CHEST: Chest is clear to auscultation and percussion. CARDIAC: Regular rate and rhythm with no murmur gallop or rubs. ABDOMEN: Soft, ascites EXTREMITIES: No clubbing, cyanosis SKIN: no rash GEOPHYSICIST: confused Assessment and Plan Plan Recurrent GI bleed, probably upper, possible PHGastropathy. Vs varices in esophagus. Plan: EGD with search for bleeding site. Will place variceal bands if possible to do so. Jericho Olvera MD Nov 11, 2017 10:33
--- NOTE | 2017-11-11 10:39 | HHI.GIFU ---
Subjective Remarks EGD performed with findings of PHGastropathy but one large poss AVM. Cauterized with bipolar and Clipped x 2. Located in cardia in difficult location. No gastric varices seen. Esophageal varices appeared fairly small but with focal erythematous spots. Bands placed x 4 in all quadrants. Distal esohagus. Duodenum was negative for ulcers or bleeding lesions. Objective Vitals I&O Vital Signs Date Time Temp Pulse Resp B/P (MAP) Pulse Ox O2 Delivery O2 Flow Rate FiO2 11/11/17 10:05 96 Nasal Cannula 2.00 11/11/17 06:00 90 11/11/17 04:00 97.1 90 35 100/58 (72) 100 11/11/17 04:00 90 11/11/17 02:00 90 11/11/17 00:00 97.5 82 16 101/58 (72) 100 11/11/17 00:00 82 11/10/17 23:00 83 11/10/17 21:00 88 22 114/62 (79) 100 Nasal Cannula 2.00 11/10/17 20:00 97.2 90 17 109/61 (77) 100 11/10/17 20:00 90 24 126/83 (97) 100 Nasal Cannula 2.00 11/10/17 19:34 100 Nasal Cannula 2.00 11/10/17 19:23 100 Nasal Cannula 2.00 11/10/17 19:00 88 24 106/58 (74) 100 Nasal Cannula 2.00 11/10/17 18:59 90 20 104/66 (79) 100 Nasal Cannula 2.00 11/10/17 18:51 90 26 113/56 (75) 100 Nasal Cannula 2.00 11/10/17 18:47 90 26 94/52 (66) 100 Nasal Cannula 2.00 11/10/17 17:20 97.9 76 24 90/47 (61) 99 I/O 11/10/17 11/10/17 11/10/17 11/11/17 11/11/17 11/11/17 07:00 15:00 23:00 07:00 15:00 23:00 Intake Total 85 ml 1796 ml Output Total 1900 ml Balance 85 ml -104 ml Intake IV Total 85 ml 600 ml FFP 1106 ml Blood Product IV Normal Saline Flush 90 ml Output Urine Total 1900 ml # Bowel Movements 0 Laboratory Laboratory Tests Test 11/10/17 17:25 11/10/17 17:28 11/10/17 18:45 11/10/17 19:55 White Blood Count 6.2 Red Blood Count 1.16 Hemoglobin 3.9 Hematocrit 11.7 Mean Corpuscular Volume 100.8 Mean Corpuscular Hemoglobin 33.5 Mean Corpuscular Hemoglobin Concent 33.2 Red Cell Distribution Width 18.8 Platelet Count 137 Mean Platelet Volume 10.0 Neutrophils (%) (Auto) 73.9 Lymphocytes (%) (Auto) 12.6 Monocytes (%) (Auto) 12.5 Eosinophils (%) (Auto) 0.5 Basophils (%) (Auto) 0.5 Neutrophils # (Auto) 4.6 Lymphocytes # (Auto) 0.8 Monocytes # (Auto) 0.8 Eosinophils # (Auto) 0.0 Basophils # (Auto) 0.0 CBC Comment AUTO DIFF Differential Comment AUTO DIFF CONFIRMED Platelet Estimate LOW Platelet Morphology Comment ENLARGED Ovalocytes 1+ Prothrombin Time 22.1 Prothromb Time International Ratio 2.2 Activated Partial Thromboplast Time 23.8 Blood Urea Nitrogen 45 Creatinine 1.07 Random Glucose 90 Total Protein 4.6 Albumin 2.1 Calcium Level 7.2 Alkaline Phosphatase 44 Aspartate Amino Transf (AST/SGOT) 99 Alanine Aminotransferase (ALT/SGPT) 51 Total Bilirubin 0.7 Sodium Level 142 Potassium Level 5.2 Chloride Level 109 Carbon Dioxide Level 22.5 Anion Gap 11 Estimat Glomerular Filtration Rate 68 Protein Corrected Calcium 8.6 Total Creatine Kinase 215 Troponin I 0.19 Thyroid Stimulating Hormone 3rd Gen 6.380 Ethyl Alcohol Level LESS THAN 3 Lactic Acid Level 4.6 3.9 Ammonia 68 Urine Color YELLOW Urine Turbidity CLEAR Urine pH 5.5 Urine Specific [place] 1.017 Urine Protein NEG Urine Glucose (UA) NEG Urine Ketones NEG Urine Occult Blood NEG Urine Nitrite NEG Urine Bilirubin NEG Urine Urobilinogen LESS THAN 2.0 Urine Leukocyte Esterase NEG Urine RBC 1 Urine WBC LESS THAN 1 Urine Bacteria RARE Microscopic Urinalysis Comment CATH-CULTURE IND Urine Opiates Screen NEG Urine Barbiturates Screen NEG Urine Amphetamines Screen NEG Urine Benzodiazepines Screen NEG Urine Cocaine Screen NEG Urine Cannabinoids Screen NEG Test 11/10/17 21:30 11/11/17 02:56 11/11/17 09:10 11/11/17 09:15 Nasal Screen MRSA (PCR) MRSA NOT DETECTED Blood Urea Nitrogen 45 Creatinine 0.99 Random Glucose 110 Total Protein 5.4 Albumin 2.6 Calcium Level 7.7 Alkaline Phosphatase 58 Aspartate Amino Transf (AST/SGOT) 120 Alanine Aminotransferase (ALT/SGPT) 69 Total Bilirubin 1.7 Sodium Level 143 Potassium Level 4.7 Chloride Level 109 Carbon Dioxide Level 25.8 Anion Gap 8 Estimat Glomerular Filtration Rate 75 White Blood Count 7.5 Red Blood Count 2.55 Hemoglobin 8.1 7.1 Hematocrit 23.3 21.2 Mean Corpuscular Volume 91.7 Mean Corpuscular Hemoglobin 31.9 Mean Corpuscular Hemoglobin Concent 34.9 Red Cell Distribution Width 15.3 Platelet Count 61 Mean Platelet Volume 9.3 Neutrophils (%) (Auto) 73.1 Lymphocytes (%) (Auto) 8.3 Monocytes (%) (Auto) 15.2 Eosinophils (%) (Auto) 2.4 Basophils (%) (Auto) 1.0 Neutrophils # (Auto) 5.5 Lymphocytes # (Auto) 0.6 Monocytes # (Auto) 1.1 Eosinophils # (Auto) 0.2 Basophils # (Auto) 0.1 CBC Comment AUTO DIFF Hematology Comments Lactic Acid Level 1.8 Prothrombin Time 15.5 Prothromb Time International Ratio 1.5 Date/Time Source Procedure Growth Status 11/10/17 17:28 Blood Peripheral Aerobic Blood Culture Pending Received 11/10/17 17:28 Blood Peripheral Anaerobic Blood Culture Pending Received 11/10/17 18:45 Urine Clean Catch Urine Culture Pending Received Physical Exam HEENT: Jaundiced NECK: Neck is supple, no JVD, no lymphadenopathy. CHEST: Chest is clear to auscultation and percussion. CARDIAC: Regular rate and rhythm with no murmur gallop or rubs. ABDOMEN: Soft, ascites EXTREMITIES: No cyanosis SKIN: jaundice. AUTO APPRENTICE MECHANIC: encephalopathic Assessment and Plan Plan Recurrent GI bleed, probably upper, possible PHGastropathy. Vs varices in esophagus. 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 Cauterized with bipolar and clips placed x 2 Esophageal varices distally banded x 4. Plan: Continue supportive measures. Correct coagulopathy. Paracentesis when possible. Broad spectrum antibiotics. Clear liquid diet. Lactulose and Xifaxan. Further recommendations as case progresses. Jericho Olvera MD Nov 11, 2017 10:39
[2017-11-11 10:52] LABS: PLATELET ESTIMATE SMEAR LOW (NORMAL); PLATELET MORPHOLOGY NORMAL (NORMAL)
[2017-11-11 10:53] LABS: SCAN/DIFF AUTO DIFF CONFIRMED
[2017-11-11] MEDS ORDERED: DO NOT ADM ANY ANTICOAGULANT DRUGS PRN (11:45)
[2017-11-11] MEDS ORDERED: SODIUM CHLOR 0.9% 250 ML INJ 250 ML IV ONE (13:00)
--- NOTE | 2017-11-11 13:11 | HHI.CCPN ---
Subjective Remarks/Hospital Course Hospital Course: 72 y/o man with long-standing alcoholic cirrhosis and recent GI bleed. Brought to ED today for confusion. Hgb 3.9 and stool heme positive. Hypotensive on arrival. Ammonia 68. INR 2.2 and confusing history of possible xarelto use. Subjective: 11/11: Mr. Ayala is well-known to me, and I took care of him last week for his last upper GI bleed. I evaluated him again today. he is much more encephalopathic today than on previous admission. GI banded varices as well as injected a possible AVM. portal gastropathy is still the leading diagnosis for his recurrent GI bleeds. hgb remains 7 and he remains hypotensive this morning. I have ordered 1 additional unit prbc. GI recommended additional paracentesis at some point when stable. on my physical exam, his abdomen is much softer than it was last week when we pulled off 12 L in high-volume paracentesis, so we will defer for today. he is unable to complete a daily history of ROS due to his encephalopathy. Objective Vital Signs Date Time Temp Pulse Resp B/P (MAP) Pulse Ox O2 Delivery O2 Flow Rate FiO2 11/11/17 11:15 85 16 105/63 (77) 99 Nasal Cannula 2 11/11/17 11:00 97.8 Intake and Output 11/11/17 11/11/17 11/12/17 08:00 16:00 00:00 Intake Total 1796 ml 100 ml Output Total 1900 ml 250 ml Balance -104 ml -150 ml Result Diagram: 11/11/17 0915 11/11/17 0256 Objective Remarks Gen: Dishevelled, confused man, lying in bed Head: Atraumatic. Neck: trachea midline. no jvd. Lungs: 2L nc. equal chest rise. Heart: normal rate, regular rhythm. MAP 59 mmHg on my eval. Abdomen: mildly distended but soft. much less distended than on my last evaluation last week. + fluid wave. stable, reducible ventral hernia. Extremities: warm and well-perfused. Neuro: RASS -2. CAM+. confused. follows commands, oriented to self only. A/P Assessment and Plan Assessment: 72yM with alcoholic cirrhosis and End-stage liver disease with multiple comorbid stigmata of his liver disease, now with recurrent GI bleeding , likely secondary to portal gastropathy. 1 unit prbc. trend CMP, H&H, Coags. Rocephin for SBP prophylaxis. hepatic encephalopathy is significantly worse from prior exam: will start lactulose and rifaximin. May need to get palliative care involved given his significant decline with recurrent life-threatening GI bleeds. Plan: Neuro: Hepatic Encephalopathy- worsening rifaximin and lactulose frequent neuro checks avoid long-acting sedatives Resp: Atelectasis wean o2 by nc for goal spo2 > 90% aggressive pulmonary toilet prn nebs CV: hemorrhagic shock- resolving 1 unit prbc frequent vital signs watch uop closely Renal: acute kidney injury secondary to hemorrhagic shock strict i/os FEN/GI Alcoholic Cirrhosis End-stage Liver Disease Acute protein calorie malnutrition- severe Life-threatening upper GI bleed Ascites Portal Hypertension Portal Gastropathy diet per GI IV thiamine does not currently need repeat paracentesis, as his abdomen is softer than my last evaluation. however, will likely need serial high-volume paracenteses. trend CMP. trend hgb GI consulted rocephin for SBP prophylaxis. would need propranolol for portal hypertension, but will hold given hemodynamic instability and recent GI bleed. PPI drip octreotide drip Heme/ID: Anemia secondary to acute blood loss Coagulopathy secondary to end-stage liver disease Thrombocytopenia secondary to end-stage liver disease Rocephin for SBP prophylaxis 1 unit prbc for persistent anemia despite transfusion with hypotension trend h&h daily coags does not meet ffp transfusion criteria at this time given control of bleeding thrombocytopenia is chronic. low probability HIT. monitor. Endocrine: SSI Prophylaxis SCDs avoid pharmacologic dvt prophylaxis given active upper gi bleed ppi drip Lines: piv Dispo: remain in ICU today for close monitoring. Shivam Varghese MD Nov 11, 2017 13:11
[2017-11-11] MEDS ORDERED: RESP: ALBUTEROL 2.5 MG/IPRATROPIUM 0.5 MG NEB (PRN) INH (13:15)
[2017-11-11] MEDS: LACTULOSE SYRUP 20 GM/30 ML CUP PO SCH ×3 (14:00→20:24)
[2017-11-11] MEDS: RIFAXIMIN 200 MG TAB PO SCH ×2 (14:00→22:00)
[2017-11-11] MEDS: RESP: ALBUTEROL 2.5 MG/IPRATROPIUM 0.5 MG NEB (SCH) INH ×2 (16:00→20:26)
[2017-11-11] MEDS: THIAMINE INJ 100 MG in SODIUM CHLORIDE 0.9% INJ 100 ML IV SCH (17:36)
[2017-11-11] MEDS: cefTRIAXone INJ 1,000 MG in SODIUM CHLORIDE 0.9% INJ 100 ML IV SCH (17:36)
[2017-11-11] MEDS ORDERED: LACTULOSE LIQ 300 ML in WATER STERILE FOR IRR BTL 700 ML RECTAL ONE (18:30)
[2017-11-11] MEDS: ATORVASTATIN 40 MG TAB PO SCH (20:24)
[2017-11-11 23:34] LABS: HEMATOCRIT 27.1 % (39.0-51.0)
[2017-11-11 23:39] LABS: REVIEW FLAG FINAL
[2017-11-12] VITALS (13 sets, daily range): BP systolic 109–117; BP diastolic 69–74; PULSE 84–93; RESP 20–27; TEMP 97.2–98.3; O2SAT 96–100
[2017-11-12] MEDS: SODIUM CHLOR 0.9% 1000 ML INJ 1,000 ML IV SCH ×3 (02:47→22:40)
[2017-11-12] MEDS: RESP: ALBUTEROL 2.5 MG/IPRATROPIUM 0.5 MG NEB (SCH) INH ×4 (03:44→20:30)
[2017-11-12] MEDS: CHLORHEXIDINE GLUCONATE 2 % 1 PACK (2 CLOTHS) TOP SCH (04:00)
[2017-11-12] MEDS: OCTREOTIDE INJ 500 MCG in SODIUM CHLORID 0.9% 500 ML INJ 500 ML IV SCH ×3 (04:36→22:41)
[2017-11-12 04:47] LABS: BICARBONATE 22.4 MEQ/L (21.0-32.0)
[2017-11-12] MEDS: RIFAXIMIN 200 MG TAB PO SCH ×3 (06:00→22:40)
[2017-11-12] MEDS: PANTOPRAZOLE INJ 80 MG in SODIUM CHLORIDE 0.9% INJ 100 ML IV SCH ×2 (06:57→17:15)
[2017-11-12] MEDS: BUDESONIDE-FORMOTEROL 160/4.5 MCG INHALER INH SCH ×2 (10:02→22:41)
[2017-11-12] MEDS: TAMSULOSIN HCL 0.4 MG CAP PO SCH (10:02)
[2017-11-12] MEDS: LACTULOSE SYRUP 20 GM/30 ML CUP PO SCH ×4 (10:03→22:40)
[2017-11-12] MEDS: SPIRONOLACTONE 25 MG TAB PO SCH (10:04)
--- NOTE | 2017-11-12 10:08 | HHI.CCPN ---
Subjective Remarks/Hospital Course Hospital Course: 72 y/o man with long-standing alcoholic cirrhosis and recent GI bleed. Brought to ED today for confusion. Hgb 3.9 and stool heme positive. Hypotensive on arrival. Ammonia 68. INR 2.2 and confusing history of possible xarelto use. Subjective: 11/11: Mr. Ayala is well-known to me, and I took care of him last week for his last upper GI bleed. I evaluated him again today. he is much more encephalopathic today than on previous admission. GI banded varices as well as injected a possible AVM. portal gastropathy is still the leading diagnosis for his recurrent GI bleeds. hgb remains 7 and he remains hypotensive this morning. I have ordered 1 additional unit prbc. GI recommended additional paracentesis at some point when stable. on my physical exam, his abdomen is much softer than it was last week when we pulled off 12 L in high-volume paracentesis, so we will defer for today. he is unable to complete a daily history of ROS due to his encephalopathy. 11/12: hemodynamically stable. still significantly encephalopathic. will not take po meds. abdominal distension still baseline for patient and soft. Objective Vital Signs Date Time Temp Pulse Resp B/P (MAP) Pulse Ox O2 Delivery O2 Flow Rate FiO2 11/12/17 06:00 86 11/12/17 04:00 97.2 20 116/74 (88) 98 11/11/17 20:26 Nasal Cannula 1.50 Intake and Output 11/12/17 11/12/17 11/13/17 08:00 16:00 00:00 Output Total 400 ml Balance -400 ml Result Diagram: 11/11/17 2308 11/12/17 0351 Objective Remarks Gen: Dishevelled, confused man, lying in bed Head: Atraumatic. Neck: trachea midline. no jvd. Lungs: 2L nc. equal chest rise. Heart: normal rate, regular rhythm. sinus by tele. Abdomen: mildly distended but soft. much less distended than on my last evaluation last week. + fluid wave. stable, reducible ventral hernia. Extremities: warm and well-perfused. Neuro: RASS -2. CAM+. confused. follows commands, oriented to self only. A/P Assessment and Plan Assessment: 72yM with alcoholic cirrhosis and End-stage liver disease with multiple comorbid stigmata of his liver disease, now with recurrent GI bleeding , likely secondary to portal gastropathy. will need to continue lactulose enemas until mental status improves. continue to attempt po lactulose/ rifaximin. too encephalopathic to be safe out of ICU. continue to trend hgb. May need to get palliative care involved given his significant decline with recurrent life-threatening GI bleeds. Plan: Neuro: Hepatic Encephalopathy- worsening rifaximin and lactulose lactulose enemas until improving mental status. follow ammonia levels frequent neuro checks avoid long-acting sedatives Resp: Atelectasis wean o2 by nc for goal spo2 > 90% aggressive pulmonary toilet prn nebs CV: hemorrhagic shock- resolved frequent vital signs watch uop closely Renal: acute kidney injury - improving. secondary to hemorrhagic shock strict i/os FEN/GI Alcoholic Cirrhosis End-stage Liver Disease Acute protein calorie malnutrition- severe Life-threatening upper GI bleed Ascites Portal Hypertension Portal Gastropathy diet per GI IV thiamine does not currently need repeat paracentesis, as his abdomen is softer than my last evaluation. however, will likely need serial high-volume paracenteses. trend CMP. trend hgb GI consulted rocephin for SBP prophylaxis. would need propranolol for portal hypertension, but will hold given hemodynamic instability and recent GI bleed. PPI drip octreotide drip Heme/ID: Anemia secondary to acute blood loss Coagulopathy secondary to end-stage liver disease Thrombocytopenia secondary to end-stage liver disease Rocephin for SBP prophylaxis trend h&h daily coags does not meet ffp transfusion criteria at this time given control of bleeding thrombocytopenia is chronic. low probability HIT. monitor. Endocrine: SSI Prophylaxis SCDs avoid pharmacologic dvt prophylaxis given active upper gi bleed ppi drip Lines: piv Dispo: remain in ICU today for close monitoring. encephalopathy worse. Shivam Varghese MD Nov 12, 2017 10:08
--- NOTE | 2017-11-12 10:21 | HHI.GIFU ---
Subjective Remarks Lying in bed. Confused. RN reports that patient is not tolerating oral medication due to confusion and has been unable to give oral Lactulose. Patient started on Lactulose enemas.No active bleeding noted. Objective Vitals I&O Vital Signs Date Time Temp Pulse Resp B/P (MAP) Pulse Ox O2 Delivery O2 Flow Rate FiO2 11/12/17 06:00 86 11/12/17 04:00 97.2 88 20 116/74 (88) 98 11/12/17 04:00 88 11/12/17 02:00 85 11/12/17 00:00 85 11/12/17 00:00 97.6 85 27 115/69 (84) 100 11/11/17 22:00 88 11/11/17 20:26 100 Nasal Cannula 1.50 11/11/17 20:00 85 11/11/17 20:00 97.4 85 22 122/74 (90) 100 11/11/17 18:00 83 11/11/17 16:00 88 11/11/17 16:00 98.3 88 28 109/56 (73) 99 11/11/17 14:00 90 11/11/17 13:59 98.2 90 30 102/59 100 11/11/17 13:37 98.3 90 25 96/55 100 11/11/17 12:00 100 11/11/17 12:00 98.2 100 32 91/53 (66) 99 11/11/17 11:15 85 16 105/63 (77) 99 Nasal Cannula 2 11/11/17 11:00 97.8 86 16 102/58 (73) 99 Nasal Cannula 2 11/11/17 10:45 87 16 106/61 (76) 98 Nasal Cannula 2 11/11/17 10:35 98.5 80 14 118/82 (94) 100 Nasal Cannula 3 11/11/17 10:05 96 Nasal Cannula 2.00 I/O 11/11/17 11/11/17 11/11/17 11/12/17 11/12/17 11/12/17 07:00 15:00 23:00 07:00 15:00 23:00 Intake Total 1796 ml 100 ml Output Total 1900 ml 250 ml 425 ml 400 ml Balance -104 ml -150 ml -425 ml -400 ml Intake IV Total 600 ml FFP 1106 ml Blood Product IV Normal Saline Flush 90 ml Other 100 ml Output Urine Total 1900 ml 250 ml 425 ml 400 ml # Bowel Movements 0 1 2 Laboratory Laboratory Tests Test 11/11/17 23:08 11/12/17 03:51 Hemoglobin 8.9 Hematocrit 27.1 Blood Urea Nitrogen 49 Creatinine 0.94 Random Glucose 93 Calcium Level 7.6 Sodium Level 143 Potassium Level 4.0 Chloride Level 111 Carbon Dioxide Level 22.4 Anion Gap 10 Estimat Glomerular Filtration Rate 79 Date/Time Source Procedure Growth Status 11/10/17 17:28 Blood Peripheral Aerobic Blood Culture - Preliminary NO GROWTH IN 1 DAY Resulted 11/10/17 17:28 Blood Peripheral Anaerobic Blood Culture - Preliminary NO GROWTH IN 1 DAY Resulted 11/10/17 18:45 Urine Clean Catch Urine Culture - Preliminary NO GROWTH IN 24 HOURS. Resulted Imaging Last Impressions Head CT 11/10/171715 Signed Impressions: Service Date/Time: Friday, November 10, 2017 17:58 - CONCLUSION: Normal examination for a patient of this age. No significant change has occurred. Jus Schmitz MD Chest X-Ray 11/10/171715 Signed Impressions: Service Date/Time: Friday, November 10, 2017 17:27 - CONCLUSION: No significant change with the left lower lung infiltrate. The right lung is clear and well-aerated. Crow Umaña MD Physical Exam HEENT: Normocephalic, atraumatic. NECK: Neck is supple CHEST: CTA CARDIAC: RRR with no murmur gallop or rubs. ABDOMEN: Soft, mild distention, mild diffuse TTP. Ascites. Reducible ventral hernia. EXTREMITIES: No cyanosis SKIN: Jaundice. GROUNDS SUPERVISOR: Alert and confused Assessment and Plan Plan ASSESSMENT: - GI bleed, recurrent. Probable UGIB. Possible portal hypertensive, gastropathy vs esophageal varices. EGD performed with findings of portal hypertensive gastropathy but one large poss AVM. Cauterized with bipolar and clipped x 2. Located in cardia in difficult location. No gastric varices seen. Esophageal varices appeared fairly small but with focal erythematous spots. Bands placed x 4 in all quadrants. Distal esophagus. Duodenum was negative for ulcers or bleeding lesions. 11/12/17--Patient confused. RN reports that patient is not tolerating oral medication due to confusion and has been unable to give oral Lactulose. Patient started on Lactulose enemas. Ammonia 11/10--68. No active bleeding noted. HH 8.9 /27.1 yesterday. Ammonia and CBC have been ordered for today, no results to review at this time. PLAN: - CCM following - RAVINDER - Continue Lactulose enemas - Continue Xifaxan - NGT not recommended for at least a week due to risk of bleeding - Paracentesis when possible - Broad spectrum antibiotics - Monitor labs - Notify GI of active bleeding - Supportive care - Further recommendations to follow based on results of above Patient seen and examined by Dr. Olvera and myself and this note is written on his behalf. Malka Penn Nov 12, 2017 10:21
[2017-11-12] MEDS ORDERED: RIFAXIMIN 200 MG TAB PO SCH (10:45)
[2017-11-12 11:31] LABS: HEMATOCRIT 27.8 % (39.0-51.0)
[2017-11-12 11:33] LABS: REVIEW FLAG FINAL
[2017-11-12 12:35] LABS: HEMATOCRIT 27.8 % (39.0-51.0); MEAN CELL VOLUME 93.4 FL (80.0-100.0); MEAN CORPUSCULAR HEMOGLOBIN 30.9 PG (27.0-34.0); MEAN CORPUSCULAR HGB CONC 33.1 % (32.0-36.0); PLATELET COUNT 89 TH/MM3 (150-450); RED BLOOD COUNT 2.98 MIL/MM3 (4.50-5.90); RED CELL DISTRIBUTION WIDTH 16.2 % (11.6-17.2); REVIEW FLAG FINAL; WHITE BLOOD COUNT 7.1 TH/MM3 (4.0-11.0)
[2017-11-12] MEDS: cefTRIAXone INJ 1,000 MG in SODIUM CHLORIDE 0.9% INJ 100 ML IV SCH (14:28)
[2017-11-12 16:01] LABS: APTT (PATIENT) 23.7 SEC (24.3-30.1); INTERNATIONAL NORMALIZED RATIO 1.8 RATIO; PROTHROMBIN TIME - PATIENT 17.8 SEC (9.8-11.6)
[2017-11-12] MEDS: THIAMINE INJ 100 MG in SODIUM CHLORIDE 0.9% INJ 100 ML IV SCH (16:27)
[2017-11-12] MEDS: ATORVASTATIN 40 MG TAB PO SCH (22:40)
[2017-11-13] VITALS (13 sets, daily range): BP systolic 95–114; BP diastolic 57–74; PULSE 91–107; RESP 15–23; TEMP 97.2–98.4; O2SAT 96–100
[2017-11-13 03:26] LABS: HEMATOCRIT 29.5 % (39.0-51.0); MEAN CELL VOLUME 94.4 FL (80.0-100.0); MEAN CORPUSCULAR HEMOGLOBIN 31.2 PG (27.0-34.0); MEAN CORPUSCULAR HGB CONC 33.1 % (32.0-36.0); PLATELET COUNT 83 TH/MM3 (150-450); RED BLOOD COUNT 3.13 MIL/MM3 (4.50-5.90); WHITE BLOOD COUNT 7.7 TH/MM3 (4.0-11.0)
[2017-11-13 03:27] LABS: REVIEW FLAG FINAL
[2017-11-13 03:37] LABS: APTT (PATIENT) 28.3 SEC (24.3-30.1); INTERNATIONAL NORMALIZED RATIO 1.4 RATIO; PROTHROMBIN TIME - PATIENT 14.5 SEC (9.8-11.6)
[2017-11-13 03:51] LABS: BICARBONATE 26.8 MEQ/L (21.0-32.0); POTASSIUM 3.4 MEQ/L (3.5-5.1)
[2017-11-13] MEDS: CHLORHEXIDINE GLUCONATE 2 % 1 PACK (2 CLOTHS) TOP SCH (04:00)
[2017-11-13 04:03] LABS: CALCIUM-PROTEIN CORRECTED 8.3 MG/DL (8.5-10.1)
[2017-11-13] MEDS: RESP: ALBUTEROL 2.5 MG/IPRATROPIUM 0.5 MG NEB (SCH) INH ×4 (04:09→21:37)
[2017-11-13] MEDS: RIFAXIMIN 200 MG TAB PO SCH ×4 (06:58→22:48)
[2017-11-13] MEDS: OCTREOTIDE INJ 500 MCG in SODIUM CHLORID 0.9% 500 ML INJ 500 ML IV SCH (06:58)
[2017-11-13] MEDS: PANTOPRAZOLE INJ 80 MG in SODIUM CHLORIDE 0.9% INJ 100 ML IV SCH (06:59)
[2017-11-13] MEDS ORDERED: MAGNESIUM SULFATE INJ 2 GM in SODIUM CHLORIDE 0.9% INJ 96 ML IV PRN (08:45)
[2017-11-13] MEDS ORDERED: POTASSIUM PHOSPHATE MONOBASIC 500 MG TAB PO/TUBE PRN (08:45)
[2017-11-13] MEDS ORDERED: POTASSIUM CHLOR 40 MEQ PREMIX 100 ML IV PRN ×2 (08:45)
[2017-11-13] MEDS ORDERED: SODIUM PHOSPHATE INJ 30 MMOL in SODIUM CHLOR 0.9% 250 ML INJ 240 ML IV PRN (08:45)
[2017-11-13] MEDS ORDERED: POTASSIUM CHLOR 20 MEQ PREMIX 100 ML IV PRN ×2 (08:45)
[2017-11-13] MEDS ORDERED: MAGNESIUM OXIDE 400 MG TAB PO PRN (08:45)
[2017-11-13] MEDS ORDERED: POTASSIUM PHOSPHATE MONOBASIC 500 MG TAB PO PRN (08:45)
[2017-11-13] MEDS ORDERED: POTASSIUM PHOSPHATE INJ 30 MMOL in SODIUM CHLOR 0.9% 250 ML INJ 250 ML IV PRN (08:45)
[2017-11-13] MEDS ORDERED: MAGNESIUM SULFATE INJ 4 GM in SODIUM CHLORIDE 0.9% INJ 92 ML IV PRN (08:45)
--- NOTE | 2017-11-13 08:57 | HHI.CCPN ---
Subjective Remarks/Hospital Course Hospital Course: 72 y/o man with long-standing alcoholic cirrhosis and recent GI bleed. Brought to ED today for confusion. Hgb 3.9 and stool heme positive. Hypotensive on arrival. Ammonia 68. INR 2.2 and confusing history of possible xarelto use. Subjective: 11/11: Mr. Ayala is well-known to me, and I took care of him last week for his last upper GI bleed. I evaluated him again today. he is much more encephalopathic today than on previous admission. GI banded varices as well as injected a possible AVM. portal gastropathy is still the leading diagnosis for his recurrent GI bleeds. hgb remains 7 and he remains hypotensive this morning. I have ordered 1 additional unit prbc. GI recommended additional paracentesis at some point when stable. on my physical exam, his abdomen is much softer than it was last week when we pulled off 12 L in high-volume paracentesis, so we will defer for today. he is unable to complete a daily history of ROS due to his encephalopathy. 11/12: hemodynamically stable. still significantly encephalopathic. will not take po meds. abdominal distension still baseline for patient and soft. 11/13: mental status significantly improved. now oriented x 3. still at times confused, but cleared for regular diet from speech. abdomen is now more tense than yesterday, more appropriate for paracentesis today. hgb stable and no evidence of ongoing active bleeding. Objective Vital Signs Date Time Temp Pulse Resp B/P (MAP) Pulse Ox O2 Delivery O2 Flow Rate FiO2 11/13/17 06:00 95 11/13/17 04:00 98.2 22 114/74 (87) 100 11/12/17 20:34 Nasal Cannula 2.00 Intake and Output 11/13/17 11/13/17 11/14/17 08:00 16:00 00:00 Intake Total 720 ml Output Total 425 ml Balance 295 ml Result Diagram: 11/13/1731111/13/17 0312 Other Results Microbiology Date/Time Source Procedure Growth Status 11/10/17 18:45 Urine Clean Catch Urine Culture - Final NO GROWTH IN 48 HOURS. Complete Objective Remarks Gen: Dishevelled, lying in bed, more alert today Head: Atraumatic. Neck: trachea midline. no jvd. Lungs: 2L nc. equal chest rise. Heart: normal rate, regular rhythm. sinus by tele. Abdomen: much more distended and tense today . + fluid wave. stable, reducible ventral hernia. Extremities: warm and well-perfused. Neuro: RASS 0. intermittently CAM+. more alert today. follows commands, oriented x 3. A/P Assessment and Plan Assessment: 72yM with alcoholic cirrhosis and End-stage liver disease with multiple comorbid stigmata of his liver disease, now with recurrent GI bleeding , likely secondary to portal gastropathy. continue lactulose and rifaximin. will need high volume paracentesis today with concentrated albumin. d/c octreotide and protonix drips. hgb stable. after paracentesis, if remains stable, can transfer out of ICU. needs aggressive ongoing management of portal hypertension. Plan: Neuro: Hepatic Encephalopathy- improving rifaximin and lactulose follow ammonia levels frequent neuro checks avoid long-acting sedatives Resp: Atelectasis wean o2 by nc for goal spo2 > 90% aggressive pulmonary toilet prn nebs CV: hemorrhagic shock- resolved frequent vital signs start propranolol 10mg po q8h- tenuous blood pressure, but needs aggressive control of portal hypertension Renal: acute kidney injury - resolved. secondary to hemorrhagic shock strict i/os FEN/GI Alcoholic Cirrhosis End-stage Liver Disease Acute protein calorie malnutrition- severe Life-threatening upper GI bleed Ascites Portal Hypertension Portal Gastropathy Hypernatremia Hypokalemia regular diet IV thiamine repeat paracentesis today. trend CMP. trend hgb GI consulted rocephin for SBP prophylaxis. propranolol as above d/c ns mivf and start 1/2 NS @ 50cc/hr for hypernatremia ICU electrolyte protocol d/c PPI and octreotide drips start iv bid ppi. Heme/ID: Anemia secondary to acute blood loss Coagulopathy secondary to end-stage liver disease Thrombocytopenia secondary to end-stage liver disease Rocephin for SBP prophylaxis daily cbc daily coags thrombocytopenia is chronic. low probability HIT. monitor. Endocrine: SSI Prophylaxis SCDs avoid pharmacologic dvt prophylaxis given active upper gi bleed iv bid ppi Lines: piv Dispo: if stable after paracentesis, can transfer out of ICU. Shivam Varghese MD Nov 13, 2017 08:57
--- NOTE | 2017-11-13 09:19 | HHI.GIFU ---
Subjective Remarks resting in bed drowsy, but verbally responds. abd distended, but patient comfortable now. afebrile (Mis Pierre) Objective Vitals I&O Vital Signs Date Time Temp Pulse Resp B/P (MAP) Pulse Ox O2 Delivery O2 Flow Rate FiO2 11/13/17 09:06 99 Nasal Cannula 2.00 11/13/17 06:00 95 11/13/17 04:00 98.2 91 22 114/74 (87) 100 11/13/17 04:00 91 11/13/17 02:00 93 11/13/17 00:00 97.9 93 23 113/72 (86) 100 11/13/17 00:00 93 11/12/17 22:00 93 11/12/17 20:34 96 Nasal Cannula 2.00 11/12/17 20:00 93 11/12/17 20:00 98.3 93 25 112/72 (85) 100 11/12/17 18:00 89 11/12/17 16:00 84 11/12/17 16:00 97.9 84 20 114/72 (86) 100 11/12/17 14:00 86 11/12/17 12:00 85 11/12/17 12:00 98.2 85 25 117/73 (88) 96 11/12/17 10:00 90 I/O 11/12/17 11/12/17 11/12/17 11/13/17 11/13/17 11/13/17 07:00 15:00 23:00 07:00 15:00 23:00 Intake Total 100 ml 951 ml 720 ml Output Total 400 ml 425 ml 425 ml Balance -400 ml 100 ml 526 ml 295 ml Intake Oral 250 ml 720 ml IV Total 100 ml 701 ml Output Urine Total 400 ml 425 ml 425 ml # Bowel Movements 2 0 0 Laboratory Laboratory Tests Test 11/12/17 10:43 11/12/17 15:31 11/13/17 03:12 White Blood Count 7.1 7.7 Red Blood Count 2.98 3.13 Hemoglobin 9.2 9.8 Hematocrit 27.8 29.5 Mean Corpuscular Volume 93.4 94.4 Mean Corpuscular Hemoglobin 30.9 31.2 Mean Corpuscular Hemoglobin Concent 33.1 33.1 Red Cell Distribution Width 16.2 16.0 Platelet Count 89 83 Mean Platelet Volume 9.1 8.4 Ammonia 60 16 Prothrombin Time 17.8 14.5 Prothromb Time International Ratio 1.8 1.4 Activated Partial Thromboplast Time 23.7 28.3 Blood Urea Nitrogen 35 Creatinine 0.90 Random Glucose 126 Total Protein 5.3 Calcium Level 7.3 Sodium Level 147 Potassium Level 3.4 Chloride Level 114 Carbon Dioxide Level 26.8 Anion Gap 6 Estimat Glomerular Filtration Rate 83 Protein Corrected Calcium 8.3 Date/Time Source Procedure Growth Status 11/10/17 17:28 Blood Peripheral Aerobic Blood Culture - Preliminary NO GROWTH IN 2 DAYS Resulted 11/10/17 17:28 Blood Peripheral Anaerobic Blood Culture - Preliminary NO GROWTH IN 2 DAYS Resulted 11/10/17 18:45 Urine Clean Catch Urine Culture - Final NO GROWTH IN 48 HOURS. Complete Imaging Last Impressions Head CT 11/10/171715 Signed Impressions: Service Date/Time: Friday, November 10, 2017 17:58 - CONCLUSION: Normal examination for a patient of this age. No significant change has occurred. Jus Schmitz MD Chest X-Ray 11/10/171715 Signed Impressions: Service Date/Time: Friday, November 10, 2017 17:27 - CONCLUSION: No significant change with the left lower lung infiltrate. The right lung is clear and well-aerated. Crow Umaña MD Physical Exam HEENT: Normocephalic, atraumatic. NECK: Neck is supple CHEST: CTA CARDIAC: RRR with no murmur gallop or rubs. ABDOMEN: taut, moderate distention, mild diffuse TTP. Ascites. Reducible large soft ventral hernia. EXTREMITIES: Mild extremity edema , upper SKIN: Jaundice. SWIMMING POOL ATTENDANT: awake, drowsy, but responds to simple questions (Mis Pierre) Assessment and Plan Plan ASSESSMENT: - GI bleed upper , recurrent this admission, but not active bleeding now . Hgb stable. Probable , Portal hypertensive, gastropathy vs esophageal varices small.. EGD performed with findings of portal hypertensive gastropathy but one large poss AVM. Cauterized with bipolar and clipped x 2. Located in cardia in difficult location. No gastric varices seen. Esophageal varices appeared fairly small but with focal erythematous spots. Bands placed x 4 in all quadrants. Distal esophagus. Duodenum was negative for ulcers or bleeding lesions. 11/12/17--Patient confused. RN reports that patient is not tolerating oral medication due to confusion and has been unable to give oral Lactulose. Patient started on Lactulose enemas. Ammonia 11/10--68. No active bleeding noted. HH 8.9 /27.1 yesterday. Ammonia and CBC have been ordered for today, no results to review at this time. PLAN: - Regular diet - CCM following - DC IV Protonix drip to 40mg. IV q 12hr - Continue Lactulose enemas - Continue Xifaxan - NGT not recommended for at least a week due to risk of bleeding - Paracentesis as needed. Monitor girth and symptoms of SOB, Nausea, vomiting, - Broad spectrum antibiotics - Monitor labs, trend hgb - Notify GI of active bleeding - Supportive care - Further recommendations to follow based on results of above Patient seen and examined by Dr. Weinberg and myself and this note is written on his behalf. (Mis Pierre) Physician Comments Seen and examined, plan as above (Jessa Weinberg MD) Mis Pierre Nov 13, 2017 09:19 Jessa Weinberg MD Nov 13, 2017 15:52
[2017-11-13] MEDS: BUDESONIDE-FORMOTEROL 160/4.5 MCG INHALER INH SCH ×2 (09:33→21:00)
[2017-11-13] MEDS: SODIUM CHLOR 0.45% 1000 ML INJ 1,000 ML IV SCH (09:33)
[2017-11-13] MEDS: ALBUMIN 25% INJ 100 ML IV SCH ×3 (09:34→11:36)
[2017-11-13] MEDS: TAMSULOSIN HCL 0.4 MG CAP PO SCH (09:34)
[2017-11-13] MEDS: PANTOPRAZOLE SODIUM 40 MG VIAL IV PUSH SCH ×2 (09:34→21:57)
[2017-11-13] MEDS: LACTULOSE SYRUP 20 GM/30 ML CUP PO SCH ×4 (09:34→21:57)
[2017-11-13] MEDS: SPIRONOLACTONE 25 MG TAB PO SCH (09:34)
[2017-11-13] MEDS ORDERED: POTASSIUM CHLORIDE 25 MEQ EFFERVESCENT TAB PO ONE (11:30)
[2017-11-13] MEDS ORDERED: FUROSEMIDE 20 MG/2 ML VIAL IV PUSH ONE (11:30)
--- NOTE | 2017-11-13 13:31 | PD.PROCEDR ---
Procedure Note Procedure Therapeutic Paracentesis Procedure Note Diagnosis: End-stage liver disease Indications: Severe ascites with respiratory insufficiency Consent: Obtained Anesthesia: 1% lidocaine locally Description of the Procedure: The patient was placed in the supine position. The area of largest fluid collection was marked pre-procedure using ultrasound guidance. The area was prepped and draped sterilely. 1% Lidcaine was infiltrated subcutaneously. A small incision was made using a #11 blade. A 12g needle and angiocath were advanced under negative pressure aspiration until fluid was obtained. The catheter was advanced over the needle easily and without resistance. At the conclusion of the procedure, the catheter was removed and a dressing was applied. There were no immediate complications noted. There was minimal EBL. The patient tolerated the procedure well. Findings: Bilious ascites without purulence I personally performed the procedure. Shivam Varghese MD Nov 13, 2017 13:31
[2017-11-13] MEDS: PROPRANOLOL HCL 10 MG TAB PO SCH ×2 (13:33→22:10)
[2017-11-13] MEDS: cefTRIAXone INJ 1,000 MG in SODIUM CHLORIDE 0.9% INJ 100 ML IV SCH (13:33)
[2017-11-13] MEDS: THIAMINE INJ 100 MG in SODIUM CHLORIDE 0.9% INJ 100 ML IV SCH (16:22)
--- NOTE | 2017-11-13 18:26 | PD.CONS ---
Consult Service Palliative Care Consult Requested By Dr Varghese . Primary Care Physician Wolfgang [facility] Reason for Consultation a. To assist with evaluation and management of symptoms including: encephalopathy b. To assist medical decision maker(s) with: better understanding of current medical conditions; weighing benefits/burdens of medical treatment options; making medical treatment decisions. HPI History of Present Illness This patient presented to the ED 11/10/70 via EMS, due to home health care found him disoriented. At arrival patient lethargic not able to give additional history. Noted to have recent admission for GI bleed. * ED course: EKG was sinus rhythm no acute ST elevation or depression of arrhythmia. CT brain no acute process. CXR no significant change to left lower lung infiltrate , right lung clear. Initial CBC indicated hemoglobin 3.63 collection ordered. Troponin elevated at 0.19. Lactic acid 4.6. Ammonia 68. Patient ordered for 4 units RBC, Protonix octreotide and IV fluids. He was admitted to the ICU for further evaluation management. GI consulted. Stool heme positive. Hypotensive in the ED. * Per GI consult most recent EGD showed small varices and some gastropathy. Plan for EGD for evaluation of possible variceal banding if indicated. * 11/11 EGD --EGD : performed with findings of PHGastropathy but one large poss AVM. Cauterized with bipolar and Clipped x 2. Located in cardia in difficult location. No gastric varices seen. Esophageal varices appeared fairly small but with focal erythematous spots. Bands placed x 4 in all quadrants. Distal esohagus. Duodenum was negative for ulcers or bleeding lesions. GI further recommends paracentesis when possible, broad-spectrum antibiotics. Clear liquids continue lactulose and Xifaxan. * 11/12 hemodynamics stable. Hemoglobin 8.9. Still very encephalopathic. Not taking oral medications. ARIAS 2/2 to hemorrhagic shock improving. [place] will probably need serial high-volume paracentesis though currently no need for paracentesis. * 11/13-mental status improving a and O 3. Still with some confusion at times. Tolerating regular diet per speech therapy. Abdomen more tense , s/p paracentesis-bilious fluid without purulence.. Hemoglobin stable 9.8. Transferred out of ICU, will require ongoing aggressive management of portal hypertension. Palliative care consulted to assist with clarification of goals of treatment. Pt seen in room, no visitors present. Alert, watching TV. oriented x2- forgetful , names September 2017 as date, Oriented to self, year, president, hospital, and that he is in the hospital for recurrent GI bleeding. At times he confuses this admission with the most recent one last week. Does have some limited insight into conditions tells me he continues to have GI bleed and he has had ongoing problems in his "digestive tract "and had some drainage earlier today in the ICU(referring to his paracentesis) he indicates this provided significant relief of abdominal discomfort he feels pretty good right now. He additionally tells me that he might be discharged home tomorrow(I'm not aware of discharge orders at this time) . He names his family he has 3 sisters all who live out of the area, he has 3 adult children who also live out of the area whom he does maintain some contact with but hasn't really communicated with them regarding recent illnesses and hospitalizations. He remains in closest communication with his sister Malathi, upon discussion of decision-maker should his mental status declined he indicates he would trust her to make his medical decisions. Assisted him to complete healthcare surrogate designation discussed with nursing. Will send to medical records. Somewhat limited discussion otherwise given his forgetfulness and limited insight into conditions. Plan to discuss further with sister Malathi tomorrow. Per review of medical records patient with multiple ED visits, hospitalizations this year: --11/03 - 11/07 -anemia, severe GI bleed --10/29-ED visit for generalized weakness --10/11--ED visit for cirrhosis --07/20 - 07/24 -aspirate distress, CHF, COPD --05/12 - ED visit lower extremity edema -- 04/20-ED visit COPD exacerbation --02/14- 02/16- CHF, hypoxia 2016: --09/23- CHF exacerbation --08/07/16- 08/09 COPD exacerbation Function/Cognitive Trajectory Lives with his roommate using cane, nebulizer as needed. During last admission was discharged with home health care 11/07/17. Past Family Social History Coded Allergies: No Known Allergies (Verified Adverse Reaction, Unknown, 11/10/17) Past Medical History Hypercholesterolemia CHF COPD Erosive esophagitis Colitis GERD Hepatitis C Hypertension Hiatal hernia Esophageal varices Past Surgical History Esophageal varices 2006 Triple bypass . Reported Medications Aldactone (Spironolactone) 25 Mg Tab 25 Mg PO DAILY Flomax (Tamsulosin HCl) 0.4 Mg Cap 0.4 Mg PO DAILY Trazodone (Trazodone HCl) 50 Mg Tab 25 Mg PO HS Ferrous Sulfate DR (Ferrous Sulfate) 324 Mg Tabdr 324 Mg PO DAILY Sertraline (Sertraline HCl) 50 Mg Tab 50 Mg PO DAILY Allerclear (Loratadine) 10 Mg Tablet 10 Mg PO DAILY PRN Albuterol Neb (Albuterol Sulfate) 2.5 Mg/3 Ml Neb 2.5 Mg NEB Q6HR NEB PRN Symbicort Inh (Budesonide/Formoterol Fumarate) 160-4.5 Mcg/Act Aero 1 Puff INH BID Atorvastatin (Atorvastatin Calcium) 40 Mg Tab 40 Mg PO HS Omeprazole 20 Mg Tab 20 Mg PO DAILY Enulose Liq (Lactulose (Encephalopathy) Liq) 10 Gm/15 Ml Soln 10 Gm PO DAILY PRN . Current Medications Medications (Trade) Dose Ordered Sig/Primo Route Start Time Stop Time Status Last Admin (NS Flush) 2 ml UNSCH PRN IV FLUSH 11/10/17 17:30 (NS Flush) 2 ml UNSCH PRN IVF 11/10/17 18:15 (Morphine Inj) 2 mg Q2H PRN IV 11/10/17 20:00 (Zofran Inj) 4 mg Q6H PRN IV PUSH 11/10/17 19:15 Miscellaneous Information 1 [id number] XX 11/10/17 19:15 (Chlorhexidine 2% Cloth) 3 pack Taper DAILY@04 TOP 11/11/17 04:00 11/07/18 03:59 11/13/17 04:00 (Chlorhexidine 2% Cloth) 3 pack UNSCH PRN TOP 11/10/17 19:15 (Lipitor) 40 mg HS PO 11/11/17 21:00 11/12/17 22:40 (Symbicort 160-4.5 Mcg Inh) 1 puff BID INH 11/11/17 09:00 11/13/17 09:33 (Aldactone) 25 mg DAILY PO 11/11/17 09:00 11/13/17 09:34 (Flomax) 0.4 mg DAILY PO 11/11/17 09:00 11/13/17 09:34 Ceftriaxone Sodium 1000 mg/ Sodium Chloride 100 ml @ 200 mls/hr Q24H IV 11/11/17 14:00 11/16/17 13:59 11/13/17 13:33 (Lactulose Liq) 30 ml QID PO 11/11/17 14:00 11/13/17 17:05 (Xifaxan) 400 mg Q8HR PO 11/11/17 14:00 11/13/17 13:32 Thiamine HCl 100 mg/Sodium Chloride 101 ml @ 101 mls/hr Q24H IV 11/11/17 15:00 11/14/17 14:59 11/13/17 16:22 (Duoneb Neb) 1 ampule Q6HR NEB INH 11/11/17 16:00 11/13/17 15:06 (Duoneb Neb) 1 ampule Q2HR NEB PRN INH 11/11/17 13:15 Sodium Chloride 1,000 ml @ 42 mls/hr [id number] IV 11/13/17 08:45 11/13/17 09:33 (Protonix Inj) 40 mg Q12H IV PUSH 11/13/17 09:00 11/13/17 09:34 (Inderal) 10 mg Q8HR PO 11/13/17 14:00 (Mag-Ox) 800 mg UNSCH PRN PO 11/13/17 08:45 Magnesium Sulfate 4 gm/Sodium Chloride 100 ml @ 50 mls/hr UNSCH PRN IV 11/13/17 08:45 Magnesium Sulfate 2 gm/Sodium Chloride 100 ml @ 50 mls/hr UNSCH PRN IV 11/13/17 08:45 Potassium Chloride 100 ml @ 50 mls/hr Q2H PRN IV 11/13/17 08:45 Potassium Chloride 100 ml @ 50 mls/hr Q2H PRN IV 11/13/17 08:45 Potassium Chloride 100 ml @ 50 mls/hr Q2H PRN IV 11/13/17 08:45 Potassium Chloride 100 ml @ 25 mls/hr UNSCH PRN IV 11/13/17 08:45 (K-Phos) 2,000 mg Q4H PRN PO 11/13/17 08:45 (K-Phos) 2,000 mg UNSCH PRN PO/TUBE 11/13/17 08:45 Potassium Phosphate 30 mmol/ Sodium Chloride 260 ml @ 42 mls/hr UNSCH PRN IV 11/13/17 08:45 Sodium Phosphate 30 mmol/Sodium Chloride 250 ml @ 42 mls/hr UNSCH PRN IV 11/13/17 08:45 Family History Family history of congestive heart failure . Substance Use Tobacco: Smokes 1/2 PPD Alcohol: History of heavy alcohol consumption intermittently recently only occasional glass of wine Prescription med abuse: Per EMR pt reported history of polysubstance abuse including marijuana and cocaine-none in the past 4-5 years. Illicits:Per EMR pt reported history of polysubstance abuse including marijuana and cocaine-none in the past 4-5 years. . 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 . Has 3 sisters who live out of the area remains in close contact with all of them closest with Malathi. Has adult children who live out of the area he does remain in touch with though not in regular communication.. Spiritual/Cultural Factors [place] . Living Will: Never completed Health Care Surrogate: Copy in medical record Durable Power of Attending Ambulatory Care: Never completed Date completed: 11/13/17 Health Care Surrogate(s): Sister Malathi Ayala Ethical and Legal Issues Patient has had encephalopathy, altered mental status multifactorial. His mentation is improving in the past day or so at times he is oriented though it also appears to continue to fluctuate. He would be best supported in shared decision making, today he requested to complete healthcare surrogate designating his sister Malathi. Physical Exam Vital Signs Date Time Temp Pulse Resp B/P (MAP) Pulse Ox O2 Delivery O2 Flow Rate FiO2 11/13/17 16:00 97.6 95 18 100/61 (74) 99 11/13/17 14:00 97 11/13/17 12:00 95 11/13/17 12:00 98.0 95 17 99/59 (72) 100 11/13/17 10:00 96 11/13/17 09:06 99 Nasal Cannula 2.00 11/13/17 08:00 98.4 94 15 110/72 (85) 100 11/13/17 08:00 94 11/13/17 06:00 95 11/13/17 04:00 98.2 91 22 114/74 (87) 100 11/13/17 04:00 91 11/13/17 02:00 93 11/13/17 00:00 97.9 93 23 113/72 (86) 100 11/13/17 00:00 93 11/12/17 22:00 93 11/12/17 20:34 96 Nasal Cannula 2.00 11/12/17 20:00 93 11/12/17 20:00 98.3 93 25 112/72 (85) 100 Exam CONSTITUTIONAL/GENERAL: Chronically ill-appearing male slightly jaundiced. TUBES/LINES/DRAINS: Peripheral IV upper extremity, Faria catheter SKIN: Slight jaundice., rashes, or lesions. Ecchymoses on upper extremities.+ Small amount of serous leaking from paracentesis site. Skin Alejandra dry. HEAD: Atraumatic. Normocephalic. EYES: Pupils equal and round and reactive. Extraocular motions intact. Slight scleral icterus. No injection or drainage. Fundi not examined. ENT: Hearing grossly normal. Nose without bleeding or purulent drainage. Throat without visible erythema, exudates, masses, or lesions. Poor dentition. NECK: Trachea midline. Supple, nontender. No palpable thyroid enlargement or nodularity. CARDIOVASCULAR: Regular rate and rhythm without murmur. No JVD. Peripheral pulses symmetric. Slight edema to upper extremities, right more so. RESPIRATORY/CHEST: Symmetric, unlabored respirations. On room air. Clear to auscultation. Decreased air movement to bases.Breath sounds equal bilaterally. GASTROINTESTINAL: Abdomen soft, round, slightly distended, + large reducible umbilical hernia, No guarding. Bowel sounds present. GENITOURINARY: Without palpable bladder distension. Faria catheter in place. MUSCULOSKELETAL: Extremities without clubbing, cyanosis. Some edema to the upper extremities right more so than the left. + Chronic thickening cyst skin bilateral lower extremities. Extremities are thin with some muscle atrophy evident. No mottling or clubbing. LYMPHATICS: No palpable cervical or supraclavicular adenopathy. NEUROLOGICAL: Awake and alert. Oriented times 23, very forgetful. Some limited insight. cooperative, pleasant. Follows all commands. Moves all 4 extremities with generalized weakness. PSYCHIATRIC: No obvious anxiety/depression. no apparent hallucinations or other psychotic thought process. Diagnostic Tests Laboratory Laboratory Tests Test 11/10/17 18:45 11/10/17 19:55 11/10/17 21:30 11/11/17 02:56 Urine Color YELLOW (YELLW/STRAW) Urine Turbidity CLEAR (CLEAR) Urine pH 5.5 (5.0-8.5) Urine Specific [place] 1.017 (1.002-1.035) Urine Protein NEG mg/dL (NEG-TRACE) Urine Glucose (UA) NEG mg/dL (NEG) Urine Ketones NEG mg/dL (NEG) Urine Occult Blood NEG (NEG) Urine Nitrite NEG (NEG) Urine Bilirubin NEG (NEG) Urine Urobilinogen LESS THAN 2.0 MG/DL (LESS Urine Leukocyte Esterase NEG (NEG) Urine RBC 1 /hpf (0-3) Urine WBC LESS THAN 1 /hpf (0-5) Urine Bacteria RARE /hpf (NONE) Microscopic Urinalysis Comment CATH-CULTURE IND Urine Opiates Screen NEG (NEG) Urine Barbiturates Screen NEG (NEG) Urine Amphetamines Screen NEG (NEG) Urine Benzodiazepines Screen NEG (NEG) Urine Cocaine Screen NEG (NEG) Urine Cannabinoids Screen NEG (NEG) Lactic Acid Level 3.9 mmol/L (0.4-2.0) Nasal Screen MRSA (PCR) MRSA NOT DETECTED (NOT Blood Urea Nitrogen 45 MG/DL (7-18) Creatinine 0.99 MG/DL (0.60-1.30) Random Glucose 110 MG/DL (74-106) Total Protein 5.4 GM/DL (6.4-8.2) Albumin 2.6 GM/DL (3.4-5.0) Calcium Level 7.7 MG/DL (8.5-10.1) Alkaline Phosphatase 58 U/L (45-117) Aspartate Amino Transf (AST/SGOT) 120 U/L (15-37) Alanine Aminotransferase (ALT/SGPT) 69 U/L (12-78) Total Bilirubin 1.7 MG/DL (0.2-1.0) Sodium Level 143 MEQ/L (136-145) Potassium Level 4.7 MEQ/L (3.5-5.1) Chloride Level 109 MEQ/L (98-107) Carbon Dioxide Level 25.8 MEQ/L (21.0-32.0) Anion Gap 8 MEQ/L (5-15) Estimat Glomerular Filtration Rate 75 ML/MIN (>89) Test 11/11/17 09:10 11/11/17 09:15 11/11/17 23:08 11/12/17 03:51 White Blood Count 7.5 TH/MM3 (4.0-11.0) Red Blood Count 2.55 MIL/MM3 (4.50-5.90) Hemoglobin 8.1 GM/DL (13.0-17.0) 7.1 GM/DL (13.0-17.0) 8.9 GM/DL (13.0-17.0) Hematocrit 23.3 % (39.0-51.0) 21.2 % (39.0-51.0) 27.1 % (39.0-51.0) Mean Corpuscular Volume 91.7 FL (80.0-100.0) Mean Corpuscular Hemoglobin 31.9 PG (27.0-34.0) Mean Corpuscular Hemoglobin Concent 34.9 % (32.0-36.0) Red Cell Distribution Width 15.3 % (11.6-17.2) Platelet Count 61 TH/MM3 (150-450) Mean Platelet Volume 9.3 FL (7.0-11.0) Neutrophils (%) (Auto) 73.1 % (16.0-70.0) Lymphocytes (%) (Auto) 8.3 % (9.0-44.0) Monocytes (%) (Auto) 15.2 % (0.0-8.0) Eosinophils (%) (Auto) 2.4 % (0.0-4.0) Basophils (%) (Auto) 1.0 % (0.0-2.0) Neutrophils # (Auto) 5.5 TH/MM3 (1.8-7.7) Lymphocytes # (Auto) 0.6 TH/MM3 (1.0-4.8) Monocytes # (Auto) 1.1 TH/MM3 (0-0.9) Eosinophils # (Auto) 0.2 TH/MM3 (0-0.4) Basophils # (Auto) 0.1 TH/MM3 (0-0.2) CBC Comment AUTO DIFF Differential Comment AUTO DIFF CONFIRMED Platelet Estimate LOW (NORMAL) Platelet Morphology Comment NORMAL (NORMAL) Hematology Comments Lactic Acid Level 1.8 mmol/L (0.4-2.0) Prothrombin Time 15.5 SEC (9.8-11.6) Prothromb Time International Ratio 1.5 RATIO Blood Urea Nitrogen 49 MG/DL (7-18) Creatinine 0.94 MG/DL (0.60-1.30) Random Glucose 93 MG/DL (74-106) Calcium Level 7.6 MG/DL (8.5-10.1) Sodium Level 143 MEQ/L (136-145) Potassium Level 4.0 MEQ/L (3.5-5.1) Chloride Level 111 MEQ/L (98-107) Carbon Dioxide Level 22.4 MEQ/L (21.0-32.0) Anion Gap 10 MEQ/L (5-15) Estimat Glomerular Filtration Rate 79 ML/MIN (>89) Test 11/12/17 10:43 11/12/17 15:31 11/13/17 03:12 White Blood Count 7.1 TH/MM3 (4.0-11.0) 7.7 TH/MM3 (4.0-11.0) Red Blood Count 2.98 MIL/MM3 (4.50-5.90) 3.13 MIL/MM3 (4.50-5.90) Hemoglobin 9.2 GM/DL (13.0-17.0) 9.8 GM/DL (13.0-17.0) Hematocrit 27.8 % (39.0-51.0) 29.5 % (39.0-51.0) Mean Corpuscular Volume 93.4 FL (80.0-100.0) 94.4 FL (80.0-100.0) Mean Corpuscular Hemoglobin 30.9 PG (27.0-34.0) 31.2 PG (27.0-34.0) Mean Corpuscular Hemoglobin Concent 33.1 % (32.0-36.0) 33.1 % (32.0-36.0) Red Cell Distribution Width 16.2 % (11.6-17.2) 16.0 % (11.6-17.2) Platelet Count 89 TH/MM3 (150-450) 83 TH/MM3 (150-450) Mean Platelet Volume 9.1 FL (7.0-11.0) 8.4 FL (7.0-11.0) Ammonia 60 MCMOL/L (11-32) 16 MCMOL/L (11-32) Prothrombin Time 17.8 SEC (9.8-11.6) 14.5 SEC (9.8-11.6) Prothromb Time International Ratio 1.8 RATIO 1.4 RATIO Activated Partial Thromboplast Time 23.7 SEC (24.3-30.1) 28.3 SEC (24.3-30.1) Blood Urea Nitrogen 35 MG/DL (7-18) Creatinine 0.90 MG/DL (0.60-1.30) Random Glucose 126 MG/DL (74-106) Total Protein 5.3 GM/DL (6.4-8.2) Calcium Level 7.3 MG/DL (8.5-10.1) Sodium Level 147 MEQ/L (136-145) Potassium Level 3.4 MEQ/L (3.5-5.1) Chloride Level 114 MEQ/L (98-107) Carbon Dioxide Level 26.8 MEQ/L (21.0-32.0) Anion Gap 6 MEQ/L (5-15) Estimat Glomerular Filtration Rate 83 ML/MIN (>89) Protein Corrected Calcium 8.3 MG/DL (8.5-10.1) Result Diagram: 11/13/172 11/13/17311 Microbiology Microbiology Date/Time Source Procedure Growth Status 11/10/17 18:45 Urine Clean Catch Urine Culture - Final NO GROWTH IN 48 HOURS. Complete Imaging Last Impressions Head CT 11/10/171715 Signed Impressions: Service Date/Time: Friday, November 10, 2017 17:58 - CONCLUSION: Normal examination for a patient of this age. No significant change has occurred. Jus Schmitz MD Chest X-Ray 11/10/171715 Signed Impressions: Service Date/Time: Friday, November 10, 2017 17:27 - CONCLUSION: No significant change with the left lower lung infiltrate. The right lung is clear and well-aerated. Crow Umaña MD Procedures 11/13-paracentesis Patient/Family Conference Family Conference Time (mins): 20 Family Conference Location: Bedside Issues Discussed: Somewhat limited discussion with patient regarding the following: * Palliative care role, purpose, approach * Additional medical, psychosocial, and spiritual history * Patients general health, functional status, and cognitive changes in the months leading up to the current hospitalization-his he was living at home with a roommate independently. * Patient/family understanding of the current medical problems-admitted insight * Patient/family understanding of prognosis= patient with very limited understanding of conditions, some limited insight * Patients goals of care as best understood from advance directives and/or conversations and/or values * Current medical treatment options and benefits/burdens of those options * Likely scenarios comparing ongoing aggressive care with a transition to comfort measures only-only explore with patient that his conditions are recurrent and may not be reversible, and he may continue to experience hospitalizations and complications and further decline, would be appropriate for comfort measures only if that was his goal--he is not certain at this time about code/resuscitation status he is open to talking more about this with his sister the coming days and requests I discuss with her as well * Questions answered to the best of my ability * Palliative care contact information provided Pt seen in room, no visitors present. Alert, watching TV. oriented x2- forgetful , names September 2017 as date, Oriented to self, year, president, hospital, and that he is in the hospital for recurrent GI bleeding. At times he confuses this admission with the most recent one last week. Does have some limited insight into conditions tells me he continues to have GI bleed and he has had ongoing problems in his "digestive tract "and had some drainage earlier today in the ICU(referring to his paracentesis) he indicates this provided significant relief of abdominal discomfort he feels pretty good right now. He additionally tells me that he might be discharged home tomorrow(I'm not aware of discharge orders at this time) . He names his family he has 3 sisters all who live out of the area, he has 3 adult children who also live out of the area whom he does maintain some contact with but hasn't really communicated with them regarding recent illnesses and hospitalizations. He remains in closest communication with his sister Malathi, upon discussion of decision-maker should his mental status declined he indicates he would trust her to make his medical decisions. Assisted him to complete healthcare surrogate designation discussed with nursing. Will send to medical records. Somewhat limited discussion otherwise given his forgetfulness and limited insight into conditions. Plan to discuss further with sister Malathi tomorrow. Assessment and Plan Disease Oriented Problem List: (1) COPD (chronic obstructive pulmonary disease) (2) CAD (coronary artery disease) (3) CHF (congestive heart failure) (4) Esophageal varices (5) Severe anemia (6) Lower GI bleed (7) Cirrhosis, alcoholic (8) Acute kidney insufficiency Symptom Scale: Pertinent Non-Medical Issues Psychosocial: Spiritual: Legal: Ethical issues impacting care: Important Contacts Malathi Ayala -[facility] [phone] . Code Status: Full Code Plan * Legal decision maker:Patient has had encephalopathy, altered mental status multifactorial. His mentation is improving in the past day or so at times he is oriented though it also appears to continue to fluctuate. He would be best supported in shared decision making, today he requested to complete healthcare surrogate designating his sister Malathi. * Goals: Patient was some limited insight today plan for ongoing discussions with him and his sister tomorrow in follow-up * CODE STATUS: Full code by default patient wishes to discuss further with his sister in the coming days * SYMPTOMS: --Encephalopathy-multifactorial, hepatic, anemia- patient currently stable and mental status improving. On lactulose, Xifaxan. --Patient denies pain currently, denies dyspnea or other symptoms. He does endorse some abdominal discomfort which was relieved with paracentesis earlier today. Ongoing evaluations. Palliative care will continue to follow during hospital course as condition evolves, to assist patient/decision-maker with understanding of medical conditions, weighing benefits/burdens of treatment options, for clarification of goals of treatment. Additionally will assist with any symptoms of palliative concern Time Spent Total Floor Time (mins): 50 (Chart review, PE, discussion with nurses, discussion with patient) Thank you for the opportunity to participate in the care of Mr. Ayala. Attestation To help prompt me to consider important information that might be impacting today's encounter and assessment, information from prior notes written by myself or my colleagues may have been "brought forward" into today's note. My signature on this note, however, is an attestation that I personally performed the exam, history, and/or decision-making noted today, and, unless otherwise indicated, the interactions with patient, family, and staff as well as the review of records all occurred today. I also attest that the listed assessment and stated plan reflect my best clinical judgment today based on the combination of historical information, prior notes, and today's exam/ interactions. When time spent is documented, it refers only to time spent today by the signer, or if indicated, combined time spent today by collaborating physician/nurse practitioner. Keren Wren Nov 13, 2017 18:26
[2017-11-13] MEDS: ATORVASTATIN 40 MG TAB PO SCH (21:57)
[2017-11-14] VITALS (8 sets, daily range): BP systolic 90–99; BP diastolic 52–61; PULSE 64–99; RESP 18–19; TEMP 97.4–98.6; O2SAT 96–99
[2017-11-14] MEDS: CHLORHEXIDINE GLUCONATE 2 % 1 PACK (2 CLOTHS) TOP SCH (04:00)
[2017-11-14 05:32] LABS: BASOPHIL % 0.5 % (0.0-2.0); EOSINOPHIL # 0.7 TH/MM3 (0-0.4); EOSINOPHIL % 8.6 % (0.0-4.0); HEMATOCRIT 25.3 % (39.0-51.0); LYMPHOCYTE # 0.7 TH/MM3 (1.0-4.8); MEAN CELL VOLUME 93.8 FL (80.0-100.0); MEAN CORPUSCULAR HEMOGLOBIN 31.7 PG (27.0-34.0); MEAN CORPUSCULAR HGB CONC 33.8 % (32.0-36.0); MONO % 8.9 % (0.0-8.0); PLATELET COUNT 83 TH/MM3 (150-450); RED CELL DISTRIBUTION WIDTH 15.8 % (11.6-17.2); WHITE BLOOD COUNT 8.2 TH/MM3 (4.0-11.0)
[2017-11-14 05:48] LABS: APTT (PATIENT) 33.2 SEC (24.3-30.1); INTERNATIONAL NORMALIZED RATIO 1.6 RATIO; PROTHROMBIN TIME - PATIENT 15.7 SEC (9.8-11.6)
[2017-11-14] MEDS: RESP: ALBUTEROL 2.5 MG/IPRATROPIUM 0.5 MG NEB (SCH) INH ×4 (05:50→21:35)
[2017-11-14 05:54] LABS: HEMO FLAGS AUTO DIFF
[2017-11-14] MEDS: PROPRANOLOL HCL 10 MG TAB PO SCH ×3 (05:57→22:00)
[2017-11-14 05:59] LABS: ANION GAP 5 MEQ/L (5-15)
[2017-11-14 06:00] LABS: ALT (GPT) 34 U/L (12-78); AST (GOT) 20 U/L (15-37); BICARBONATE 24.8 MEQ/L (21.0-32.0); BLOOD UREA NITROGEN 29 MG/DL (7-18); CHLORIDE 112 MEQ/L (98-107); GLOMERULAR FILTRATION RATE 94 ML/MIN (>89); MAGNESIUM 1.5 MG/DL (1.5-2.5); POTASSIUM 3.6 MEQ/L (3.5-5.1); SODIUM (NA) 142 MEQ/L (136-145)
[2017-11-14] MEDS: RIFAXIMIN 200 MG TAB PO SCH ×3 (06:06→23:03)
[2017-11-14 06:11] LABS: ALKALINE PHOSPHATASE 44 U/L (45-117); CALCIUM-PROTEIN CORRECTED 8.2 MG/DL (8.5-10.1); FREE T4 0.86 NG/DL (0.76-1.46); TOTAL BILIRUBIN ADULT 1.1 MG/DL (0.2-1.0)
[2017-11-14 07:35] LABS: PLATELET ESTIMATE SMEAR LOW (NORMAL); PLATELET MORPHOLOGY NORMAL (NORMAL); SCAN/DIFF AUTO DIFF CONFIRMED
[2017-11-14] MEDS: LACTULOSE SYRUP 20 GM/30 ML CUP PO SCH ×4 (09:54→23:03)
[2017-11-14] MEDS: TAMSULOSIN HCL 0.4 MG CAP PO SCH (09:54)
[2017-11-14] MEDS: SPIRONOLACTONE 25 MG TAB PO SCH (09:54)
[2017-11-14] MEDS: PANTOPRAZOLE SODIUM 40 MG VIAL IV PUSH SCH ×2 (09:55→23:03)
[2017-11-14] MEDS: BUDESONIDE-FORMOTEROL 160/4.5 MCG INHALER INH SCH ×2 (09:56→23:03)
[2017-11-14] MEDS: cefTRIAXone INJ 1,000 MG in SODIUM CHLORIDE 0.9% INJ 100 ML IV SCH (13:28)
[2017-11-14] MEDS: SODIUM CHLOR 0.45% 1000 ML INJ 1,000 ML IV SCH (13:28)
[2017-11-14 16:31] LABS: HEMOGLOBIN A1a 1.3 %; HEMOGLOBIN A1b 0.7 %; HEMOGLOBIN F 0.9 %; HEMOGLOBIN LA1C 1.8 %; HEMOGLOBIN P3 3.8 %
--- NOTE | 2017-11-14 17:21 | HHI.HCPN ---
Reason for visit a. To assist with evaluation and management of symptoms including: encephalopathy b. To assist medical decision maker(s) with: better understanding of current medical conditions; weighing benefits/burdens of medical treatment options; making medical treatment decisions. Subjective/Interval History Pt seen today to follow up on comfort, goals. Stable overnight, on 2L NC. HGb trending down slightly 8.6, plt low,stable 83. No bleeding reported. BC neg x 4 days, urine neg. Seen in room no visitors present he is initially sleeping though arouses easily. He is oriented 2-3, he originally states date as November 12, which is close. Does have some limited insight to conditions, hospitalization. Tells me he is in the hospital because of stomach bleeding, when asked what is the cause of the stomach bleeding he tells me bad decisions further explore that it is his liver and he agrees with this. He further tells me that his plan is to try to get his liver better and see if he can get out of the hospital. I did gently explore them that his liver condition is chronic and will likely be progressive and he will have recurrent issues secondary to this and likely recurrent hospitalizations. Further review that he is also at risk for ongoing hemorrhage and the possibility of requiring CPR, life support. He seems to have some understanding of this, and indicates he would probably rather naturally, and undergo resuscitation and be on a ventilator without knowing his prognosis for recovery. Gently explore with him that going forward his options are for recurrent hospitalizations and interventions which may serve to keep him alive longer with his chronic conditions versus hospice which would provide comfort, and support for end-of-life symptoms. He is not sure how he would proceed he wishes to talk more with his sister. Given his fluctuating insight I would have any major decisions be made with shared decision making involving his sister and designated healthcare surrogate. Following exam call to patient's sister Malathi. Discussion included: * Palliative care role, team members, reason for consult * Patient and/or family understanding of current medical conditions prognosis treatment options, likely trajectory * Overall condition, prognosis * CODE STATUS[]-Malathi affirms that patient would absolutely not want any type resuscitation or life support that he is stubborn and likes to do things his own way and would not want that. She requests DNR. * Care surrogate designation completed yesterday, Malathi is in agreement to serve as healthcare surrogate--- she will be coming in town this Monday to see the patient and assist with further decisions. * Palliative care contact information provided Malathi appears to have an overall good understanding of his overall conditions and expected prognosis. She endorses that he probably wouldn't want recurrent hospitalizations and he Slowly would want DNR status. She indicates he probably won't do well in rehabilitation because he is stubborn, likes to drink and will NOT want to participate. She understands he is expected to have recurrent hospitalizations, upon review of hospice for comfort versus ongoing aggressive treatments in the coming weeks to months--she indicates she would want to talk more with the patient and assess his understanding and wishes. All questions answered. Provided her with palliative contact information, she will be in town this and is hopeful to assist with decisions further at that time. . Advance Directives Living Will: Never completed Health Care Surrogate: Copy in medical record Durable Power of College [employer] Business Manager: Never completed Advance Directive Specifics Date completed: 11/13/17 Health Care Surrogate(s): Sister Malathi Ayala Significant change in goals: DNR per patient, as well as healthcare surrogate sister Malathi Objective Vital Signs Date Time Temp Pulse Resp B/P (MAP) Pulse Ox O2 Delivery O2 Flow Rate FiO2 11/14/17 16:10 96 Nasal Cannula 2.00 11/14/17 16:00 98.2 86 18 93/55 (68) 96 11/14/17 12:00 98.1 77 19 98/61 (73) 99 11/14/17 09:00 99 Nasal Cannula 2.00 11/14/17 08:00 97.4 64 19 93/52 (66) 98 11/14/17 05:00 97.9 74 18 99/55 (70) 99 11/14/17 00:22 97.9 82 18 90/55 (67) 99 11/13/17 22:11 104 101/65 (77) 11/13/17 21:39 96 Nasal Cannula 2.00 11/13/17 20:41 97.2 107 18 95/57 (70) 96 Intake & Output 11/14/17 11/14/17 07:00 19:00 Intake Total 600 ml 201 ml Output Total 750 ml Balance -150 ml 201 ml Intake Oral 600 ml IV Total 201 ml Output Urine Total 750 ml Physical Exam CONSTITUTIONAL/GENERAL: Chronically ill-appearing male slightly jaundiced. TUBES/LINES/DRAINS: Peripheral IV upper extremity, Faria catheter SKIN: Slight jaundice., rashes, or lesions. Ecchymoses on upper extremities.+ Small amount of serous leaking from paracentesis site. Skin Alejandra dry. CARDIOVASCULAR: Regular rate and rhythm without murmur. Peripheral pulses symmetric. Slight edema to upper extremities, right more so. RESPIRATORY/CHEST: Symmetric, unlabored respirations. On room air. Clear to auscultation. Decreased air movement to bases.Breath sounds equal bilaterally. GASTROINTESTINAL: Abdomen soft, round, slightly distended, + large reducible umbilical hernia, No guarding. Bowel sounds present. GENITOURINARY: Without palpable bladder distension. MUSCULOSKELETAL: Extremities without clubbing, cyanosis. Some edema to the upper extremities right more so than the left. + Chronic thickening skin bilateral lower extremities. Extremities are thin with some muscle atrophy evident. No mottling or clubbing. NEUROLOGICAL: Awake and alert. Oriented tx 2-3, Some limited insight. cooperative, pleasant. Follows all commands. Moves all 4 extremities with generalized weakness. PSYCHIATRIC: No obvious anxiety/depression. no apparent hallucinations or other psychotic thought process. Diagnostic Tests Laboratory Laboratory Tests Test 11/11/17 23:08 11/12/17 03:51 11/12/17 10:43 11/12/17 15:31 Hemoglobin 8.9 GM/DL (13.0-17.0) 9.2 GM/DL (13.0-17.0) Hematocrit 27.1 % (39.0-51.0) 27.8 % (39.0-51.0) Blood Urea Nitrogen 49 MG/DL (7-18) Creatinine 0.94 MG/DL (0.60-1.30) Random Glucose 93 MG/DL (74-106) Calcium Level 7.6 MG/DL (8.5-10.1) Sodium Level 143 MEQ/L (136-145) Potassium Level 4.0 MEQ/L (3.5-5.1) Chloride Level 111 MEQ/L (98-107) Carbon Dioxide Level 22.4 MEQ/L (21.0-32.0) Anion Gap 10 MEQ/L (5-15) Estimat Glomerular Filtration Rate 79 ML/MIN (>89) White Blood Count 7.1 TH/MM3 (4.0-11.0) Red Blood Count 2.98 MIL/MM3 (4.50-5.90) Mean Corpuscular Volume 93.4 FL (80.0-100.0) Mean Corpuscular Hemoglobin 30.9 PG (27.0-34.0) Mean Corpuscular Hemoglobin Concent 33.1 % (32.0-36.0) Red Cell Distribution Width 16.2 % (11.6-17.2) Platelet Count 89 TH/MM3 (150-450) Mean Platelet Volume 9.1 FL (7.0-11.0) Ammonia 60 MCMOL/L (11-32) Prothrombin Time 17.8 SEC (9.8-11.6) Prothromb Time International Ratio 1.8 RATIO Activated Partial Thromboplast Time 23.7 SEC (24.3-30.1) Test 11/13/17 03:12 11/14/17 05:15 White Blood Count 7.7 TH/MM3 (4.0-11.0) 8.2 TH/MM3 (4.0-11.0) Red Blood Count 3.13 MIL/MM3 (4.50-5.90) 2.70 MIL/MM3 (4.50-5.90) Hemoglobin 9.8 GM/DL (13.0-17.0) 8.6 GM/DL (13.0-17.0) Hematocrit 29.5 % (39.0-51.0) 25.3 % (39.0-51.0) Mean Corpuscular Volume 94.4 FL (80.0-100.0) 93.8 FL (80.0-100.0) Mean Corpuscular Hemoglobin 31.2 PG (27.0-34.0) 31.7 PG (27.0-34.0) Mean Corpuscular Hemoglobin Concent 33.1 % (32.0-36.0) 33.8 % (32.0-36.0) Red Cell Distribution Width 16.0 % (11.6-17.2) 15.8 % (11.6-17.2) Platelet Count 83 TH/MM3 (150-450) 83 TH/MM3 (150-450) Mean Platelet Volume 8.4 FL (7.0-11.0) 9.1 FL (7.0-11.0) Prothrombin Time 14.5 SEC (9.8-11.6) 15.7 SEC (9.8-11.6) Prothromb Time International Ratio 1.4 RATIO 1.6 RATIO Activated Partial Thromboplast Time 28.3 SEC (24.3-30.1) 33.2 SEC (24.3-30.1) Blood Urea Nitrogen 35 MG/DL (7-18) 29 MG/DL (7-18) Creatinine 0.90 MG/DL (0.60-1.30) 0.81 MG/DL (0.60-1.30) Random Glucose 126 MG/DL (74-106) 90 MG/DL (74-106) Total Protein 5.3 GM/DL (6.4-8.2) 4.8 GM/DL (6.4-8.2) Calcium Level 7.3 MG/DL (8.5-10.1) 7.0 MG/DL (8.5-10.1) Sodium Level 147 MEQ/L (136-145) 142 MEQ/L (136-145) Potassium Level 3.4 MEQ/L (3.5-5.1) 3.6 MEQ/L (3.5-5.1) Chloride Level 114 MEQ/L (98-107) 112 MEQ/L (98-107) Carbon Dioxide Level 26.8 MEQ/L (21.0-32.0) 24.8 MEQ/L (21.0-32.0) Anion Gap 6 MEQ/L (5-15) 5 MEQ/L (5-15) Estimat Glomerular Filtration Rate 83 ML/MIN (>89) 94 ML/MIN (>89) Protein Corrected Calcium 8.3 MG/DL (8.5-10.1) 8.2 MG/DL (8.5-10.1) Ammonia 16 MCMOL/L (11-32) 54 MCMOL/L (11-32) Neutrophils (%) (Auto) 74.0 % (16.0-70.0) Lymphocytes (%) (Auto) 8.0 % (9.0-44.0) Monocytes (%) (Auto) 8.9 % (0.0-8.0) Eosinophils (%) (Auto) 8.6 % (0.0-4.0) Basophils (%) (Auto) 0.5 % (0.0-2.0) Neutrophils # (Auto) 6.0 TH/MM3 (1.8-7.7) Lymphocytes # (Auto) 0.7 TH/MM3 (1.0-4.8) Monocytes # (Auto) 0.7 TH/MM3 (0-0.9) Eosinophils # (Auto) 0.7 TH/MM3 (0-0.4) Basophils # (Auto) 0.0 TH/MM3 (0-0.2) CBC Comment AUTO DIFF Differential Comment AUTO DIFF CONFIRMED Platelet Estimate LOW (NORMAL) Platelet Morphology Comment NORMAL (NORMAL) Albumin 2.7 GM/DL (3.4-5.0) Phosphorus Level 2.1 MG/DL (2.5-4.9) Magnesium Level 1.5 MG/DL (1.5-2.5) Alkaline Phosphatase 44 U/L (45-117) Aspartate Amino Transf (AST/SGOT) 20 U/L (15-37) Alanine Aminotransferase (ALT/SGPT) 34 U/L (12-78) Total Bilirubin 1.1 MG/DL (0.2-1.0) Free Thyroxine 0.86 NG/DL (0.76-1.46) Thyroid Stimulating Hormone 3rd Gen 3.610 uIU/ML (0.358-3.740) Result Diagram: 11/14/1715 11/14/17514 Microbiology Microbiology Date/Time Source Procedure Growth Status 11/10/17 17:28 Blood Peripheral Aerobic Blood Culture - Preliminary NO GROWTH IN 4 DAYS Resulted 11/10/17 17:28 Blood Peripheral Anaerobic Blood Culture - Preliminary NO GROWTH IN 4 DAYS Resulted 11/10/17 18:45 Urine Clean Catch Urine Culture - Final NO GROWTH IN 48 HOURS. Complete Imaging Last Impressions Head CT 11/10/171715 Signed Impressions: Service Date/Time: Friday, November 10, 2017 17:58 - CONCLUSION: Normal examination for a patient of this age. No significant change has occurred. Jus Schmitz MD Chest X-Ray 11/10/171715 Signed Impressions: Service Date/Time: Friday, November 10, 2017 17:27 - CONCLUSION: No significant change with the left lower lung infiltrate. The right lung is clear and well-aerated. 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 . Has 3 sisters who live out of the area remains in close contact with all of them closest with Malathi. Has adult children who live out of the area he does remain in touch with though not in regular communication.. Legal Patient has had encephalopathy, altered mental status multifactorial. His mentation is improving in the past days at times he is oriented though it also appears to continue to fluctuate. He would be best supported in shared decision making, 11/13 he completed healthcare surrogate designating his sister Malathi. Malathi has accepted serving in this role Spiritual/Cultural - Mandaen Ethical Issues none identified Important Contacts Malathi Ayala [facility] [phone] . Prognosis This patient was admitted for recurrent GI bleed. History of liver failure, recurrent sterilization's, portal hypertension. Increasing debility. Remains ongoing risk for further GI hemorrhage, further complications and recurrent hospitalizations. Appropriate for hospice if goals compatible. Code Status: No Code Plan * Legal decision maker:Patient has had encephalopathy, altered mental status multifactorial. His mentation is improving in the past day or so at times he is oriented though it also appears to continue to fluctuate. He would be best supported in shared decision making, 11/13 completed healthcare surrogate designating his sister Malathi. * Goals: Patient was some limited insight, able to participate the best supported by HCS. Spoke with sister via phone today. Malathi appears to have an overall good understanding of his overall conditions and expected prognosis. She endorses that he probably wouldn't want recurrent hospitalizations and he Slowly would want DNR status. She indicates he probably won't do well in rehabilitation because he is stubborn, likes to drink and will not want to participate. She understands he is expected to have recurrent hospitalizations, upon review of hospice for comfort versus ongoing aggressive treatments in the coming weeks to months--she indicates she would want to talk more with the patient and assess his understanding and wishes. All questions answered. Provided her with palliative contact information, she will be in town this weekend and is hopeful to assist with decisions further at that time. * CODE STATUS: DNR * SYMPTOMS: --Encephalopathy-multifactorial, hepatic, anemia- patient currently stable and mental status improving. On lactulose, Xifaxan. --Patient denies pain currently, denies dyspnea or other symptoms. Palliative care will continue to follow during hospital course as condition evolves, to assist patient/decision-maker with understanding of medical conditions, weighing benefits/burdens of treatment options, for clarification of goals of treatment. Additionally will assist with any symptoms of palliative concern . Time Spent Total Floor Time (mins): 35 (Chart review, PE, discussion with family on phone) Attestation To help prompt me to consider important information that might be impacting today's encounter and assessment, information from prior notes written by myself or my colleagues may have been "brought forward" into today's note. My signature on this note, however, is an attestation that I personally performed the exam, history, and/or decision-making noted today, and, unless otherwise indicated, the interactions with patient, family, and staff as well as the review of records all occurred today. I also attest that the listed assessment and stated plan reflect my best clinical judgment today based on the combination of historical information, prior notes, and today's exam/ interactions. When time spent is documented, it refers only to time spent today by the signer, or if indicated, combined time spent today by collaborating physician/nurse practitioner. Keren Wren Nov 14, 2017 17:21
--- NOTE | 2017-11-14 19:35 | HHI.PR ---
Subjective Remarks 72M with upper GI bleed on admission secondary to varices related to cirrhosis with portal hypertension. He has no complaints (because he seems to want to go home early). Objective Vital Signs Date Time Temp Pulse Resp B/P (MAP) Pulse Ox O2 Delivery O2 Flow Rate FiO2 11/14/17 16:10 96 Nasal Cannula 2.00 11/14/17 16:00 98.2 86 18 93/55 (68) 96 11/14/17 12:00 98.1 77 19 98/61 (73) 99 11/14/17 09:00 99 Nasal Cannula 2.00 11/14/17 08:00 97.4 64 19 93/52 (66) 98 11/14/17 05:00 97.9 74 18 99/55 (70) 99 11/14/17 00:22 97.9 82 18 90/55 (67) 99 11/13/17 22:11 104 101/65 (77) 11/13/17 21:39 96 Nasal Cannula 2.00 11/13/17 20:41 97.2 107 18 95/57 (70) 96 I/O 11/13/17 11/13/17 11/13/17 11/14/17 11/14/17 11/14/17 07:00 15:00 23:00 07:00 15:00 23:00 Intake Total 720 ml 360 ml 240 ml 1205 ml Output Total 425 ml 350 ml 400 ml Balance 295 ml 10 ml -160 ml 1205 ml Intake Oral 720 ml 360 ml 240 ml IV Total 805 ml Packed Cells 400 ml Output Urine Total 425 ml 350 ml 400 ml # Bowel Movements 0 Result Diagram: 11/14/1751411/14/17514 Imaging Last Impressions Head CT 11/10/171715 Signed Impressions: Service Date/Time: Friday, November 10, 2017 17:58 - CONCLUSION: Normal examination for a patient of this age. No significant change has occurred. Jus Schmitz MD Chest X-Ray 11/10/171715 Signed Impressions: Service Date/Time: Friday, November 10, 2017 17:27 - CONCLUSION: No significant change with the left lower lung infiltrate. The right lung is clear and well-aerated. Crow Umaña MD Objective Remarks GENERAL: He is lying awkwardly in bed, and inappropriately eager to go home, joking manner, but pleasant. SKIN: Warm and dry, jaundice HEAD: Normocephalic. EYES: scleral icterus. No injection or drainage. NECK: Supple, trachea midline. No JVD or lymphadenopathy. CARDIOVASCULAR: Regular rate and rhythm without murmurs, gallops, or rubs. RESPIRATORY: Breath sounds equal bilaterally. No accessory muscle use. GASTROINTESTINAL: Abdomen is fluid filled (ascites), but not tight. Hypoactive bowel sounds, non-tender. MUSCULOSKELETAL: No cyanosis, or edema. NEURO: No obvious asterixis. Borderline confusion may indicate hepatic encephalopathy. Assessment and Plan Problem List: (1) GI bleed requiring more than 4 units of blood in 24 hours, ICU, or surgery ICD Codes: K92.2 - Gastrointestinal hemorrhage, unspecified (2) Esophageal varices ICD Codes: I85.00 - Esophageal varices without bleeding Status: Acute (3) Cirrhosis, alcoholic ICD Codes: K70.30 - Alcoholic cirrhosis of liver without ascites Status: Chronic (4) Encephalopathy ICD Codes: G93.40 - Encephalopathy, unspecified Assessment and Plan Upper GI Bleed - EGD revealed esophageal and gastric varices, small AVM which was likely source of bleed was repaired. - Transfused on admission, Hgb remaining stable - Natural INR is around 1.6 Cirrhosis and Liver Disease - Patient is jaundice, somewhat confused (encephalopathic), ascites present - Check Ammonia level - INR is 1.6 due to liver failure Hypocalcemia - Single dose of 1g Calcium gluconate - Follow Calcium level in the a.m. and re-dose if needed CAD, COPD, CHF - somewhat stable now, but complicating factors DVT Prophylaxis - Naturally anticoagulated due to liver failure José Murcia MD Nov 14, 2017 19:35
[2017-11-14] MEDS ORDERED: CALCIUM GLUCONATE INJ 1 GM in SODIUM CHLORIDE 0.9% INJ 100 ML IV ONE (19:45)
[2017-11-14] MEDS: ATORVASTATIN 40 MG TAB PO SCH (23:03)
[2017-11-15] VITALS (10 sets, daily range): BP systolic 93–105; BP diastolic 50–69; PULSE 80–100; RESP 18–20; TEMP 97.2–98.8; O2SAT 92–98
[2017-11-15] MEDS: CHLORHEXIDINE GLUCONATE 2 % 1 PACK (2 CLOTHS) TOP SCH (04:00)
[2017-11-15] MEDS: RESP: ALBUTEROL 2.5 MG/IPRATROPIUM 0.5 MG NEB (SCH) INH ×2 (04:37→08:49)
[2017-11-15] MEDS: RIFAXIMIN 200 MG TAB PO SCH ×3 (06:41→21:39)
[2017-11-15] MEDS: PROPRANOLOL HCL 10 MG TAB PO SCH ×3 (06:41→21:44)
[2017-11-15 06:50] LABS: HEMATOCRIT 29.6 % (39.0-51.0); MEAN CELL VOLUME 93.2 FL (80.0-100.0); MEAN CORPUSCULAR HEMOGLOBIN 31.9 PG (27.0-34.0); MEAN CORPUSCULAR HGB CONC 34.2 % (32.0-36.0); PLATELET COUNT 88 TH/MM3 (150-450); RED BLOOD COUNT 3.18 MIL/MM3 (4.50-5.90); RED CELL DISTRIBUTION WIDTH 16.2 % (11.6-17.2)
[2017-11-15 06:57] LABS: REVIEW FLAG FINAL
[2017-11-15 07:07] LABS: APTT (PATIENT) 32.2 SEC (24.3-30.1); INTERNATIONAL NORMALIZED RATIO 1.5 RATIO; PROTHROMBIN TIME - PATIENT 15.5 SEC (9.8-11.6)
[2017-11-15 07:15] LABS: BICARBONATE 23.4 MEQ/L (21.0-32.0); POTASSIUM 3.3 MEQ/L (3.5-5.1)
[2017-11-15] MEDS: BUDESONIDE-FORMOTEROL 160/4.5 MCG INHALER INH SCH ×2 (09:00→21:40)
[2017-11-15] MEDS: LACTULOSE SYRUP 20 GM/30 ML CUP PO SCH ×4 (09:53→21:49)
[2017-11-15] MEDS: TAMSULOSIN HCL 0.4 MG CAP PO SCH (09:53)
[2017-11-15] MEDS: PANTOPRAZOLE SODIUM 40 MG VIAL IV PUSH SCH ×2 (09:54→21:39)
[2017-11-15] MEDS: SPIRONOLACTONE 25 MG TAB PO SCH (09:55)
[2017-11-15] MEDS: SODIUM CHLOR 0.45% 1000 ML INJ 1,000 ML IV SCH (09:55)
[2017-11-15] MEDS: POTASSIUM CHLOR 10 MEQ PREMIX 100 ML IV SCH ×3 (10:45→12:45)
[2017-11-15 11:34] LABS: MAGNESIUM 1.5 MG/DL (1.5-2.5)
[2017-11-15 11:35] LABS: INDIRECT BILIRUBIN 0.6 MG/DL (0.0-0.8); TOTAL BILIRUBIN ADULT 1.1 MG/DL (0.2-1.0)
[2017-11-15] MEDS: cefTRIAXone INJ 1,000 MG in SODIUM CHLORIDE 0.9% INJ 100 ML IV SCH (14:40)
--- NOTE | 2017-11-15 14:44 | HHI.GIFU ---
Subjective Remarks Mild abdominal bloating Right upper quadrant pain Left lower quadrant pain Bowel movement today, formed (Mis Pierre) Objective Vitals I&O Vital Signs Date Time Temp Pulse Resp B/P (MAP) Pulse Ox O2 Delivery O2 Flow Rate FiO2 11/15/17 12:29 97.2 86 18 98/63 (75) 98 11/15/17 08:51 96 Nasal Cannula 2.00 11/15/17 07:44 98.8 87 18 93/58 (70) 95 11/15/17 06:41 100 101/62 (75) 11/15/17 04:40 95 Nasal Cannula 2.00 11/15/17 04:00 98.3 98 20 100/61 (74) 94 11/15/17 00:00 98.2 95 20 105/69 (81) 98 11/14/17 20:00 98.6 99 18 98/59 (72) 96 11/14/17 16:10 96 Nasal Cannula 2.00 11/14/17 16:00 98.2 86 18 93/55 (68) 96 I/O 11/14/17 11/14/17 11/14/17 11/15/17 11/15/17 11/15/17 07:00 15:00 23:00 07:00 15:00 23:00 Intake Total 240 ml 1205 ml 100 ml 840 ml Output Total 400 ml Balance -160 ml 1205 ml 100 ml 840 ml Intake Oral 240 ml 840 ml IV Total 805 ml 100 ml Packed Cells 400 ml Output Urine Total 400 ml # Voids 3 6 # Bowel Movements 0 Laboratory Laboratory Tests Test 11/15/17 06:20 11/15/17 06:30 Blood Urea Nitrogen 24 Creatinine 0.70 Random Glucose 78 Calcium Level 7.6 Sodium Level 141 Potassium Level 3.3 Chloride Level 111 Carbon Dioxide Level 23.4 Anion Gap 7 Estimat Glomerular Filtration Rate 111 Magnesium Level 1.5 Total Bilirubin 1.1 Direct Bilirubin 0.5 Indirect Bilirubin 0.6 Aspartate Amino Transf (AST/SGOT) 21 Alanine Aminotransferase (ALT/SGPT) 28 Alkaline Phosphatase 50 Total Protein 4.9 Albumin 2.2 White Blood Count 12.0 Red Blood Count 3.18 Hemoglobin 10.1 Hematocrit 29.6 Mean Corpuscular Volume 93.2 Mean Corpuscular Hemoglobin 31.9 Mean Corpuscular Hemoglobin Concent 34.2 Red Cell Distribution Width 16.2 Platelet Count 88 Mean Platelet Volume 9.0 Prothrombin Time 15.5 Prothromb Time International Ratio 1.5 Activated Partial Thromboplast Time 32.2 Ammonia 47 Date/Time Source Procedure Growth Status 11/10/17 17:28 Blood Peripheral Aerobic Blood Culture - Final NO GROWTH IN 5 DAYS Complete 11/10/17 17:28 Blood Peripheral Anaerobic Blood Culture - Final NO GROWTH IN 5 DAYS Complete 11/10/17 18:45 Urine Clean Catch Urine Culture - Final NO GROWTH IN 48 HOURS. Complete Imaging Last Impressions Head CT 11/10/171715 Signed Impressions: Service Date/Time: Friday, November 10, 2017 17:58 - CONCLUSION: Normal examination for a patient of this age. No significant change has occurred. Jus Schmitz MD Chest X-Ray 11/10/171715 Signed Impressions: Service Date/Time: Friday, November 10, 2017 17:27 - CONCLUSION: No significant change with the left lower lung infiltrate. The right lung is clear and well-aerated. Crow Umaña MD Physical Exam HEENT: Normocephalic, atraumatic. NECK: Neck is supple CHEST: CTA CARDIAC: RRR ABDOMEN: taut, continues with mild distention, right upper quadrant pain, left lower quadrant pain as light palpation EXTREMITIES: Mild extremity edema , upper SKIN: Mild Jaundice. MICA PLATE LAYER: awake, more alert today (Mis Pierre) Assessment and Plan Plan ASSESSMENT: - GI bleed upper , recurrent this admission, but not active bleeding now . Hgb stable. Probable , Portal hypertensive, gastropathy vs esophageal varices small.. EGD performed with findings of portal hypertensive gastropathy but one large poss AVM. Cauterized with bipolar and clipped x 2. Located in cardia in difficult location. No gastric varices seen. Esophageal varices appeared fairly small but with focal erythematous spots. Bands placed x 4 in all quadrants. Distal esophagus. Duodenum was negative for ulcers or bleeding lesions. 11-15-17, continues to complain of abdominal bloating, positive for tympany, left lower quadrant pain and right upper quadrant pain worse with palpation, bowel sounds very soft, possible early ileus need to rule out PLAN: - Currently diet is regular but may need to go back to full liquids dependent on KUB KUB today - CCM following - Maintain IV PPI for now - Continue Lactulose enemas - Continue Xifaxan - NGT not recommended for at least a week due to risk of bleeding - Paracentesis as needed. Monitor girth and symptoms of SOB, Nausea, vomiting, - Broad spectrum antibiotics - Monitor labs, trend hgb - Notify GI of active bleeding - Supportive care - Further recommendations to follow based on results of above Patient seen and examined by Dr. Weinberg and myself and this note is written on his behalf. (Mis Pierre) Physician Comments Agree with the above assessment and plan, will follow up with you. (Jessa Weinberg MD) Mis Pierre Nov 15, 2017 14:44 Jessa Weinberg MD Nov 16, 2017 06:19
--- NOTE | 2017-11-15 17:10 | RADRPT ---
EXAM DATE/TIME: 11/15/2017 15:21 [facility] COMPARISON: ABDOMEN KUB ONLY, April 30, 2016, 17:56. INDICATIONS : Abdominal pain and distention. MEDICAL HISTORY : None. SURGICAL HISTORY : None. ENCOUNTER: Initial ACUITY: 3 days PAIN SCORE: 8/10 LOCATION: Bilateral lower quadrant abdomen. FINDINGS: Supine view of the abdomen was performed. A distention of small bowel loops and most of the colon wit h a small amount of air identified in the rectal vault. Findings could represent a partial obstructio n in the region of the descending. Cecum measures up to 13 cm in diameter. No pneumoperitoneum. [place] us structures are intact. CONCLUSION: 1. Air distention of small bowel loops and most of the colon with a possible transition in the region of the descending. 2. Small amount of air in the rectal vault. Plain film findings are concerning for a partial bowel ob struction in the region of the descending colon. CT could be performed for further characterization. 3. No pneumoperitoneum. Oswaldo Carr MD on November 15, 2017 at 17:06 Board Certified Radiologist. This report was verified electronically.
[2017-11-15] MEDS ORDERED: DIATRIZOATE MEGLUM/DIATRIZOATE SOD 9 ML CUP PO SCH (21:00)
[2017-11-15] MEDS: ATORVASTATIN 40 MG TAB PO SCH (21:39)
--- NOTE | 2017-11-15 22:46 | HHI.PR ---
Subjective Remarks Patient seen this morning around 10 AM. Patient says he is feeling all right, however does have abdominal distention and generalized discomfort. He says this is not changed today. No bowel movement as of this morning.. Objective Vital Signs Date Time Temp Pulse Resp B/P (MAP) Pulse Ox O2 Delivery O2 Flow Rate FiO2 11/15/17 20:00 98.3 80 20 93/50 (64) 92 11/15/17 17:33 96 Nasal Cannula 2.00 11/15/17 16:21 97.6 84 19 94/54 (67) 96 11/15/17 12:29 97.2 86 18 98/63 (75) 98 11/15/17 08:51 96 Nasal Cannula 2.00 11/15/17 07:44 98.8 87 18 93/58 (70) 95 11/15/17 06:41 100 101/62 (75) 11/15/17 04:40 95 Nasal Cannula 2.00 11/15/17 04:00 98.3 98 20 100/61 (74) 94 11/15/17 00:00 98.2 95 20 105/69 (81) 98 I/O 11/14/17 11/14/17 11/14/17 11/15/17 11/15/17 11/15/17 07:00 15:00 23:00 07:00 15:00 23:00 Intake Total 240 ml 1205 ml 100 ml 840 ml 100 ml Output Total 400 ml Balance -160 ml 1205 ml 100 ml 840 ml 100 ml Intake Oral 240 ml 840 ml IV Total 805 ml 100 ml 100 ml Packed Cells 400 ml Output Urine Total 400 ml # Voids 3 6 # Bowel Movements 0 5 Result Diagram: 11/15/17 0630 11/15/17 0620 Imaging Last Impressions Abdomen X-Ray 11/15/17 0000 Signed Impressions: Service Date/Time: Wednesday, November 15, 2017 15:21 - CONCLUSION: 1. Air distention of small bowel loops and most of the colon with a possible transition in the region of the descending. 2. Small amount of air in the rectal vault. Plain film findings are concerning for a partial bowel obstruction in the region of the descending colon. CT could be performed for further characterization. 3. No pneumoperitoneum. Oswaldo Carr MD Head CT 12/15/17 1716 Signed Impressions: Service Date/Time: Friday, November 10, 2017 17:58 - CONCLUSION: Normal examination for a patient of this age. No significant change has occurred. Jus Schmitz MD Chest X-Ray 11/10/171715 Signed Impressions: Service Date/Time: Friday, November 10, 2017 17:27 - CONCLUSION: No significant change with the left lower lung infiltrate. The right lung is clear and well-aerated. Crow Umaña MD Objective Remarks GENERAL: patient lying in bed. Appears comfortable. SKIN: Warm and dry. HEAD: Normocephalic. EYES: No scleral icterus. No injection or drainage. NECK: Supple, trachea midline. No JVD or lymphadenopathy. CARDIOVASCULAR: Regular rate and rhythm without murmurs, gallops, or rubs. RESPIRATORY: Breath sounds equal bilaterally. No accessory muscle use. GASTROINTESTINAL: Abdomen moderately distended. Nontender. No rebound or guarding. Bowel sounds present MUSCULOSKELETAL: No cyanosis, or edema. BACK: Nontender without obvious deformity. No CVA tenderness. A/P Assessment and Plan 11/15/17 //Upper GI Bleed //Anemia. Blood loss. - EGD revealed esophageal and gastric varices, small AVM which was likely source of bleed was repaired. - Transfused on admission, Hgb remaining stable - Natural INR is around 1.6 = Hemoglobin today 10.1. Up from 8.6 yesterday. Continue to monitor. GI following. Appreciate assistance. //Possible small bowel obstruction. Abdominal film indicates possible obstruction. Nothing by mouth. CT scan ordered. //Cirrhosis and Liver Disease - Patient is jaundice, somewhat confused (encephalopathic), ascites present -Ammonia 47 - INR is 1.6 due to liver failure = GI following. Appreciate assistance. //Hypokalemia. = Potassium 3.3. Replaced. Continue to monitor. //Hypocalcemia -Calcium level corrects to normal taking into account albumin. //CAD, COPD, CHF - somewhat stable now, but complicating factors = Check BNP //DVT Prophylaxis - Naturally anticoagulated due to liver failure Discharge Planning pending GI clearance. Fitz Granger MD Nov 15, 2017 22:46
[2017-11-16] VITALS (11 sets, daily range): BP systolic 50–99; BP diastolic 31–58; PULSE 76–89; RESP 16–20; TEMP 94.5–98.4; O2SAT 92–98
[2017-11-16] MEDS: CHLORHEXIDINE GLUCONATE 2 % 1 PACK (2 CLOTHS) TOP SCH (04:00)
[2017-11-16] MEDS: RIFAXIMIN 200 MG TAB PO SCH ×3 (05:34→20:29)
[2017-11-16] MEDS: PROPRANOLOL HCL 10 MG TAB PO SCH ×3 (05:35→22:00)
[2017-11-16 06:27] LABS: HEMATOCRIT 30.3 % (39.0-51.0); MEAN CELL VOLUME 94.5 FL (80.0-100.0); MEAN CORPUSCULAR HEMOGLOBIN 31.4 PG (27.0-34.0); MEAN CORPUSCULAR HGB CONC 33.2 % (32.0-36.0); PLATELET COUNT 99 TH/MM3 (150-450); RED BLOOD COUNT 3.21 MIL/MM3 (4.50-5.90); RED CELL DISTRIBUTION WIDTH 17.3 % (11.6-17.2); WHITE BLOOD COUNT 8.5 TH/MM3 (4.0-11.0)
[2017-11-16 06:36] LABS: APTT (PATIENT) 38.1 SEC (24.3-30.1); INTERNATIONAL NORMALIZED RATIO 1.9 RATIO; PROTHROMBIN TIME - PATIENT 19.4 SEC (9.8-11.6)
[2017-11-16 06:39] LABS: REVIEW FLAG FINAL
[2017-11-16 06:58] LABS: BICARBONATE 22.1 MEQ/L (21.0-32.0); POTASSIUM 3.6 MEQ/L (3.5-5.1)
[2017-11-16] MEDS: DEXTROSE 50% IN WATER 50 ML VIAL(D50) IV PUSH PRN ×5 (07:52→20:28)
[2017-11-16] MEDS ORDERED: GLUCAGON 1 MG/ML VIAL OTHER PRN (08:00)
[2017-11-16] MEDS: TAMSULOSIN HCL 0.4 MG CAP PO SCH (08:05)
[2017-11-16] MEDS: PANTOPRAZOLE SODIUM 40 MG VIAL IV PUSH SCH ×2 (08:09→20:30)
[2017-11-16] MEDS: SODIUM CHLOR 0.45% 1000 ML INJ 1,000 ML IV SCH (08:12)
[2017-11-16] MEDS: SPIRONOLACTONE 25 MG TAB PO SCH (09:00)
[2017-11-16] MEDS: BUDESONIDE-FORMOTEROL 160/4.5 MCG INHALER INH SCH ×2 (09:00→21:00)
[2017-11-16] MEDS: LACTULOSE SYRUP 20 GM/30 ML CUP PO SCH ×4 (09:00→21:00)
[2017-11-16] MEDS: SODIUM CHLORIDE 23.4% INJ 77 MEQ in DEXTROSE 10% INJ 1,000 ML IV SCH ×2 (09:14→22:40)
[2017-11-16] MEDS ORDERED: IOHEXOL 350 MG/ML 10 ML VIAL (for RAD DIAG) IVCONTRAST ONE (11:44)
--- NOTE | 2017-11-16 11:59 | RADRPT ---
EXAM DATE/TIME: 11/16/2017 11:37 [facility] COMPARISON: No previous studies available for comparison. INDICATIONS : Possible obstruction IV CONTRAST: 93 cc Omnipaque 350 (iohexol) IV ORAL CONTRAST: No oral contrast ingested. RADIATION DOSE: 15.22 CTDIvol (mGy) MEDICAL HISTORY : Hypertension. Congestive heart failure. Cardiovascular diseaseEsophageal Varacies SURGICAL HISTORY : CABG ENCOUNTER: Subsequent ACUITY: 4 - 6 days PAIN SCALE: 10/10 LOCATION: Abdominal area TECHNIQUE: Volumetric scanning of the abdomen and pelvis was performed. Using automated exposure control and ad justment of the mA and/or kV according to patient size, radiation dose was kept as low as reasonably achievable to obtain optimal diagnostic quality images. DICOM format image data is available electro nically for review and comparison. FINDINGS: LOWER LUNGS: Bilateral pleural effusions right greater than left. LIVER: The liver is abnormal. There is marked nodularity and decreased size consistent with long-standing ci rrhosis. There is air in the left lobe liver near the dome. The portal vein is patent. A number of ga llstones in a nondistended gallbladder. SPLEEN: Normal size without lesion. Numerous calcified granuloma PANCREAS: Within normal limits. KIDNEYS: Normal in size and shape. There is no mass, stone or hydronephrosis except small cyst in left kidney . ADRENAL GLANDS: Within normal limits. VASCULAR: There is no aortic aneurysm. BOWEL/MESENTERY: There is significant amount of ascites throughout the abdomen. There are numerous loops of bowel with circumferential in extraluminal air consistent with pneumatosis. The descending colon is abnormal. T here some loops of small bowel in the midabdomen also with air diffusely. I do not see any free air i n the abdomen.. ABDOMINAL WALL: Obvious distention. RETROPERITONEUM: There is no lymphadenopathy. BLADDER: No wall thickening or mass. REPRODUCTIVE: Within normal limits. INGUINAL: There is no lymphadenopathy or hernia. MUSCULOSKELETAL: Within normal limits for patient age. CONCLUSION: There is extensive ascites throughout the abdomen. The liver is abnormal with a cirrhotic appearance. There is extensive pneumatosis in the right colon, in loops of small bowel in the midabdomen, and a lso air throughout the liver concerning for portal venous air. I don't see any obvious free air or an ything to suggest obstruction. There is extensive pneumatosis and portal venous air are concerning f or possible bowel necrosis. Winston Moreno MD on November 16, 2017 at 11:53 Board Certified Radiologist. This report was verified electronically.
--- NOTE | 2017-11-16 14:01 | RADRPT ---
EXAM DATE/TIME: 11/16/2017 10:09 [facility] COMPARISON: No previous studies available for comparison. INDICATIONS : Ascites. MEDICAL HISTORY : Myocardial infarction. Congestive heart failure. Hypercholesterolemia. Hypertension. COPD. Hiatal h ernia. GERD. Liver disease. Esophogeal varices. SURGICAL HISTORY : CABG ENCOUNTER: Subsequent ACUITY: 1 day PAIN SCORE: 4/10 LOCATION: Left lower quadrant FLUID: Total volume of 7700 cc of fluid was removed. Fluid was sent to lab for ordered studies. Post procedure scanning reveals no hematoma or other complication. TECHNIQUE: 1. Ultrasound guidance for abdominal paracentesis. 2. Paracentesis. The risks, benefits, and alternatives to ultrasound guided paracentesis were explained to the patient in detail including the risk of bleeding and infection. Written and verbal informed consent was obt ained. With the patient on the ultrasound table, ultrasound imaging was used to select the most appropriate approach for paracentesis. Overlying skin was prepped and draped in the usual sterile fashion and wi th a local anesthetic, a dermatotomy was made with an 11 blade scalpel. A 6 Wolof Fvm-N-diazwnim ca theter was introduced into the peritoneal cavity and fluid was collected. The patient tolerated the procedure well and left the ultrasound suite in stable condition. CONCLUSION: Uncomplicated ultrasound guided paracentesis. Danny Younger MD on November 16, 2017 at 13:49 Board Certified Radiologist. This report was verified electronically.
[2017-11-16 14:13] LABS: PERITONEAL EOS 1 %; PERITONEAL LYMPHS 1 %; PERITONEAL MESOTHELIAL 1 %; PERITONEAL MONOS 11 %; PERITONEAL POLYS(SEGS) 86 %; PERITONEAL WBC 4658 /MM3 (0-10)
[2017-11-16] MEDS ORDERED: ALBUMIN 5% INJ 500 ML IV ONE (14:30)
[2017-11-16] MEDS ORDERED: ALBUMIN 25% INJ 100 ML IV ONE ×4 (14:30→17:30)
[2017-11-16] MEDS ORDERED: LIDOCAINE HCL 1% 20 ML VIAL ONE (14:36)
--- NOTE | 2017-11-16 14:58 | HHI.PR ---
Subjective Remarks Patient seen today after paracentesis. Says he feels all right. Reports abdomen feels much better after paracentesis. Discussed with nursing. Patient underwent 7 L paracentesis. Systolic blood pressure in the 50s. Using appropriately-sized pediatric cuff. Oddly enough, Patient denies any lightheadedness. Objective Vital Signs Date Time Temp Pulse Resp B/P (MAP) Pulse Ox O2 Delivery O2 Flow Rate FiO2 11/16/17 14:25 94 3.00 11/16/17 10:02 93 Nasal Cannula 3.00 11/16/17 08:00 94.5 89 18 99/58 (72) 97 11/16/17 04:00 98.2 87 18 94/50 (65) 94 11/16/17 00:00 98.4 88 20 94/52 (66) 92 11/15/17 20:00 98.3 80 20 93/50 (64) 92 11/15/17 17:33 96 Nasal Cannula 2.00 11/15/17 16:21 97.6 84 19 94/54 (67) 96 I/O 11/15/17 11/15/17 11/15/17 11/16/17 11/16/17 11/16/17 07:00 15:00 23:00 07:00 15:00 23:00 Intake Total 100 ml 840 ml 100 ml Output Total 800 ml Balance 100 ml 840 ml 100 ml -800 ml Intake Oral 840 ml IV Total 100 ml 100 ml Output Urine Total 800 ml # Voids 3 6 # Bowel Movements 0 5 4 Result Diagram: 11/16/17 0403 11/16/17 0948 Objective Remarks GENERAL: patient lying in bed. Appears comfortable. Patient is confused as yesterday. SKIN: Warm and dry. HEAD: Normocephalic. EYES: No scleral icterus. No injection or drainage. NECK: Supple, trachea midline. No JVD. CARDIOVASCULAR: Regular rate and rhythm without murmurs, gallops, or rubs. RESPIRATORY: Breath sounds equal bilaterally. No accessory muscle use. GASTROINTESTINAL: Abdomen nontender, nondistended. Nontender. No rebound or guarding. Bowel sounds hypoactive MUSCULOSKELETAL: No cyanosis, or edema. BACK: Nontender without obvious deformity. No CVA tenderness. A/P Assessment and Plan //Spontaneous bacterial peritonitis. -Status post 7 L paracentesis 11/16 with 4658 white blood cells. -Albumin, Zosyn ordered. -Follow up cultures //Possible small bowel necrosis. //Suspected sepsis -Abdomen unusually nontender CT abdomen with small bowel pneumatosis. -Broad-spectrum antibiotics. Colorectal consultation. //Suspected severe sepsis with shock. //Hypotension -sytolic blood pressures in the 50s. -Patient on propranolol which lowers heart rate. SBP, but white count normal today.. = Repeat labs. Lactate ordered and pending. Abdominal infection does not require blood cultures. //Hyperglycemia. Likely secondary to liver disease, nothing by mouth status. D5 half-normal saline. Accu-Cheks //Upper GI Bleed //Anemia. Blood loss. - EGD revealed esophageal and gastric varices, small AVM which was likely source of bleed was repaired. - Transfused on admission, Hgb remaining stable - Natural INR is around 1.6 = Hemoglobin today 10.1. Stable from yesterday Continue to monitor. GI following. Appreciate assistance. //Cirrhosis and Liver Disease - Patient is jaundice, somewhat confused (encephalopathic), ascites present -Ammonia 47 - INR is 1.9 due to liver failure = GI following. Appreciate assistance. =11/16. INR 1.9. Signs of bleeding. Vitamin K ordered. //Hypokalemia. = Potassium 3.6 this morning. //Hypocalcemia -Calcium level corrects to normal taking into account albumin. //CAD, COPD, CHF - somewhat stable now, but complicating factors = Check BNP //DVT Prophylaxis - Naturally anticoagulated due to liver failure CODE STATUS DNR Discharge Planning Patient with suspected sepsis. SBP. possible Small bowel necrosis. Shock. Fitz Granger MD Nov 16, 2017 14:58
[2017-11-16] MEDS ORDERED: PHYTONADIONE 5 MG TAB PO ONE (15:00)
[2017-11-16] MEDS ORDERED: PHYTONADIONE 5 MG/SWFI 5 ML ORAL SYR PO ONE (15:15)
[2017-11-16] MEDS: PIPERACIL-TAZO 4.5 GM PREMIX 100 ML IV SCH ×2 (16:35→22:55)
[2017-11-16 16:50] LABS: BICARBONATE 19.8 MEQ/L (21.0-32.0); CALCIUM-PROTEIN CORRECTED 9.2 MG/DL (8.5-10.1); TOTAL BILIRUBIN ADULT 1.3 MG/DL (0.2-1.0)
--- NOTE | 2017-11-16 17:11 | HHI.HCPN ---
Reason for visit a. To assist with evaluation and management of symptoms including: encephalopathy b. To assist medical decision maker(s) with: better understanding of current medical conditions; weighing benefits/burdens of medical treatment options; making medical treatment decisions. Subjective/Interval History Palliative reconsulted today; palliative already following. Pt seen today to follow up on new findings, comfort,etc. +increased abdominal distention, abd CT = There is extensive ascites throughout the abdomen. The liver is abnormal with a cirrhotic appearance. There is extensive pneumatosis in the right colon, in loops of small bowel in the midabdomen, and also air throughout the liver concerning for portal venous air. I don't see any obvious free air or anything to suggest obstruction. There is extensive pneumatosis and portal venous air are concerning for possible bowel necrosis. Ultrasound-guided Paracentesis today removal of 7 L. Hypotensive following, systolic BPs in the 50s though patient reported to be asymptomatic. Receiving albumin; most recent blood pressure 71/40. Medical attending notes that he discussed with patient's sister who is en route from out of the area. Pt seen in the room nurse present, he is lying flat. He is alert, oriented x2, pleasant. He almost that he is in the hospital for bleeding problems, tells me he had abdominal surgery today for the fluid (paracentesis), he is oriented to his sister, though otherwise with poor insight and some confusion. He is cooperative, he follows commands. Advise that he has new findings in his abdomen that are concerning, and that we wish to talk more with him and his sister about limited treatment options and keeping him comfortable during this process. He is mildly dyspneic during conversations which she has not been during prior interactions with him. He denies any pain, dyspnea or discomfort though he is mildly tender when abdomen is palpated on the right. Advise I will call his sister to provide an update he is appreciative of this, advised him she would be coming in the next day or so. Following exam call to patient's sister Malathi. review new findings, poor prognosis, and pt high risk for rapid clinical decline 2/2 to new findings. Review he may not be a surgical candidate, colorectal eval pending. Malathi very strongly expresses that she would absolutely not want Jhony to undergo any surgical procedure given his underlying conditions, and that he would not want to undergo invasive measures /surgery and subsequent rehabilitation. She will be on the road traveling to [place] most of the day tomorrow and is available via her 's phone adam. She would like to enroll the patient in hospice when she gets here to ensure that he is comfortable and does not suffer with his conditions. She does wish to continue ongoing supportive treatment measures, short of resuscitation/surgery, to keep him Stable (if able) until she gets here. She has also notified additional family who might want to visit him. She expects arrive late Monday/Monday from out of state. Advance Directives Living Will: Never completed Health Care Surrogate: Copy in medical record Durable Power of Records Officer: Never completed Advance Directive Specifics Date completed: 11/13/17 Health Care Surrogate(s): Sister Malathi Ayala Objective Vital Signs Date Time Temp Pulse Resp B/P (MAP) Pulse Ox O2 Delivery O2 Flow Rate FiO2 11/16/17 16:30 94.6 83 18 71/40 (50) 97 11/16/17 14:25 94 3.00 11/16/17 10:02 93 Nasal Cannula 3.00 11/16/17 08:00 94.5 89 18 99/58 (72) 97 11/16/17 04:00 98.2 87 18 94/50 (65) 94 11/16/17 00:00 98.4 88 20 94/52 (66) 92 11/15/17 20:00 98.3 80 20 93/50 (64) 92 11/15/17 17:33 96 Nasal Cannula 2.00 Intake & Output 11/16/17 11/16/17 06:59 18:59 Intake Total 100 ml Output Total 800 ml Balance 100 ml -800 ml IV Total 100 ml Output Urine Total 800 ml # Bowel Movements 7 Physical Exam CONSTITUTIONAL/GENERAL: Chronically ill-appearing male , jaundiced. Visibly more fatigued today TUBES/LINES/DRAINS: Peripheral IV upper extremity, Faria catheter SKIN: Slight jaundice., rashes, or lesions. Ecchymoses on upper extremities.+ Small amount of serous leaking from paracentesis site. Skin warm, dry. CARDIOVASCULAR: Regular rate and rhythm without murmur. Peripheral pulses symmetric. Slight edema to upper extremities RESPIRATORY/CHEST: Symmetric, mildly tachypneic respirations. On nasal cannula. Clear to auscultation. Decreased air movement to bases.Breath sounds equal bilaterally. GASTROINTESTINAL: Abdomen soft, round, slightly distended, + reducible umbilical hernia, + tender rt upper. Bowel sounds hypoactive GENITOURINARY: Without palpable bladder distension. MUSCULOSKELETAL: Extremities without clubbing, cyanosis. Some edema to the upper extremities + Chronic thickening skin bilateral lower extremities. Extremities are thin with some muscle atrophy evident. No mottling or clubbing. NEUROLOGICAL: Awake and alert. Oriented x2, very limited insight. cooperative , pleasant. Follows all commands. Moves all 4 extremities with generalized weakness. PSYCHIATRIC: No obvious anxiety/depression. no apparent hallucinations or other psychotic thought process. Diagnostic Tests Laboratory Laboratory Tests Test 11/14/17 05:15 11/15/17 06:20 11/15/17 06:30 11/16/17 04:03 White Blood Count 8.2 TH/MM3 (4.0-11.0) 12.0 TH/MM3 (4.0-11.0) 8.5 TH/MM3 (4.0-11.0) Red Blood Count 2.70 MIL/MM3 (4.50-5.90) 3.18 MIL/MM3 (4.50-5.90) 3.21 MIL/MM3 (4.50-5.90) Hemoglobin 8.6 GM/DL (13.0-17.0) 10.1 GM/DL (13.0-17.0) 10.1 GM/DL (13.0-17.0) Hematocrit 25.3 % (39.0-51.0) 29.6 % (39.0-51.0) 30.3 % (39.0-51.0) Mean Corpuscular Volume 93.8 FL (80.0-100.0) 93.2 FL (80.0-100.0) 94.5 FL (80.0-100.0) Mean Corpuscular Hemoglobin 31.7 PG (27.0-34.0) 31.9 PG (27.0-34.0) 31.4 PG (27.0-34.0) Mean Corpuscular Hemoglobin Concent 33.8 % (32.0-36.0) 34.2 % (32.0-36.0) 33.2 % (32.0-36.0) Red Cell Distribution Width 15.8 % (11.6-17.2) 16.2 % (11.6-17.2) 17.3 % (11.6-17.2) Platelet Count 83 TH/MM3 (150-450) 88 TH/MM3 (150-450) 99 TH/MM3 (150-450) Mean Platelet Volume 9.1 FL (7.0-11.0) 9.0 FL (7.0-11.0) 9.5 FL (7.0-11.0) Neutrophils (%) (Auto) 74.0 % (16.0-70.0) Lymphocytes (%) (Auto) 8.0 % (9.0-44.0) Monocytes (%) (Auto) 8.9 % (0.0-8.0) Eosinophils (%) (Auto) 8.6 % (0.0-4.0) Basophils (%) (Auto) 0.5 % (0.0-2.0) Neutrophils # (Auto) 6.0 TH/MM3 (1.8-7.7) Lymphocytes # (Auto) 0.7 TH/MM3 (1.0-4.8) Monocytes # (Auto) 0.7 TH/MM3 (0-0.9) Eosinophils # (Auto) 0.7 TH/MM3 (0-0.4) Basophils # (Auto) 0.0 TH/MM3 (0-0.2) CBC Comment AUTO DIFF Differential Comment AUTO DIFF CONFIRMED Platelet Estimate LOW (NORMAL) Platelet Morphology Comment NORMAL (NORMAL) Prothrombin Time 15.7 SEC (9.8-11.6) 15.5 SEC (9.8-11.6) 19.4 SEC (9.8-11.6) Prothromb Time International Ratio 1.6 RATIO 1.5 RATIO 1.9 RATIO Activated Partial Thromboplast Time 33.2 SEC (24.3-30.1) 32.2 SEC (24.3-30.1) 38.1 SEC (24.3-30.1) Blood Urea Nitrogen 29 MG/DL (7-18) 24 MG/DL (7-18) 27 MG/DL (7-18) Creatinine 0.81 MG/DL (0.60-1.30) 0.70 MG/DL (0.60-1.30) 1.33 MG/DL (0.60-1.30) Random Glucose 90 MG/DL (74-106) 78 MG/DL (74-106) 37 MG/DL (74-106) Total Protein 4.8 GM/DL (6.4-8.2) 4.9 GM/DL (6.4-8.2) Albumin 2.7 GM/DL (3.4-5.0) 2.2 GM/DL (3.4-5.0) Calcium Level 7.0 MG/DL (8.5-10.1) 7.6 MG/DL (8.5-10.1) 7.6 MG/DL (8.5-10.1) Phosphorus Level 2.1 MG/DL (2.5-4.9) Magnesium Level 1.5 MG/DL (1.5-2.5) 1.5 MG/DL (1.5-2.5) Alkaline Phosphatase 44 U/L (45-117) 50 U/L (45-117) Aspartate Amino Transf (AST/SGOT) 20 U/L (15-37) 21 U/L (15-37) Alanine Aminotransferase (ALT/SGPT) 34 U/L (12-78) 28 U/L (12-78) Total Bilirubin 1.1 MG/DL (0.2-1.0) 1.1 MG/DL (0.2-1.0) Sodium Level 142 MEQ/L (136-145) 141 MEQ/L (136-145) 138 MEQ/L (136-145) Potassium Level 3.6 MEQ/L (3.5-5.1) 3.3 MEQ/L (3.5-5.1) 3.6 MEQ/L (3.5-5.1) Chloride Level 112 MEQ/L (98-107) 111 MEQ/L (98-107) 107 MEQ/L (98-107) Carbon Dioxide Level 24.8 MEQ/L (21.0-32.0) 23.4 MEQ/L (21.0-32.0) 22.1 MEQ/L (21.0-32.0) Anion Gap 5 MEQ/L (5-15) 7 MEQ/L (5-15) 9 MEQ/L (5-15) Estimat Glomerular Filtration Rate 94 ML/MIN (>89) 111 ML/MIN (>89) 53 ML/MIN (>89) Hemoglobin A1c 5.2 % (4.3-6.0) Protein Corrected Calcium 8.2 MG/DL (8.5-10.1) Ammonia 54 MCMOL/L (11-32) 47 MCMOL/L (11-32) 19 MCMOL/L (11-32) Free Thyroxine 0.86 NG/DL (0.76-1.46) Thyroid Stimulating Hormone 3rd Gen 3.610 uIU/ML (0.358-3.740) Direct Bilirubin 0.5 MG/DL (0.0-0.2) Indirect Bilirubin 0.6 MG/DL (0.0-0.8) B-Type Natriuretic Peptide 1712 PG/ML (0-100) Test 11/16/17 09:48 11/16/17 12:45 11/16/17 15:26 Random Glucose 56 MG/DL (74-106) Peritoneal Fluid WBC 4658 /MM3 (0-10) Peritoneal Fluid RBC 495 /MM3 (0-0) Peritoneal Fluid Neutrophils 86 % Peritoneal Fluid Lymphocytes 1 % Peritoneal Fluid Monocytes 11 % Peritoneal Fluid Eosinophils 1 % Peritoneal Fluid Mesothelial Cells 1 % Peritoneal Fluid Albumin 0.7 G/DL Result Diagram: 11/16/17 0403 11/16/17 0948 Microbiology Microbiology Date/Time Source Procedure Growth Status 11/16/17 15:24 Blood Peripheral Aerobic Blood Culture Pending Received 11/16/17 15:24 Blood Peripheral Anaerobic Blood Culture Pending Received 11/16/17 12:45 Fluid Peritoneal Fluid Gram Stain Pending Received 11/16/17 12:45 Fluid Peritoneal Fluid Body Fluid Culture Pending Received Imaging Last Impressions Cyst Biopsy Asp-Paracentesis US 11/16/17 0000 Signed Impressions: Service Date/Time: October 10:09 - CONCLUSION: Uncomplicated ultrasound guided paracentesis. Danny Younger MD Abdomen/Pelvis CT 11/16/17 0000 Signed Impressions: Service Date/Time: October 11:37 - CONCLUSION: There is extensive ascites throughout the abdomen. The liver is abnormal with a cirrhotic appearance. There is extensive pneumatosis in the right colon, in loops of small bowel in the midabdomen, and also air throughout the liver concerning for portal venous air. I don't see any obvious free air or anything to suggest obstruction. There is extensive pneumatosis and portal venous air are concerning for possible bowel necrosis. Winston Moreno MD Abdomen X-Ray 11/15/17 0000 Signed Impressions: Service Date/Time: Wednesday, November 15, 2017 15:21 - CONCLUSION: 1. Air distention of small bowel loops and most of the colon with a possible transition in the region of the descending. 2. Small amount of air in the rectal vault. Plain film findings are concerning for a partial bowel obstruction in the region of the descending colon. CT could be performed for further characterization. 3. No pneumoperitoneum. Oswaldo Carr MD Head CT 11/10/171715 Signed Impressions: Service Date/Time: Friday, November 10, 2017 17:58 - CONCLUSION: Normal examination for a patient of this age. No significant change has occurred. Jus Schmitz MD Chest X-Ray 11/10/171715 Signed Impressions: Service Date/Time: Friday, November 10, 2017 17:27 - CONCLUSION: No significant change with the left lower lung infiltrate. The right lung is clear and well-aerated. Crow Umaña MD Procedures 11/13-paracentesis Assessment and Plan Disease Oriented Problem List: (1) COPD (chronic obstructive pulmonary disease) (2) CAD (coronary artery disease) (3) CHF (congestive heart failure) (4) Esophageal varices (5) Severe anemia (6) Lower GI bleed (7) Cirrhosis, alcoholic (8) Acute kidney insufficiency Symptom Scale: (1) Encephalopathy 0-10 Scale: Unable to quantify (2) Pain 0-10 Scale: Unable to quantify Pertinent Non-Medical Issues Psychosocial Retired, served in the ([employer], served in [place] Following his service worked in the [employer] industry and [employer]. . Has 3 sisters who live out of the area remains in close contact with all of them closest with Malathi. Has adult children who live out of the area he does remain in touch with though not in regular communication.. Legal Patient has had encephalopathy, altered mental status multifactorial. His mentation is improving in the past days at times he is oriented though it also appears to continue to fluctuate. He would be best supported in shared decision making, 11/13 he completed healthcare surrogate designating his sister Malathi. Malathi has accepted serving in this role Spiritual/Cultural - Protestant Ethical Issues none identified Important [phone] on 11/17 call 's cell phone as they will be on the road [phone] . Prognosis This patient was admitted for recurrent GI bleed. History of liver failure, recurrent sterilization's, portal hypertension. Increasing debility. Remains ongoing risk for further GI hemorrhage, further complications and recurrent hospitalizations. Appropriate for hospice if goals compatible. Code Status: No Code Plan * Legal decision maker:Patient has had encephalopathy, altered mental status multifactorial. His mentation is improving in the past day or so at times he is oriented though it also appears to continue to fluctuate. He would be best supported in shared decision making, 11/13 completed healthcare surrogate designating his sister Malathi. * Goals: Malathi appears to have an overall good understanding of his overall conditions and expected prognosis. She endorses that he probably wouldn't want recurrent hospitalizations and he Slowly would want DNR status. She indicates he probably won't do well in rehabilitation because he is stubborn, likes to drink and will not want to participate. She understands he is expected to have recurrent hospitalizations, upon review of hospice for comfort versus ongoing aggressive treatments in the coming weeks to months--she indicates she would want to talk more with the patient and assess his understanding and wishes. All questions answered. Provided her with palliative contact information, she will be in town this weekend and is hopeful to assist with decisions further at that time. 11/16/17L:. review new findings, poor prognosis, and pt high risk for rapid clinical decline 2/2 to new findings. Review he may not be a surgical candidate , colorectal eval pending. Malathi very strongly expresses that she would absolutely not want Jhony to undergo any surgical procedure given his underlying conditions, and that he would not want to undergo invasive measures /surgery and subsequent rehabilitation. She will be on the road traveling to [place] most of the day tomorrow and is available via her 's phone adam. She would like to enroll the patient in hospice when she gets here to ensure that he is comfortable and does not suffer with his conditions. She does wish to continue ongoing supportive treatment measures, short of resuscitation/surgery, to keep him Stable (if able) until she gets here. She has also notified additional family who might want to visit him. She expects arrive late Monday/Monday from out of state. * CODE STATUS: DNR * SYMPTOMS: --Encephalopathy-multifactorial, hepatic, anemia- patient currently stable and mental status improving. On lactulose, Xifaxan. --Patient denies pain currently, denies dyspnea or other symptoms. Palliative care will continue to follow during hospital course as condition evolves, to assist patient/decision-maker with understanding of medical conditions, weighing benefits/burdens of treatment options, for clarification of goals of treatment. Additionally will assist with any symptoms of palliative concern . Time Spent Total Floor Time (mins): 40 (chart review,PE, d/w nursing,d/w family ) Attestation To help prompt me to consider important information that might be impacting today's encounter and assessment, information from prior notes written by myself or my colleagues may have been "brought forward" into today's note. My signature on this note, however, is an attestation that I personally performed the exam, history, and/or decision-making noted today, and, unless otherwise indicated, the interactions with patient, family, and staff as well as the review of records all occurred today. I also attest that the listed assessment and stated plan reflect my best clinical judgment today based on the combination of historical information, prior notes, and today's exam/ interactions. When time spent is documented, it refers only to time spent today by the signer, or if indicated, combined time spent today by collaborating physician/nurse practitioner. Keren Wren Nov 16, 2017 17:11
[2017-11-16] MEDS: ATORVASTATIN 40 MG TAB PO SCH (20:29)
[2017-11-16 21:23] LABS: AUTOMATED NEUTROPHIL # 4.5 TH/MM3 (1.8-7.7); BASOPHIL % 0.2 % (0.0-2.0); EOSINOPHIL % 0.4 % (0.0-4.0); LYMPH % 4.4 % (9.0-44.0); LYMPHOCYTE # 0.2 TH/MM3 (1.0-4.8); MEAN CELL VOLUME 94.4 FL (80.0-100.0); MEAN CORPUSCULAR HEMOGLOBIN 30.7 PG (27.0-34.0); MEAN CORPUSCULAR HGB CONC 32.6 % (32.0-36.0); MONO % 12.6 % (0.0-8.0); NEUT % 82.4 % (16.0-70.0); PLATELET COUNT 64 TH/MM3 (150-450); RED BLOOD COUNT 2.44 MIL/MM3 (4.50-5.90); RED CELL DISTRIBUTION WIDTH 16.9 % (11.6-17.2); WHITE BLOOD COUNT 5.5 TH/MM3 (4.0-11.0)
[2017-11-16 21:49] LABS: HEMO FLAGS AUTO DIFF
[2017-11-16 22:24] LABS: BANDS 44 % (0-6); METAMYELOCYTES 4 % (0-1); NEUTROPHIL # MANUAL DIFF 4.8 TH/MM3 (1.8-7.7); PLATELET ESTIMATE SMEAR LOW (NORMAL); PLATELET MORPHOLOGY ENLARGED (NORMAL); POLYS (SEG NEUTROPHILS) 40 % (16-70); SCAN/DIFF FINAL DIFF MANUAL; WBC DIFF SAMPLE 100
[2017-11-16 22:25] LABS: OVALOCYTES 1+ (NORMAL)
[2017-11-17] VITALS: BP_SYST 51; BP_SYST 57; BP_DIAS 29; BP_DIAS 33; PULSE 75; RESP 16; TEMP 91.3; O2SAT 96
[2017-11-17] MEDS: CHLORHEXIDINE GLUCONATE 2 % 1 PACK (2 CLOTHS) TOP SCH (04:00)
[2017-11-17] MEDS: PIPERACIL-TAZO 4.5 GM PREMIX 100 ML IV SCH (04:27)
--- NOTE | 2017-11-17 18:26 | HHI.DS ---
Discharge Summary Admission Date Nov 10, 2017 at 18:43 Admitting Diagnosis GI bleed/severe anemia/altered mental status (1) GI bleed requiring more than 4 units of blood in 24 hours, ICU, or surgery ICD Code: K92.2 - Gastrointestinal hemorrhage, unspecified Diagnosis: Principal (2) Severe anemia ICD Code: D64.9 - Anemia, unspecified Diagnosis: Principal Status: Acute (3) Cirrhosis, alcoholic ICD Code: K70.30 - Alcoholic cirrhosis of liver without ascites Diagnosis: Principal Status: Chronic Brief History - From Admission 72 y/o man with long-standing alcoholic cirrhosis and recent GI bleed. Brought to ED today for confusion. Hgb 3.9 and stool heme positive. Hypotensive on arrival. Ammonia 68. INR 2.2 and confusing history of possible xarelto use. CBC/BMP: 11/16/17 2104 11/16/17 1526 Significant Findings Laboratory Tests Test 11/15/17 06:20 11/15/17 06:30 11/16/17 04:03 11/16/17 09:48 Blood Urea Nitrogen 24 MG/DL (7-18) 27 MG/DL (7-18) Calcium Level 7.6 MG/DL (8.5-10.1) 7.6 MG/DL (8.5-10.1) Potassium Level 3.3 MEQ/L (3.5-5.1) Chloride Level 111 MEQ/L (98-107) Total Bilirubin 1.1 MG/DL (0.2-1.0) Direct Bilirubin 0.5 MG/DL (0.0-0.2) Total Protein 4.9 GM/DL (6.4-8.2) Albumin 2.2 GM/DL (3.4-5.0) White Blood Count 12.0 TH/MM3 (4.0-11.0) Red Blood Count 3.18 MIL/MM3 (4.50-5.90) 3.21 MIL/MM3 (4.50-5.90) Hemoglobin 10.1 GM/DL (13.0-17.0) 10.1 GM/DL (13.0-17.0) Hematocrit 29.6 % (39.0-51.0) 30.3 % (39.0-51.0) Platelet Count 88 TH/MM3 (150-450) 99 TH/MM3 (150-450) Prothrombin Time 15.5 SEC (9.8-11.6) 19.4 SEC (9.8-11.6) Activated Partial Thromboplast Time 32.2 SEC (24.3-30.1) 38.1 SEC (24.3-30.1) Ammonia 47 MCMOL/L (11-32) Red Cell Distribution Width 17.3 % (11.6-17.2) Creatinine 1.33 MG/DL (0.60-1.30) Random Glucose 37 MG/DL (74-106) 56 MG/DL (74-106) Estimat Glomerular Filtration Rate 53 ML/MIN (>89) B-Type Natriuretic Peptide 1712 PG/ML (0-100) Test 11/16/17 12:45 11/16/17 15:26 11/16/17 19:37 11/16/17 21:04 Peritoneal Fluid WBC 4658 /MM3 (0-10) Peritoneal Fluid RBC 495 /MM3 (0-0) Blood Urea Nitrogen 31 MG/DL (7-18) Creatinine 1.65 MG/DL (0.60-1.30) Random Glucose 58 MG/DL (74-106) Total Protein 3.7 GM/DL (6.4-8.2) Albumin 1.5 GM/DL (3.4-5.0) Calcium Level 7.2 MG/DL (8.5-10.1) Alkaline Phosphatase 37 U/L (45-117) Aspartate Amino Transf (AST/SGOT) 49 U/L (15-37) Total Bilirubin 1.3 MG/DL (0.2-1.0) Sodium Level 135 MEQ/L (136-145) Carbon Dioxide Level 19.8 MEQ/L (21.0-32.0) Estimat Glomerular Filtration Rate 41 ML/MIN (>89) Lactic Acid Level 2.6 mmol/L (0.4-2.0) Red Blood Count 2.44 MIL/MM3 (4.50-5.90) Hemoglobin 7.5 GM/DL (13.0-17.0) Hematocrit 23.0 % (39.0-51.0) Platelet Count 64 TH/MM3 (150-450) Neutrophils (%) (Auto) 82.4 % (16.0-70.0) Lymphocytes (%) (Auto) 4.4 % (9.0-44.0) Monocytes (%) (Auto) 12.6 % (0.0-8.0) Lymphocytes # (Auto) 0.2 TH/MM3 (1.0-4.8) Band Neutrophils % 44 % (0-6) Lymphocytes % 8 % (9-44) Metamyelocytes 4 % (0-1) Platelet Estimate LOW (NORMAL) Platelet Morphology Comment ENLARGED (NORMAL) Ovalocytes 1+ (NORMAL) Fitz Granger MD Nov 17, 2017 18:26
--- NOTE | 2017-11-17 18:27 | HHI.DS ---
Summary Note Date of : Nov 17, 2017 Time Of : 526 Admission Date Nov 10, 2017 at 18:43 Admitting Diagnosis GI bleed/severe anemia/altered mental status Diagnosis at Time of : (1) GI bleed requiring more than 4 units of blood in 24 hours, ICU, or surgery ICD Code: K92.2 - Gastrointestinal hemorrhage, unspecified Diagnosis: Principal (2) Severe anemia ICD Code: D64.9 - Anemia, unspecified Diagnosis: Principal (3) Cirrhosis, alcoholic ICD Code: K70.30 - Alcoholic cirrhosis of liver without ascites Diagnosis: Principal Brief History 72 y/o man with long-standing alcoholic cirrhosis and recent GI bleed. Brought to ED today for confusion. Hgb 3.9 and stool heme positive. Hypotensive on arrival. Ammonia 68. INR 2.2 and confusing history of possible xarelto use. CBC/BMP: 11/16/17 2104 11/16/17 1526 Significant Findings Laboratory Tests Test 11/15/17 06:20 11/15/17 06:30 11/16/17 04:03 11/16/17 09:48 Blood Urea Nitrogen 24 MG/DL (7-18) 27 MG/DL (7-18) Calcium Level 7.6 MG/DL (8.5-10.1) 7.6 MG/DL (8.5-10.1) Potassium Level 3.3 MEQ/L (3.5-5.1) Chloride Level 111 MEQ/L (98-107) Total Bilirubin 1.1 MG/DL (0.2-1.0) Direct Bilirubin 0.5 MG/DL (0.0-0.2) Total Protein 4.9 GM/DL (6.4-8.2) Albumin 2.2 GM/DL (3.4-5.0) White Blood Count 12.0 TH/MM3 (4.0-11.0) Red Blood Count 3.18 MIL/MM3 (4.50-5.90) 3.21 MIL/MM3 (4.50-5.90) Hemoglobin 10.1 GM/DL (13.0-17.0) 10.1 GM/DL (13.0-17.0) Hematocrit 29.6 % (39.0-51.0) 30.3 % (39.0-51.0) Platelet Count 88 TH/MM3 (150-450) 99 TH/MM3 (150-450) Prothrombin Time 15.5 SEC (9.8-11.6) 19.4 SEC (9.8-11.6) Activated Partial Thromboplast Time 32.2 SEC (24.3-30.1) 38.1 SEC (24.3-30.1) Ammonia 47 MCMOL/L (11-32) Red Cell Distribution Width 17.3 % (11.6-17.2) Creatinine 1.33 MG/DL (0.60-1.30) Random Glucose 37 MG/DL (74-106) 56 MG/DL (74-106) Estimat Glomerular Filtration Rate 53 ML/MIN (>89) B-Type Natriuretic Peptide 1712 PG/ML (0-100) Test 11/16/17 12:45 11/16/17 15:26 11/16/17 19:37 11/16/17 21:04 Peritoneal Fluid WBC 4658 /MM3 (0-10) Peritoneal Fluid RBC 495 /MM3 (0-0) Blood Urea Nitrogen 31 MG/DL (7-18) Creatinine 1.65 MG/DL (0.60-1.30) Random Glucose 58 MG/DL (74-106) Total Protein 3.7 GM/DL (6.4-8.2) Albumin 1.5 GM/DL (3.4-5.0) Calcium Level 7.2 MG/DL (8.5-10.1) Alkaline Phosphatase 37 U/L (45-117) Aspartate Amino Transf (AST/SGOT) 49 U/L (15-37) Total Bilirubin 1.3 MG/DL (0.2-1.0) Sodium Level 135 MEQ/L (136-145) Carbon Dioxide Level 19.8 MEQ/L (21.0-32.0) Estimat Glomerular Filtration Rate 41 ML/MIN (>89) Lactic Acid Level 2.6 mmol/L (0.4-2.0) Red Blood Count 2.44 MIL/MM3 (4.50-5.90) Hemoglobin 7.5 GM/DL (13.0-17.0) Hematocrit 23.0 % (39.0-51.0) Platelet Count 64 TH/MM3 (150-450) Neutrophils (%) (Auto) 82.4 % (16.0-70.0) Lymphocytes (%) (Auto) 4.4 % (9.0-44.0) Monocytes (%) (Auto) 12.6 % (0.0-8.0) Lymphocytes # (Auto) 0.2 TH/MM3 (1.0-4.8) Band Neutrophils % 44 % (0-6) Lymphocytes % 8 % (9-44) Metamyelocytes 4 % (0-1) Platelet Estimate LOW (NORMAL) Platelet Morphology Comment ENLARGED (NORMAL) Ovalocytes 1+ (NORMAL) Fitz Granger MD Nov 17, 2017 18:27
== END 2017-11-17 05:27 | disposition expired | DRG 377 ==
LOC: NEDAMB 17:05 → NEDA 18:43 → HIME 21:40 → N05B 11-13 15:29
PROVIDERS: ADMIT Internal Medicine; ATTEND Internal Medicine
PROC: 30233N1 Transfusion of Nonautologous Red Blood Cells into Peripheral Vein, Percutaneous Approach (ICD-10-PCS; 2017-11-10)
PROC: 0D568ZZ Destruction of Stomach, Via Natural or Artificial Opening Endoscopic (ICD-10-PCS; 2017-11-11)
PROC: 30233K1 Transfusion of Nonautologous Frozen Plasma into Peripheral Vein, Percutaneous Approach (ICD-10-PCS; 2017-11-11)
PROC: 06L38CZ Occlusion of Esophageal Vein with Extraluminal Device, Via Natural or Artificial Opening Endoscopic (ICD-10-PCS; principal; 2017-11-11 09:44)
PROC: 0W9G3ZZ Drainage of Peritoneal Cavity, Percutaneous Approach (ICD-10-PCS; 2017-11-13)
PROC: 0W9G3ZX Drainage of Peritoneal Cavity, Percutaneous Approach, Diagnostic (ICD-10-PCS; 2017-11-16)
DX: K31.811 Angiodysplasia of stomach and duodenum with bleeding (principal); E43 Unspecified severe protein-calorie malnutrition; K65.2 Spontaneous bacterial peritonitis; A41.9 Sepsis, unspecified organism; R57.8 Other shock; R65.21 Severe sepsis with septic shock; K55.029 Acute infarction of small intestine, extent unspecified; N17.9 Acute kidney failure, unspecified; D68.9 Coagulation defect, unspecified; I11.0 Hypertensive heart disease with heart failure; K76.6 Portal hypertension; E87.0 Hyperosmolality and hypernatremia; D62 Acute posthemorrhagic anemia; J98.11 Atelectasis; I50.9 Heart failure, unspecified; D69.59 Other secondary thrombocytopenia; K70.31 Alcoholic cirrhosis of liver with ascites; K72.90 Hepatic failure, unspecified without coma; E78.00 Pure hypercholesterolemia, unspecified; K21.9 Gastro-esophageal reflux disease without esophagitis; K44.9 Diaphragmatic hernia without obstruction or gangrene; K29.50 Unspecified chronic gastritis without bleeding; E83.51 Hypocalcemia; I86.4 Gastric varices; B19.20 Unspecified viral hepatitis C without hepatic coma; I25.10 Atherosclerotic heart disease of native coronary artery without angina pectoris; I85.00 Esophageal varices without bleeding; F17.210 Nicotine dependence, cigarettes, uncomplicated; K31.89 Other diseases of stomach and duodenum; K43.9 Ventral hernia without obstruction or gangrene; J44.9 Chronic obstructive pulmonary disease, unspecified; Z51.5 Encounter for palliative care; R06.89 Other abnormalities of breathing; R73.9 Hyperglycemia, unspecified; Z66 Do not resuscitate; E87.6 Hypokalemia; I25.2 Old myocardial infarction; Z95.1 Presence of aortocoronary bypass graft
CPT/HCPCS: 36430; 49082; 49083; 51702; 70450; 71010; 74000; 74177; 76937; 80048; 80053; 80076; 80307; 81001; 82042; 82140; 82550; 82947; 82948; 83036; 83605; 83735; 83880; 84100; 84155; 84439; 84443; 84484; 85007; 85014; 85018; 85025; 85027; 85610; 85730; 86850; 86900; 86901; 86920; 86927; 87040; 87070; 87086; 87205; 87641; 88112; 88305; 89051; 93005; 94150; 94640; 94664; 94667; 94668; C1729; C9113; J0610; J0696; J1610; J1940; J2354; J2543; J3411; J3480; J7030; J7040; J7050; P9016; P9017; P9045; P9047; Q9967